=== PATIENT | male | born 1965 | race Caucasian/White ===

== ENCOUNTER 2023-03-22 12:35 | Outpatient (OUT) | payer OTHER, SELFPAY ==
[2023-03-22 13:47] LABS: Basophils Percent Auto 0.5 % (0.2-2.0); Eosinophils Absolute Auto 0.4 10^3/uL (0.0-0.7); Eosinophils Percent Auto 4.6 % (0.9-7.0); Hematocrit 41.5 % (42.0-54.0); Hemoglobin 14.3 g/dL (14.0-18.0); Immature Granulocytes Abs Auto 0.03 10^3/uL (0.00-0.03); Immature Granulocytes Pct Auto 0.4 % (0.0-0.5); Lymphocytes Absolute Auto 2.1 10^3/uL (1.2-3.8); Mean Corpuscular HGB Conc 34.5 g/dL (29.9-35.2); Mean Corpuscular Hemoglobin 29.2 pg (25.9-34.0); Mean Corpuscular Volume 84.7 fL (80.0-94.0); Mean Platelet Volume 10.2 fL (9.5-13.5); Monocytes Absolute Auto 0.7 10^3/uL (0.3-0.8); Monocytes Percent Auto 8.6 % (1.7-12.0); Neutrophils Absolute Auto 4.7 10^3/uL (1.4-6.5); Neutrophils Percent Auto 59.9 % (43.0-75.0); Platelet Count 195 10^3/uL (150-450); Red Cell Distribution Width 13.3 % (11.0-15.0); White Blood Count 7.9 10^3/uL (4.0-11.0)
[2023-03-22 14:43] LABS: Alanine Aminotransferase 83 U/L (16-63); Albumin Globulin Ratio 1.2; Alkaline Phosphatase 51 U/L (46-116); Anion Gap 13.6; Aspartate Amino Transferase 37 U/L (15-37); BUN Creatinine Ratio 17.2; Bilirubin Total 0.6 mg/dL (0.2-1.0); Calcium 8.8 mg/dL (8.5-10.1); Carbon Dioxide 25.5 mmol/L (21.0-32.0); Chloride 105 mmol/L (98-107); Chol HDL Ratio 3.9; Cholesterol 140 mg/dL (<=200); Estimated GFR (African America >60 (>=60); Estimated GFR (Non-African Ame >60 (>=60); Globulin 3.3 g/dL; Glucose 105 mg/dL (74-106); HDL Cholesterol 36 mg/dL (40-60); Potassium 4.1 mmol/L (3.5-5.1); Sodium 140 mmol/L (136-145); Total Protein 7.3 g/dL (6.4-8.2); Triglycerides 203 mg/dL (<=150); Uric Acid 6.4 mg/dL (3.5-7.2); VLDL CHOLESTEROL 40.6 mg/dL
[2023-03-22 14:47] LABS: Prostate Specific Antigen Scrn <0.13 ng/mL (<=4.00)
[2023-03-22 15:33] LABS: Estimated Average Glucose 131 mg/dL; Glycohemoglobin A1C 6.2 % (4.5-6.2)
[2023-03-23 11:09] LABS: Insulin 13.3 uIU/mL (2.6-24.9)
== END 2023-03-22 12:36 | disposition home or self-care (01) ==
LOC: LAB 12:38
PROVIDERS: PCP Family Medicine; Visit Provider Family Medicine
DX: Z00.00 Encounter for general adult medical examination without abnormal findings (principal); Z12.5 Encounter for screening for malignant neoplasm of prostate
CPT/HCPCS: 36415; 80053; 80061; 83036; 83525; 84550; 85025; G0103

== ENCOUNTER 2023-07-10 20:07 | Emergency (ER) | payer OTHER, SELFPAY ==
[2023-07-10] VITALS (17 sets, daily range): BP systolic 129–167; BP diastolic 79–101; PULSE 65–78; RESP 14–26; TEMP 36.6; O2SAT 90–99; BMI 25.1
--- NOTE | 2023-07-10 20:31 | XR_ITS ---
The [address] [address] Patient Name: ELIZA JUAN MRN: [id number] date: 1965 Sex: M Assigned Patient Location: ER Current Patient Location: ER Accession/Order Number: [id number] Exam Date: 07/10/2023 20:41 Report Date: 07/10/2023 21:08 At the request of: LORA MEJIA Procedure: XR chest 2V EXAMINATION: XR chest 2V HISTORY: Chest pain, cough and dyspnea COMPARISON: Chest x-rays 08/21/2019 TECHNIQUE: PA and lateral chest x-rays FINDINGS: The lung parenchyma is free of consolidation or infiltrate. No pneumothorax or pleural effusion. The cardiac, mediastinal and hilar contours are normal. The visualized osseous structures exhibit no gross abnormality. XR/XR chest 2V IMPRESSION: No acute cardiopulmonary abnormality. Electronically authenticated by: CHIN RODRIGUEZ Date: 07/10/2023 21:08
--- NOTE | 2023-07-10 20:31 | ECG_ITS ---
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
[2023-07-10 20:38] LABS: Basophils Absolute Auto 0.1 10^3/uL (0.0-0.1); Basophils Percent Auto 0.5 % (0.2-2.0); Eosinophils Absolute Auto 0.3 10^3/uL (0.0-0.7); Eosinophils Percent Auto 3.7 % (0.9-7.0); Hematocrit 41.9 % (42.0-54.0); Immature Granulocytes Abs Auto 0.04 10^3/uL (0.00-0.03); Immature Granulocytes Pct Auto 0.4 % (0.0-0.5); Lymphocytes Absolute Auto 2.8 10^3/uL (1.2-3.8); Lymphocytes Percent Auto 30.6 % (20.5-60.0); Mean Corpuscular HGB Conc 33.4 g/dL (29.9-35.2); Mean Corpuscular Hemoglobin 29.2 pg (25.9-34.0); Mean Corpuscular Volume 87.3 fL (80.0-94.0); Monocytes Absolute Auto 0.7 10^3/uL (0.3-0.8); Monocytes Percent Auto 7.7 % (1.7-12.0); Neutrophils Absolute Auto 5.3 10^3/uL (1.4-6.5); Neutrophils Percent Auto 57.1 % (43.0-75.0); Platelet Count 202 10^3/uL (150-450); Red Cell Distribution Width 13.4 % (11.0-15.0); White Blood Count 9.3 10^3/uL (4.0-11.0)
--- NOTE | 2023-07-10 20:46 | ED.CHESTPAI1 ---
HPI - Chest Pain General Chief Complaint: Chest Pain Stated Complaint: CHEST TIGHTNESS SOB Time Seen by Provider: 07/10/23 20:20 Source: patient Mode of arrival: walk-in Limitations: no limitations History of Present Illness HPI narrative: 58-year-old male presents her chief complaint of right sided chest wall pain. He states the pain is increased with deep inspiration and movement. He's had cough and congestion for the past couple of weeks. He states the pain was worse today. He does have a history of an myocardial infarction in the past. States this pain is not similar to previous chest pain he had. He is afebrile. Dry nonproductive cough. Exacerbating factors: Reports inspiration and movement Related Data Home Medications Medication Instructions Recorded Confirmed atorvastatin 80 mg tablet 80 mg PO DAILY 07/10/23 07/10/23 carvedilol 3.125 mg tablet 3.125 mg PO BID 07/10/23 07/10/23 dutasteride 0.5 mg capsule 0.5 mg PO DAILY 07/10/23 07/10/23 lisinopril 5 mg tablet 5 mg PO DAILY 07/10/23 07/10/23 Allergies Allergy/AdvReac Type Severity Reaction Status Date / Time ibuprofen Allergy Severe Verified 07/10/23 20:19 Review of Systems ROS Narrative All Systems are negative except as noted/marked.All systems reviewed and otherwise negative Exam Narrative Exam Narrative: Patient is a All Systems are negative except as noted/marked.All systems reviewed and otherwise negative Nurses note and vital signs reviewed and patient is not hypoxic. General: The patient appears well and in no apparent distress. Patient is resting comfortably on cart. Skin: Warm, dry, no pallor noted. There is no rash noted. Head: Normocephalic, atraumatic Eye: Normal conjunctiva, no drainage, EOMI. PERRL Ears, Nose, Mouth, and Throat: oral mucosa is moist. Nares patent. Mouth without vesicles. Ear canals patent. Tm's without Erythema Cardiovascular: Regular Rate and Rhythm Respiratory: Patient is in no distress, no accessory muscle use, lungs are clear to auscultation, no wheezing, rales or rhonchi Back: non-tender, no CVA tenderness bilaterally to percussion. Musculoskeletal: The patient has no evidence of calf tenderness, no pitting edema, symmetrical pulses noted bilaterally Neurological: A&O x4, normal speech Psychiatric: Cooperative Constitutional Vital Signs, click to edit/add: Last Vital Signs Temp 98 F 07/10/23 20:11 Pulse 78 07/10/23 21:13 Resp 18 07/10/23 21:13 BP 136/94 H 07/10/23 20:30 Pulse Ox 98 07/10/23 21:13 O2 Del Method Room Air 07/10/23 21:13 Course Vital Signs Vital signs: Vital Signs Temperature 98 F 07/10/23 20:11 Pulse Rate 71 07/10/23 20:11 Respiratory Rate 21 07/10/23 20:11 Blood Pressure 166/100 H 07/10/23 20:11 Pulse Oximetry 98 07/10/23 20:11 Oxygen Delivery Method Room Air 07/10/23 20:11 Temperature 98 F 07/10/23 20:11 Pulse Rate 78 07/10/23 21:13 Respiratory Rate 18 07/10/23 21:13 Blood Pressure 136/94 H 07/10/23 20:30 Pulse Oximetry 98 07/10/23 21:13 Oxygen Delivery Method Room Air 07/10/23 21:13 MDM - Chest Pain MDM Narrative Medical decision making narrative: patient presented here chief complaint of chest pain.. A heart attack in the past. This pain is under the right rib cage and is reproducible with deep inspiration and movement. Patient is pleuritic in nature she's had cough and congestion for last couple weeks. Chest x-ray showed no acute abnormalities. Patient's been afebrile with a cough for the past couple weeks. CBC BMP and troponin are all negative EKG was also normal. Patient was medicated with ten of Decadron as he is ALLERGIC to ibuprofen. Discharged from diagnosis chest wall pain, costochondritis. Reasons to return to emergency room were discussed. Differential Diagnosis Differential diagnosis: Likely costochondritis and chest pain Medical Records Data Attestation: I reviewed the patient's medical records. Lab Data Attestation: I reviewed the patient's lab results. Labs: Lab Results 07/10/23 Range/Units 20:19 WBC 9.3 (4.0-11.0) 10^3/uL RBC 4.80 (4.70-6.10) 10^6/uL Hgb 14.0 (14.0-18.0) g/dL Hct 41.9 L (42.0-54.0) % MCV 87.3 (80.0-94.0) fL MCH 29.2 (25.9-34.0) pg MCHC 33.4 (29.9-35.2) g/dL RDW 13.4 (11.0-15.0) % Plt Count 202 (150-450) 10^3/uL MPV 10.0 (9.5-13.5) fL Neut % (Auto) 57.1 (43.0-75.0) % Lymph % (Auto) 30.6 (20.5-60.0) % Harmon % (Auto) 7.7 (1.7-12.0) % Eos % (Auto) 3.7 (0.9-7.0) % Baso % (Auto) 0.5 (0.2-2.0) % Neut # (Auto) 5.3 (1.4-6.5) 10^3/uL Lymph # (Auto) 2.8 (1.2-3.8) 10^3/uL Harmon # (Auto) 0.7 (0.3-0.8) 10^3/uL Eos # (Auto) 0.3 (0.0-0.7) 10^3/uL Baso # (Auto) 0.1 (0.0-0.1) 10^3/uL Abs Immat Gran (auto) 0.04 H (0.00-0.03) 10^3/uL Imm/Tot Granulo (auto) 0.4 (0.0-0.5) % Sodium 134 L (136-145) mmol/L Potassium 3.4 L (3.5-5.1) mmol/L Chloride 102 (98-107) mmol/L Carbon Dioxide 26.4 (21.0-32.0) mmol/L Anion Gap 9.0 BUN 16.0 (7.0-18.0) mg/dL Creatinine 1.05 (0.70-1.30) mg/dL Est GFR ( Amer) >60 (>=60) Est GFR (Non-Af Amer) >60 (>=60) BUN/Creatinine Ratio 15.2 Glucose 129 H (74-106) mg/dL Calcium 8.9 (8.5-10.1) mg/dL Total Bilirubin 0.4 (0.2-1.0) mg/dL AST 32 (15-37) U/L ALT 59 (16-63) U/L Alkaline Phosphatase 44 L (46-116) U/L Troponin I High Sens 6.6 (4.0-76.1) pg/mL Total Protein 7.0 (6.4-8.2) g/dL Albumin 3.8 (3.4-5.0) g/dL Globulin 3.2 g/dL Albumin/Globulin Ratio 1.2 Imaging Data Chest x-ray: Radiologist's impression: Patient Name: ELIZA JUAN MRN: [id number] date: 1965 Sex: M Assigned Patient Location: ER Current Patient Location: ER Accession/Order Number: [id number] Exam Date: 07/10/2023 20:41 Report Date: 07/10/2023 21:08 At the request of: LORA MEJIA Procedure: XR chest 2V EXAMINATION: XR chest 2V HISTORY: Chest pain, cough and dyspnea COMPARISON: Chest x-rays 08/21/2019 TECHNIQUE: PA and lateral chest x-rays FINDINGS: The lung parenchyma is free of consolidation or infiltrate. No pneumothorax or pleural effusion. The cardiac, mediastinal and hilar contours are normal. The visualized osseous structures exhibit no gross abnormality. IMPRESSION: No acute cardiopulmonary abnormality. Electronically ECG Data Interpretation: 2016 sinuses are normal with a rate67 bpm RI interval 162 ms QRS duration 98 ms,no STEMI Heart Score History: Slightly/Non-Suspicious ECG: Normal Age: >45-<65 years Risk Factors: 1 or 2 Risk Factors Troponin: <Normal Limit Total Heart Score Recommendations & Risks:: 2 Discharge Plan Discharge Chief Complaint: Chest Pain Clinical Impression: Chest pain, Acute costochondritis Patient Disposition: Home, Self-Care Time of Disposition Decision: 21:18 Condition: Good Prescriptions / Home Meds: No Action carvedilol 3.125 mg tablet 3.125 mg PO BID lisinopril 5 mg tablet 5 mg PO DAILY atorvastatin 80 mg tablet 80 mg PO DAILY dutasteride 0.5 mg capsule 0.5 mg PO DAILY Instructions: Costochondritis (ED), Chest Wall Pain (ED) Stand Alone Forms: Portal Instructions Referrals: Alejo Louis MD [Primary Care Provider] - 1 week
[2023-07-10 20:49] LABS: Alanine Aminotransferase 59 U/L (16-63); Albumin Globulin Ratio 1.2; Albumin Level 3.8 g/dL (3.4-5.0); Alkaline Phosphatase 44 U/L (46-116); Aspartate Amino Transferase 32 U/L (15-37); BUN Creatinine Ratio 15.2; Bilirubin Total 0.4 mg/dL (0.2-1.0); Calcium 8.9 mg/dL (8.5-10.1); Carbon Dioxide 26.4 mmol/L (21.0-32.0); Chloride 102 mmol/L (98-107); Estimated GFR (African America >60 (>=60); Estimated GFR (Non-African Ame >60 (>=60); Globulin 3.2 g/dL; Glucose 129 mg/dL (74-106); Potassium 3.4 mmol/L (3.5-5.1); Sodium 134 mmol/L (136-145)
[2023-07-10 20:51] LABS: Troponin I High Sensitivity 6.6 pg/mL (4.0-76.1)
[2023-07-10] MEDS: DEXAMETHASONE SOD PHOS 10 MG/ML VIAL IV (20:59)
[2023-07-10] MEDS: IPRATROPIUM/ALBUTEROL SULFATE 3 ML AMPUL.NEB IH (21:03)
== END 2023-07-10 21:58 | disposition home or self-care (01) ==
PROVIDERS: Physician Assistant; Emergency Provider Student in an Organized Health Care Education/Training Program; PCP Family Medicine
DX: R07.9 Chest pain, unspecified (principal); M94.0 Chondrocostal junction syndrome [Tietze]; I25.2 Old myocardial infarction; Z79.899 Other long term (current) drug therapy
CPT/HCPCS: 36415; 71046; 80053; 83605; 84484; 85025; 87040; 93005; 94640; 96374; 99285; J1100

== ENCOUNTER 2023-12-27 10:17 | Outpatient (OUT) | payer OTHER, SELFPAY ==
--- OUTSIDE RECORDS SUMMARY | 2023-12-27 10:38 | XMS_ITS | CCD ---
Author Organization [facility] Care Team Providers Care Undercover Cop Name Role Phone ИВАН RAMOS AM Unavailable Unavailable ИВАН RAMOS AM Unavailable Unavailable SELF, REFERRED Unavailable Unavailable HOYVERONICADIONISIO Unavailable Unavailable MS Unavailable Unavailable UNKNOWN, PROVIDER Unavailable Unavailable MORA, NATALIA Unavailable Unavailable MORA, NATALIA Unavailable Unavailable HOY, DIONISIO Unavailable Unavailable UNKNOWN, PROVIDER Unavailable Unavailable Nill, Carroll Nash Admitting Unavailable Nill, Carroll Nash Attending Unavailable Nill, Carroll R Referring Unavailable HaileeyDionisio~[id number] UNKNOWN Primary Care Unavailable MISSY, DR NICHOLE Admitting Unavailable HOY, DR NICHOLE Attending Unavailable HOY, DR NICHOLE Primary Care Unavailable HOY, DR NICHOLE Consulting Unavailable HOY, DR NICHOLE Admitting Unavailable HOY, DR NICHOLE Attending Unavailable HOY, DR NICHOLE Primary Care Unavailable HOY, DR NICHOLE Consulting Unavailable HOY, DR NICHOLE Admitting Unavailable HOY, DR NICHOLE Attending Unavailable HOY, DR NICHOLE Primary Care Unavailable HOY, DR NICHOLE Consulting Unavailable ZIEBER, DR JULIO Nash Consulting Unavailable HOY, DR NICHOLE Admitting Unavailable HOY, DR NICHOLE Attending Unavailable HAILEEY, DR NICHOLE Primary Care Unavailable Allergies Allergy Classification Reported Allergen(s) Allergy Type Date of Onset Reaction(s) Facility (4 sources) ibuprofen; Translations: [ibuprofen] Drug Allergy 08-06-2014 [facility] Repository Problems Active Problems Problem Classification Problem Date Documented Date Episodic/Chronic Acute myocardial infarction (3 sources) Non-ST elevation (NSTEMI) myocardial infarction; Translations: [NON-ST ELEVATION (NSTEMI) MYOCARDIAL INFARCTION] Onset: 11-10-2017 Chronic Coronary atherosclerosis and other heart disease (6 sources) 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; Translations: [Atherosclerotic heart disease of bois forte coronary artery without angina pectoris] Onset: 11-10-2017 Chronic Coronary atherosclerosis and other heart disease (1 source) Presence of coronary angioplasty implant and graft; Translations: [PRESENCE OF CORONARY ANGIOPLASTY IMPLANT AND GRAFT] Onset: 04-04-2018 Episodic Disorders of lipid metabolism (5 sources) Hyperlipidemia, unspecified; Translations: [HYPERLIPIDEMIA, UNSPECIFIED] Onset: 11-10-2017 Chronic Essential hypertension (1 source) Essential (primary) hypertension; Translations: [ESSENTIAL (PRIMARY) HYPERTENSION] Onset: 04-04-2018 Chronic Other aftercare (2 sources) residential (current) use of aspirin; 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] Onset: 04-04-2018 Episodic Other screening for suspected conditions (not mental disorders or infectious disease) (1 source) Encounter for screening for malignant neoplasm of prostate; Translations: [ENC SCREEN MALIG NEOPLASM PROSTATE] Onset: 12-31-2021 Episodic Substance-related disorders (1 source) Nicotine dependence, cigarettes, uncomplicated; Translations: [NICOTINE DEPENDENCE, CIGARETTES, UNCOMPLICATED] Onset: 11-10-2017 Chronic Unclassified (2 sources) Unknown / UNK(Unknown) Onset: 11-10-2017 Past or Other Problems Problem Classification Problem Date Documented Da te Episodic/Chronic Diabetes mellitus without complication (1 source) Other abnormal glucose; Translations: [OTHER ABNORMAL GLUCOSE] Onset: 05-23-2021 Episodic Malaise and fatigue (1 source) Other fatigue; Translations: [OTHER FATIGUE] Onset: 05-23-2021 Episodic Screening or history of mental health and substance abuse (5 sources) Personal history of nicotine dependence; Translations: [PERSONAL HISTORY OF NICOTINE DEPENDENCE] Onset: 04-04-2018 Episodic Unclassified (1 source) Family history of ischemic heart disease and other diseases of the circulatory system; Translations: [FAMILY HX OF ISCHEM HEART DIS AND OTH DIS OF THE CIRC SYS] Onset: 11-10-2017 Episodic Results Test Name Value Interpretation Reference Range Facility INSULINon 12-30-2021 Insulin 13.7 uIU/mL Normal 2.6-24.9 [facility] Comment on above: Performed By: #### URIC, CMP, LIPID #### [facility] [address] [address] [address] Kami Torres CBC AUTO DIFFon 12-29-2021 BASO # 0.1 103/ul Normal 0.0-0.1 [facility] Comment on above: Performed By: #### CBC #### [facility] [address] [address] [address] Kami Torres Basophils/100 WBC (Bld) 0.7 % Normal 0.2-2.0 [facility] Comment on above: Performed By: #### CBC #### [facility] [address] [address] [address] Kami Torres EO # 0.4 103/ul Normal 0.0-0.7 [facility] Comment on above: Performed By: #### CBC #### [facility] [address] [address] [address] Kami Torres Eosinophils/100 WBC (Bld) 5.8 % Normal 0.9-7.0 [facility] Comment on above: Performed By: #### CBC #### [facility] [address] [place] [address] Dr. Kami Torres Erythrocyte distribution width (RBC) [Ratio] 13.5 % Normal 11.0-15.0 [facility] Comment on above: Performed By: #### CBC #### [facility] [address] [address] [address] Kami Torres Hematocrit (Bld) [Volume fraction] 41.8 % Critically low 42.0-54.0 [facility] Comment on above: Performed By: #### CBC #### [facility] [address] [place] [address] Dr. Kami Torres Hemoglobin (Bld) [Mass/Vol] 13.6 g/dL Critically low 14.0-18.0 [facility] Comment on above: Performed By: #### CBC #### [facility] [address] [address] [address] Kami Torres IG # 0.05 10e3/ul Critically high 0.00-0.03 [facility] Comment on above: Performed By: #### CBC #### [facility] [address] [address] [address] Kami Torres IG % 0.7 % Critically high 0.0-0.5 [facility] Comment on above: Performed By: #### CBC #### [facility] [address] [place] [address] Dr. Kami Torres LYMPH # 2.2 103/ul Normal 1.2-3.8 [facility] Comment on above: Performed By: #### CBC #### [facility] [address] [place] [address] Dr. Kami Torres Lymphocytes/100 WBC (Bld) 32.5 % Normal 20.5-60.0 [facility] Comment on above: Performed By: #### CBC #### [facility] [address] [place] [address] Dr. Kami Torres MANUAL DIFF REQ NO Normal [facility] Comment on above: Performed By: #### CBC #### [facility] [address] [place] [address] Dr. Kami Torres MCH (RBC) [Entitic mass] 27.9 pg Normal 25.9-34.0 [facility] Comment on above: Performed By: #### CBC #### [facility] [address] [place] [address] Dr. Kami Torres MCHC (RBC) [Mass/Vol] 32.5 g/dL Normal 29.9-35.2 [facility] Comment on above: Performed By: #### CBC #### [facility] [address] [place] [address] Dr. Kami Torres MCV (RBC) [Entitic vol] 85.7 fL Normal 80.0-94.0 [facility] Comment on above: Performed By: #### CBC #### [facility] [address] [place] [address] Dr. Kami Torres MONO # 0.6 103/ul Normal 0.3-0.8 [facility] Comment on above: Performed By: #### CBC #### [facility] [address] [place] [address] Dr. Kami Torres Monocytes/100 WBC (Bld) 8.4 % Normal 1.7-12.0 [facility] Comment on above: Performed By: #### CBC #### [facility] [address] [place] [address] Dr. Kami Torres NEUT # 3.5 103/ul Normal 1.4-6.5 [facility] Comment on above: Performed By: #### CBC #### [facility] [address] [place] [address] Dr. Kami Torres Neutrophils/100 WBC (Bld) 51.9 % Normal 43.0-75.0 [facility] Comment on above: Performed By: #### CBC #### [facility] [address] [place] [address] Dr. Kami Torres Platelet mean volume (Bld) [Entitic vol] 9.9 fL Normal 9.5-13.5 [facility] Comment on above: Performed By: #### CBC #### [facility] [address] [place] [address] Dr. Kami Torres PLT 191 103/ul Normal 150-450 [facility] Comment on above: Performed By: #### CBC #### [facility] [address] [place] [address] Dr. Kami Torres RBC 4.88 106/ul Normal 4.70-6.10 [facility] Comment on above: Performed By: #### CBC #### [facility] [address] [place] [address] Dr. Kami Torres WBC 6.7 103/ul Normal 4.0-11.0 [facility] Comment on above: Performed By: #### CBC #### [facility] [address] [place] [address] Dr. Kami Torres GLYCOHEMOGLOBIN A1Con 2021 ADA RECOMMENDATION SEE BELOW Normal [facility] Comment on above: Result Comment: ADA RECOMMENDED LIMIT 4. 0 - 6.0 ADA THERAPEUTIC TARGET < 7.0 ACTION SUGGESTED > 7.0 Performed By: #### A 1C #### [facility] [address] [place] [address] Dr. Kami Torres Glucose [Mass/Vol] 131 mg/dL Normal [facility] Comment on above: Performed By: #### A1C #### [facility] [address] [place] [address] Dr. Kami Torres HbA1c (Bld) [Mass fraction] 6.2 % Normal 4.5-6.2 [facility] Comment on above: Performed By: #### A1C #### [facility] [address] [address] [address] Kami Torres LIPID PROFILEon 12-29-2021 CHOL-HDL RATIO NORM SEE BELOW Normal [facility] Comment on above: Result Comment: 3.3 - 4.4 LOW RISK 4.4 - 7.1 AVERAGE RISK 7.1 - 11.0 MODERATE RISK >11.0 HIGH RISK Performed By: #### U AMBERLY, CMP, LIPID #### [facility] [address] [address] [address] Kami Torres Cholesterol [Mass/Vol] 151 mg/dL Normal <=200 [facility] Comment on above: Performed By: #### URIC, CMP, LIPID #### [facility] [address] [address] [address] Kami Torres Cholesterol in HDL [Mass/Vol] 40 mg/dL Normal 40-60 [facility] Comment on above: Performed By: #### URIC, CMP, LIPID #### [facility] [address] [address] [address] Kami Torres Cholesterol in LDL [Mass/Vol] 77.6 mg/dL Normal [facility] Comment on above: Performed By: #### URIC, CMP, LIPID #### [facility] [address] [address] [address] Kami Torres Cholesterol.tota l/Cholesterol in HDL [Mass ratio] 3.8 {ratio} Normal [facility] Comment on above: Performed By: #### URIC, CMP, LIPID #### [facility] [address] [address] [address] Kami Torres HDL NORMAL > or = 60 mg/dl - LO W CARDIOVASCULAR RISK <40 mg/dl - HIGH CARDIOVASCULAR RISK Normal [facility] Comment on above: Performed By: #### URIC, CMP, LIPID #### [facility] [address] [address] [address] Kami Torres LDL CALC NORMAL SEE BELOW Normal [facility] Comment on above: Result Comment: <100 mg/dl OPTIMAL 100 - 129 mg/dl NEAR OR ABOVE OPTIMAL 130 - 159 mg/dl BORDERLINE HIGH 160 - 189 mg/dl HIGH >190 mg/dl VERY HIGH Performed By: #### U AMBERLY, CMP, LIPID #### [facility] [address] [place] [address] Dr. Kami Torres Triglyceride [Mass/Vol] 167 mg/dL Critically high <=150 [facility] Comment on above: Performed By: #### URIC, CMP, LIPID #### [facility] [address] [place] [address] Dr. Kami Torres VLDL CALC 33.4 mg/dL Normal [facility] Comment on above: Performed By: #### URIC, CMP, LIPID #### [facility] [address] [place] [address] Dr. Kami Torres PROF 14(COMP METB)on 022 Albumin [Mass/Vol] 3.7 g/dL Normal 3.4-5.0 [facility] Comment on above: Performed By: #### URIC, CMP, LIPID #### [facility] [address] [place] [address] Dr. Kami Torres Albumin/Globulin [Mass ratio] 1.3 {ratio} Normal [facility] Comment on above: Performed By: #### URIC, CMP, LIPID #### [facility] [address] [place] [address] Dr. Kami Torres ALP [Catalytic activity/Vol] 40 U/L Critically low 46-116 [facility] Comment on above: Performed By: #### URIC, CMP, LIPID #### [facility] [address] [place] [address] Dr. Kami Torres ALT [Catalytic activity/Vol] 79 U/L Critically high 16-63 [facility] Comment on above: Performed By: #### URIC, CMP, LIPID #### [facility] [address] [place] [address] Dr. Kami Torres Anion gap [Moles/Vol] 10.2 mmol/L Normal [facility] Comment on above: Performed By: #### URIC, CMP, LIPID #### [facility] [address] [place] [address] Dr. Kami Torres AST [Catalytic activity/Vol] 32 U/L Normal 15-37 [facility] Comment on above: Performed By: #### URIC, CMP, LIPID #### [facility] [address] [place] [address] Dr. Kami Torres Bilirubin [Mass/Vol] 0.5 mg/dL Normal 0.2-1.0 [facility] Comment on above: Performed By: #### URIC, CMP, LIPID #### [facility] [address] [place] [address] Dr. Kami Torres Calcium [Mass/Vol] 8.3 mg/dL Critically low 8.5-10.1 [facility] Comment on above: Performed By: #### URIC, CMP, LIPID #### [facility] [address] [place] [address] Dr. Kami Torres Chloride [Moles/Vol] 107 mmol/L Normal 98-107 [facility] Comment on above: Performed By: #### URIC, CMP, LIPID #### [facility] [address] [place] [address] Dr. Kami Torres CO2 [Moles/Vol] 26.1 mmol/L Normal 21.0-32.0 [facility] Comment on above: Performed By: #### URIC, CMP, LIPID #### [facility] [address] [place] [address] Dr. Kami Torres Creatinine [Mass/Vol] 0.95 mg/dL Normal 0.70-1.30 [facility] Comment on above: Performed By: #### URIC, CMP, LIPID #### [facility] [address] [place] [address] Dr. Kami Torres EGFR-AF BOLIVIAN >60 Normal >=60 [facility] Comment on above: Performed By: #### URIC, CMP, LIPID #### [facility] [address] [place] [address] Dr. Kami Torres EGFR-NON AF BOLIVIAN >60 Normal >=60 [facility] Comment on above: Performed By: #### URIC, CMP, LIPID #### [facility] [address] [place] [address] Dr. Kami Torres Globulin (S) [Mass/Vol] 2.9 g/dL Normal [facility] Comment on above: Performed By: #### URIC, CMP, LIPID #### [facility] [address] [place] [address] Dr. Kami Torres Glucose [Mass/Vol] 96 mg/dL Normal 74-106 [facility] Comment on above: Performed By: #### URIC, CMP, LIPID #### [facility] [address] [place] [address] Dr. Kami Torres Potassium [Moles/Vol] 4.3 mmol/L Normal 3.5-5.1 [facility] Comment on above: Performed By: #### URIC, CMP, LIPID #### [facility] [address] [place] [address] Dr. Kami Torres Protein [Mass/Vol] 6.6 g/dL Normal 6.1-8.2 [facility] Comment on above: Performed By: #### URIC, CMP, LIPID #### [facility] [address] [place] [address] Dr. Kami Torres Sodium [Moles/Vol] 139 mmol/L Normal 136-145 [facility] Comment on above: Performed By: #### URIC, CMP, LIPID #### [facility] [address] [place] [address] Dr. Kami Torres Urea nitrogen [Mass/Vol] 14.0 mg/dL Normal 7.0-18.0 [facility] Comment on above: Performed By: #### URIC, CMP, LIPID #### [facility] [address] [place] [address] Dr. Kami Torres Urea nitrogen/Creatin ine [Mass ratio] 14.7 mg/mg Normal [facility] Comment on above: Performed By: #### URIC, CMP, LIPID #### [facility] [address] [place] [address] Dr. Kami Torres URIC ACID SERUMon 12-29-2021 Urate [Mass/Vol] 6.4 mg/dL Normal 3.5-8.5 [facility] Comment on above: Performed By: #### URIC, CMP, LIPID #### [facility] [address] [place] [address] Dr. Kami Torres CBC AUTO DIFFon 05-19-2021 BASO # 0.1 103/ul Normal 0.0-0.1 [facility] Comment on above: Performed By: #### URIC, CMP, LIPID #### [facility] [address] [place] [address] Dr. Kami Torres Basophils/100 WBC (Bld) 0.7 % Normal 0.2-2.0 [facility] Comment on above: Performed By: #### URIC, CMP, LIPID #### [facility] [address] [place] [address] Dr. Kami Torres EO # 0.9 103/ul Critically high 0.0-0.7 [facility] Comment on above: Performed By: #### URIC, CMP, LIPID #### [facility] [address] [place] [address] Dr. Kami Torres Eosinophils/100 WBC (Bld) 11.3 % Critically high 0.9-7.0 [facility] Comment on above: Performed By: #### URIC, CMP, LIPID #### [facility] [address] [place] [address] Dr. Kami Torres Erythrocyte distribution width (RBC) [Ratio] 13.2 % Normal 11.0-15.0 [facility] Comment on above: Performed By: #### URIC, CMP, LIPID #### [facility] [address] [place] [address] Dr. Kami Torres Hematocrit (Bld) [Volume fraction] 43.7 % Normal 42.0-54.0 [facility] Comment on above: Performed By: #### URIC, CMP, LIPID #### [facility] [address] [place] [address] Dr. Kami Torres Hemoglobin (Bld) [Mass/Vol] 14.6 g/dL Normal 14.0-18.0 [facility] Comment on above: Performed By: #### URIC, CMP, LIPID #### [facility] [address] [place] [address] Dr. Kami Torres IG # 0.05 10e3/ul Critically high 0.00-0.03 [facility] Comment on above: Performed By: #### URIC, CMP, LIPID #### [facility] [address] [place] [address] Dr. Kami Torres IG % 0.6 % Critically high 0.0-0.5 [facility] Comment on above: Performed By: #### URIC, CMP, LIPID #### [facility] [address] [address] [address] Kami Torres LYMPH # 2.0 103/ul Normal 1.2-3.8 [facility] Comment on above: Performed By: #### URIC, CMP, LIPID #### [facility] [address] [place] [address] Dr. Kami Torres Lymphocytes/100 WBC (Bld) 24.3 % Normal 20.5-60.0 [facility] Comment on above: Performed By: #### URIC, CMP, LIPID #### [facility] [address] [place] [address] Dr. Kami Torres MANUAL DIFF REQ NO Normal [facility] Comment on above: Performed By: #### URIC, CMP, LIPID #### [facility] [address] [place] [address] Dr. Kami Torres MCH (RBC) [Entitic mass] 29.0 pg Normal 25.9-34.0 [facility] Comment on above: Performed By: #### URIC, CMP, LIPID #### [facility] [address] [place] [address] Dr. Kami Torres MCHC (RBC) [Mass/Vol] 33.4 g/dL Normal 29.9-35.2 [facility] Comment on above: Performed By: #### URIC, CMP, LIPID #### [facility] [address] [place] [address] Dr. Kami Torres MCV (RBC) [Entitic vol] 86.9 fL Normal 80.0-94.0 [facility] Comment on above: Performed By: #### URIC, CMP, LIPID #### [facility] [address] [place] [address] Dr. Kami Torres MONO # 0.7 103/ul Normal 0.3-0.8 [facility] Comment on above: Performed By: #### URIC, CMP, LIPID #### [facility] [address] [address] [address] Kami Torres Monocytes/100 WBC (Bld) 8.1 % Normal 1.7-12.0 [facility] Comment on above: Performed By: #### URIC, CMP, LIPID #### [facility] [address] [place] [address] Dr. Kami Torres NEUT # 4.5 103/ul Normal 1.4-6.5 [facility] Comment on above: Performed By: #### URIC, CMP, LIPID #### [facility] [address] [place] [address] Dr. Kami Torres Neutrophils/100 WBC (Bld) 55.0 % Normal 43.0-75.0 [facility] Comment on above: Performed By: #### URIC, CMP, LIPID #### [facility] [address] [place] [address] Dr. Kami Torres Platelet mean volume (Bld) [Entitic vol] 10.0 fL Normal 9.5-13.5 [facility] Comment on above: Performed By: #### URIC, CMP, LIPID #### [facility] [address] [place] [address] Dr. Kami Torres PLT 185 103/ul Normal 150-450 [facility] Comment on above: Performed By: #### URIC, CMP, LIPID #### [facility] [address] [place] [address] Dr. Kami Torres RBC 5.03 106/ul Normal 4.70-6.10 [facility] Comment on above: Performed By: #### URIC, CMP, LIPID #### [facility] [address] [place] [address] Dr. Kami Torres WBC 8.3 103/ul Normal 4.0-11.0 [facility] Comment on above: Performed By: #### URIC, CMP, LIPID #### [facility] [address] [place], [place] [id number] Dr. Kami Torres GLYCOHEMOGLOBIN A1Con 2020 ADA RECOMMENDATION ADA THERAPEUTIC TARGET 6.0 - 7.0 ACTION SUGGESTED > 7.0 Normal [facility] Comment on above: Performed By: #### A1C #### [facility] [address] [id number] Trace Adriana Glucose [Mass/Vol] 134 mg/dL Normal [facility] Comment on above: Performed By: #### A1C #### [facility] [address] [id number] Trace Adriana HbA1c (Bld) [Mass fraction] 6.3 % Critically high <=6.0 [facility] Comment on above: Performed By: #### A1C #### [facility] [facility] [address] [place] [address] Trace Adriana LIPID PROFILEon 05-19-2021 CHOL-HDL RATIO NORM SEE BELOW Normal [facility] Comment on above: Result Comment: 3.3 - 4.4 LOW RISK 4.4 - 7.1 AVERAGE RISK 7.1 - 11.0 MODERATE RISK >11.0 HIGH RISK Performed By: #### C MP, LIPID #### [facility] [address] [place] [address] Trace Adriana Cholesterol [Mass/Vol] 155 mg/dL Normal <=200 [facility] Comment on above: Performed By: #### CMP, LIPID #### [facility] [address] [place] [address] Trace Adriana Cholesterol in HDL [Mass/Vol] 37 mg/dL Normal [facility] Comment on above: Performed By: #### CMP, LIPID #### [facility] [address] [phone] Trace Adriana Cholesterol in LDL [Mass/Vol] 49.2 mg/dL Normal [facility] Comment on above: Performed By: #### CMP, LIPID #### [facility] [address] [phone] Trace Adriana Cholesterol.tota l/Cholesterol in HDL [Mass ratio] 4.2 {ratio} Normal [facility] Comment on above: Performed By: #### CMP, LIPID #### [facility] [address] [place], [place] [address] Trace Adriana HDL NORMAL > or = 60 mg/dl - LO W CARDIOVASCULAR RISK <40 mg/dl - HIGH CARDIOVASCULAR RISK Normal [facility] Comment on above: Performed By: #### CMP, LIPID #### [facility] [address] [phone] Trace Adriana LDL CALC NORMAL SEE BELOW Normal [facility] Comment on above: Result Comment: <100 mg/dl OPTIMAL 100 - 129 mg/dl NEAR OR ABOVE OPTIMAL 130 - 159 mg/dl BORDERLINE HIGH 160 - 189 mg/dl HIGH >190 mg/dl VERY HIGH Performed By: #### C MP, LIPID #### [facility] [address] [phone] Trace Adriana Triglyceride [Mass/Vol] 344 mg/dL Critically high <=150 [facility] Comment on above: Performed By: #### CMP, LIPID #### [facility] [address] [phone] Trace Adriana VLDL CALC 68.8 mg/dL Normal [facility] Comment on above: Performed By: #### CMP, LIPID #### [facility] [address] [place], [place] [id number] Tracenicholas Rodasen PROF 14(COMP METB)on 021 Albumin [Mass/Vol] 3.9 g/dL Normal 3.5-5.0 [facility] Comment on above: Performed By: #### CMP, LIPID #### [facility] [address] [place], [place] [phone] Trace Adriana Albumin/Globulin [Mass ratio] 1.2 {ratio} Normal [facility] Comment on above: Performed By: #### CMP, LIPID #### [facility] [address] [place], [place] [phone] Trace Adriana ALP [Catalytic activity/Vol] 50 U/L Normal 38-126 [facility] Comment on above: Performed By: #### CMP, LIPID #### [facility] [address] [place], [place] [phone] Trace Adriaan ALT [Catalytic activity/Vol] 79 U/L Critically high 21-72 [facility] Comment on above: Performed By: #### CMP, LIPID #### [facility] [address] [phone] Trace Adriana Anion gap [Moles/Vol] 13.8 mmol/L Normal [facility] Comment on above: Performed By: #### CMP, LIPID #### [facility] [address] [phone] Trace Adriana AST [Catalytic activity/Vol] 30 U/L Normal 17-59 [facility] Comment on above: Performed By: #### CMP, LIPID #### [facility] [address] [phone] Trace Adriana Bilirubin [Mass/Vol] 0.6 mg/dL Normal 0.2-1.3 [facility] Comment on above: Performed By: #### CMP, LIPID #### [facility] [address] [address] Trace Adriana Calcium [Mass/Vol] 9.2 mg/dL Normal 8.4-10.2 [facility] Comment on above: Performed By: #### CMP, LIPID #### [facility] [address] [phone] Trace Adriana Chloride [Moles/Vol] 103 mmol/L Normal 98-107 [facility] Comment on above: Performed By: #### CMP, LIPID #### [facility] [address] [address] Trace Adriana CO2 [Moles/Vol] 25.5 mmol/L Normal 22.0-30.0 [facility] Comment on above: Performed By: #### CMP, LIPID #### [facility] [address] [phone] Trace Adriana Creatinine [Mass/Vol] 0.89 mg/dL Normal 0.66-1.25 [facility] Comment on above: Performed By: #### CMP, LIPID #### [facility] [address] [phone] Trace Adriana EGFR-AF BOLIVIAN >60 Normal >=60 [facility] Comment on above: Performed By: #### CMP, LIPID #### [facility] [address] [phone] Trace Adriana EGFR-NON AF BOLIVIAN >60 Normal >=60 [facility] Comment on above: Performed By: #### CMP, LIPID #### [facility] [address] [phone] Trace Adriana Globulin (S) [Mass/Vol] 3.3 g/dL Normal [facility] Comment on above: Performed By: #### CMP, LIPID #### [facility] [address] [address] Trace Adriana Glucose [Mass/Vol] 103 mg/dL Normal 74-106 [facility] Comment on above: Performed By: #### CMP, LIPID #### [facility] [address] [place] [address] Trace Adriana Potassium [Moles/Vol] 4.3 mmol/L Normal 3.4-5.0 [facility] Comment on above: Performed By: #### CMP, LIPID #### [facility] [address] [address] Trace Adriana Protein [Mass/Vol] 7.2 g/dL Normal 6.1-8.2 [facility] Comment on above: Performed By: #### CMP, LIPID #### [facility] [address] [place] [address] Trace Adriana Sodium [Moles/Vol] 138 mmol/L Normal 137-145 [facility] Comment on above: Performed By: #### CMP, LIPID #### [facility] [address] [address] Trace Adriana Urea nitrogen [Mass/Vol] 14.0 mg/dL Normal 9.0-20.0 [facility] Comment on above: Performed By: #### CMP, LIPID #### [facility] [address] [phone] Trace Adriana Urea nitrogen/Creatin ine [Mass ratio] 15.7 mg/mg Normal [facility] Comment on above: Performed By: #### CMP, LIPID #### [facility] [address] [phone] [address] LUNG CANCER SCREENINGon 0 01-06-2021 CT LUNG CANCER SCREENING EXAMINATION: CT LUNG CANCER SCREENING HISTORY: Nicotine dependence COMPARISON: No relevant comparison available. TECHNIQUE: Axial, Coronal, and Sagittal images were created without the administration of IV contrast material. Dose reduction techniques were achieved by using automated exposure control and/or adjustment of mA and/or kV according to patient size and/or use of iterative reconstruction technique. FINDINGS: LUNGS: No visible pulmonary disease. PLEURA: No mass, effusion, or pneumothorax. VASCULATURE: No abnormality. ZULMA: No mass or pathologic adenopathy. MEDIASTINUM: No mass or pathologic adenopathy. CARDIAC: No enlargement, pericardial thickening, or significant calcification. AORTA: No aneurysm or dissection. CHEST WALL: No mass or axillary adenopathy BONES: No bone lesion or fracture. LIMITED ABDOMEN: No suspicious findings. Limited images of the upper abdomen. OTHER: Negative. IMPRESSION: 1. LUNG SCREENING: Lung-RADS Category 1 Negative. No nodules and definitely benign nodules. Continue annual screening with LDCT in 12 months. Electronically authenticated by: JULIO BERMEO Date: 2021-01-06 09:16 Normal [facility] Coding Summary.on 01-06-2019 Coding Summary. CODING DATE: 019 FINAL [facility] STATUS: Home (Routine DC) PAYOR: Commercial Insurance APC DESCRIPTION 5312 Level 2 Lower GI Procedures ADMIT DX: REASON FOR VISIT DX: R19.5 Other fecal abnormalities FINAL DX: PRINCIPAL: K63.5 Polyp of colon SECONDARY: R19.5 Other fecal abnormalities I10 Essential (primary) hypertension I25.2 Old myocardial infarction Z95.5 Presence of coronary angioplasty implant and graft Z87.891 Personal history of nicotine dependence PYMT PROC APC STAT DESCRIPTION DOCTOR NAME DATE 10075 5312 T Colonoscopy, flexible; [place] MCKEON MD 01/02/2019 with biopsy, single or multiple 13119 Anesthesia for lower Puri Jr. Jovanni GIBSON 01/02/2019 intestinal endoscopic procedures, endoscope introduced distal to duodenum; not otherwise specified NOTE: The code number assigned matches the documented diagnosis and / or procedure in the patient's chart. However, the narrative phrase printed from the coding software may appear abbreviated, or result in slightly different terminology. Revised Coded By: Gertrude Gomez Revised Date Saved: 01/06/2019 12:59 pm Normal [facility] Main OR Intraoperative Recor don 01-04-2019 Main OR Intraoperative Record IntraOp Document Type FT Summary Primary Physician: [place] MCKEON MD Finalized Date/Time: 01/04/19 08:59:41 Pt. Name: ELIZA RAUSCH /Sex: 1965 Male Med Rec #: [id number] Physician: [place] MCKEON MD Financial #: [id number] Pt. Type: O Room/Bed: / Admit/Disch: 01/02/19 07:01:07 - 01/02/19 23:59:59 Institution: Case Times FT Entry 1 Patient Times In Room 01/02/19 07:48:00 Out Room 01/02/19 08:10:00 Procedure Times Start 01/02/19 07:53:00 Stop 01/02/19 08:07:00 Anesthesia Times Start 01/02/19 07:48:00 Stop 01/02/19 08:10:00 Time at [facility] 01/02/19 08:02:00 Last Modified By: Brit Eugene CST 01/02/19 08:10:49 General Comments: 01/04/2019 Chart opened to review and send charges Krys Eugene CST Case Attendance FT Entry 1 Entry 2 Entry 3 Case Attendee Gio [facility], Charlene MCKEON MD, [place] Hong RN, Maricel Marcano Role Performed Anesthesiologist Surgeon - Primary Life Enrichment Assistant - Primary Lap Runner Time In 01/02/19 07:48:00 01/02/19 07:48:00 01/02/19 07:48:00 Time Out 01/02/19 08:10:00 01/02/19 08:10:00 01/02/19 08:10:00 Procedure COLONOSCOPY(.) COLONOSCOPY(.) COLONOSCOPY(.) Comments DR PURI SUPERVISING Last Modified By: Hal RN, Maricel Hong RN, Maricel Hong RN, Maricel Marcano 01/02/19 08:10:50 01/02/19 08:11:02 01/02/19 08:10:50 Entry 4 Case Attendee Manjinder Gonzalez CST Role Performed Scrub - Primary Time In 01/02/19 07:48:00 Time Out 01/02/19 08:10:00 Procedure COLONOSCOPY(.) Comments Last Modified By: Maricel Hong RN 01/02/19 08:10:50 General Comments: ivory maynard and crow nicholson, nursing students, also in room to observe. ismael ruiz, he[employer] student, also in room to observe. 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 Protocols FT Pre-Care Text: Implements protective measures prior to operative or invasive procedure, confirms identity before the operative or invasive procedure, verifies operative procedure, surgical site, and laterality Entry 1 Procedure(s) COLONOSCOPY(.) Patient Identity Birthday, ID Band Verified (select at Check, Patient least 2): Participation Consents / H and P Anesthesia Consent, Operative Site N/A Verified HandP, Surgery/Procedure Marking Verified Consent Surgical Site Yes Laterality Verified n/a Verified Procedure Verified Yes Correct Patient Yes Position Verified Availability Equipment, Medication Prep Dry n/a Verified (If Applicable) PreOp Antibiotic No Time Out Gio SHAFFER, Charlene Benson, Given Participants BLACK LOVELL, Hal Mack RN, [place] Jay CST, Manjinder Time Out Complete 01/02/19 07:52:00 Outcomes Met? Yes Last Modified By: Maricel Hong RN 01/02/19 07:53:22 Post-Care Text: The patient is free from signs and symptoms of injury caused by extraneous objects Allergy Information FT Pre-Care Text: Verifies allergies Entry 1 Allergies Reviewed? Yes Allergies Reviewed Self/Patient With Outcomes Met? Yes Last Modified By: Maricel Hong RN 01/02/19 07:36:31 Post-Care Text: The patient received appropriate medication(s) safely administered during the perioperative period Surgical Procedures FT Entry 1 Procedure Description Procedure COLONOSCOPY Modifiers . Surgeon Description colonoscopy with cold biopsy Primary Procedure Yes Primary Surgeon [place] MCKEON MD Start 01/02/19 07:53:00 Stop 01/02/19 08:07:00 Anesthesia Type General Surgical Service General Wound Class 2 - Clean-Contaminated Last Modified By: Maricel Hong RN 01/02/19 08:11:25 General Case Data FT Pre-Care Text: Classifies surgical wound, implements aseptic technique, initiates traffic control Entry 1 Case Information OR ENDO 2 FT Case Level Level 2 Wound Class 2 - Clean-Contaminated Specialty General ASA Class 3 Preop Diagnosis BLOOD IN STOOL Postop Same As Preop No Postop Diagnosis sigmoid polyp Outcomes Met? Yes Last Modified By: Maricel Hong RN 01/02/19 08:11:11 Post-Care Text: The patient is free from signs and symptoms of infection Skin Assessment (Pre Procedure) FT Pre-Care Text: Implements protective measures to prevent skin/ tissue injury due to thermal or mechanical sources Evaluates for signs and symptoms of physical injury to skin and tissue Entry 1 Skin Integrity Unable to Visualize Skin Abnormality No Outcomes Met? Yes Last Modified By: Maricel Hong RN 01/02/19 07:41:02 Post-Care Text: The patient is free from signs and symptoms of injury caused by extraneous objects Patient Positioning FT Pre-Care Text: Identifies physical alterations that require additional precautions for procedure-specific positioning, verifies presence of prosthetics or corrective devices, positions the patient, evaluates the patient for signs and symptoms of injury as a result of positioning Entry 1 Procedure COLONOSCOPY(.) Body Position Lateral, right side up Feet Uncrossed? Yes Left Arm Position Resting at Side Right Arm Position Resting at Side Left Leg Position Extended Right Leg Position Extended Positioning Device Pillow Under Head Large Press Points Checked Yes By Maricel Hong RN Outcomes Met? Yes Last Modified By: Maricel Hong RN 01/02/19 07:36:43 Post-Care Text: The patient is free from signs and symptoms of injury related to positioning Patient Care Devices FT Pre-Care Text: Implements protective measures to prevent skin/ tissue injury due to thermal or mechanical sources Entry 1 Entry 2 Equipment Type ENDOSCOPY VIDEO MONITOR CHARGE SURGERY SYSTEM[F] [F] Equipment Number ENDO 2 Equipment Setting Outcomes Met? Yes Yes Last Modified By: Maricel Hong RN, RN, Amy J 01/02/19 07:37:13 01/02/19 07:37:13 Post-Care Text: The patient is free from signs and symptoms of injury caused by extraneous objects Transport To OR FT Pre-Care Text: Transports according to individual needs. Evaluates for signs and symptoms of skin and tissue injury as a result of transfer or transport Entry 1 Via Cart By Maricel Hong RN Safety Precautions Side Rails Up Outcomes Met? Yes Last Modified By: Maricel Hong RN 01/02/19 07:37:26 Post-Care Text: The patient is free from signs and symptoms of injury related to transfer/transport Departure From OR FT Pre-Care Text: Transports according to individual needs. Evaluates for signs and symptoms of skin and tissue injury as a result of transfer or transport. Entry 1 Via Cart Safety Precautions Side Rails Up PostOp Destination PACU Transported By Maricel Hong RN Patient Status Stable Skin. Condition Unable to Visualize Description unchanged Airway Maintenance Oxygen in Use? No Outcomes Met? Yes Last Modified By: Maricel Hong RN 01/02/19 07:58:58 Post-Care Text: The patient is free from signs and symptoms of injury related to transfer/transport Medication Administration FT Pre-Care Text: Verifies allergies, administers prescribed medications and solutions, administers prescribed antibiotic therapy and immunizing agents as ordered, evaluates response to medications Administers prescribed medications and solutions Entry 1 Route of Admin Field Expiration Date Yes Verified Outcomes Met? Yes Last Modified By: Maricel Hong RN 01/02/19 07:37:41 Post-Care Text: The patient received appropriate medication(s) safely administered during the perioperative period For [facility] please see scanned medication reconcilliation form for medications used at the field during the procedure. Cultures and Specimens FT Pre-Care Text: Manages specimen handling and disposition Manages culture specimen collection Entry 1 Cultures Ordered No Specimens Ordered Yes Specimen Disposition Designated OR Area Frozen Section Times Outcomes Met? Yes Last Modified By: Maricel Hong RN 01/02/19 08:11:47 Post-Care Text: The patient is free from signs and symptoms of injury caused by extraneous objects The patient is free from signs and symptoms of infection General Comments: specimen = sigmoid polyp. ismael ruiz Case Comments Finalized By: Brit Eugene CST Document Signatures Signed By: Maricel Hong RN 01/02/19 08:11 Brit Eugene CST 01/04/19 08:59 [facility] History and Physicalon 01-02 History and Physical Patient: ELIZA RAUSCH Age: 53 years Sex: Male : 1965 Associated Diagnoses: None Author: [place] MCKEON MD Subjective no changes to [facility] Comment on above: Result Comment: Electronically Signed By : [place] MCKEON MD\.br\Date and Time Signed: 01/02/19 07:24 EDT Inpatient Patient Summaryon 01-02-2019 Inpatient Patient Summary [facility] Clinical Discharge Instructions PERSON INFORMATION Name: ELIZA RAUSCH PHYSICIANS Admitting Physician: [place] MCKEON MD Attending Physician: [place] MCKEON MD PCP: Missy LOVELL, Dionisio Discharge Diagnosis: Colon polyp Comment: PATIENT EDUCATION INFORMATION Instructions: Colonoscopy, Care After Surgery Franco (Custom); Colon Polyps Medication Leaflets: Follow up: With: Address: When: [place] MCKEON [address] [place] [phone] Business (1) Within 7 to 10 days MEDICATION LIST Comment: Normal [facility] Main OR PACU I Recordon 12-06 Main OR PACU I Record PACU Phase I Document Type FT Summary Primary Physician: [place] MCKEON MD Finalized Date/Time: 01/02/19 08:52:51 Pt. Name: ELIZA RAUSCH /Sex: 1965 Male Med Rec #: [id number] Physician: [place] MCKEON MD Financial #: [id number] Pt. Type: O Room/Bed: / Admit/Disch: 01/02/19 07:01:07 - Institution: Case Times PACU I FT Pre-Care Text: Identifies barriers to communication and implements measures to provide psychological support Develops individualized plan of care, and ensures continuity of care Maintains patient's dignity and privacy, and maintains patient confidentiality Identifies and reports philosophical, cultural, and spiritual beliefs and values Identifies individual values and wishes concerning care Implements aseptic technique, and administers prescribed antibiotic therapy and immunizing agents as ordered Evaluates postoperative tissue perfusion Implements thermoregulation measures, and monitors body temperature Evaluates postoperative respiratory status Evaluates postoperative cardiac status Evaluates postoperative neurological status Assesses pain control, collaborated in initiating patient-controlled analgesia and implements alternative methods of pain control Verifies allergies, administers prescribed medications and solutions, evaluates response to medications Entry 1 In PACU I 01/02/19 08:10:00 Discharge from PACU 01/02/19 08:45:00 I Outcomes Met? Yes Last Modified By: Kalee Hinton RN 01/02/19 08:52:42 Post-Care Text: The patient demonstrates knowledge of the expected response to the operative or invasive procedure The patient's care is consistent with the individualized perioperative plan of care The patient's right to privacy is maintained The patient's value system, lifestyle, ethnicity, and culture are considered, respected, and incorporated into the perioperative plan of care The patient participates in decisions affecting his or her perioperative plan of care The patient is free from signs and symptoms of infection The patient has wound/tissue perfusion consistent with or improved from baseline levels established preoperatively The patient is at or returning to normothermia at the conclusion of the immediate postoperative period The patient's respiratory function is consistent with or improved from baseline levels established preoperatively The patient's cardiovascular status is consistent with or improved from baseline levels established preoperatively The patient's cardiovascular status is consistent with or improved from baseline levels established preoperatively The patient demonstrates and/or reports adequate pain control throughout the perioperative period The patient received appropriate medication(s), safely administered during the perioperative period Acuity Level PACU I FT Entry 1 Start Time 01/02/19 08:10:00 Stop Time 01/02/19 08:45:00 Acuity Level Acuity Level I Last Modified By: Kalee Hinton RN 01/02/19 08:52:50 Finalized By: Kalee Hinton RN Document Signatures Signed By: Kalee Hinton RN 01/02/19 08:49 Kalee Hinton RN 01/02/19 08:52 Normal [facility] Main OR Preoperative Recordo n 01-02-2019 Main OR Preoperative Record Holding Area Document Type FT Summary Primary Physician: [place] MCKEON MD Finalized Date/Time: 01/02/19 07:23:41 Pt. Name: OWENELIZA/Sex: 1965 Male Med Rec #: [id number] Physician: [place] MCKEON MD Financial #: [id number] Pt. Type: O Room/Bed: / Admit/Disch: 01/02/19 07:01:07 - Institution: Case Times Holding FT Pre-Care Text: Verifies consent for planned procedure, identifies individual values and wishes concerning care, includes family members in perioperative teaching Secures patient's records' belongings, and valuables, maintains patient's dignity and privacy, and maintains patient confidentiality Entry 1 In Holding 01/02/19 07:06:00 Outcomes Met? Yes Last Modified By: Maricel Hong RN 01/02/19 07:07:02 Post-Care Text: The patient participates in decisions affecting his or her perioperative plan of care The patient's right to privacy is maintained Surgery Checklist FT Entry 1 Patient Birthday, ID Band Procedure History and Physical, Identification: Check, Patient Verification: Surgical Consent, With Participation Family NPO after Midnight: Yes Personal Items: Dentures, Glasses Personal Items has glasses, lower Limitations: no limitations Comment: dentures in mouth Complaints of Pain: No Operative Site n/a Marking: Availability Equipment Verified: Does Patient Smoke No Patient states Yes Comment - Adult postop adult Supervision supervision available Case Cancelled in No Holding Area see comments below for reason Last Modified By: Maricel Hong RN 01/02/19 07:23:39 Finalized By: Maricel Hong RN Document Signatures Signed By: Maricel Hong RN 01/02/19 07:23 Normal [facility] Operative Reporton 9 Operative Report Date of Surgery: SURGEON: [place] Mckeon M.D. PREOPERATIVE DIAGNOSIS: Occult positive stools POSTOPERATIVE DIAGNOSIS: 2 mm. polyp at 20 cm., distal sigmoid OPERATION: Colonoscopy to cecum with cold forceps polypectomy times one ANESTHESIA: Monitored anesthesia care ESTIMATED BLOOD LOSS: Zero INDICATIONS AND CONSENT: The patient is a 53 year old male with a history of occult positive blood in the stools. The indications, risks, benefits and alternatives of proceeding with colonoscopy were explained extensively to the patient including the risk of bleeding, colon perforation, or anesthetic complications. All of his questions were answered and informed consent was obtained. PROCEDURE: The patient was brought to the Operating Room and placed in the left lateral decubitus position. Monitored anesthesia care was provided. Rectal examination was performed which revealed no masses or blood. The scope was inserted into the anal canal under direct visualization and was advanced, with the aid of abdominal compression, it was advanced to the cecum where cecal markings were clearly identified. Upon withdrawal of the scope the mucosal surfaces were carefully examined. There were no mass lesions or inflammatory changes, no significant diverticulosis. At 20 cm. there was noted to be a 2 mm. sessile polyp that was removed with cold biopsy forceps with good hemostasis. The scope was retroflexed in the anal canal. There was noted to be some prominent rectal veins, no significant hemorrhoidal disease. The scope was then withdrawn. The patient tolerated the procedure well and was sent to the Recovery Room in good condition. Carroll Mckeon M.D. robe Dictated: 01/02/2019 #[id number] Typed: 01/02/2019 #[id number] cc: Martina Draper M.D. [facility] Comment on above: Result Comment: Electronically Signed By : Carroll MCKEON MD.mary\Date and Time Signed: 01/02/19 11:16 EDT Patient Education - Texton 0 01-02-2019 Patient Education - Text Colonoscopy Care After Surgery Please read the instructions outlined below and refer to this sheet in the next few weeks. These discharge instructions provide you with general information on caring for yourself after you leave the hospital. Your doctor may also give you specific instructions. While your treatment has been planned according to the most current medical practices available, unavoidable complications occasionally occur. If you have any problems or questions after discharge, please call your doctor. ACTIVITY You may resume your regular activity, but move at a slower pace for the next 24 hours. Take frequent rest periods for the next 24 hours. Walking will help get rid of the air and reduce the bloated feeling in your abdomen (belly). No driving for 24 hours (because of the anesthesia (medicine) used during the test). You may shower. Do not sign any important legal documents or operate any machinery for 24 hours (because of the anesthesia used during the test). NUTRITION Drink plenty of fluids. You may resume your normal diet as instructed by your doctor. Begin with a light meal and progress to your normal diet. Heavy or fried foods are harder to digest and may make you feel nauseated (sick to your stomach). Avoid alcoholic beverages for 24 hours or as instructed. MEDICATIONS You may resume your normal medications unless your doctor tells you otherwise. WHAT YOU CAN EXPECT TODAY Some feelings of bloating in the abdomen. Passage of more gas than usual. Spotting of blood in your stool or on the toilet paper. IF YOU HAD POLYPS REMOVED DURING THE COLONOSCOPY: No aspirin products for 7 days or as instructed. No alcohol for 7 days or as instructed. Eat a soft diet for the next 24 hours. FOLLOW-UP Your doctor will discuss the results of your test with you. SEEK IMMEDIATE MEDICAL ATTENTION IF: There is more than a spotting of blood in your stool. There is abdominal distention (your abdomen is swollen). There is vomiting. You have a temperature over 101.5 F. There is abdominal pain or discomfort that is severe or gets worse throughout the day. Family Medicine Colon Polyps Polyps are lumps of extra tissue growing inside the body. Polyps can grow in the large intestine (colon). Most colon polyps are noncancerous (benign). However, some colon polyps can become cancerous over time. Polyps that are larger than a pea may be harmful. To be safe, caregivers remove and test all polyps. CAUSES Polyps form when mutations in the genes cause your cells to grow and divide even though no more tissue is needed. RISK FACTORS There are a number of risk factors that can increase your chances of getting colon polyps. They include: ? Being older than 50 years. ? Family history of colon polyps or colon cancer. ? Long-term colon diseases, such as colitis or Crohn disease. ? Being overweight. ? Smoking. ? Being inactive. ? Drinking too much alcohol. SYMPTOMS Most small polyps do not cause symptoms. If symptoms are present, they may include: ? Blood in the stool. The stool may look dark red or black. ? Constipation or diarrhea that lasts longer than 1 week. DIAGNOSIS People often do not know they have polyps until their caregiver finds them during a regular checkup. Your caregiver can use 4 tests to check for polyps: ? Digital rectal exam. The caregiver wears gloves and feels inside the rectum. This test would find polyps only in the rectum. ? Barium enema. The caregiver puts a liquid called barium into your rectum before taking X-rays of your colon. Barium makes your colon look white. Polyps are dark, so they are easy to see in the X-ray pictures. ? Sigmoidoscopy. A thin, flexible tube (sigmoidoscope) is placed into your rectum. The sigmoidoscope has a light and tiny camera in it. The caregiver uses the sigmoidoscope to look at the last third of your colon. ? Colonoscopy. This test is like sigmoidoscopy, but the caregiver looks at the entire colon. This is the most common method for finding and removing polyps. TREATMENT Any polyps will be removed during a sigmoidoscopy or colonoscopy. The polyps are then tested for cancer. PREVENTION To help lower your risk of getting more colon polyps: ? Eat plenty of fruits and vegetables. Avoid eating fatty foods. ? Do not smoke. ? Avoid drinking alcohol. ? Exercise every day. ? Lose weight if recommended by your caregiver. ? Eat plenty of calcium and folate. Foods that are rich in calcium include milk, cheese, and broccoli. Foods that are rich in folate include chickpeas, kidney beans, and spinach. HOME CARE INSTRUCTIONS Keep all follow-up appointments as directed by your caregiver. You may need periodic exams to check for polyps. SEEK MEDICAL CARE IF: You notice bleeding during a bowel movement. Document Released: 05/19/2005 Document Revised: 11/14/2012 Document Reviewed: 11/01/2012 ExitCare? Patient Information ?2014 [employer]. This information is not intended to replace advice given to you by your health care provider. Make sure you discuss any questions you have with your health care provider. [facility] Progress Note-Physicianon Protein mass conc Patient: ELIZA RAUSCH Age: 53 years Sex: Male : 1965 Associated Diagnoses: None Author: Jovanni Puri Jr., DO Postoperative Information Post Operative Note: Post Anesthesia Care Unit. Anesthetic utilized: General. Health Status Allergies: Allergic Reactions (Selected) Severe Ibuprofen- Swelling. Problem list: No problem items selected or recorded. Physical Examination Vital Signs 01/02/2019 08:45 EDT SpO2 98 % 01/02/2019 08:35 EDT Heart Rate Monitored 64 bpm Respiratory Rate Monitored 20.0 br/min Systolic Blood Pressure 111 mmHg Diastolic Blood Pressure 83 mmHg SpO2 95 % 01/02/2019 08:25 EDT Heart Rate Monitored 60 bpm Respiratory Rate Monitored 12.0 br/min Systolic Blood Pressure 107 mmHg Diastolic Blood Pressure 57 mmHg LOW SpO2 96 % 01/02/2019 08:20 EDT Heart Rate Monitored 63 bpm Respiratory Rate Monitored 12.0 br/min Systolic Blood Pressure 88 mmHg LOW Diastolic Blood Pressure 54 mmHg LOW SpO2 96 % 01/02/2019 08:15 EDT Heart Rate Monitored 68 bpm Respiratory Rate Monitored 10.0 br/min Systolic Blood Pressure 91 mmHg Diastolic Blood Pressure 51 mmHg LOW SpO2 96 % 01/02/2019 08:10 EDT Temperature Temporal Artery 36.1 DegC LOW Heart Rate Monitored 73 bpm Respiratory Rate Monitored 11.0 br/min Systolic Blood Pressure 93 mmHg Diastolic Blood Pressure 58 mmHg LOW SpO2 97 % Pain assessment: Controlled. General: Alert and oriented, No acute distress, No nausea. Adequate hydration.. Respiratory: Adequate air exchange.. Cardiovascular: stable. Neurologic: Normal sensory. Review / Management Condition: Stable. Assessment Anesthetic outcome No anesthetic complications noted. Plan Transfer/ Discharge: Condition stable. Normal [facility] Comment on above: Result Comment: Electronically Signed By : Jovanni Puri Jr., DO\.br\Date and Time Signed: 01/02/19 08:51 EDT Protein mass conc Patient: ELIZA RAUSCH Age: 53 years Sex: Male : 1965 Associated Diagnoses: None Author: Jovanni Puri Jr., DO Preoperative Information Anesthesia history: Patient History: No prior problems.. Re-eval prior to induction: Inital eval reviewed: No significant interval change. Anesthesia results Review of Systems Constitutional: Negative except as documented in history of present illness. Cardiovascular: Negative except as documented in history of present illness. Respiratory: Negative. Health Status Allergies: No active allergies have been recorded., No qualifying data available Current medications: (Selected) Documented Medications Documented Effient: 10 mg, Oral, Daily, Refills(s) 0, Blood Thinner Flomax: 0.4 mg, Oral, Daily, Refills(s) 0, Bladder problems aspirin: 81 mg, Oral, Daily, Refills(s) 0, Prophylaxis atorvastatin: 80 mg, Oral, Daily, Refills(s) 0, High cholesterol carvedilol: 3.125 mg, Oral, BID, Refills(s) 0, Other (see comment) lisinopril: 5 mg, Oral, Daily, Refills(s) 0, High blood pressure Histories Past Medical History: No active or resolved past medical history items have been selected or recorded. Family History: No family history items have been selected or recorded. Procedure history: No active procedure history items have been selected or recorded. Social History Social & Psychosocial Habits No Data Available . Physical Examination Measurements from flowsheet : Measurements 01/02/2019 07:11 EDT Height/Length Measured 175.2 cm Weight Measured 72.1 kg Respiratory: Lungs are clear to auscultation. Cardiovascular: Regular rhythm. Plan [place] [employer] Anesthesiologists (ASA) physical status classification: Class III. Anesthetic Preoperative Plan Anesthesia: General. . Anesthetic plan, risks, benefits, and alternatives discussed with the patient and/or family. Patient verbalized understanding. Normal [facility] Comment on above: Result Comment: Electronically Signed By : Jovanni Puri Jr., DO.mary\Date and Time Signed: 01/02/19 07:38 EDT Discharge Summaryon 11-14-19 Discharge Summary [id number] Admitted: 11/10/2017 Discharged: 11/12/2017 Date of : 1965 Physician: Иван Ramos M.D. DISCHARGE SUMMARYPRIMARY DIAGNOSIS: Chest pain secondary to non-ST segment elevationmyocardial infarction.SECONDARY DIAGNOSIS: Hyperlipidemia.PROCEDURE: Cardiac catheterization with LAD stent placement.HOSPITAL COURSE: A 52-year-old male presented with new onset chest pain onexertion with radiation to the left arm. The patient was seen withelevation of cardiac enzymes consistent with a high risk non-ST segmentelevation myocardial infarction in [place]. [facility]. During [facility], the patient was foundwith 95% stenosis of the LAD, for which it was reduced to 0% by balloonangioplasty and a drug-eluting stent. Moderate disease was also seen inthe mid LAD, mid circumflex, mid RCA, and mid PDA branches. The patientreceived echocardiogram while inpatient, which showed ejection fraction of50-55%.DISCHARGE/DISPOSITION: Home.DISCHARGE INSTRUCTIONS: The patient is to take medications exactly asprescribed and report any side effects per Cardiology followup. Thepatient has cardiology followup scheduled [place] 19, [address] [place].DISCHARGE MEDICATIONS:1. Prasugrel 10 mg daily.2. Aspirin 81 mg daily.3. Atorvastatin 80 mg daily.4. Carvedilol 3.125 mg twice a day.5. Lisinopril 5 mg daily.6. Discontinue simvastatin 20 mg daily.Reviewed By:Xiomara Deshpande MD 11/15/2017 04:41 PElectronically Signed by:Иван Ramos M.D. 11/23/2017 04:23 P ____Иван Ramos M.D. I personally saw this patient on the day of the encounter, performed thekey portion(s) of the service and participated in the management andconfirm the resident's documentation. Please note there may be anadditional personal documentation from me. Date Dict: 11/12/2017/01:31 P/Xiomara Deshpande, MDDate Trans: 11/13/2017 06:56 A/[id number]: Dionisio Louis M.D. [address], [facility] [address] Normal [facility] BASIC METABOLIC PANELon Calcium mass conc 8.8 mg/dL Normal 8.6-10.3 [facility] Comment on above: Order Comment: No: Do not add to previou s draw Performed By: #### 5 [id number], [id number] ####[facility] [place] [address], [place] Chloride molar conc 111 mmol/L High 98-107 [facility] Comment on above: Order Comment: No: Do not add to previou s draw Performed By: #### 5 [id number], 14738 ####[facility] [place] [address], [place] CO2 molar conc 23 mmol/L Normal 21-31 [facility] Comment on above: Order Comment: No: Do not add to previou s draw Performed By: #### 5 7307, 55451 ####[facility] [place] [address], [place] Creatinine mass conc 0.89 mg/dL Normal 0.70-1.30 [facility] Comment on above: Order Comment: No: Do not add to previou s draw Performed By: #### 5 7307, 62110 ####[facility] [place] [address], [place] GFR/1.73 sq M predicted among blacks MDRD vol rate/area (S/P/Bld) mL/min/{1.73_m2} Normal >60 [facility] Comment on above: Order Comment: No: Do not add to previou s draw Performed By: #### 5 7307, 87919 ####[facility] [place] [address], [facility] GFR/1.73 sq M predicted among non-blacks MDRD vol rate/area (S/P/Bld) mL/min/{1.73_m2} Normal >60 [facility] Comment on above: Order Comment: No: Do not add to previou s draw Performed By: #### 5 73, 92492 ####[facility] [place] [address], [facility] Glucose mass conc 106 mg/dL High 70-100 [facility] Comment on above: Order Comment: No: Do not add to previou s draw Performed By: #### 5 73, 84033 ####[facility] [place] [address], [facility] Potassium molar conc 4.0 mmol/L Normal 3.5-5.1 [facility] Comment on above: Order Comment: No: Do not add to previou s draw Performed By: #### 5 7307, 63701 ####[facility] [place] [address], [facility] Sodium molar conc 136 mmol/L Normal 136-145 [facility] Comment on above: Order Comment: No: Do not add to previou s draw Performed By: #### 5 7307, 85808 ####[facility] [place] [address], [facility] Urea nitrogen mass conc 19 mg/dL Normal 7-25 [facility] Comment on above: Order Comment: No: Do not add to previou s draw Performed By: #### 5 73, 99326 ####[facility] CBC COMPLETE BLOOD COUNTon 0 11-12-2017 Erythrocyte distribution width Auto Ratio (RBC) 13.4 % Normal 11.5-15.0 [facility] Comment on above: Order Comment: No: Do not add to previou s draw Performed By: #### 5 73, 84067 ####[facility] Hematocrit Auto Volume Fraction (Bld) 41.0 % Normal 39.0-50.0 [facility] Comment on above: Order Comment: No: Do not add to previou s draw Performed By: #### 5 73, 89475 ####[facility] Hemoglobin mass conc (Bld) 13.9 g/dL Normal 13.0-17.0 [facility] Comment on above: Order Comment: No: Do not add to previou s draw Performed By: #### 5 7306, 63822 ####[facility] MCH Auto Entitic mass (RBC) 29.0 pg Normal 27.0-33.0 [facility] Comment on above: Order Comment: No: Do not add to previou s draw Performed By: #### 5 73, 97679 ####[facility] [place] [address], [facility] MCHC Auto mass conc (RBC) 33.9 g/dL Normal 32.0-35.0 [facility] Comment on above: Order Comment: No: Do not add to previou s draw Performed By: #### 5 7307, 61919 ####[facility] [place] [address], [facility] MCV Auto Entitic volume (RBC) 85.6 fL Normal 82.0-98.0 [facility] Comment on above: Order Comment: No: Do not add to previou s draw Performed By: #### 5 7307, 66089 ####[facility] Nucleated RBC/100 WBC Ratio (Bld) 0 % Normal 0-0 [facility] Comment on above: Order Comment: No: Do not add to previou s draw Performed By: #### 5 7307, 17101 ####[facility] [place] [address], [facility] PLAT CNT 165 10*3/uL Normal 150-400 [facility] Comment on above: Order Comment: No: Do not add to previou s draw Performed By: #### 5 7307, 58819 ####[facility] RBC Auto #/vol (Bld) 4.79 10*6/uL Normal 4.20-5.70 [facility] Comment on above: Order Comment: No: Do not add to previou s draw Performed By: #### 5 7307, 99936 ####[facility] WBC Auto #/vol (Bld) 7.4 10*3/uL Normal 4.0-10.6 [facility] Comment on above: Order Comment: No: Do not add to previou s draw Performed By: #### 5 7307, 16108 ####[facility] Cardiovascular Lab Reporton 11-12-2017 Cardiovascular Lab Report [facility] Patient Name: Eliza Rausch MR #: [id number] Center Physician: Maya López M.D.Department of Service Date: 11/11/2017Medicine Birthdate: 1965Division of Room #: 3AB [id number] [facility], [place] [address]Pddus Fax Cardiovascular Laboratory ReportINDICATION: Eliza Rausch is a 52-year-old man, who was admitted to [facility] with crescendo angina and elevation of cardiac enzymesconsistent with high risk non-ST segment elevation myocardial infarction.He was transferred to our center and referred today for cardiaccatheterization.PROCEDURE PERFORMED:1. Bilateral selective coronary angiography from the right radial access.2. Successful balloon dilatation and drug-eluting stenting of 95% complex stenosis in the proximal LAD reduced to 0% by deployment of a PROMUS Premier 3.5 x 16 mm drug-eluting stent post dilated to 3.5 mm at high pressures.METHOD: Procedure was explained to the patient with risks and benefits.He signed informed consent. 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 Mo's testwas favorable. Access from the right radial artery was obtained usingmicropuncture technique. A 6-Swedish x 11 cm Hydrophilic sheath wasadvanced. Verapamil was given through the sheath and heparin wasadministered intravenously. Bilateral selective coronary angiography wasthen performed using a 5-Swedish JR5 diagnostic catheter for engagement ofthe right coronary artery and a 6-Swedish Ruth Radial diagnostic catheterfor engagement of the left coronary artery. Angiography was performed inmultiple views. Catheters were removed.Therapeutic ACT was confirmed during the procedure. A 6-Swedish XB 3.0guiding catheter was advanced and used to engage the left main coronaryostium. A BMW wire was advanced into the distal LAD. Balloon angioplastyand the proximal LAD were performed using Emerge 3.0 x 12 mm ballooninflated at 12 atmospheres. This was followed by deployment of a PROMUSPremier 3.5 x 16 mm drug-eluting stent deployed at 11 atmospheres and postdilated using NC Quantum Volga 3.5 x 12 mm noncompliant balloon inflated at18 atmospheres. Angiography revealed excellent result with reduction ofthe stenosis to 0%. No evidence of dissection or perforation. The guidingcatheter was removed. The access sheath in the radial artery was removedand a compression dressing applied for hemostasis. He was loaded with 60mg of Effient at the end of the procedure. He was transferred back to hisroom.TOTAL FLUORO TIME: 14 minutes.TOTAL AIR KERMA: 667 mGy.TOTAL CONTRAST VOLUME: 80 mL.HEMODYNAMICS: AO 108/69, mean 87.CORONARY ANGIOGRAPHY: This is a right dominant circulation.Left main. This arises from left coronary cusp. It trifurcates into leftanterior descending, ramus and circumflex vessels. Left main is free ofdisease.Left anterior descending. This has a 95% complex stenosis in the proximalsegment. This was reduced to 0% by balloon angioplasty and drug-elutingstenting as noted above. The mid LAD has a 40% tubular stenosis.Ramus vessel: This is a moderate-size vessel with 30% proximal stenosis.Circumflex vessel: This is nondominant, it has a 50% mid segment stenosis.Right coronary artery. This arises from the right coronary cusp. It is alarge and dominant vessel. It has a 40% discrete stenosis in the midsegment. The PDA branch has a long 60% stenosis in the mid segment.SUMMARY OF FINDINGS:1. Coronary artery disease with severe involvement of the proximal LAD with a complex lesion in the setting of acute non ST-segment elevation myocardial infarction.2. A 95% complex stenosis in the proximal LAD reduced to 0% by balloon angioplasty and PROMUS premier drug-eluting stent.3. Moderate disease in the mid LAD, mid circumflex, mid RCA and mid PDA branch.RECOMMENDATIONS:1. Medical therapy and risk factor control for coronary artery disease.2. Aspirin and high dose statin therapy for life.3. Plavix therapy for minimum of 1 year after acute myocardial infarction and drug-eluting stenting.4. Follow up in Cardiology Clinic.Electronically Signed by:Maya López M.D. 11/14/2017 11:23 P Maya López M.D.Date Dict: 11/11/2017/12:53 P/Maya López M.D.Date Trans: 11/12/2017 03:24 A/[id number]: Dionisio Louis M.D. [address] [place] [address] Normal [facility] MAGNESIUM BLOODon 11-12-2017 Magnesium mass conc 2.2 mg/dL Normal 1.9-2.7 [facility] Comment on above: Order Comment: No: Do not add to previou s draw Performed By: #### 5 7307, 66062 ####[facility] [place] [address], [facility] APTTon 11-11-2017 aPTT Coag time (Bld) 31.2 s Normal 25.0-35.0 [facility] Comment on above: Order Comment: No: Do not add to previou s draw Result Comment: ALL RESULTS MUST BE INTERPRETED WITH RESPECT TO BLOOD DRAWING ARTIFACTOR DILUTION ERROR OF ANTICOAGULANT AT THE TIME OF SAMPLING.THE APTT SHOULD NOT BE USED TO MONITOR UNFRACTIONATED HEPARIN THERAPY, THIS LABORATORY NO LONGER HAS AN ESTABLISHED THERAPEUTIC RANGE BASEDON THE APTT. IT IS RECOMMENDED THAT THE [facility] - HEPARIN ASSAY (ANTI-XAACTIVITY) BE USED FOR THIS PURPOSE. Performed By: #### 5 7307, 59281 ####[facility] [facility].[address] BASIC METABOLIC PANELon Calcium mass conc 9.2 mg/dL Normal 8.6-10.3 [facility] Comment on above: Order Comment: No: Do not add to previou s draw Performed By: #### 5 7307, 96628 ####[facility] [place] [address], [facility] Chloride molar conc 109 mmol/L High 98-107 [facility] Comment on above: Order Comment: No: Do not add to previou s draw Performed By: #### 5 7307, 25027 ####[facility] [place] [address], [facility] CO2 molar conc 24 mmol/L Normal 21-31 [facility] Comment on above: Order Comment: No: Do not add to previou s draw Performed By: #### 5 7307, 12734 ####[facility] [place] [address], [place] [facility] [facility] Creatinine mass conc 0.90 mg/dL Normal 0.70-1.30 [facility] Comment on above: Order Comment: No: Do not add to previou s draw Performed By: #### 5 7307, 49608 ####[facility] [place] [address], [facility] GFR/1.73 sq M predicted among blacks MDRD vol rate/area (S/P/Bld) mL/min/{1.73_m2} Normal >60 [facility] Comment on above: Order Comment: No: Do not add to previou s draw Performed By: #### 5 73, 05584 ####[facility] [place] [address], [facility] GFR/1.73 sq M predicted among non-blacks MDRD vol rate/area (S/P/Bld) mL/min/{1.73_m2} Normal >60 [facility] Comment on above: Order Comment: No: Do not add to previou s draw Performed By: #### 5 7307, 90336 ####[facility] [place] [address], [facility] Glucose mass conc 102 mg/dL High 70-100 [facility] Comment on above: Order Comment: No: Do not add to previou s draw Performed By: #### 5 7307, 08648 ####[facility] [place] [address], [facility] Potassium molar conc 4.0 mmol/L Normal 3.5-5.1 [facility] Comment on above: Order Comment: No: Do not add to previou s draw Performed By: #### 5 7307, 04968 ####[facility] [place] [address], [facility] Sodium molar conc 134 mmol/L Low 136-145 [facility] Comment on above: Order Comment: No: Do not add to previou s draw Performed By: #### 5 7307, 68766 ####[facility] [place] [address], [facility] Urea nitrogen mass conc 16 mg/dL Normal 7-25 [facility] Comment on above: Order Comment: No: Do not add to previou s draw Performed By: #### 5 7307, 58391 ####[facility] [facility] CBC COMPLETE BLOOD COUNTon 0 11-11-2017 Erythrocyte distribution width Auto Ratio (RBC) 13.3 % Normal 11.5-15.0 [facility] Comment on above: Order Comment: Yes: Add to Previous draw if able Performed By: #### 5 0608 ####[facility] Hematocrit Auto Volume Fraction (Bld) 45.1 % Normal 39.0-50.0 [facility] Comment on above: Order Comment: Yes: Add to Previous draw if able Performed By: #### 5 0608 ####[facility] Hemoglobin mass conc (Bld) 15.5 g/dL Normal 13.0-17.0 [facility] Comment on above: Order Comment: Yes: Add to Previous draw if able Performed By: #### 5 0608 ####[facility] [place] [address], [facility] MCH Auto Entitic mass (RBC) 29.2 pg Normal 27.0-33.0 [facility] Comment on above: Order Comment: Yes: Add to Previous draw if able Performed By: #### 5 0608 ####[facility], [place] [address] MCHC Auto mass conc (RBC) 34.4 g/dL Normal 32.0-35.0 [facility] Comment on above: Order Comment: Yes: Add to Previous draw if able Performed By: #### 5 0608 ####[facility] [facility].[address] MCV Auto Entitic volume (RBC) 84.9 fL Normal 82.0-98.0 [facility] Comment on above: Order Comment: Yes: Add to Previous draw if able Performed By: #### 5 0608 ####[facility] [place] [address] Nucleated RBC/100 WBC Ratio (Bld) 0 % Normal 0-0 [facility] Comment on above: Order Comment: Yes: Add to Previous draw if able Performed By: #### 5 0608 ####[address] PLAT CNT 177 10*3/uL Normal 150-400 [facility] Comment on above: Order Comment: Yes: Add to Previous draw if able Performed By: #### 5 0608 ####[address] RBC Auto #/vol (Bld) 5.31 10*6/uL Normal 4.20-5.70 [facility] Comment on above: Order Comment: Yes: Add to Previous draw if able Performed By: #### 5 0608 ####[facility] [facility].[address] WBC Auto #/vol (Bld) 10.1 10*3/uL Normal 4.0-10.6 [facility] Comment on above: Order Comment: Yes: Add to Previous draw if able Performed By: #### 5 0608 ####[address] CBC W/DIFFon 11-11-2017 ABS BASOPHILS 0.0 10*3/uL Normal 0.0-0.2 [facility] Comment on above: Order Comment: No: Do not add to previou s draw Performed By: #### 5 0103 ####[facility] [facility].[address] ABS IMM GRANS 0.0 10*3/uL Normal 0.0-0.2 [facility] Comment on above: Order Comment: No: Do not add to previou s draw Performed By: #### 5 0103 ####[facility] [place] [address], [facility] ABS NEUTROPHILS 4.6 10*3/uL Normal 1.6-7.6 [facility] Comment on above: Order Comment: No: Do not add to previou s draw Performed By: #### 5 0103 ####[facility] [place] [address], [facility] Basophils Auto #/vol (Bld) 0.4 % Normal 0.0-1.0 [facility] Comment on above: Order Comment: No: Do not add to previou s draw Performed By: #### 5 0103 ####[facility] [place] [address], [facility] Eosinophils Auto #/vol (Bld) 0.3 10*3/uL Normal 0.0-0.5 [facility] Comment on above: Order Comment: No: Do not add to previou s draw Performed By: #### 5 0103 ####[facility] [place] [address], [facility] Eosinophils/100 WBC Auto (Bld) 4.0 % Normal 0.0-6.0 [facility] Comment on above: Order Comment: No: Do not add to previou s draw Performed By: #### 5 0103 ####[facility] [place] [address], [facility] Erythrocyte distribution width Auto Ratio (RBC) 13.3 % Normal 11.5-15.0 [facility] Comment on above: Order Comment: No: Do not add to previou s draw Performed By: #### 5 0103 ####[facility] Hematocrit Auto Volume Fraction (Bld) 44.0 % Normal 39.0-50.0 [facility] Comment on above: Order Comment: No: Do not add to previou s draw Performed By: #### 5 0103 ####[facility] [facility] Hemoglobin mass conc (Bld) 15.0 g/dL Normal 13.0-17.0 [facility] Comment on above: Order Comment: No: Do not add to previou s draw Performed By: #### 5 0103 ####[facility] IMMATURE GRANS 0.4 % Normal 0.0-1.0 [facility] Comment on above: Order Comment: No: Do not add to previou s draw Performed By: #### 5 0103 ####[facility] [facility] Lymphocytes Auto #/vol (Bld) 2.5 10*3/uL Normal 1.2-4.0 [facility] Comment on above: Order Comment: No: Do not add to previou s draw Performed By: #### 5 0103 ####[facility] Lymphocytes/100 WBC Auto (Bld) 30.0 % Normal 20.0-45.0 [facility] Comment on above: Order Comment: No: Do not add to previou s draw Performed By: #### 5 3 ####[facility] MCH Auto Entitic mass (RBC) 28.6 pg Normal 27.0-33.0 [facility] Comment on above: Order Comment: No: Do not add to previou s draw Performed By: #### 5 0103 ####[facility] MCHC Auto mass conc (RBC) 34.1 g/dL Normal 32.0-35.0 [facility] Comment on above: Order Comment: No: Do not add to previou s draw Performed By: #### 5 0103 ####[facility] MCV Auto Entitic volume (RBC) 84.0 fL Normal 82.0-98.0 [facility] Comment on above: Order Comment: No: Do not add to previou s draw Performed By: #### 5 0103 ####[facility] Monocytes Auto #/vol (Bld) 0.9 10*3/uL Normal 0.1-1.0 [facility] Comment on above: Order Comment: No: Do not add to previou s draw Performed By: #### 5 0103 ####[facility] MONOS 10.3 % Normal 5.0-12.0 [facility] Comment on above: Order Comment: No: Do not add to previou s draw Performed By: #### 5 0103 ####[facility] Neutrophils/100 WBC Auto (Bld) 54.9 % Normal 40.0-72.0 [facility] Comment on above: Order Comment: No: Do not add to previou s draw Performed By: #### 5 3 ####[facility] Nucleated RBC/100 WBC Ratio (Bld) 0 % Normal 0-0 [facility] Comment on above: Order Comment: No: Do not add to previou s draw Performed By: #### 5 0103 ####[facility] [place] [address], [facility] PLAT CNT 169 10*3/uL Normal 150-400 [facility] Comment on above: Order Comment: No: Do not add to previou s draw Performed By: #### 5 0103 ####[facility] [facility] [address], [facility] RBC Auto #/vol (Bld) 5.24 10*6/uL Normal 4.20-5.70 [facility] Comment on above: Order Comment: No: Do not add to previou s draw Performed By: #### 5 0103 ####[facility] [place] [address], [facility] WBC Auto #/vol (Bld) 8.3 10*3/uL Normal 4.0-10.6 [facility] Comment on above: Order Comment: No: Do not add to previou s draw Performed By: #### 5 0103 ####[facility] [facility] [address], [facility] HEMOGLOBIN A1Con 11-11-2017 Glucose mass conc 111 mg/dL Normal 70-126 [facility] Comment on above: Order Comment: No: Do not add to previou s draw Performed By: #### 5 7307, 68449 ####[facility] [place] [address], [facility] Hemoglobin A1c/Hemoglobin.t otal mass fraction (Bld) 5.5 % Normal 4.0-6.0 [facility] Comment on above: Order Comment: No: Do not add to previou s draw Performed By: #### 5 7307, 96925 ####[facility], [place] [address] History and Physicalon 11-11 History and Physical [id number] Admitted: 11/10/2017 Date of : 1965 Attending Physician: Mikki Potter MD Room #: 3AB [id number] Discharge Date: HISTORY AND PHYSICALCHIEF COMPLAINT: 3 episodes of substernal chest pain for the past 2 days.HISTORY OF PRESENTING ILLNESS:Mr. Eliza Rausch, is a 52-year-old male with past medical historysignificant for hyperlipidemia and extensive family history of coronaryartery disease persisted to the ER with 3 episodes of chest pain thathappened since yesterday afternoon. The patient was working in his garageyesterday when he felt substernal discomfort, pain was about 8/10,squeezing, was associated with diaphoresis, lasted for about 2 minutes,self-resolved. Since then, he had like 2 episodes of chest pain thathappened with mild exertion and self resolved. He denies any shortness ofbreath, palpitations, lightheadedness, dizziness, or prior AL.In the ER, his blood pressure was noted to be 170/102 mmHg, pulse rate 68per minute, SpO2 of 98% on room air, temperature 36.5, respiratory rate 20per minute. His EKG revealed sinus rhythm, No acute ST-T changes werenoted. His first troponin was slightly elevated at 0.071, which trended upto 0.104 after 4 hours and which then further trended up to 0.112 around 2p.m. today. His CBC was unremarkable as is the CMP.He was given a loading dose of aspirin 325 mg, Lipitor 10 mg, andnitroglycerin paste. then he was started on Heparin infusion following aheparin bolus of 25,000 units. His echocardiogram revealed low normal LVsystolic function with EF of 55%, mild diastolic dysfunction, normal RVfunction. He is transferred here for further cardiac angiogram andintervention.He remains chest pain free since this morning.PAST MEDICAL HISTORY: Hyperlipidemia.CURRENT MEDICATIONS: Simvastatin 20 mg every day.DRUG ALLERGIES: Ibuprofen.PAST SURGICAL HISTORY: Tonsillectomy.SOCIAL HISTORY: Current smoker-smokes 1 pack per day past 20 years, socialdrinker, denies illegal drug abuse.Lives with family.FAMILY HISTORY: His father of massive AL at age of 75, his mom hasjohnnyabetes, sister had a triple bypass last year at the age of 52.REVIEW OF SYSTEMS:CONSTITUTIONAL: Denies weight loss, change in appetite, fevers/chills,night sweats.HEAD/NECK: No headache/facial pain, no neck pain or stiffness.EYES: No change in vision, photophobia.EARS: No loss of hearing, tinnitus, vertigo, ear infection.NOSE: No recent upper respiratory tract infections, change in ability ofsmell, postnasal drip, epistaxis.MOUTH/THROAT: No change in taste, sore throat, difficulty swallowing,voice change.CARDIOVASCULAR: Positive for substernal chest pain associated withdiaphoresis, denies shortness of breath, PND/orthopnea, dizziness,lightheadedness.RESPIRA TORY: Denies cough or sputum production, no history of asthma orwheezing, no hemoptysis or prior pneumonia.GASTROINTESTINAL: No abdominal pain, nausea/vomiting, no heartburn orpeptic ulcer disease, no rectal bleeding or black stools.GENITOURINARY: No change in bladder or bowel habits, no urgency, frequencyor incontinence.SKIN: No change in color of the skin, texture, pruritus, hair changes,easy bleeding or bruises.MUSCULOSKELETAL: No joint pain or stiffness, no muscle pain or weakness.NEUROLOGY: Denies headache, paralysis, numbness or tingling ofextremities, change in sensation.PSYCHIATRIC: No disturbances in sleep, mood disorder or prior treatment ofpsychiatric illness.HEMATOLOGIC/LYMPHATIC: No history of bleeding or bruising tendencies,enlarged glands, lymphedema, or prior blood transfusions.PHYSICAL EXAMINATION:VITAL SIGNS: Blood pressure 156/80 mmHg, pulse rate 68 per minute,respiratory rate 18 per minute, temperature 98.4, SpO2 of 97% on room air.GENERAL APPEARANCE: He is well developed, has no acute distress.HEAD: Normocephalic, atraumatic.EYES: Bilateral pupils equally reacting to light, extraocular movementsintact, bilateral conjunctivae clear, no pallor, no proptosis orenophthalmos.ENT: Bilateral external ears normal, no tragus tenderness, bilateraltympanic membranes intact and canals clear.NECK: Trachea appears to be in midline, no lymphadenopathy, JVD notvisible, neck movements normal.CHEST: Chest wall appears symmetric, no visible pulsations, moves equallywith respirations.HEART: [place] palpable over the midclavicular line in the 4th intercostalspace, S1 and S2 heard, no S3/S4, no murmurs, rubs, or gallops.LUNGS: Clear to auscultation on both anterior and posterior lung rodriguez,respirations regular, no wheezing or rales.ABDOMEN: Soft, no tenderness, bowel sounds active, no hepatosplenomegaly,no masses palpable, inguinal orifice clear.EXTREMITIES: All 4 extremities appear normal. No pedal edema. No nailclubbing, capillary refill intact.NEUROLOGY: Alert and oriented x3, speech normal, cranial nerves II throughXII intact, motor strength 6/6 in both upper and lower extremities,reflexes 2+ bilateral biceps/knee jerk, no cerebellar signs. Peripheralpulses 2+ bilateral radial, 2+ dorsalis pedis/posterior tibial, carotidpulse volume good bilaterally.PSYCHIATRIC: His mood appears normal and judgment is good.ASSESSMENT AND PLAN:Admit under Cardiology Service.1. Acute Coronary syndrome- NSTEMI: - EKG showed sinus rhythm, no ST-T changes noted. - Troponin elevated at 0.071-0.104, 0.112. - Chest x-ray revealed no acute infiltrate and normal lung rodriguez. - BNP negative. - Echocardiogram revealed low normal LV systolic function, milddiastolic dysfunction, normal RV function, EF 55%. - Received a loading dose of aspirin 325 mg and Lipitor 10 mg. - Received heparin 25,000 units bolus, followed by heparin infusion. - Continue heparin infusion. - Cardiology Service primary. - Sublingual nitroglycerin for chest pain. - Cycle troponin every 4 hours. - Stat EKG p.r.n. for chest pain. - Start Lopressor 12.5 mg b.i.d. with holding parameters. - Tele monitoring. - Check lipid profile, HbA1c, TSH.2. Hyperlipidemia. a. Continue simvastatin 20 mg daily. Check Lipid profile in AM3. Current Active smoker: - Counseled about smoking cessationElectronically Signed by:Mikki Potter MD 11/11/2017 02:48 A _Mikki Potter, MDDate Dict: 11/10/2017/11:34 P/Mikki Potter MDDate Trans: 11/11/2017 12:16 A/[id number] Normal [facility] LIPID PROFILEon 11-11-2017 Cholesterol in HDL mass conc 33 mg/dL Normal 23-92 [facility] Comment on above: Result Comment: Slight variation in norm al range could be due to gender and/or age.HDL CHOLESTEROL REFERENCE RANGE:20 years and older Cardiovascular Risk> or =60 mg/dL [id number] TO 59 mg/dL Low Risk<40 mg/dL High Risk Performed By: #### 4 6413, 92881, 50265, 62977 ####[facility] [place] [address], [facility] Cholesterol in LDL mass conc 106 mg/dL Normal 0-130 [facility] Comment on above: Result Comment: LDL IS A CALCULATIONLDL IS ONLY VALID IF THE TRIG IS LESS THAN 400. Performed By: #### 4 6413, 71608, 48244, 04708 ####[facility] [place] [address], [facility] Cholesterol mass conc 169 mg/dL Normal 120-200 [facility] Comment on above: Result Comment: CHOLESTEROL REFERENCE RA NGE:20 YEARS AND OLDER CARDIOVASCULAR RISKLess than 200 mg/dl Low [id number] to 239 mg/dl Borderline Wsdr800 mg/dl and greater High Risk Performed By: #### 4 6413, 78233, 31177, 69769 ####[facility] [place] [address], [facility] Cholesterol.tota l/Cholesterol in HDL mass ratio 5.1 {ratio} High .0-4.5 [facility] Comment on above: Performed By: #### 95515, 35022, 54722, 05613 ####[facility] NON-HDL CHOLESTEROL 136 mg/dL Normal [facility] Comment on above: Performed By: #### 04183, 27457, 36781, 14358 ####[facility] [facility].[address] Triglyceride mass conc 149 mg/dL Normal 40-149 [facility] Comment on above: Result Comment: TRIGLYCERIDE REFERENCE R ARLENE:20 YEARS AND OLDER CARDIOVASCULAR RISKLESS THAN 150 mg/dl LOW [id number] TO 199 mg/dl BORDERLINE [id number] mg/dl AND GREATER HIGH RISK Performed By: #### 4 6413, 83131, 74004, 76442 ####[address] VLDL CHOL 30 mg/dL Normal 0-40 [facility] Comment on above: Performed By: #### 30523, 71837, 75211, 10584 ####[place] [address] [address] MAGNESIUM BLOODon 11-11-2017 Magnesium mass conc 2.2 mg/dL Normal 1.9-2.7 [facility] Comment on above: Order Comment: No: Do not add to previou s draw Performed By: #### 5 7307, 50142 ####[address] PROTHROMBIN TIMEon 8 INR Coag RelTime (PPP) 0.93 {INR} Normal 0.91-1.16 [facility] Comment on above: Order Comment: No: Do not add to previou s draw Result Comment: ACCC P RECOMMENDED INR FOR WARFARIN THERAPY CONDITION INRPROPHYLAXIS OF VENOUS THROMBOSIS 2-3(HIGH-RISK SURGERY)TREATMENT OF VENOUS THROMBOSIS 2-3TREATMENT OF PULMONARY EMBOLISM 2-3PREVENTION OF SYSTEMIC EMBOLISM: 2-3 ACUTE MYOCARDIAL INFARCTION TISSUE HEART VALVES VALVULAR HEART DISEASE ATRIAL FIBRILLATION RECURRENT SYSTEMIC EMBOLISMMECHANICAL HEART VALVE 2.5-3.5 FROM: ORAL ANTICOAGULANTS. MECHANISM OF ACTION, CLINICALEFFECTIVENESS, AND OPTIMAL THERAPEUTIC RANGE. [id number]. Performed By: #### 5 7307, 66925 ####[facility] [facility].[address] Prothrombin time (PT) Coag time (PPP) 12.5 s Normal 12.3-14.8 [facility] Comment on above: Order Comment: No: Do not add to previou s draw Result Comment: ALL RESULTS MUST BE INTERPRETED WITH RESPECT TO BLOOD DRAWING ARTIFACTOR DILUTION ERROR OF ANTICOAGULANT AT THE TIME OF SAMPLING. Performed By: #### 5 7307, 94042 ####[facility] TROPONIN-Ion 11-11-2017 Troponin I.cardiac mass conc 0.07 ng/mL High 0.00-0.04 [facility] Comment on above: Result Comment: REFERENCE RANGES: 0.00 - 0.04 ng/ml NORMAL 0.05 - 0.50 ng/ml INDETERMINATE > 0.50 ng/ml CONSISTENT WITH AN M.I. Performed By: #### 5 7307, 87500 ####[facility] [facility].[address] Troponin I.cardiac mass conc 0.08 ng/mL High 0.00-0.04 [facility] Comment on above: Order Comment: No: Do not add to previou s draw Result Comment: REFE RENCE RANGES: 0.00 - 0.04 ng/ml NORMAL 0.05 - 0.50 ng/ml INDETERMINATE > 0.50 ng/ml CONSISTENT WITH AN M.I. Performed By: #### 3 5200 ####[facility] Troponin I.cardiac mass conc 0.08 ng/mL High 0.00-0.04 [facility] Comment on above: Order Comment: No: Do not add to previou s draw Result Comment: REFE RENCE RANGES: 0.00 - 0.04 ng/ml NORMAL 0.05 - 0.50 ng/ml INDETERMINATE > 0.50 ng/ml CONSISTENT WITH AN M.I. Performed By: #### 3 5200 ####[facility] TSH WITH REFLEXon 11-11-2017 Thyrotropin Qn 1.86 MICRO-IU/ML Normal 0.34-5.60 [facility] Comment on above: Order Comment: No: Do not add to previou s draw Performed By: #### 3 0241 ####[facility] UFH HEPARIN ASSAYon 11-12-19 18 UNFRACTIONATED HEPARIN 0.20 IU/mL Low 0.30-0.70 [facility] Comment on above: Result Comment: Rivaroxaban and Apixaban will interfere with the anti Xa assay used tomonitor UFH and LMWH. Performed By: #### 3 0477 ####[facility] [facility].[address] Encounters Encounter Date Encounter Type Care Provider Facility Start: 12-31-2021 Encounter for genera l adult medical examination without abnormal findings DR DIONISIO LOUIS [facility] Start: 12-29-2021 End: 12-30-[address] DIONISIO LOUIS Facility:[facility] Start: 12-29-2021 End: 12-30-2021 Encounter for general adult medical examination without abnormal findings DR DIONISIO LOUIS Facility:[facility] Start: 05-19-2021 End: 05-20-[address] DIONISIO LOUIS Facility:[facility] Start: 03-27-[address] DIONISIO LOUIS Facility :[facility] Start: 01-06-2021 End: 01-07-[address] DIONISIO LOUIS Facility:[facility] Start: 01-02-2019 End: 01-03-2019 Patient encounter procedure Carroll Mckeon Facility:[facility] Start: 04-04-2018 End: 04-05-2018 Patient encounter NATALIA MORA Facility:[facility] Start: 11-10-2017 End: 11-12-2017 Evaluation and management of inpatient ИВАН RAMOS Facility:[facility] Procedures Date Procedure Procedure Detail Performing Clinician Start: 12-29-[address] ANABEL LOUIS Comment on above: Performed By: #### U AMBERLY, CMP, LIPID #### [facility] [address] [place], [place] [address] Dr. Kami Torres Start: 05-19-[address] ANABEL LOUIS Comment on above: Performed By: #### P SASC #### [facility] [address] [place], [place] [address] Trace Wright Start: 11-11-2017 DILATION OF 1 COR AR T WITH DRUG-ELUT INTRA, PERC APPROACH MAYA Catrachita MOUKARBEL Start: 11-11-2017 FLUOROSCOPY OF MULTI PLE CORONARY ARTERIES USING OTH CONTRAST MAYA V MOSHELTONRBEL Payers Date Payer Category Payer Unknown [id number] 10.22.83 [id number] 1965 Unknown [id number] 10.22.83 [id number] 1965 Unknown [id number] 10.22.83 [id number] 1965 Unknown [id number] 10.22.83 [id number] 1965 Unknown [id number] 10.22.83 [id number] 1960 Self-pay 1960 Unknown [id number] Summary Purpose Family History No Family History Records FoundNo Family History Records FoundNo Family History Records Found Advance Directives No Advanced Directives Records FoundNo Advanced Directives Records FoundNo Advanced Directives Records Found Additional Source Comments (unrecognized sect ion and content) No Status Records FoundNo Status Records FoundNo Status Records Found INFORMATION SOURCE (unrecogn ized section and content) DATE CREATED AUTHOR 04/06/2018 [facility] DATE CREATED AUTHOR AUTHOR'S ORGANIZ ATION 01/14/2019 [facility] DATE CREATED AUTHOR AUTHOR'S ORGANIZ ATION 01/03/2022 [facility] FOR RECORDS PERTAINING TO PATIENTS WHO ARE OR HAVE BEEN ENROLLED IN A CHEMICAL DEPENDENCY/SUBSTANCEABUSE PROGRAM, SOME INFORMATION MAY BE OMITTED. This clinical summary was aggregated from multiple sources. Caution should be exercised in using it in the provision of clinical care. This summary normalizes information from multiple sources, and as a consequence, information in this document may materially change the coding, format and clinical context of patient data. In addition, data may be omitted in some cases. CLINICAL DECISIONS SHOULD BE BASED ON THE PRIMARY CLINICAL RECORDS. [employer] provides no warranty or guarantee of the accuracy or completeness of information in this document.
[2023-12-27 11:07] LABS: Basophils Percent Auto 0.5 % (0.2-2.0); Eosinophils Absolute Auto 0.3 10^3/uL (0.0-0.7); Eosinophils Percent Auto 3.8 % (0.9-7.0); Hematocrit 43.2 % (42.0-54.0); Hemoglobin 14.3 g/dL (14.0-18.0); Immature Granulocytes Abs Auto 0.05 10^3/uL (0.00-0.03); Immature Granulocytes Pct Auto 0.7 % (0.0-0.5); Lymphocytes Absolute Auto 2.2 10^3/uL (1.2-3.8); Lymphocytes Percent Auto 29.3 % (20.5-60.0); Mean Corpuscular HGB Conc 33.1 g/dL (29.9-35.2); Mean Corpuscular Hemoglobin 28.3 pg (25.9-34.0); Mean Corpuscular Volume 85.5 fL (80.0-94.0); Mean Platelet Volume 10.2 fL (9.5-13.5); Monocytes Absolute Auto 0.7 10^3/uL (0.3-0.8); Monocytes Percent Auto 9.2 % (1.7-12.0); Neutrophils Absolute Auto 4.3 10^3/uL (1.4-6.5); Neutrophils Percent Auto 56.5 % (43.0-75.0); Platelet Count 201 10^3/uL (150-450); Red Blood Count 5.05 10^6/uL (4.70-6.10); Red Cell Distribution Width 13.3 % (11.0-15.0); White Blood Count 7.6 10^3/uL (4.0-11.0)
[2023-12-27 11:18] LABS: Estimated Average Glucose 131 mg/dL; Glycohemoglobin A1C 6.2 % (4.5-6.2)
[2023-12-27 11:55] LABS: Alanine Aminotransferase 87 U/L (16-63); Albumin Globulin Ratio 1.2; Albumin Level 3.9 g/dL (3.4-5.0); Alkaline Phosphatase 51 U/L (46-116); Anion Gap 14.5; Aspartate Amino Transferase 38 U/L (15-37); BUN Creatinine Ratio 22.4; Bilirubin Total 0.7 mg/dL (0.2-1.0); Calcium 9.6 mg/dL (8.5-10.1); Carbon Dioxide 27.9 mmol/L (21.0-32.0); Chloride 103 mmol/L (98-107); Chol HDL Ratio 4.5; Cholesterol 176 mg/dL (<=200); Estimated GFR (African America >60 (>=60); Estimated GFR (Non-African Ame >60 (>=60); Globulin 3.2 g/dL; Glucose 103 mg/dL (74-106); HDL Cholesterol 39 mg/dL (40-60); Potassium 4.4 mmol/L (3.5-5.1); Sodium 141 mmol/L (136-145); Total Protein 7.1 g/dL (6.4-8.2); Triglycerides 263 mg/dL (<=150); Uric Acid 6.5 mg/dL (3.5-7.2); VLDL CHOLESTEROL 52.6 mg/dL
[2023-12-27 12:15] LABS: Prostate Specific Antigen Scrn <0.13 ng/mL (<=4.00)
== END 2023-12-27 10:18 | disposition home or self-care (01) ==
LOC: LAB 10:18
PROVIDERS: PCP Family Medicine; Visit Provider Family Medicine
DX: Z00.00 Encounter for general adult medical examination without abnormal findings (principal); E78.5 Hyperlipidemia, unspecified; R73.09 Other abnormal glucose; Z12.5 Encounter for screening for malignant neoplasm of prostate
CPT/HCPCS: 36415; 80053; 80061; 83036; 84550; 85025; G0103

== ENCOUNTER 2024-01-03 09:51 | Outpatient (OUT) | payer OTHER, SELFPAY ==
[2024-01-03 13:26] LABS: Alanine Aminotransferase 96 U/L (16-63); Albumin Globulin Ratio 1.1; Albumin Level 3.7 g/dL (3.4-5.0); Alkaline Phosphatase 49 U/L (46-116); Aspartate Amino Transferase 41 U/L (15-37); BUN Creatinine Ratio 16.2; Bilirubin Total 0.7 mg/dL (0.2-1.0); Calcium 9.4 mg/dL (8.5-10.1); Carbon Dioxide 23.2 mmol/L (21.0-32.0); Chloride 100 mmol/L (98-107); Estimated GFR (African America >60 (>=60); Estimated GFR (Non-African Ame >60 (>=60); Globulin 3.5 g/dL; Glucose 114 mg/dL (74-106); Potassium 4.2 mmol/L (3.5-5.1); Sodium 132 mmol/L (136-145); Total Protein 7.2 g/dL (6.4-8.2)
[2024-01-04 05:07] LABS: HBsAg Screen Negative (Negative); HCV Ab Non Reactive (Non Reactive); Hep A Ab, IgM Negative (Negative); Hep B Core Ab, IgM Negative (Negative)
== END 2024-01-03 09:52 | disposition home or self-care (01) ==
LOC: LAB 09:55
PROVIDERS: PCP Family Medicine; Visit Provider Family Medicine
DX: R74.8 Abnormal levels of other serum enzymes (principal)
CPT/HCPCS: 36415; 80053; 80074

== ENCOUNTER 2024-01-10 14:21 | Outpatient (OUT) | payer OTHER, SELFPAY ==
--- NOTE | 2024-01-10 14:40 | CT_ITS ---
[address] [address] Patient Name: ELIZA JUAN MRN: [id number] date: 1965 Sex: M Assigned Patient Location: CT Current Patient Location: Accession/Order Number: [id number] Exam Date: 01/10/2024 14:35 Report Date: 01/12/2024 06:12 At the request of: DIONISIO ISLAS Procedure: CT lung screening low-dose EXAMINATION: CT lung screening low-dose HISTORY: well adult Z00.00 , shortness of breath, former smoker COMPARISON: CT chest 01/06/2021 TECHNIQUE: Axial, Coronal, and Sagittal images were created without the administration of IV contrast material. Dose reduction techniques were achieved by using automated exposure control and/or adjustment of mA and/or kV according to patient size and/or use of iterative reconstruction technique. FINDINGS: LUNGS: No visible pulmonary disease. PLEURA: No mass, effusion, or pneumothorax. VASCULATURE: No abnormality. ZULMA: No mass or pathologic adenopathy. MEDIASTINUM: No mass or pathologic adenopathy. CARDIAC:Atherosclerotic coronary artery disease. No enlargement, pericardial thickening, or pericardial effusion. AORTA: No aneurysm or dissection. CHEST WALL: No mass or axillary adenopathy BONES: No bone lesion or fracture. LIMITED ABDOMEN: No suspicious findings. Limited images of the upper abdomen. OTHER: Negative. CT/CT lung screening low-dose IMPRESSION: 1. Lung-RADS Category 1 Negative. No nodules and definitely benign nodules. Continue annual screening with LDCT in 12 months. Electronically authenticated by: JULIO BERMEO Date: 01/12/2024 06:12
== END 2024-01-10 14:22 | disposition home or self-care (01) ==
LOC: CT 14:21
PROVIDERS: PCP Family Medicine; Visit Provider Family Medicine
DX: Z00.00 Encounter for general adult medical examination without abnormal findings (principal); Z87.891 Personal history of nicotine dependence
CPT/HCPCS: 71271

== ENCOUNTER 2024-01-24 07:06 | Outpatient (OUT) | payer OTHER, SELFPAY ==
--- NOTE | 2024-01-24 06:50 | NM_ITS ---
Patient Name: ELIZA JUAN MR#: [id number] : 1965 Exam Date: 01/24/2024 Ordering Doctor: DR MAYA VU M.D. RADIOLOGY REPORT PROCEDURE: NM RAUL PERF SPECT REST STR COMPARISON: None. INDICATIONS: Atherosclerotic heart disease of [place] coronary artery TECHNIQUE: Exam Description: Stress/Rest two day protocol gated SPECT Rest Imagin.1 mCi Tc-99m Cardiolite IV on 01/24/2024 Stress Imaging 24.9 mCi Tc-99m Cardiolite IV on 01/26/2024 Exercise Protocol: Jose Miguel Heart Rate (bpm): Rest: 69 Max: 137 PMHR: 85 Blood Pressure: Rest: 142/100 Max: 196/102 Exercise Time: Minutes: 10 Seconds: 27 Stage Reached: Stage: 4 Mets 13.4 Symptoms: Rest and peak stress ECG findings were pending and the exercise portion of the study was pending per attending physician Dr. THOMAS . For more details please see separate cardiac stress test report. FINDINGS: QUALITY OF STUDY: Excellent. PERFUSION DEFECT: None. LOCATION: N/A SIZE: N/A. SEVERITY: N/A. TYPE: N/A. WALL MOTION: Normal. LV SIZE: Normal. 72 mL. TID / TCD: None; 0.8 LVEF: Normal. Calculated EF 66%. SUMMARY: Myocardial perfusion imaging study is NORMAL. CONCLUSION: 1. Normal myocardial profusion scan no reversible ischemia 2. Pending exercise test results Dictated by: Alton Villegas MD on 01/26/2024 at 15:28 Approved by: Alton Villegas MD on 01/26/2024 at 15:30
--- OUTSIDE RECORDS SUMMARY | 2024-01-24 07:09 | XMS_ITS | CCD ---
Author Organization [facility] Care Team Providers Care Hand Launderer Name Role Phone ИВАН RAMOS AM Unavailable Unavailable ИВАН RAMOS AM Unavailable Unavailable SELF, REFERRED Unavailable Unavailable HOYVERONICADIONISIO Unavailable Unavailable AL Unavailable Unavailable UNKNOWN, PROVIDER Unavailable Unavailable MORA, NATALIA Unavailable Unavailable MORA, NATALIA Unavailable Unavailable HOY, DIONISIO Unavailable Unavailable UNKNOWN, PROVIDER Unavailable Unavailable Nill, Carroll Nash Admitting Unavailable Nill, Carroll Nash Attending Unavailable Nill, Carroll R Referring Unavailable HaileeyDionisio~[id number] UNKNOWN Primary Care Unavailable HAILEEY, DR NICHOLE Admitting Unavailable HOY, DR NICHOLE [...] Translations: [ibuprofen] Drug Allergy 08-06-2014 A[facility] Repository Problems Active Problems Problem Classification Problem Date Documented Date Episodic/Chronic Acute myocardial infarction (3 sources) Non-ST elevation (NSTEMI) myocardial infarction; Translations: [NON-ST ELEVATION (NSTEMI) MYOCARDIAL INFARCTION] Onset: 11-10-2017 Chronic Coronary atherosclerosis and other heart disease (6 sources) 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 Kami Torres CBC AUTO DIFFon 12-29-2021 BASO # 0.1 103/ul Normal 0.0-0.1 [facility] Comment on above: Performed By: #### CBC #### [facility] [address] [address] [address] Kami Torres Basophils/100 WBC (Bld) 0.7 % Normal 0.2-2.0 [facility] Comment on above: Performed By: #### CBC #### [facility] [address] [address] [address] Kami Torres EO # 0.4 103/ul Normal 0.0-0.7 [facility] Comment on above: Performed By: #### CBC #### [facility] [address] [address] [address] Kami Torres Eosinophils/100 WBC (Bld) 5.8 % Normal 0.9-7.0 [facility] Comment on above: Performed By: #### CBC #### [facility] [address] [place] [address] Dr. Kami Torres Erythrocyte distribution width (RBC) [Ratio] 13.5 % Normal 11.0-15.0 [facility] Comment on above: Performed By: #### CBC #### [facility] [address] [address] [address] Kami Torres Hematocrit (Bld) [Volume fraction] 41.8 % Critically low 42.0-54.0 [facility] Comment on above: Performed By: #### CBC #### [facility] [address] [place] [address] Dr. Kami Torres Hemoglobin (Bld) [Mass/Vol] 13.6 g/dL Critically low 14.0-18.0 [facility] Comment on above: Performed By: #### CBC #### [facility] [address] [address] [address] Kami Torres IG # 0.05 10e3/ul Critically high 0.00-0.03 [facility] Comment on above: Performed By: #### CBC #### [facility] [address] [address] [address] Kami Torres IG % 0.7 % Critically high 0.0-0.5 [facility] Comment on above: Performed By: #### CBC #### [facility] [address] [place] [address] Dr. Kami Torres LYMPH # 2.2 103/ul Normal 1.2-3.8 [facility] Comment on above: Performed By: #### CBC #### [facility] [address] [place] [address] Dr. Kami Torres Lymphocytes/100 WBC (Bld) 32.5 % Normal 20.5-60.0 [facility] Comment on above: Performed By: #### CBC #### [facility] [address] [place] [address] Dr. Kami Torres MANUAL DIFF REQ NO Normal [facility] Comment on above: Performed By: #### CBC #### [facility] [address] [place] [address] Dr. Kami Torres MCH (RBC) [Entitic mass] 27.9 pg Normal 25.9-34.0 [facility] Comment on above: Performed By: #### CBC #### [facility] [address] [place] [address] Dr. Kami Torres MCHC (RBC) [Mass/Vol] 32.5 g/dL Normal 29.9-35.2 [facility] Comment on above: Performed By: #### CBC #### [facility] [address] [place] [address] Dr. Kami Torres MCV (RBC) [Entitic vol] 85.7 fL Normal 80.0-94.0 [facility] Comment on above: Performed By: #### CBC #### [facility] [address] [place] [address] Dr. Kami Torres MONO # 0.6 103/ul Normal 0.3-0.8 [facility] Comment on above: Performed By: #### CBC #### [facility] [address] [place] [address] Dr. Kami Torres Monocytes/100 WBC (Bld) 8.4 % Normal 1.7-12.0 [facility] Comment on above: Performed By: #### CBC #### [facility] [address] [place] [address] Dr. Kami Torres NEUT # 3.5 103/ul Normal 1.4-6.5 [facility] Comment on above: Performed By: #### CBC #### [facility] [address] [place] [address] Dr. Kami Torres Neutrophils/100 WBC (Bld) 51.9 % Normal 43.0-75.0 [facility] Comment on above: Performed By: #### CBC #### [facility] [address] [place] [address] Dr. Kami Torres Platelet mean volume (Bld) [Entitic vol] 9.9 fL Normal 9.5-13.5 [facility] Comment on above: Performed By: #### CBC #### [facility] [address] [place] [address] Dr. Kami Torres PLT 191 103/ul Normal 150-450 [facility] Comment on above: Performed By: #### CBC #### [facility] [address] [place] [address] Dr. Kami Torres RBC 4.88 106/ul Normal 4.70-6.10 [facility] Comment on above: Performed By: #### CBC #### [facility] [address] [place] [address] Dr. Kami Torres WBC 6.7 103/ul Normal 4.0-11.0 [facility] Comment on above: Performed By: #### CBC #### [facility] [address] [place] [address] Dr. Kami Torres GLYCOHEMOGLOBIN A1Con 2021 ADA RECOMMENDATION SEE BELOW Normal [facility] Comment on above: Result Comment: ADA RECOMMENDED LIMIT 4. 0 - 6.0 ADA THERAPEUTIC TARGET < 7.0 ACTION SUGGESTED > 7.0 Performed By: #### A 1C #### [facility] [address] [place] [address] Dr. Kami Torres Glucose [Mass/Vol] 131 mg/dL Normal [facility] Comment on above: Performed By: #### A1C #### [facility] [address] [place] [address] Dr. Kami Torres HbA1c (Bld) [Mass fraction] 6.2 % Normal 4.5-6.2 [facility] Comment on above: Performed By: #### A1C #### [facility] [address] [address] [address] Kami Torres LIPID PROFILEon 12-29-2021 CHOL-HDL RATIO NORM SEE BELOW Normal [facility] Comment on above: Result Comment: 3.3 - 4.4 LOW RISK 4.4 - 7.1 AVERAGE RISK 7.1 - 11.0 MODERATE RISK >11.0 HIGH RISK Performed By: #### U AMBERLY, CMP, LIPID #### [facility] [address] [address] [address] Kami Torres Cholesterol [Mass/Vol] 151 mg/dL Normal <=200 [facility] Comment on above: Performed By: #### URIC, CMP, LIPID #### [facility] [address] [address] [address] Kami Torres Cholesterol in HDL [Mass/Vol] 40 mg/dL Normal 40-60 [facility] Comment on above: Performed By: #### URIC, CMP, LIPID #### [facility] [address] [address] [address] Kami Torres Cholesterol in LDL [Mass/Vol] 77.6 mg/dL Normal [facility] Comment on above: Performed By: #### URIC, CMP, LIPID #### [facility] [address] [address] [address] Kami Torres Cholesterol.tota l/Cholesterol in HDL [Mass ratio] 3.8 {ratio} Normal [facility] Comment on above: Performed By: #### URIC, CMP, LIPID #### [facility] [address] [address] [address] Kami Torres HDL NORMAL > or = 60 mg/dl - LO W CARDIOVASCULAR RISK <40 mg/dl - HIGH CARDIOVASCULAR RISK Normal [facility] Comment on above: Performed By: #### URIC, CMP, LIPID #### [facility] [address] [address] [address] Kami Torres LDL CALC NORMAL SEE BELOW Normal [facility] Comment on above: Result Comment: <100 mg/dl OPTIMAL 100 - 129 mg/dl NEAR OR ABOVE OPTIMAL 130 - 159 mg/dl BORDERLINE HIGH 160 - 189 mg/dl HIGH >190 mg/dl VERY HIGH Performed By: #### U AMBERLY, CMP, LIPID #### [facility] [address] [place] [address] Dr. Kami Torres Triglyceride [Mass/Vol] 167 mg/dL Critically high <=150 [facility] Comment on above: Performed By: #### URIC, CMP, LIPID #### [facility] [address] [place] [address] Dr. Kami Torres VLDL CALC 33.4 mg/dL Normal [facility] Comment on above: Performed By: #### URIC, CMP, LIPID #### [facility] [address] [place] [address] Dr. Kami Torres PROF 14(COMP METB)on 022 Albumin [Mass/Vol] 3.7 g/dL Normal 3.4-5.0 [facility] Comment on above: Performed By: #### URIC, CMP, LIPID #### [facility] [address] [place] [address] Dr. Kami Torres Albumin/Globulin [Mass ratio] 1.3 {ratio} Normal [facility] Comment on above: Performed By: #### URIC, CMP, LIPID #### [facility] [address] [place] [address] Dr. Kami Torres ALP [Catalytic activity/Vol] 40 U/L Critically low 46-116 [facility] Comment on above: Performed By: #### URIC, CMP, LIPID #### [facility] [address] [place] [address] Dr. Kami Torres ALT [Catalytic activity/Vol] 79 U/L Critically high 16-63 [facility] Comment on above: Performed By: #### URIC, CMP, LIPID #### [facility] [address] [place] [address] Dr. Kami Torres Anion gap [Moles/Vol] 10.2 mmol/L Normal [facility] Comment on above: Performed By: #### URIC, CMP, LIPID #### [facility] [address] [place] [address] Dr. Kami Torres AST [Catalytic activity/Vol] 32 U/L Normal 15-37 [facility] Comment on above: Performed By: #### URIC, CMP, LIPID #### [facility] [address] [place] [address] Dr. Kami Torres Bilirubin [Mass/Vol] 0.5 mg/dL Normal 0.2-1.0 [facility] Comment on above: Performed By: #### URIC, CMP, LIPID #### [facility] [address] [place] [address] Dr. Kami Torres Calcium [Mass/Vol] 8.3 mg/dL Critically low 8.5-10.1 [facility] Comment on above: Performed By: #### URIC, CMP, LIPID #### [facility] [address] [place] [address] Dr. Kami Torres Chloride [Moles/Vol] 107 mmol/L Normal 98-107 [facility] Comment on above: Performed By: #### URIC, CMP, LIPID #### [facility] [address] [place] [address] Dr. Kami Torres CO2 [Moles/Vol] 26.1 mmol/L Normal 21.0-32.0 [facility] Comment on above: Performed By: #### URIC, CMP, LIPID #### [facility] [address] [place] [address] Dr. Kami Torres Creatinine [Mass/Vol] 0.95 mg/dL Normal 0.70-1.30 [facility] Comment on above: Performed By: #### URIC, CMP, LIPID #### [facility] [address] [place] [address] Dr. Kami Torres EGFR-AF UZBEK >60 Normal >=60 [facility] Comment on above: Performed By: #### URIC, CMP, LIPID #### [facility] [address] [place] [address] Dr. Kami Torres EGFR-NON AF UZBEK >60 Normal >=60 [facility] Comment on above: Performed By: #### URIC, CMP, LIPID #### [facility] [address] [place] [address] Dr. Kami Torres Globulin (S) [Mass/Vol] 2.9 g/dL Normal [facility] Comment on above: Performed By: #### URIC, CMP, LIPID #### [facility] [address] [place] [address] Dr. Kami Torres Glucose [Mass/Vol] 96 mg/dL Normal 74-106 [facility] Comment on above: Performed By: #### URIC, CMP, LIPID #### [facility] [address] [place] [address] Dr. Kami Torres Potassium [Moles/Vol] 4.3 mmol/L Normal 3.5-5.1 [facility] Comment on above: Performed By: #### URIC, CMP, LIPID #### [facility] [address] [place] [address] Dr. Kami Torres Protein [Mass/Vol] 6.6 g/dL Normal 6.1-8.2 [facility] Comment on above: Performed By: #### URIC, CMP, LIPID #### [facility] [address] [place] [address] Dr. Kami Torres Sodium [Moles/Vol] 139 mmol/L Normal 136-145 [facility] Comment on above: Performed By: #### URIC, CMP, LIPID #### [facility] [address] [place] [address] Dr. Kami Torres Urea nitrogen [Mass/Vol] 14.0 mg/dL Normal 7.0-18.0 [facility] Comment on above: Performed By: #### URIC, CMP, LIPID #### [facility] [address] [place] [address] Dr. Kami Torres Urea nitrogen/Creatin ine [Mass ratio] 14.7 mg/mg Normal [facility] Comment on above: Performed By: #### URIC, CMP, LIPID #### [facility] [address] [place] [address] Dr. Kami Torres URIC ACID SERUMon 12-29-2021 Urate [Mass/Vol] 6.4 mg/dL Normal 3.5-8.5 [facility] Comment on above: Performed By: #### URIC, CMP, LIPID #### [facility] [address] [place] [address] Dr. Kami Torres CBC AUTO DIFFon 05-19-2021 BASO # 0.1 103/ul Normal 0.0-0.1 [facility] Comment on above: Performed By: #### URIC, CMP, LIPID #### [facility] [address] [place] [address] Dr. Kami Torres Basophils/100 WBC (Bld) 0.7 % Normal 0.2-2.0 [facility] Comment on above: Performed By: #### URIC, CMP, LIPID #### [facility] [address] [place] [address] Dr. Kami Torres EO # 0.9 103/ul Critically high 0.0-0.7 [facility] Comment on above: Performed By: #### URIC, CMP, LIPID #### [facility] [address] [place] [address] Dr. Kami Torres Eosinophils/100 WBC (Bld) 11.3 % Critically high 0.9-7.0 [facility] Comment on above: Performed By: #### URIC, CMP, LIPID #### [facility] [address] [place] [address] Dr. Kami Torres Erythrocyte distribution width (RBC) [Ratio] 13.2 % Normal 11.0-15.0 [facility] Comment on above: Performed By: #### URIC, CMP, LIPID #### [facility] [address] [place] [address] Dr. Kami Torres Hematocrit (Bld) [Volume fraction] 43.7 % Normal 42.0-54.0 [facility] Comment on above: Performed By: #### URIC, CMP, LIPID #### [facility] [address] [place] [address] Dr. Kami Torres Hemoglobin (Bld) [Mass/Vol] 14.6 g/dL Normal 14.0-18.0 [facility] Comment on above: Performed By: #### URIC, CMP, LIPID #### [facility] [address] [place] [address] Dr. Kami Torres IG # 0.05 10e3/ul Critically high 0.00-0.03 [facility] Comment on above: Performed By: #### URIC, CMP, LIPID #### [facility] [address] [place] [address] Dr. Kami Torres IG % 0.6 % Critically high 0.0-0.5 [facility] Comment on above: Performed By: #### URIC, CMP, LIPID #### [facility] [address] [address] [address] Kami Torres LYMPH # 2.0 103/ul Normal 1.2-3.8 [facility] Comment on above: Performed By: #### URIC, CMP, LIPID #### [facility] [address] [place] [address] Dr. Kami Torres Lymphocytes/100 WBC (Bld) 24.3 % Normal 20.5-60.0 [facility] Comment on above: Performed By: #### URIC, CMP, LIPID #### [facility] [address] [place] [address] Dr. Kami Torres MANUAL DIFF REQ NO Normal [facility] Comment on above: Performed By: #### URIC, CMP, LIPID #### [facility] [address] [place] [address] Dr. Kami Torres MCH (RBC) [Entitic mass] 29.0 pg Normal 25.9-34.0 [facility] Comment on above: Performed By: #### URIC, CMP, LIPID #### [facility] [address] [place] [address] Dr. Kami Torres MCHC (RBC) [Mass/Vol] 33.4 g/dL Normal 29.9-35.2 [facility] Comment on above: Performed By: #### URIC, CMP, LIPID #### [facility] [address] [place] [address] Dr. Kami Torres MCV (RBC) [Entitic vol] 86.9 fL Normal 80.0-94.0 [facility] Comment on above: Performed By: #### URIC, CMP, LIPID #### [facility] [address] [place] [address] Dr. Kami Torres MONO # 0.7 103/ul Normal 0.3-0.8 [facility] Comment on above: Performed By: #### URIC, CMP, LIPID #### [facility] [address] [address] [address] Kami Torres Monocytes/100 WBC (Bld) 8.1 % Normal 1.7-12.0 [facility] Comment on above: Performed By: #### URIC, CMP, LIPID #### [facility] [address] [place] [address] Dr. Kami Torres NEUT # 4.5 103/ul Normal 1.4-6.5 [facility] Comment on above: Performed By: #### URIC, CMP, LIPID #### [facility] [address] [place] [address] Dr. Kami Torres Neutrophils/100 WBC (Bld) 55.0 % Normal 43.0-75.0 [facility] Comment on above: Performed By: #### URIC, CMP, LIPID #### [facility] [address] [place] [address] Dr. Kami Torres Platelet mean volume (Bld) [Entitic vol] 10.0 fL Normal 9.5-13.5 [facility] Comment on above: Performed By: #### URIC, CMP, LIPID #### [facility] [address] [place] [address] Dr. Kami Torres PLT 185 103/ul Normal 150-450 [facility] Comment on above: Performed By: #### URIC, CMP, LIPID #### [facility] [address] [place] [address] Dr. Kami Torres RBC 5.03 106/ul Normal 4.70-6.10 [facility] Comment on above: Performed By: #### URIC, CMP, LIPID #### [facility] [address] [place] [address] Dr. Kami Torres WBC 8.3 103/ul Normal 4.0-11.0 [facility] Comment on above: Performed By: #### URIC, CMP, LIPID #### [facility] [address] [place], [place] [id number] Dr. Kami Torres GLYCOHEMOGLOBIN A1Con 2020 ADA RECOMMENDATION ADA THERAPEUTIC TARGET 6.0 - 7.0 ACTION SUGGESTED > 7.0 Normal [facility] Comment on above: Performed By: #### A1C #### [facility] [address] [id number] Trace Adriana Glucose [Mass/Vol] 134 mg/dL Normal [facility] Comment on above: Performed By: #### A1C #### [facility] [address] [id number] Trace Adriana HbA1c (Bld) [Mass fraction] 6.3 % Critically high <=6.0 [facility] Comment on above: Performed By: #### A1C #### [facility] [address] [place] [address] Trace Adriana LIPID PROFILEon 05-19-2021 CHOL-HDL RATIO NORM SEE BELOW Normal [facility] Comment on above: Result Comment: 3.3 - 4.4 LOW RISK 4.4 - 7.1 AVERAGE RISK 7.1 - 11.0 MODERATE RISK >11.0 HIGH RISK Performed By: #### C MP, LIPID #### [facility] [address] [place] [address] Trace Adriana Cholesterol [Mass/Vol] 155 mg/dL Normal <=200 [facility] Comment on above: Performed By: #### CMP, LIPID #### [facility] [address] [place] [address] Trace Adriana Cholesterol in HDL [Mass/Vol] 37 mg/dL Normal [facility] Comment on above: Performed By: #### CMP, LIPID #### [facility] [address] [id number] Trace Adriana Cholesterol in LDL [Mass/Vol] 49.2 mg/dL Normal [facility] Comment on above: Performed By: #### CMP, LIPID #### [facility] [facility] [address] [id number] Trace Adriana Cholesterol.tota l/Cholesterol in HDL [Mass ratio] 4.2 {ratio} Normal [facility] Comment on above: Performed By: #### CMP, LIPID #### [facility] [address] [place], [place] [address] Trace Adriana HDL NORMAL > or = 60 mg/dl - LO W CARDIOVASCULAR RISK <40 mg/dl - HIGH CARDIOVASCULAR RISK Normal [facility] Comment on above: Performed By: #### CMP, LIPID #### [facility] [address] [phone] Trace Adriana LDL CALC NORMAL SEE BELOW Normal [facility] Comment on above: Result Comment: <100 mg/dl OPTIMAL 100 - 129 mg/dl NEAR OR ABOVE OPTIMAL 130 - 159 mg/dl BORDERLINE HIGH 160 - 189 mg/dl HIGH >190 mg/dl VERY HIGH Performed By: #### C MP, LIPID #### [facility] [address] [id number] Trace Adriana Triglyceride [Mass/Vol] 344 mg/dL Critically high <=150 [facility] Comment on above: Performed By: #### CMP, LIPID #### [facility] [address] [phone] Trace Adriana VLDL CALC 68.8 mg/dL Normal [facility] Comment on above: Performed By: #### CMP, LIPID #### [facility] [address] [place], [place] [id number] Tracenicholas Rodasen PROF 14(COMP METB)on 021 Albumin [Mass/Vol] 3.9 g/dL Normal 3.5-5.0 [facility] Comment on above: Performed By: #### CMP, LIPID #### [facility] [address] [place], [place] [phone] Trace Adriana Albumin/Globulin [Mass ratio] 1.2 {ratio} Normal [facility] Comment on above: Performed By: #### CMP, LIPID #### [facility] [address] [place], [place] [phone] Trace Adriana ALP [Catalytic activity/Vol] 50 U/L Normal 38-126 [facility] Comment on above: Performed By: #### CMP, LIPID #### [facility] [address] [place], [place] [address] Trace Adriana ALT [Catalytic activity/Vol] 79 U/L Critically high 21-72 [facility] Comment on above: Performed By: #### CMP, LIPID #### [facility] [address] [phone] Trace Adriana Anion gap [Moles/Vol] 13.8 mmol/L Normal [facility] Comment on above: Performed By: #### CMP, LIPID #### [facility] [address] [phone] Trace Adriana AST [Catalytic activity/Vol] 30 U/L Normal 17-59 [facility] Comment on above: Performed By: #### CMP, LIPID #### [facility] [address] [id number] Trace Adriana Bilirubin [Mass/Vol] 0.6 mg/dL Normal 0.2-1.3 [facility] Comment on above: Performed By: #### CMP, LIPID #### [facility] [address] [address] Trace Adriana Calcium [Mass/Vol] 9.2 mg/dL Normal 8.4-10.2 [facility] Comment on above: Performed By: #### CMP, LIPID #### [facility] [address] [phone] Trace Adriana Chloride [Moles/Vol] 103 mmol/L Normal 98-107 [facility] Comment on above: Performed By: #### CMP, LIPID #### [facility] [address] [address] Trace Adriana CO2 [Moles/Vol] 25.5 mmol/L Normal 22.0-30.0 [facility] Comment on above: Performed By: #### CMP, LIPID #### [facility] [address] [phone] Trace Adriana Creatinine [Mass/Vol] 0.89 mg/dL Normal 0.66-1.25 [facility] Comment on above: Performed By: #### CMP, LIPID #### [facility] [address] [phone] Trace Adriana EGFR-AF UZBEK >60 Normal >=60 [facility] Comment on above: Performed By: #### CMP, LIPID #### [facility] [address] [phone] Trace Adriana EGFR-NON AF UZBEK >60 Normal >=60 [facility] Comment on above: Performed By: #### CMP, LIPID #### [facility] [address] [phone] Trace Adriana Globulin (S) [Mass/Vol] 3.3 g/dL Normal [facility] Comment on above: Performed By: #### CMP, LIPID #### [facility] [address] [address] Trace Adriana Glucose [Mass/Vol] 103 mg/dL Normal 74-106 [facility] Comment on above: Performed By: #### CMP, LIPID #### [facility] [address] [place] [address] Trace Adriana Potassium [Moles/Vol] 4.3 mmol/L Normal 3.4-5.0 [facility] Comment on above: Performed By: #### CMP, LIPID #### [facility] [address] [address] Trace Adriana Protein [Mass/Vol] 7.2 g/dL Normal 6.1-8.2 [facility] Comment on above: Performed By: #### CMP, LIPID #### [facility] [address] [place] [address] Trace Adriana Sodium [Moles/Vol] 138 mmol/L Normal 137-145 [facility] Comment on above: Performed By: #### CMP, LIPID #### [facility] [address] [address] Trace Adriana Urea nitrogen [Mass/Vol] 14.0 mg/dL Normal 9.0-20.0 [facility] Comment on above: Performed By: #### CMP, LIPID #### [facility] [address] [phone] Trace Adriana Urea nitrogen/Creatin ine [Mass ratio] 15.7 mg/mg Normal [facility] Comment on above: Performed By: #### CMP, LIPID #### [facility] [address] [phone] LUNG CANCER SCREENINGon 0 [...] by: JULIO BERMEO Date: 2021-01-06 09:16 Normal [facility] Coding Summary.on 01-06-2019 Coding Summary. CODING DATE: 019 FINAL [facility] STATUS: Home (Routine DC) PAYOR: Commercial Insurance [...] PROC APC STAT DESCRIPTION DOCTOR NAME DATE [id number] T Colonoscopy, flexible; Carroll MCKEON MD 01/02/2019 with biopsy, single or multiple [id number] Anesthesia for lower Puri Jr. Jovanni GIBSON [...] Revised Date Saved: 01/06/2019 12:59 pm Normal [facility] Main OR Intraoperative Recor don 01-04-2019 Main OR Intraoperative Record IntraOp Document Type FT Summary Primary Physician: Carroll MCKEON MD Finalized Date/Time: 01/04/19 08:59:41 Pt. Name: ELIZA RAUSCH /Sex: 1965 Male Med Rec #: [id number] Physician: Carroll MCKEON MD Financial #: [id number] Pt. Type: O Room/Bed: / Admit/Disch: 01/02/19 [...] Entry 2 Entry 3 Case Attendee [facility], Charlene MCKEON MD, Carroll Hong RN, Maricel Marcano Role Performed Anesthesiologist Surgeon - Primary Agency Manager - Primary Sewing Teacher Time In 01/02/19 07:48:00 01/02/19 07:48:00 01/02/19 [...] student, also in room to observe. 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 Comment on above: Result Comment: Electronically Signed By : Carroll MCKEON MD\.br\Date and Time Signed: 01/02/19 07:24 EDT Inpatient Patient Summaryon 01-02-2019 Inpatient Patient Summary [facility] Clinical Discharge Instructions PERSON INFORMATION Name: ELIZA RAUSCH PHYSICIANS Admitting Physician: Carroll MCKEON MD Attending Physician: Carroll MCKEON MD PCP: Missy LOVELL, Dionisio Discharge Diagnosis: Colon polyp Comment: PATIENT EDUCATION INFORMATION Instructions: Colonoscopy, Care After Surgery Franco (Custom); Colon Polyps Medication Leaflets: Follow up: With: Address: When: Carroll MCKEON [address] [place] [id number] Business (1) Within 7 to 10 days MEDICATION LIST Comment: Normal [facility] Main OR PACU I Recordon 12-06 Main OR PACU I Record PACU Phase I Document Type FT Summary Primary Physician: Carroll MCKEON MD Finalized Date/Time: 01/02/19 08:52:51 Pt. Name: ELIZA RAUSCH /Sex: 1965 Male Med Rec #: [id number] Physician: Carroll MCKEON MD Financial #: [id number] Pt. Type: O Room/Bed: / Admit/Disch: 01/02/19 [...] 08:49 Kalee Hinton RN 01/02/19 08:52 Normal [facility] Main OR Preoperative Recordo n 01-02-2019 Main OR Preoperative Record Holding Area Document Type FT Summary Primary Physician: Carroll MCKEON MD Finalized Date/Time: 01/02/19 07:23:41 Pt. Name: OWENELIZA/Sex: 1965 Male Med Rec #: [id number] Physician: Carroll MCKEON MD Financial #: [id number] Pt. Type: O Room/Bed: / Admit/Disch: 01/02/19 [...] By: Maricel Hong RN 01/02/19 07:23 Normal [facility] Operative Reporton 9 Operative Report Date [...] condition. Carroll Mckeon M.D. robe Dictated: 01/02/2019 #[id number] Typed: 01/02/2019 #[id number] cc: Martina Draper M.D. [facility] Comment on above: Result Comment: Electronically [...] Document Reviewed: 11/01/2012 ExitCare? Patient Information ?2014 [employer].sh. This information is not intended to replace advice given to you by your health care provider. Make sure you discuss any questions you have with your health care provider. [facility] Progress Note-Physicianon Protein mass conc Patient: [...] Plan Transfer/ Discharge: Condition stable. Normal [facility] Comment on above: Result Comment: Electronically Signed [...] clear to auscultation. Cardiovascular: Regular rhythm. Plan [place] [employer]hesi[employer] (ASA) physical status classification: Class III. Anesthetic Preoperative Plan Anesthesia: General. . Anesthetic plan, risks, benefits, and alternatives discussed with the patient and/or family. Patient verbalized understanding. Normal [facility] Comment on above: Result Comment: Electronically Signed By : Jovanni Puri Jr., DO.mary\Date and Time Signed: 01/02/19 07:38 EDT Discharge Summaryon 11-14-19 Discharge Summary MR#: [id number] Name: Eliza Rausch Admitted: 11/10/2017 Discharged: [...] high risk non-ST segmentelevation myocardial infarction in [place]. [facility]. During [facility], the patient was [...] followup [place] 19[place] [address] [place] [place].DISCHARGE MEDICATIONS:1. Prasugrel 10 mg [...] 11/12/2017/01:31 P/Xiomara Deshpande, MDDate Trans: 11/13/2017 06:56 A/mmoDN_JN:[id number]: Dionisio Louis M.D. [address], [facility] [address] Normal [facility] BASIC METABOLIC PANELon Calcium mass conc 8.8 mg/dL Normal 8.6-10.3 [facility] Comment on above: Order Comment: No: Do not add to previou s draw Performed By: #### 5 7307, 38804 ####[facility] [place] [address], [place] Chloride molar conc 111 mmol/L High 98-107 [facility] Comment on above: Order Comment: No: Do not add to previou s draw Performed By: #### 5 7307, 67408 ####[facility] [place] [address], [place] CO2 molar conc 23 mmol/L Normal 21-31 [facility] Comment on above: Order Comment: No: Do not add to previou s draw Performed By: #### 5 7307, 09348 ####[facility] [place] [address], [place] Creatinine mass conc 0.89 mg/dL Normal 0.70-1.30 [facility] Comment on above: Order Comment: No: Do not add to previou s draw Performed By: #### 5 7307, 95216 ####[facility] [place] [address], [place] GFR/1.73 sq M predicted among blacks MDRD vol rate/area (S/P/Bld) mL/min/{1.73_m2} Normal >60 [facility] Comment on above: Order Comment: No: Do not add to previou s draw Performed By: #### 5 7307, 20049 ####[facility] [place] [address], [facility] GFR/1.73 sq M predicted among non-blacks MDRD vol rate/area (S/P/Bld) mL/min/{1.73_m2} Normal >60 [facility] Comment on above: Order Comment: No: Do not add to previou s draw Performed By: #### 5 73, 15992 ####[facility] [place] [address], [facility] Glucose mass conc 106 mg/dL High 70-100 [facility] Comment on above: Order Comment: No: Do not add to previou s draw Performed By: #### 5 73, 62534 ####[facility] [place] [address], [facility] Potassium molar conc 4.0 mmol/L Normal 3.5-5.1 [facility] Comment on above: Order Comment: No: Do not add to previou s draw Performed By: #### 5 7307, 20801 ####[facility] [place] [address], [facility] Sodium molar conc 136 mmol/L Normal 136-145 [facility] Comment on above: Order Comment: No: Do not add to previou s draw Performed By: #### 5 7307, 19673 ####[facility] [place] [address], [facility] Urea nitrogen mass conc 19 mg/dL Normal 7-25 [facility] Comment on above: Order Comment: No: Do not add to previou s draw Performed By: #### 5 73, 43748 ####[facility] CBC COMPLETE BLOOD COUNTon 0 11-12-2017 Erythrocyte distribution width Auto Ratio (RBC) 13.4 % Normal 11.5-15.0 [facility] Comment on above: Order Comment: No: Do not add to previou s draw Performed By: #### 5 73, 10622 ####[facility] Hematocrit Auto Volume Fraction (Bld) 41.0 % Normal 39.0-50.0 [facility] Comment on above: Order Comment: No: Do not add to previou s draw Performed By: #### 5 73, 13833 ####[facility] Hemoglobin mass conc (Bld) 13.9 g/dL Normal 13.0-17.0 [facility] Comment on above: Order Comment: No: Do not add to previou s draw Performed By: #### 5 7306, 48016 ####[facility] MCH Auto Entitic mass (RBC) 29.0 pg Normal 27.0-33.0 [facility] Comment on above: Order Comment: No: Do not add to previou s draw Performed By: #### 5 73, 89693 ####[facility] [place] [address], [facility] MCHC Auto mass conc (RBC) 33.9 g/dL Normal 32.0-35.0 [facility] Comment on above: Order Comment: No: Do not add to previou s draw Performed By: #### 5 7307, 69428 ####[facility] [place] [address], [facility] MCV Auto Entitic volume (RBC) 85.6 fL Normal 82.0-98.0 [facility] Comment on above: Order Comment: No: Do not add to previou s draw Performed By: #### 5 7307, 78916 ####[facility] Nucleated RBC/100 WBC Ratio (Bld) 0 % Normal 0-0 [facility] Comment on above: Order Comment: No: Do not add to previou s draw Performed By: #### 5 7307, 78136 ####[facility] [place] [address], [facility] PLAT CNT 165 10*3/uL Normal 150-400 [facility] Comment on above: Order Comment: No: Do not add to previou s draw Performed By: #### 5 7307, 40047 ####[facility] RBC Auto #/vol (Bld) 4.79 10*6/uL Normal 4.20-5.70 [facility] Comment on above: Order Comment: No: Do not add to previou s draw Performed By: #### 5 7307, 34353 ####[facility] WBC Auto #/vol (Bld) 7.4 10*3/uL Normal 4.0-10.6 [facility] Comment on above: Order Comment: No: Do not add to previou s draw Performed By: #### 5 7307, 93720 ####[facility] Cardiovascular Lab Reporton 11-12-2017 Cardiovascular Lab Report [facility] Patient Name: Eliza Rausch MR #: [id number] Center Physician: Maya López M.D.Department of Service Date: 11/11/2017Medicine Birthdate: 1965Division of Room #: 3AB [address]EtlrhwouxqLispc CardiovascularServicesUniversity DayqeltPgueht[address], [place] [address]Rgbzz Fax Cardiovascular Laboratory ReportINDICATION: Eliza Rausch is a 52-year-old man, who was admitted to [facility] with crescendo angina and elevation of cardiac [...] signed informed consent. 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 Mo's testwas favorable. Access from the right radial artery was obtained usingmicropuncture technique. A 6-Luxembourger x 11 cm Hydrophilic sheath wasadvanced. Verapamil was given through the sheath and heparin wasadministered intravenously. Bilateral selective coronary angiography wasthen performed using a 5-Luxembourger JR5 diagnostic catheter for engagement ofthe right coronary artery and a 6-Luxembourger Ruth Radial diagnostic catheterfor engagement of the left coronary artery. Angiography was performed inmultiple views. Catheters were removed.Therapeutic ACT was confirmed during the procedure. A 6-Luxembourger XB 3.0guiding catheter was advanced and used to engage the left main coronaryostium. A BMW wire was advanced into the distal LAD. Balloon angioplastyand the proximal LAD were performed using Emerge 3.0 x 12 mm ballooninflated at 12 atmospheres. This was followed by deployment of a PROMUSPremier 3.5 x 16 mm drug-eluting stent deployed at 11 atmospheres and postdilated using NC Quantum Edroy 3.5 x 12 mm noncompliant balloon inflated [...] 11/11/2017/12:53 P/Maya López M.D.Date Trans: 11/12/2017 03:24 A/Nicolas_JN:[id number]: Dionisio Louis M.D. [address] [place] [address] Normal [facility] MAGNESIUM BLOODon 11-12-2017 Magnesium mass conc 2.2 mg/dL Normal 1.9-2.7 [facility] Comment on above: Order Comment: No: Do not add to previou s draw Performed By: #### 5 7307, 13295 ####[facility] [place] [address], [facility] APTTon 11-11-2017 aPTT Coag time (Bld) 31.2 s Normal 25.0-35.0 [facility] Comment on above: Order Comment: No: Do [...] THIS PURPOSE. Performed By: #### 5 7307, 13634 ####[facility] [facility].[address] BASIC METABOLIC PANELon Calcium mass conc 9.2 mg/dL Normal 8.6-10.3 [facility] Comment on above: Order Comment: No: Do not add to previou s draw Performed By: #### 5 7307, 13660 ####[facility] [place] [address], [facility] Chloride molar conc 109 mmol/L High 98-107 [facility] Comment on above: Order Comment: No: Do not add to previou s draw Performed By: #### 5 7307, 02105 ####[facility] [place] [address], [facility] CO2 molar conc 24 mmol/L Normal 21-31 [facility] Comment on above: Order Comment: No: Do not add to previou s draw Performed By: #### 5 7307, 43696 ####[facility] [place] [address], [facility] Creatinine mass conc 0.90 mg/dL Normal 0.70-1.30 [facility] Comment on above: Order Comment: No: Do not add to previou s draw Performed By: #### 5 7307, 19559 ####[facility] [place] [address], [facility] GFR/1.73 sq M predicted among blacks MDRD vol rate/area (S/P/Bld) mL/min/{1.73_m2} Normal >60 [facility] Comment on above: Order Comment: No: Do not add to previou s draw Performed By: #### 5 73, 07698 ####[facility] [place] [address], [facility] GFR/1.73 sq M predicted among non-blacks MDRD vol rate/area (S/P/Bld) mL/min/{1.73_m2} Normal >60 [facility] Comment on above: Order Comment: No: Do not add to previou s draw Performed By: #### 5 7307, 91988 ####[facility] [place] [address], [facility] Glucose mass conc 102 mg/dL High 70-100 [facility] Comment on above: Order Comment: No: Do not add to previou s draw Performed By: #### 5 7307, 70220 ####[facility] [place] [address], [facility] Potassium molar conc 4.0 mmol/L Normal 3.5-5.1 [facility] Comment on above: Order Comment: No: Do not add to previou s draw Performed By: #### 5 7307, 56361 ####[facility] [place] [address], [facility] Sodium molar conc 134 mmol/L Low 136-145 [facility] Comment on above: Order Comment: No: Do not add to previou s draw Performed By: #### 5 7307, 49698 ####[facility] [place] [address], [facility] Urea nitrogen mass conc 16 mg/dL Normal 7-25 [facility] Comment on above: Order Comment: No: Do not add to previou s draw Performed By: #### 5 7307, 43040 ####[facility] [facility] CBC COMPLETE BLOOD COUNTon 0 11-11-2017 Erythrocyte distribution width Auto Ratio (RBC) 13.3 % Normal 11.5-15.0 [facility] Comment on above: Order Comment: Yes: Add to Previous draw if able Performed By: #### 5 0608 ####[facility] Hematocrit Auto Volume Fraction (Bld) 45.1 % Normal 39.0-50.0 [facility] Comment on above: Order Comment: Yes: Add to Previous draw if able Performed By: #### 5 0608 ####[facility] Hemoglobin mass conc (Bld) 15.5 g/dL Normal 13.0-17.0 [facility] Comment on above: Order Comment: Yes: Add to Previous draw if able Performed By: #### 5 0608 ####[facility] [place] [address], [facility] MCH Auto Entitic mass (RBC) 29.2 pg Normal 27.0-33.0 [facility] Comment on above: Order Comment: Yes: Add to Previous draw if able Performed By: #### 5 0608 ####[facility], [place] [address] MCHC Auto mass conc (RBC) 34.4 g/dL Normal 32.0-35.0 [facility] Comment on above: Order Comment: Yes: Add to Previous draw if able Performed By: #### 5 0608 ####[facility] [facility].[address] MCV Auto Entitic volume (RBC) 84.9 fL Normal 82.0-98.0 [facility] Comment on above: Order Comment: Yes: Add to Previous draw if able Performed By: #### 5 0608 ####[facility] [place] [address] Nucleated RBC/100 WBC Ratio (Bld) 0 % Normal 0-0 [facility] Comment on above: Order Comment: Yes: Add to Previous draw if able Performed By: #### 5 0608 ####[address] PLAT CNT 177 10*3/uL Normal 150-400 [facility] Comment on above: Order Comment: Yes: Add to Previous draw if able Performed By: #### 5 0608 ####[address] RBC Auto #/vol (Bld) 5.31 10*6/uL Normal 4.20-5.70 [facility] Comment on above: Order Comment: Yes: Add to Previous draw if able Performed By: #### 5 0608 ####[facility] [facility].[address] WBC Auto #/vol (Bld) 10.1 10*3/uL Normal 4.0-10.6 [facility] Comment on above: Order Comment: Yes: Add to Previous draw if able Performed By: #### 5 0608 ####[address] CBC W/DIFFon 11-11-2017 ABS BASOPHILS 0.0 10*3/uL Normal 0.0-0.2 [facility] Comment on above: Order Comment: No: Do not add to previou s draw Performed By: #### 5 0103 ####[facility] [facility].[address] ABS IMM GRANS 0.0 10*3/uL Normal 0.0-0.2 [facility] Comment on above: Order Comment: No: Do not add to previou s draw Performed By: #### 5 0103 ####[facility] [place] [address], [facility] ABS NEUTROPHILS 4.6 10*3/uL Normal 1.6-7.6 [facility] Comment on above: Order Comment: No: Do not add to previou s draw Performed By: #### 5 0103 ####[facility] [place] [address], [facility] Basophils Auto #/vol (Bld) 0.4 % Normal 0.0-1.0 [facility] Comment on above: Order Comment: No: Do not add to previou s draw Performed By: #### 5 0103 ####[facility] [place] [address], [facility] Eosinophils Auto #/vol (Bld) 0.3 10*3/uL Normal 0.0-0.5 [facility] Comment on above: Order Comment: No: Do not add to previou s draw Performed By: #### 5 0103 ####[facility] [place] [address], [facility] Eosinophils/100 WBC Auto (Bld) 4.0 % Normal 0.0-6.0 [facility] Comment on above: Order Comment: No: Do not add to previou s draw Performed By: #### 5 0103 ####[facility] [place] [address], [facility] Erythrocyte distribution width Auto Ratio (RBC) 13.3 % Normal 11.5-15.0 [facility] Comment on above: Order Comment: No: Do not add to previou s draw Performed By: #### 5 0103 ####[facility] Hematocrit Auto Volume Fraction (Bld) 44.0 % Normal 39.0-50.0 [facility] Comment on above: Order Comment: No: Do not add to previou s draw Performed By: #### 5 0103 ####[facility] [facility].[address] Hemoglobin mass conc (Bld) 15.0 g/dL Normal 13.0-17.0 [facility] Comment on above: Order Comment: No: Do not add to previou s draw Performed By: #### 5 0103 ####[facility] IMMATURE GRANS 0.4 % Normal 0.0-1.0 [facility] Comment on above: Order Comment: No: Do not add to previou s draw Performed By: #### 5 0103 ####[facility] [facility].[address] Lymphocytes Auto #/vol (Bld) 2.5 10*3/uL Normal 1.2-4.0 [facility] Comment on above: Order Comment: No: Do not add to previou s draw Performed By: #### 5 0103 ####[facility] Lymphocytes/100 WBC Auto (Bld) 30.0 % Normal 20.0-45.0 [facility] Comment on above: Order Comment: No: Do not add to previou s draw Performed By: #### 5 3 ####[facility] MCH Auto Entitic mass (RBC) 28.6 pg Normal 27.0-33.0 [facility] Comment on above: Order Comment: No: Do not add to previou s draw Performed By: #### 5 0103 ####[facility] MCHC Auto mass conc (RBC) 34.1 g/dL Normal 32.0-35.0 [facility] Comment on above: Order Comment: No: Do not add to previou s draw Performed By: #### 5 0103 ####[facility] MCV Auto Entitic volume (RBC) 84.0 fL Normal 82.0-98.0 [facility] Comment on above: Order Comment: No: Do not add to previou s draw Performed By: #### 5 0103 ####[facility] Monocytes Auto #/vol (Bld) 0.9 10*3/uL Normal 0.1-1.0 [facility] Comment on above: Order Comment: No: Do not add to previou s draw Performed By: #### 5 0103 ####[facility] MONOS 10.3 % Normal 5.0-12.0 [facility] Comment on above: Order Comment: No: Do not add to previou s draw Performed By: #### 5 0103 ####[facility] Neutrophils/100 WBC Auto (Bld) 54.9 % Normal 40.0-72.0 [facility] Comment on above: Order Comment: No: Do not add to previou s draw Performed By: #### 5 3 ####[facility] Nucleated RBC/100 WBC Ratio (Bld) 0 % Normal 0-0 [facility] Comment on above: Order Comment: No: Do not add to previou s draw Performed By: #### 5 0103 ####[facility] [place] [address], [facility] PLAT CNT 169 10*3/uL Normal 150-400 [facility] Comment on above: Order Comment: No: Do not add to previou s draw Performed By: #### 5 0103 ####[facility] [facility] [place] [address], [facility] RBC Auto #/vol (Bld) 5.24 10*6/uL Normal 4.20-5.70 [facility] Comment on above: Order Comment: No: Do not add to previou s draw Performed By: #### 5 0103 ####[facility] [place] [address], [facility] WBC Auto #/vol (Bld) 8.3 10*3/uL Normal 4.0-10.6 [facility] Comment on above: Order Comment: No: Do not add to previou s draw Performed By: #### 5 0103 ####[facility] [facility] [place] [address], [facility] HEMOGLOBIN A1Con 11-11-2017 Glucose mass conc 111 mg/dL Normal 70-126 [facility] Comment on above: Order Comment: No: Do not add to previou s draw Performed By: #### 5 7307, 92436 ####[facility] [place] [address], [facility] Hemoglobin A1c/Hemoglobin.t otal mass fraction (Bld) 5.5 % Normal 4.0-6.0 [facility] Comment on above: Order Comment: No: Do not add to previou s draw Performed By: #### 5 7307, 72612 ####[facility], [place] [address] History and Physicalon 11-11 History and Physical [id number] Admitted: 11/10/2017 Date of : 1965 Attending Physician: Mikki Potter MD Room #: 3AB [id number] Discharge Date: HISTORY AND PHYSICALCHIEF COMPLAINT: 3 [...] shortness ofbreath, palpitations, lightheadedness, dizziness, or prior CA.In the ER, his blood pressure was noted [...] with family.FAMILY HISTORY: His father of massive CA at age of 75, his mom hasjohnnyabetes, [...] symmetric, no visible pulsations, moves equallywith respirations.HEART: Edroy palpable over the midclavicular line in the [...] 11/10/2017/11:34 P/Mikki Potter MDDate Trans: 11/11/2017 12:16 A/mmoDN_JN:[id number] Normal [facility] LIPID PROFILEon 11-11-2017 Cholesterol in HDL mass conc 33 mg/dL Normal 23-92 [facility] Comment on above: Result Comment: Slight variation in norm al range could be due to gender and/or age.HDL CHOLESTEROL REFERENCE RANGE:20 years and older Cardiovascular Risk> or =60 mg/dL Irrcfjwia44 TO 59 mg/dL Low Risk<40 mg/dL High Risk Performed By: #### 4 6413, 53872, 77723, 43251 ####[facility] [place] [address], [facility] Cholesterol in LDL mass conc 106 mg/dL Normal 0-130 [facility] Comment on above: Result Comment: LDL IS A CALCULATIONLDL IS ONLY VALID IF THE TRIG IS LESS THAN 400. Performed By: #### 4 6413, 35588, 76891, 47382 ####[facility] [place] [address], [facility] Cholesterol mass conc 169 mg/dL Normal 120-200 [facility] Comment on above: Result Comment: CHOLESTEROL REFERENCE RA NGE:20 YEARS AND OLDER CARDIOVASCULAR RISKLess than 200 mg/dl Low Zpfv335 to 239 mg/dl Borderline Esjc492 mg/dl and greater High Risk Performed By: #### 4 6413, 24559, 40011, 49118 ####[facility] [place] [address], [facility] Cholesterol.tota l/Cholesterol in HDL mass ratio 5.1 {ratio} High .0-4.5 [facility] Comment on above: Performed By: #### 74524, 23232, 51039, 53242 ####[facility] NON-HDL CHOLESTEROL 136 mg/dL Normal [facility] Comment on above: Performed By: #### 33818, 18407, 48499, 92533 ####[facility] [facility].[address] Triglyceride mass conc 149 mg/dL Normal 40-149 [facility] Comment on above: Result Comment: TRIGLYCERIDE REFERENCE R ARLENE:20 YEARS AND OLDER CARDIOVASCULAR RISKLESS THAN 150 mg/dl LOW PAHS334 TO 199 mg/dl BORDERLINE [id number] mg/dl AND GREATER HIGH RISK Performed By: #### 4 6413, 80763, 96824, 95558 ####[address] VLDL CHOL 30 mg/dL Normal 0-40 [facility] Comment on above: Performed By: #### 32503, 88106, 90497, 84541 ####[place] [address] [address] MAGNESIUM BLOODon 11-11-2017 Magnesium mass conc 2.2 mg/dL Normal 1.9-2.7 [facility] Comment on above: Order Comment: No: Do not add to previou s draw Performed By: #### 5 7307, 22380 ####[address] PROTHROMBIN TIMEon 8 INR Coag RelTime (PPP) 0.93 {INR} Normal 0.91-1.16 [facility] Comment on above: Order Comment: No: Do [...] OF ACTION, CLINICALEFFECTIVENESS, AND OPTIMAL THERAPEUTIC RANGE. [id number];108:231S-246S. Performed By: #### 5 7307, 81822 ####[facility] [facility].[address] Prothrombin time (PT) Coag time (PPP) 12.5 s Normal 12.3-14.[address] [facility] Comment on above: Order Comment: No: Do not add to previou s draw Result Comment: ALL RESULTS MUST BE INTERPRETED WITH RESPECT TO BLOOD DRAWING ARTIFACTOR DILUTION ERROR OF ANTICOAGULANT AT THE TIME OF SAMPLING. Performed By: #### 5 7307, 42526 ####[facility] TROPONIN-Ion 11-11-2017 Troponin I.cardiac mass conc 0.07 ng/mL High 0.00-0.[address] [facility] Comment on above: Result Comment: REFERENCE RANGES: 0.00 - 0.04 ng/ml NORMAL 0.05 - 0.50 ng/ml INDETERMINATE > 0.50 ng/ml CONSISTENT WITH AN M.I. Performed By: #### 5 7307, 36720 ####[facility] [facility].[address] Troponin I.cardiac mass conc 0.08 ng/mL High 0.00-0.04 [facility] Comment on above: Order Comment: No: Do not add to previou s draw Result Comment: REFE RENCE RANGES: 0.00 - 0.04 ng/ml NORMAL 0.05 - 0.50 ng/ml INDETERMINATE > 0.50 ng/ml CONSISTENT WITH AN M.I. Performed By: #### 3 5200 ####[facility] Troponin I.cardiac mass conc 0.08 ng/mL High 0.00-0.04 [facility] Comment on above: Order Comment: No: Do not add to previou s draw Result Comment: REFE RENCE RANGES: 0.00 - 0.04 ng/ml NORMAL 0.05 - 0.50 ng/ml INDETERMINATE > 0.50 ng/ml CONSISTENT WITH AN M.I. Performed By: #### 3 5200 ####[facility] TSH WITH REFLEXon 11-11-2017 Thyrotropin Qn 1.86 MICRO-IU/ML Normal 0.34-5.60 [facility] Comment on above: Order Comment: No: Do not add to previou s draw Performed By: #### 3 0241 ####[facility] UFH HEPARIN ASSAYon 11-12-19 18 UNFRACTIONATED HEPARIN 0.20 IU/mL Low 0.30-0.70 [facility] Comment on above: Result Comment: Rivaroxaban and Apixaban will interfere with the anti Xa assay used tomonitor UFH and LMWH. Performed By: #### 3 0477 ####[facility] [facility].[address] Encounters Encounter Date Encounter Type Care Provider Facility Start: 12-31-2021 Encounter for genera l adult medical examination without abnormal findings DR DIONISIO LOUIS [facility] Start: 12-29-2021 End: 12-30-[address] DIONISIO LOUIS Facility:[facility] Start: 12-29-2021 End: 12-30-2021 Encounter for general adult medical examination without abnormal findings DR DIONISIO LOUIS Facility:[facility] Start: 05-19-2021 End: 05-20-[address] DIONISIO LOUIS Facility:[facility] Start: 03-27-[address] DIONISIO LOUIS Facility :[facility] Start: 01-06-2021 End: 01-07-[address] DIONISIO LOUIS Facility:[facility] Start: 01-02-2019 End: 01-03-2019 Patient encounter procedure Carroll Mckeon Facility:[facility] Start: 04-04-2018 End: 04-05-2018 Patient encounter NATALIA MORA Facility:[facility] Start: 11-10-2017 End: 11-12-2017 Evaluation and management of inpatient ИВАН RAMOS Facility:[facility] Procedures Date Procedure Procedure Detail Performing Clinician Start: 12-29-[address] ANABEL LOUIS Comment on above: Performed By: #### U AMBERLY, CMP, LIPID #### [facility] [address] [place], [place] [address] Dr. Kami Torres Start: 05-19-[address] ANABEL LOUIS Comment on above: Performed By: #### P SASC #### [facility] [address] [place], [place] [address] Trace Wright Start: 11-11-2017 DILATION OF 1 COR AR T WITH DRUG-ELUT INTRA, PERC APPROACH MAYA Catrachita MOUKARBEL Start: 11-11-2017 FLUOROSCOPY OF MULTI PLE CORONARY ARTERIES USING OTH CONTRAST MAYA V MOSHELTONRBEL Payers Date Payer Category Payer Unknown [id number] 10.22.83 [id number] 1965 Unknown [id number] 10.22.83 [id number] 1965 Unknown [id number] 10.22.83 [id number] 1965 Unknown [id number] 10.22.83 [id number] 1965 Unknown [id number] 10.22.83 [id number] 1960 Self-pay 1960 Unknown [id number] Summary Purpose Family History No Family History Records FoundNo Family History Records FoundNo Family History Records Found Advance Directives No Advanced Directives Records FoundNo Advanced Directives Records FoundNo Advanced Directives Records Found Additional Source Comments (unrecognized sect ion and content) No Status Records FoundNo Status Records FoundNo Status Records Found INFORMATION SOURCE (unrecogn ized section and content) DATE CREATED AUTHOR 04/06/[address] [facility] DATE CREATED AUTHOR AUTHOR'S ORGANIZ ATION 01/14/2019 [facility] DATE CREATED AUTHOR AUTHOR'S ORGANIZ ATION 01/03/2022 She[facility] FOR RECORDS PERTAINING TO PATIENTS WHO ARE [...] BE BASED ON THE PRIMARY CLINICAL RECORDS. [employer] provides no warranty or guarantee of the accuracy or completeness of information in this document.
--- NOTE | 2024-01-24 09:10 | CA_ITS ---
Patient Name: ELIZA JUAN MR#: [id number] : 1965 Exam Date: 01/24/2024 Ordering Doctor: DR MAYA LÓPEZ M.D. ECHOCARDIOGRAM REPORT PROCEDURE: CA ECHO DOPPLER COMPLETE INDICATIONS: Shortness of breath COMPARISON: None. DESCRIPTION: COMPLETE ECHOCARDIOGRAM Real-time transthoracic echocardiography with 2D, M-mode, spectral and color flow Doppler performed. QUALITY: Technical quality was good. LEFT VENTRICLE: Normal chamber size. Mild concentric left ventricular hypertrophy. Global left ventricular systolic function is normal. LV EF: Estimated left ventricular ejection fraction is 55-60% DIASTOLIC: Normal diastolic function. ATRIAL SEPTUM: LEFT ATRIUM: Normal chamber size. RIGHT ATRIUM: Normal chamber size. RIGHT VENTRICLE: Normal chamber size. Normal right ventricular systolic function. TRICUSPID VALVE: Normal mobility and thickness. No stenosis with trivial regurgitation. No evidence of pulmonary hypertension. RVSP 34 mmHg MITRAL VALVE: Normal mobility and thickness. No evidence of mitral valve stenosis. There is no mitral annular calcification. Trivial mitral regurgitation. AORTIC VALVE: Normal trileaflet appearance. No visible sclerosis. Normal leaflet mobility. No evidence of aortic valve stenosis. Trivial aortic regurgitation. AORTIC ROOT: Normal diameter and appearance. PULMONIC VALVE: Normal thickness and mobility. No stenosis. Trivial regurgitation. PERICARDIUM: No evidence of pericardial effusion. IVC: Collapses with inspirations. Normal size. PLEURA: CONCLUSION: 1. Mild concentric left ventricular hypertrophy with normal systolic function. LVEF is 55 to 60%. 2. Normal right ventricular size and systolic function. 3. No significant valvular dysfunction. 4. Normal right-sided pressures. Adult Echocardiography Procedure Report Left Ventricle LVEDD (3.7 - 5.6 cm): 4.30 cm LVESD (2.2 - 4.0 cm): 2.84 cm LVIVS thickness (0.6 - 1.2 cm): 1.22 cm LVPW thickness (0.5 - 1.0 cm): 0.98 cm e': 0.07 m/s E - e': 6.21 LVOT Max Gradient: 3.49 mm[Hg] LVOT Area (cm2): 0.93 m/s Peak Velocity (LVOT): 0.93 m/s Mean Velocity (LVOT): 0.60 m/s LVOT Diameter 1.91 cm Left Ventricular Ejection Fraction: 55-60 % Left Atrium LA Volume Index (2D A2C): 22.58 ml/m2 Left Atrium Systolic Dimension: 2.94 cm Mitral Valve MV E to A Ratio: 0.91 Mitral Valve A-Wave Peak Velocity: 0.46 m/s Mitral Valve E-Wave Peak Velocity: 0.42 m/s Right Ventricle RV Internal Diastolic Dimension: 3.22 cm Aorta AO Root Diam: 3.63 cm Ascending Ao Diam: 2.97 cm Aortic Valve AoV Area (Peak Prashanth): 2.88 cm2, 2.88 cm2 AoV Area (VTI): 3.23 cm2, 3.23 cm2 Peak Velocity(Antegrade Flow): 0.93 m/s Peak Gradient(Antegrade Flow): 3.44 mm[Hg] Mean Velocity(Antegrade Flow): 0.64 m/s Mean Gradient(Antegrade Flow): 1.89 mm[Hg] Velocity Time Integral: 19.60 cm Tricuspid Valve Peak Velocity (Regurgitant Flow): 2.77 m/s, 2.37 m/s, 2.30 m/s Pulmonic Valve Mean Gradient: 2.02 mm[Hg] Mean Velocity: 0.64 m/s Peak Velocity: 1.05 m/s, 0.97 m/s Peak Gradient: 3.75 mm[Hg], 4.40 mm[Hg] Right Atrium Right Atrium Systolic Pressure: 35.13 ml, 35.13 ml Dictated by: Maya López M.D. on 01/24/2024 at 18:04 Approved by: Maya López M.D. on 01/24/2024 at 18:08
== END 2024-01-24 07:07 | disposition home or self-care (01) ==
LOC: NM 07:06
PROVIDERS: PCP Family Medicine; Visit Provider Internal Medicine Interventional Cardiology
DX: I25.118 Atherosclerotic heart disease of native coronary artery with other forms of angina pectoris (principal); R06.02 Shortness of breath
CPT/HCPCS: 78452; 93306; A9500

== ENCOUNTER 2024-01-26 11:58 | Outpatient (OUT) | payer OTHER, SELFPAY ==
--- NOTE | 2024-01-26 | PCN_ITS ---
CARDIAC STRESS TEST Requesting Physician: Raul López M.D. Procedure Date: 01/26/2024 PERFORMING PROVIDER: Myriam Dacosta REASON FOR TEST: ASHD, shortness of breath, angina. STRESS TEST TYPE: Nuclear myocardial perfusion scan with treadmill stress test. PROTOCOL: Jose Miguel. Resting EKG: Normal sinus rhythm. Resting heart rate: 69 Peak heart rate: 137 Peak maximal heart rate percentage: 85% Resting blood pressure: 142/100 Peak blood pressure: 196/100 Exercise time: 10 minutes, 22 seconds Stage reached: 4 Max METS: 13.4 Reason for termination: Target heart rate achieved, peripheral muscle fatigue. Heart rate recovery: Normal. Chronotropic response index: Normal, 0.74, on beta siobhan. Functional capacity: Normal. Blood pressure response: Abnormal. Nolasco treadmill score: 10 ST changes: No ST changes meeting the criteria for ischemia. Symptoms noted: Dyspnea, fatigue, no chest pain. Arrhythmias: None noted. CONCLUSIONS: 1. Resting stress test demonstrates normal sinus rhythm.. 2. Patient exercised for 10 minutes, 22 seconds. 3. Nolasco treadmill score is 10, portending low risk for angiographically significant coronary artery disease. 4. Abnormal blood pressure response with abnormal resting blood pressure. 5. Please refer to separately interpreted and reported nuclear myocardial perfusion imaging. MTDD
== END 2024-01-26 11:59 | disposition home or self-care (01) ==
LOC: CARD 11:58
PROVIDERS: PCP Family Medicine; Visit Provider Internal Medicine Interventional Cardiology
DX: I25.118 Atherosclerotic heart disease of native coronary artery with other forms of angina pectoris (principal); R07.89 Other chest pain
CPT/HCPCS: 93017

== ENCOUNTER 2025-01-22 10:47 | Outpatient (OUT) | payer OTHER, SELFPAY ==
--- OUTSIDE RECORDS SUMMARY | 2025-01-22 11:07 | XMS_ITS | CCD ---
Author Organization [facility] Care Team Providers Care Superintendent Refuse Disposal Name Role Phone ИВАН RAMOS AM Unavailable Unavailable ИВАН RAMOS AM Unavailable Unavailable SELF, REFERRED Unavailable Unavailable HOYVERONICADIONISIO Unavailable Unavailable [place] Unavailable Unavailable UNKNOWN, PROVIDER Unavailable Unavailable MORA, NATALIA Unavailable Unavailable MORA, NATALIA Unavailable Unavailable HOY, DIONISIO Unavailable Unavailable UNKNOWN, PROVIDER Unavailable Unavailable NillCarroll R Admitting Unavailable Nill, Carroll Nash Attending Unavailable NillCarroll R Referring Unavailable HaileeyVeronicaDionisio~[phone] UNKNOWN Primary Care Unavailable HAILEEY, DR NICHOLE [...] Unavailable HOY, DR NICHOLE Primary Care Unavailable MAYA VU Attending Unavailable WANDAUKAMAYA JOLLEY Attending Unavailable Allergies Allergy Classification Reported Allergen(s) Allergy Type Date of Onset Reaction(s) Facility (5 sources) ibuprofen; Translations: [ibuprofen] Drug Allergy 08-06-2014 [facility] Repository Problems Active Problems Problem Classification Problem Date Documented Date Episodic/Chronic Acute myocardial infarction (3 sources) Non-ST elevation (NSTEMI) myocardial infarction; Translations: [NON-ST ELEVATION (NSTEMI) MYOCARDIAL INFARCTION] Onset: 11-10-2017 Chronic Coronary atherosclerosis and other heart disease (10 sources) 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; Translations: [Atherosclerotic heart disease of picayune coronary artery without angina pectoris] Onset: 11-10-2017 Chronic Coronary atherosclerosis and other heart disease (3 sources) Presence of coronary angioplasty implant and graft; Translations: [PRESENCE OF CORONARY ANGIOPLASTY IMPLANT AND GRAFT] Onset: 04-04-2018 Episodic Disorders of lipid metabolism (5 sources) Hyperlipidemia, unspecified; Translations: [HYPERLIPIDEMIA, UNSPECIFIED] Onset: 11-10-2017 Chronic Essential hypertension (3 sources) Essential (primary) hypertension; Translations: [ESSENTIAL (PRIMARY) HYPERTENSION] Onset: 04-04-2018 Chronic Other aftercare (2 sources) 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; Translations: [shelter (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) use of antithrombotics/antip latelets] Onset: 04-04-2018 Episodic Other lower respiratory disease (2 sources) Shortness of breath; Translations: [Shortness of breath] Onset: 02-18-2024 Episodic Other screening for suspected conditions (not [...] Test Name Value Interpretation Reference Range Facility Office Visiton 02-18-2024 Follow-up visit [id number] Nahed Rausch 1965 M Date Provider Department Center 02/18/2024 MAYA MEDRANO JESUS Cowan Family History Problem Relation Age of Onset Coronary artery disease Mother Other Mother Heart attack Father Coronary artery disease Sister Family Status - Relation Status Age at Mother Father Sister Level of Service:29546 [place] OFFICE/OUTPATIENT ESTABLISHED LOW MDM 20 MIN Reason for Visit and Comments: Follow-up [[id number]] - Go over labs and stress test results Normal [facility] Orders Onlyon 01-27-2024 Orders Only [id number] Nahed Rausch 1965 M Date Provider Department Center 01/27/2024 [id number], KRISTI Appiah Hos Family History Problem Relation Age of Onset Coronary artery disease Mother Other Mother Heart attack Father Coronary artery disease Sister Family Status - Relation Status Age at Mother Father Sister Normal [facility] Orders Onlyon 01-25-2024 Orders Only [id number] Nahed Rausch 1965 M Date Provider Department Center 01/25/2024 MAYA MEDRANO Family History Problem Relation Age of Onset Coronary artery disease Mother Other Mother Heart attack Father Coronary artery disease Sister Family Status - Relation Status Age at Mother Father Sister Normal [facility] Office Visiton 12-10-2023 Follow-up visit [id number] Nahed Rausch 1965 M Date Provider Department Center 12/10/2023 MAYA MEDRANO Family History Problem Relation Age of Onset Coronary artery disease Mother Other Mother Heart attack Father Coronary artery disease Sister Family Status - Relation Status Age at Mother Father Sister Level of Service:17933 [place] OFFICE/OUTPATIENT ESTABLISHED MOD MDM 30 MIN Reason for Visit and Comments: Follow-up [743351] - 2 year follow up Normal [facility] INSULINon 12-30-2021 Insulin 13.7 uIU/mL Normal 2.6-24.9 [facility] Comment on above: Performed By: #### URIC, CMP, LIPID #### [facility] [address] [address] [address] Kami Torres CBC AUTO DIFFon 12-29-2021 BASO # 0.1 103/ul Normal 0.0-0.1 [facility] Comment on above: Performed By: #### CBC #### [facility] [address] [address] [address] Kami Torres Basophils/100 WBC (Bld) 0.7 % Normal 0.2-2.0 [facility] Comment on above: Performed By: #### CBC #### [facility] [address] [place] [address] Dr. Kami Torres EO # 0.4 103/ul Normal 0.0-0.7 [facility] Comment on above: Performed By: #### CBC #### [facility] [address] [place] [address] Dr. Kami Torres Eosinophils/100 WBC (Bld) 5.8 % Normal 0.9-7.0 [facility] Comment on above: Performed By: #### CBC #### [facility] [address] [place] [address] Dr. Kami Torres Erythrocyte distribution width (RBC) [Ratio] 13.5 % Normal 11.0-15.0 [facility] Comment on above: Performed By: #### CBC #### [facility] [address] [place] [address] Dr. Kami Torres Hematocrit (Bld) [Volume fraction] 41.8 % Critically low 42.0-54.0 [facility] Comment on above: Performed By: #### CBC #### [facility] [address] [place] [address] Dr. Kami Torres Hemoglobin (Bld) [Mass/Vol] 13.6 g/dL Critically low 14.0-18.0 [facility] Comment on above: Performed By: #### CBC #### [facility] [address] [place] [address] Dr. Kami Torres IG # 0.05 10e3/ul Critically high 0.00-0.03 [facility] Comment on above: Performed By: #### CBC #### [facility] [address] [place] [address] Dr. Kami Torres IG % 0.7 % Critically high 0.0-0.5 [facility] Comment on above: Performed By: #### CBC #### [facility] [address] [place] [address] Dr. Kami Torres LYMPH # 2.2 103/ul Normal 1.2-3.8 [facility] Comment on above: Performed By: #### CBC #### [facility] [address] [place] [address] Dr. Kami Torres Lymphocytes/100 WBC (Bld) 32.5 % Normal 20.5-60.0 [facility] Comment on above: Performed By: #### CBC #### [facility] [address] [place] [address] Dr. Kami Torres MANUAL DIFF REQ NO Normal [facility] Comment on above: Performed By: #### CBC #### [facility] [address] [place] [address] Dr. Kami Torres MCH (RBC) [Entitic mass] 27.9 pg Normal 25.9-34.0 [facility] Comment on above: Performed By: #### CBC #### [facility] [address] [place] [address] Dr. Kami Torres MCHC (RBC) [Mass/Vol] 32.5 g/dL Normal 29.9-35.2 [facility] Comment on above: Performed By: #### CBC #### [facility] [address] [place] [address] Dr. Kami Torres MCV (RBC) [Entitic vol] 85.7 fL Normal 80.0-94.0 [facility] Comment on above: Performed By: #### CBC #### [facility] [address] [place] [address] Dr. Kami Torres MONO # 0.6 103/ul Normal 0.3-0.8 [facility] Comment on above: Performed By: #### CBC #### [facility] [address] [place] [address] Dr. Kami Torres Monocytes/100 WBC (Bld) 8.4 % Normal 1.7-12.0 [facility] Comment on above: Performed By: #### CBC #### [facility] [address] [place] [address] Dr. Kami Torres NEUT # 3.5 103/ul Normal 1.4-6.5 [facility] Comment on above: Performed By: #### CBC #### [facility] [address] [address] [address] Kami Torres Neutrophils/100 WBC (Bld) 51.9 % Normal 43.0-75.0 [facility] Comment on above: Performed By: #### CBC #### [facility] [address] [address] [address] Kami Torres Platelet mean volume (Bld) [Entitic vol] 9.9 fL Normal 9.5-13.5 [facility] Comment on above: Performed By: #### CBC #### [facility] [address] [address] [address] Kami Torres PLT 191 103/ul Normal 150-450 [facility] Comment on above: Performed By: #### CBC #### [facility] [address] [place] [address] Dr. Kami Torres RBC 4.88 106/ul Normal 4.70-6.10 [facility] Comment on above: Performed By: #### CBC #### [facility] [address] [address] [address] Kami Torres WBC 6.7 103/ul Normal 4.0-11.0 [facility] Comment on above: Performed By: #### CBC #### [facility] [address] [place] [address] Dr. Kami Torres GLYCOHEMOGLOBIN A1Con 2021 ADA RECOMMENDATION SEE BELOW Normal [facility] Comment on above: Result Comment: ADA RECOMMENDED LIMIT 4. 0 - 6.0 ADA THERAPEUTIC TARGET < 7.0 ACTION SUGGESTED > 7.0 Performed By: #### A 1C #### [facility] [address] [place] [address] Dr. Kami Torres Glucose [Mass/Vol] 131 mg/dL Normal [facility] Comment on above: Performed By: #### A1C #### [facility] [address] [place] [address] Dr. Kami Torres HbA1c (Bld) [Mass fraction] 6.2 % Normal 4.5-6.2 [facility] Comment on above: Performed By: #### A1C #### [facility] [address] [address] [address] Kami Torres LIPID PROFILEon 12-29-2021 CHOL-HDL RATIO NORM SEE BELOW Normal [facility] Comment on above: Result Comment: 3.3 - 4.4 LOW RISK 4.4 - 7.1 AVERAGE RISK 7.1 - 11.0 MODERATE RISK >11.0 HIGH RISK Performed By: #### U AMBERLY, CMP, LIPID #### [facility] [address] [address] [address] Kami Torres Cholesterol [Mass/Vol] 151 mg/dL Normal <=200 [facility] Comment on above: Performed By: #### URIC, CMP, LIPID #### [facility] [address] [address] [address] Kami Torres Cholesterol in HDL [Mass/Vol] 40 mg/dL Normal 40-60 [facility] Comment on above: Performed By: #### URIC, CMP, LIPID #### [facility] [address] [address] [address] Kami Torres Cholesterol in LDL [Mass/Vol] 77.6 mg/dL Normal [facility] Comment on above: Performed By: #### URIC, CMP, LIPID #### [facility] [address] [address] [address] Kami Torres Cholesterol.tota l/Cholesterol in HDL [Mass ratio] 3.8 {ratio} Normal [facility] Comment on above: Performed By: #### URIC, CMP, LIPID #### [facility] [address] [address] [address] Kami Torres HDL NORMAL > or = 60 mg/dl - LO W CARDIOVASCULAR RISK <40 mg/dl - HIGH CARDIOVASCULAR RISK Normal [facility] Comment on above: Performed By: #### URIC, CMP, LIPID #### [facility] [address] [address] [address] Kami Torres LDL CALC NORMAL SEE BELOW Normal [facility] Comment on above: Result Comment: <100 mg/dl OPTIMAL 100 - 129 mg/dl NEAR OR ABOVE OPTIMAL 130 - 159 mg/dl BORDERLINE HIGH 160 - 189 mg/dl HIGH >190 mg/dl VERY HIGH Performed By: #### U AMBERLY, CMP, LIPID #### [facility] [address] [address] [address] Kami Torres Triglyceride [Mass/Vol] 167 mg/dL Critically high <=150 [facility] Comment on above: Performed By: #### URIC, CMP, LIPID #### [facility] [address] [address] [address] Kami Torres VLDL CALC 33.4 mg/dL Normal [facility] Comment on above: Performed By: #### URIC, CMP, LIPID #### [facility] [address] [address] [address] Kami Torres PROF 14(COMP METB)on 022 Albumin [Mass/Vol] 3.7 g/dL Normal 3.4-5.0 [facility] Comment on above: Performed By: #### URIC, CMP, LIPID #### [facility] [address] [place] [address] Dr. Kami Torres Albumin/Globulin [Mass ratio] 1.3 {ratio} Normal [facility] Comment on above: Performed By: #### URIC, CMP, LIPID #### [facility] [address] [address] [address] Kami Torres ALP [Catalytic activity/Vol] 40 U/L Critically low 46-116 [facility] Comment on above: Performed By: #### URIC, CMP, LIPID #### [facility] [address] [address] [address] Kami Torres ALT [Catalytic activity/Vol] 79 U/L Critically high 16-63 [facility] Comment on above: Performed By: #### URIC, CMP, LIPID #### [facility] [address] [address] [address] Kami Torres Anion gap [Moles/Vol] 10.2 mmol/L Normal [facility] Comment on above: Performed By: #### URIC, CMP, LIPID #### [facility] [address] [address] [address] Kami Torres AST [Catalytic activity/Vol] 32 U/L Normal 15-37 [facility] Comment on above: Performed By: #### URIC, CMP, LIPID #### [facility] [address] [address] [address] Kami Torres Bilirubin [Mass/Vol] 0.5 mg/dL Normal 0.2-1.0 [facility] Comment on above: Performed By: #### URIC, CMP, LIPID #### [facility] [address] [address] [address] Kami Torres Calcium [Mass/Vol] 8.3 mg/dL Critically low 8.5-10.1 [facility] Comment on above: Performed By: #### URIC, CMP, LIPID #### [facility] [address] [address] [address] Kami Torres Chloride [Moles/Vol] 107 mmol/L Normal 98-107 [facility] Comment on above: Performed By: #### URIC, CMP, LIPID #### [facility] [address] [address] [address] Kami Torres CO2 [Moles/Vol] 26.1 mmol/L Normal 21.0-32.0 [facility] Comment on above: Performed By: #### URIC, CMP, LIPID #### [facility] [address] [place] [address] Dr. Kami Torres Creatinine [Mass/Vol] 0.95 mg/dL Normal 0.70-1.30 [facility] Comment on above: Performed By: #### URIC, CMP, LIPID #### [facility] [address] [place] [address] Dr. Kami Torres EGFR-AF DANISH >60 Normal >=60 [facility] Comment on above: Performed By: #### URIC, CMP, LIPID #### [facility] [address] [address] [address] Kami Torres EGFR-NON AF DANISH >60 Normal >=60 [facility] Comment on above: Performed By: #### URIC, CMP, LIPID #### [facility] [address] [place] [address] Dr. Kami Torres Globulin (S) [Mass/Vol] 2.9 g/dL Normal [facility] Comment on above: Performed By: #### URIC, CMP, LIPID #### [facility] [address] [address] [address] Kami Torres Glucose [Mass/Vol] 96 mg/dL Normal 74-106 [facility] Comment on above: Performed By: #### URIC, CMP, LIPID #### [facility] [address] [place] [address] Dr. Kami Torres Potassium [Moles/Vol] 4.3 mmol/L Normal 3.5-5.1 [facility] Comment on above: Performed By: #### URIC, CMP, LIPID #### [facility] [address] [place] [address] Dr. Kami Torres Protein [Mass/Vol] 6.6 g/dL Normal 6.1-8.2 [facility] Comment on above: Performed By: #### URIC, CMP, LIPID #### [facility] [address] [place] [address] Dr. Kami Torres Sodium [Moles/Vol] 139 mmol/L Normal 136-145 [facility] Comment on above: Performed By: #### URIC, CMP, LIPID #### [facility] [address] [place] [address] Dr. Kami Torres Urea nitrogen [Mass/Vol] 14.0 mg/dL Normal 7.0-18.0 [facility] Comment on above: Performed By: #### URIC, CMP, LIPID #### [facility] [address] [place] [address] Dr. Kami Torres Urea nitrogen/Creatin ine [Mass ratio] 14.7 mg/mg Normal [facility] Comment on above: Performed By: #### URIC, CMP, LIPID #### [facility] [address] [place] [address] Dr. Kami Torres URIC ACID SERUMon 12-29-2021 Urate [Mass/Vol] 6.4 mg/dL Normal 3.5-8.5 [facility] Comment on above: Performed By: #### URIC, CMP, LIPID #### [facility] [address] [place] [address] Dr. Kami Torres CBC AUTO DIFFon 05-19-2021 BASO # 0.1 103/ul Normal 0.0-0.1 [facility] Comment on above: Performed By: #### URIC, CMP, LIPID #### [facility] [address] [place] [address] Dr. Kami Torres Basophils/100 WBC (Bld) 0.7 % Normal 0.2-2.0 [facility] Comment on above: Performed By: #### URIC, CMP, LIPID #### [facility] [address] [place] [address] Dr. Kami Torres EO # 0.9 103/ul Critically high 0.0-0.7 [facility] Comment on above: Performed By: #### URIC, CMP, LIPID #### [facility] [address] [place] [address] Dr. Kami Torres Eosinophils/100 WBC (Bld) 11.3 % Critically high 0.9-7.0 [facility] Comment on above: Performed By: #### URIC, CMP, LIPID #### [facility] [address] [place] [address] Dr. Kami Torres Erythrocyte distribution width (RBC) [Ratio] 13.2 % Normal 11.0-15.0 [facility] Comment on above: Performed By: #### URIC, CMP, LIPID #### [facility] [address] [place] [address] Dr. Kami Torres Hematocrit (Bld) [Volume fraction] 43.7 % Normal 42.0-54.0 [facility] Comment on above: Performed By: #### URIC, CMP, LIPID #### [facility] [address] [place] [address] Dr. Kami Torres Hemoglobin (Bld) [Mass/Vol] 14.6 g/dL Normal 14.0-18.0 [facility] Comment on above: Performed By: #### URIC, CMP, LIPID #### [facility] [address] [place] [address] Dr. Kami Torres IG # 0.05 10e3/ul Critically high 0.00-0.03 [facility] Comment on above: Performed By: #### URIC, CMP, LIPID #### [facility] [address] [address] [address] Kami Torres IG % 0.6 % Critically high 0.0-0.5 [facility] Comment on above: Performed By: #### URIC, CMP, LIPID #### [facility] [address] [address] [address] Kami Torres LYMPH # 2.0 103/ul Normal 1.2-3.8 [facility] Comment on above: Performed By: #### URIC, CMP, LIPID #### [facility] [address] [address] [address] Kami Torres Lymphocytes/100 WBC (Bld) 24.3 % Normal 20.5-60.0 [facility] Comment on above: Performed By: #### URIC, CMP, LIPID #### [facility] [address] [address] [address] Kami Torres MANUAL DIFF REQ NO Normal [facility] Comment on above: Performed By: #### URIC, CMP, LIPID #### [facility] [address] [address] [address] Kami Torres MCH (RBC) [Entitic mass] 29.0 pg Normal 25.9-34.0 [facility] Comment on above: Performed By: #### URIC, CMP, LIPID #### [facility] [address] [address] [address] Kami Torres MCHC (RBC) [Mass/Vol] 33.4 g/dL Normal 29.9-35.2 [facility] Comment on above: Performed By: #### URIC, CMP, LIPID #### [facility] [address] [address] [address] Kami Torres MCV (RBC) [Entitic vol] 86.9 fL Normal 80.0-94.0 [facility] Comment on above: Performed By: #### URIC, CMP, LIPID #### [facility] [address] [address] [address] Kami Torres MONO # 0.7 103/ul Normal 0.3-0.8 [facility] Comment on above: Performed By: #### URIC, CMP, LIPID #### [facility] [address] [address] [address] Kami Torres Monocytes/100 WBC (Bld) 8.1 % Normal 1.7-12.0 [facility] Comment on above: Performed By: #### URIC, CMP, LIPID #### [facility] [address] [place] [address] Dr. Kami Torres NEUT # 4.5 103/ul Normal 1.4-6.5 [facility] Comment on above: Performed By: #### URIC, CMP, LIPID #### [facility] [address] [place] [address] Dr. Kami Torres Neutrophils/100 WBC (Bld) 55.0 % Normal 43.0-75.0 [facility] Comment on above: Performed By: #### URIC, CMP, LIPID #### [facility] [address] [place] [address] Dr. Kami Torres Platelet mean volume (Bld) [Entitic vol] 10.0 fL Normal 9.5-13.5 [facility] Comment on above: Performed By: #### URIC, CMP, LIPID #### [facility] [address] [place] [address] Dr. Kami Torres PLT 185 103/ul Normal 150-450 [facility] Comment on above: Performed By: #### URIC, CMP, LIPID #### [facility] [address] [place] [address] Dr. Kami Torres RBC 5.03 106/ul Normal 4.70-6.10 [facility] Comment on above: Performed By: #### URIC, CMP, LIPID #### [facility] [address] [place] [address] Dr. Kami Torres WBC 8.3 103/ul Normal 4.0-11.0 [facility] Comment on above: Performed By: #### URIC, CMP, LIPID #### [facility] [address] [place] [address] Dr. Kami Torres GLYCOHEMOGLOBIN A1Con 2020 ADA RECOMMENDATION ADA THERAPEUTIC TARGET 6.0 - 7.0 ACTION SUGGESTED > 7.0 Normal [facility] Comment on above: Performed By: #### A1C #### [facility] [address] [id number] Trace Adriana Glucose [Mass/Vol] 134 mg/dL Normal [facility] Comment on above: Performed By: #### A1C #### [facility] [address] [id number] Trace Adriana HbA1c (Bld) [Mass fraction] 6.3 % Critically high <=6.0 [facility] Comment on above: Performed By: #### A1C #### [facility] [address] [id number] Trace Adriana LIPID PROFILEon 05-19-2021 CHOL-HDL RATIO NORM SEE BELOW Normal [facility] Comment on above: Result Comment: 3.3 - 4.4 LOW RISK 4.4 - 7.1 AVERAGE RISK 7.1 - 11.0 MODERATE RISK >11.0 HIGH RISK Performed By: #### C MP, LIPID #### [facility] [address] [address] Tarce Adriana Cholesterol [Mass/Vol] 155 mg/dL Normal <=200 [facility] Comment on above: Performed By: #### CMP, LIPID #### [facility] [address] [id number] Trace Adriana Cholesterol in HDL [Mass/Vol] 37 mg/dL Normal [facility] Comment on above: Performed By: #### CMP, LIPID #### [facility] [address] [id number] Trace Adriana Cholesterol in LDL [Mass/Vol] 49.2 mg/dL Normal [facility] Comment on above: Performed By: #### CMP, LIPID #### [facility] [address] [phone] Trace Adriana Cholesterol.tota l/Cholesterol in HDL [Mass ratio] 4.2 {ratio} Normal [facility] Comment on above: Performed By: #### CMP, LIPID #### [facility] [address] [phone] Trace Adriana HDL NORMAL > or = 60 mg/dl - LO W CARDIOVASCULAR RISK <40 mg/dl - HIGH CARDIOVASCULAR RISK Normal [facility] Comment on above: Performed By: #### CMP, LIPID #### [facility] [address] [phone] [address] Adriana LDL CALC NORMAL SEE BELOW Normal [facility] Comment on above: Result Comment: <100 mg/dl OPTIMAL 100 - 129 mg/dl NEAR OR ABOVE OPTIMAL 130 - 159 mg/dl BORDERLINE HIGH 160 - 189 mg/dl HIGH >190 mg/dl VERY HIGH Performed By: #### C MP, LIPID #### [facility] [address] [phone] Trace Adriana Triglyceride [Mass/Vol] 344 mg/dL Critically high <=150 [facility] Comment on above: Performed By: #### CMP, LIPID #### [facility] [address] [place], [place] [id number] Trace Adriana VLDL CALC 68.8 mg/dL Normal [facility] Comment on above: Performed By: #### CMP, LIPID #### [facility] [address] [place], [place] [id number] Trace Adriana PROF 14(COMP METB)on 021 Albumin [Mass/Vol] 3.9 g/dL Normal 3.5-5.0 [facility] Comment on above: Performed By: #### CMP, LIPID #### [facility] [address] [place], [place] [phone] Trace Adriana Albumin/Globulin [Mass ratio] 1.2 {ratio} Normal [facility] Comment on above: Performed By: #### CMP, LIPID #### [facility] [address] [place], [place] [id number] Trace Adriana ALP [Catalytic activity/Vol] 50 U/L Normal 38-126 [facility] Comment on above: Performed By: #### CMP, LIPID #### [facility] [address] [place], [place] [id number] Trace Adriana ALT [Catalytic activity/Vol] 79 U/L Critically high 21-72 [facility] Comment on above: Performed By: #### CMP, LIPID #### [facility] [address] [phone] Trace Adriana Anion gap [Moles/Vol] 13.8 mmol/L Normal [facility] Comment on above: Performed By: #### CMP, LIPID #### [facility] [address] [phone] Trace Adriana AST [Catalytic activity/Vol] 30 U/L Normal 17-59 [facility] Comment on above: Performed By: #### CMP, LIPID #### [facility] [address] [address] Trace Adriana Bilirubin [Mass/Vol] 0.6 mg/dL Normal 0.2-1.3 [facility] Comment on above: Performed By: #### CMP, LIPID #### [facility] [address] [address] Trace Adriana Calcium [Mass/Vol] 9.2 mg/dL Normal 8.4-10.2 [facility] Comment on above: Performed By: #### CMP, LIPID #### [facility] [address] [phone] Trace Adriana Chloride [Moles/Vol] 103 mmol/L Normal 98-107 [facility] Comment on above: Performed By: #### CMP, LIPID #### [facility] [address] [address] Trace Adriana CO2 [Moles/Vol] 25.5 mmol/L Normal 22.0-30.0 [facility] Comment on above: Performed By: #### CMP, LIPID #### [facility] [address] [phone] Trace Adriana Creatinine [Mass/Vol] 0.89 mg/dL Normal 0.66-1.25 [facility] Comment on above: Performed By: #### CMP, LIPID #### [facility] [address] [phone] Trace Adriana EGFR-AF DANISH >60 Normal >=60 [facility] Comment on above: Performed By: #### CMP, LIPID #### [facility] [address] [phone] Trace Adriana EGFR-NON AF DANISH >60 Normal >=60 [facility] Comment on above: Performed By: #### CMP, LIPID #### [facility] [address] [phone] Trace Adriana Globulin (S) [Mass/Vol] 3.3 g/dL Normal [facility] Comment on above: Performed By: #### CMP, LIPID #### [facility] [address] [address] Trace Adriana Glucose [Mass/Vol] 103 mg/dL Normal 74-106 [facility] Comment on above: Performed By: #### CMP, LIPID #### [facility] [address] [address] Trace Adriana Potassium [Moles/Vol] 4.3 mmol/L Normal 3.4-5.0 [facility] Comment on above: Performed By: #### CMP, LIPID #### [facility] [address] [place] [address] Trace Adriana Protein [Mass/Vol] 7.2 g/dL Normal 6.1-8.2 [facility] Comment on above: Performed By: #### CMP, LIPID #### [facility] [address] [place] [address] Trace Adriana Sodium [Moles/Vol] 138 mmol/L Normal 137-145 [facility] Comment on above: Performed By: #### CMP, LIPID #### [facility] [address] [place] [address] Trace Adriana Urea nitrogen [Mass/Vol] 14.0 mg/dL Normal 9.0-20.0 [facility] Comment on above: Performed By: #### CMP, LIPID #### [facility] [address] [phone] Trace Adriana Urea nitrogen/Creatin ine [Mass ratio] 15.7 mg/mg Normal [facility] Comment on above: Performed By: #### CMP, LIPID #### [facility] [phone] LUNG CANCER SCREENINGon 0 - CT LUNG CANCER SCREENING EXAMINATION: CT LUNG [...] BERMEO Date: 2021-01-06 09:16 Normal [facility] Coding Summary.on 01-06-2019 Coding Summary. CODING DATE: 019 FINAL [facility] STATUS: Home (Routine DC) PAYOR: Commercial Insurance [...] PROC APC STAT DESCRIPTION DOCTOR NAME DATE 56862 5312 T Colonoscopy, flexible; Carroll MCKEON MD 01/02/2019 with biopsy, single or multiple [id number] Anesthesia for lower Puri Jr. DOJovanni 01/02/2019 intestinal endoscopic procedures, endoscope introduced distal to duodenum; not otherwise specified NOTE: The code number assigned matches the documented diagnosis and / or procedure in the patient's chart. However, the narrative phrase printed from the coding software may appear abbreviated, or result in slightly different terminology. Revised Coded By: Gertrude Gomez Revised Date Saved: 01/06/2019 12:59 pm Normal [facility] Main OR Intraoperative Recor don 01-04-2019 Main OR Intraoperative Record IntraOp Document Type FT Summary Primary Physician: Carroll MCKEON MD Finalized Date/Time: 01/04/19 08:59:41 Pt. Name: ELIZA RAUSCH Larry/Sex: 1965 Male Med Rec #: [id number] Physician: Carroll MCKEON MD Financial #: [id number] Pt. Type: O Room/Bed: / Admit/Disch: 01/02/19 [...] 1 Entry 2 Entry 3 Case Attendee [facility], Charlene MCKEON MD, Carroll Hong RN, Maricel Marcano Role Performed Anesthesiologist Surgeon - Primary [employer] Clerk - Primary Caser Time In 01/02/19 07:48:00 01/02/19 07:48:00 01/02/19 [...] student, also in room to observe. ismael ruizresearch attorney Protocols FT Pre-Care Text: Implements protective measures [...] Out Gio SHAFFER, Charlene Benson, Given Participants Carroll MCKEON MD, Crosby RN, Carlos Jay CST, Manjinder Time Out [...] safely administered during the perioperative period For [facility] please see scanned medication reconcilliation form for [...] 01/02/19 08:11 Brit Eugene CST 01/04/19 08:59 Normal [facility] History and Physicalon 01-02 History and Physical Patient: ELIZA RAUSCH Age: 53 years Sex: Male : 1965 Associated Diagnoses: None Author: Carroll MCKEON MD Subjective no changes to H & P. Normal [facility] Comment on above: Result Comment: Electronically Signed By : Carroll MCKEON MD\.br\Date and Time Signed: 01/02/19 07:24 EDT Inpatient Patient Summaryon 01-02-2019 Inpatient Patient Summary [facility] Clinical Discharge Instructions PERSON INFORMATION Name: ELIZA RAUSCH PHYSICIANS Admitting Physician: Carroll MCKEON MD Attending Physician: Carroll MCKEON MD PCP: Dionisio Louis MD Discharge Diagnosis: Colon polyp Comment: PATIENT EDUCATION INFORMATION Instructions: Colonoscopy, Care After Surgery Franco (Custom); Colon Polyps Medication Leaflets: Follow up: With: Address: When: Carroll MIKE [address] [email or web address] [address] [phone] Business (1) Within 7 to 10 days MEDICATION LIST Comment: Normal [facility] Main OR PACU I Recordon 12-06 Main OR PACU I Record PACU Phase I Document Type FT Summary Primary Physician: Carroll MCKEON MD Finalized Date/Time: 01/02/19 08:52:51 Pt. Name: ELIZA RAUSCH Brock DukesB./Sex: 1965 Male Med Rec #: [id number] Physician: Carroll MCKEON MD Financial #: [id number] Pt. Type: O Room/Bed: / Admit/Disch: 01/02/19 [...] 08:49 Kalee Hinton RN 01/02/19 08:52 Normal [facility] Main OR Preoperative Recordo n 01-02-2019 Main OR Preoperative Record Holding Area Document Type FT Summary Primary Physician: Carroll MCKEON MD Finalized Date/Time: 01/02/19 07:23:41 Pt. Name: YESSICA ELIZA Juarez/Sex: 1965 Male Med Rec #: [id number] Physician: Carroll MCKEON MD Financial #: [id number] Pt. Type: O Room/Bed: / Admit/Disch: 01/02/19 [...] By: Maricel Hong RN 01/02/19 07:23 Normal [facility] Operative Reporton 9 Operative Report Date [...] condition. Carroll Mckeon M.D. robe Dictated: 01/02/2019 #[id number] Typed: 01/02/2019 #[id number] cc: Dionisio Louis M.D. Carroll Mckeon M.D. [facility] Comment on above: Result Comment: Electronically Signed By : MIKE LOVELL, Carroll Ballard.br\Date and Time Signed: 01/02/19 11:16 EDT Patient [...] Document Reviewed: 11/01/2012 ExitCare? Patient Information ?2014 [employer]. This information is not intended to replace advice given to you by your health care provider. Make sure you discuss any questions you have with your health care provider. Normal [facility] Progress Note-Physicianon Protein mass conc Patient: [...] noted. Plan Transfer/ Discharge: Condition stable. Normal [facility] Comment on above: Result Comment: Electronically [...] clear to auscultation. Cardiovascular: Regular rhythm. Plan [place] [employer]esthesi[employer] (ASA) physical status classification: Class III. Anesthetic Preoperative Plan Anesthesia: General. . Anesthetic plan, risks, benefits, and alternatives discussed with the patient and/or family. Patient verbalized understanding. Normal [facility] Comment on above: Result Comment: Electronically Signed By : Jovanni Puri Jr., DO.mary\Date and Time Signed: 01/02/19 07:38 EDT Discharge Summaryon 11-14-19 Discharge Summary MR[id number] El[facility] Admitted: 11/10/2017 Discharged: [...] high risk non-ST segmentelevation myocardial infarction in [place]. [facility]. During [facility], the patient [...] followup [place] [address] [place] [place].DISCHARGE MEDICATIONS:1. Prasugrel 10 mg daily.2. Aspirin 81 mg daily.3. Atorvastatin 80 mg daily.4. Carvedilol 3.125 mg twice a day.5. Lisinopril 5 mg daily.6. Discontinue simvastatin 20 mg daily.Reviewed By:Xiomara Deshpande MD 11/15/2017 04:41 PElectronically Signed by:Иван Ramos M.D. 11/23/2017 04:23 P ____Laura A M Ramos, M.D. I personally saw this patient on the day of the encounter, performed thekey portion(s) of the service and participated in the management andconfirm the resident's documentation. Please note there may be anadditional personal documentation from me. Date Dict: 11/12/2017/01:31 P/Jordan Méndez Trans: 11/13/2017 06:56 A/[id number]: Dionisio Louis M.D. [address], [facility] [place] [facility] [address] Normal [facility] BASIC METABOLIC PANELon Calcium mass conc 8.8 mg/dL Normal 8.6-10.3 [facility] Comment on above: Order Comment: No: Do not add to previou s draw Performed By: #### 5 7317, 94391 ####[facility] [place] [address], [facility] Chloride molar conc 111 mmol/L High 98-107 [facility] Comment on above: Order Comment: No: Do not add to previou s draw Performed By: #### 5 7307, 45949 ####[facility] [place] [address], [place] CO2 molar conc 23 mmol/L Normal 21-31 [facility] Comment on above: Order Comment: No: Do not add to previou s draw Performed By: #### 5 7308, 53416 ####[facility] [place] [address], [place] Creatinine mass conc 0.89 mg/dL Normal 0.70-1.30 [facility] Comment on above: Order Comment: No: Do not add to previou s draw Performed By: #### 5 7393, 52350 ####[facility] [place] [address], [place] GFR/1.73 sq M predicted among blacks MDRD vol rate/area (S/P/Bld) mL/min/{1.73_m2} Normal >60 [facility] Comment on above: Order Comment: No: Do not add to previou s draw Performed By: #### 5 7307, 65374 ####[facility] [place] [address], [facility] GFR/1.73 sq M predicted among non-blacks MDRD vol rate/area (S/P/Bld) mL/min/{1.73_m2} Normal >60 [facility] Comment on above: Order Comment: No: Do not add to previou s draw Performed By: #### 5 7307, 69066 ####[facility] [place] [address], [facility] Glucose mass conc 106 mg/dL High 70-100 [facility] Comment on above: Order Comment: No: Do not add to previou s draw Performed By: #### 5 73, 27562 ####[facility] [place] [address], [place] Potassium molar conc 4.0 mmol/L Normal 3.5-5.1 [facility] Comment on above: Order Comment: No: Do not add to previou s draw Performed By: #### 5 7307, 10906 ####[facility] [place] [address], [place] Sodium molar conc 136 mmol/L Normal 136-145 [facility] Comment on above: Order Comment: No: Do not add to previou s draw Performed By: #### 5 7307, 76570 ####[facility] [place] [address], [facility] Urea nitrogen mass conc 19 mg/dL Normal 7-25 [facility] Comment on above: Order Comment: No: Do not add to previou s draw Performed By: #### 5 7307, 68009 ####[facility] CBC COMPLETE BLOOD COUNTon 0 11-12-2017 Erythrocyte distribution width Auto Ratio (RBC) 13.4 % Normal 11.5-15.0 [facility] Comment on above: Order Comment: No: Do not add to previou s draw Performed By: #### 5 7307, 94022 ####[facility] [facility] Hematocrit Auto Volume Fraction (Bld) 41.0 % Normal 39.0-50.0 [facility] Comment on above: Order Comment: No: Do not add to previou s draw Performed By: #### 5 7307, 99847 ####[facility] [facility] Hemoglobin mass conc (Bld) 13.9 g/dL Normal 13.0-17.0 [facility] Comment on above: Order Comment: No: Do not add to previou s draw Performed By: #### 5 7351, 18703 ####[facility] [facility] MCH Auto Entitic mass (RBC) 29.0 pg Normal 27.0-33.0 [facility] Comment on above: Order Comment: No: Do not add to previou s draw Performed By: #### 5 7307, 12468 ####[facility] MCHC Auto mass conc (RBC) 33.9 g/dL Normal 32.0-35.0 [facility] Comment on above: Order Comment: No: Do not add to previou s draw Performed By: #### 5 7383, 93187 ####[facility] MCV Auto Entitic volume (RBC) 85.6 fL Normal 82.0-98.0 [facility] Comment on above: Order Comment: No: Do not add to previou s draw Performed By: #### 5 7307, 90116 ####[facility] [facility].[address] Nucleated RBC/100 WBC Ratio (Bld) 0 % Normal 0-0 [facility] Comment on above: Order Comment: No: Do not add to previou s draw Performed By: #### 5 7307, 49592 ####[facility] [facility].[address] PLAT CNT 165 10*3/uL Normal 150-400 [facility] Comment on above: Order Comment: No: Do not add to previou s draw Performed By: #### 5 7307, [address]896 ####[place] [address] [address] RBC Auto #/vol (Bld) 4.79 10*6/uL Normal 4.20-5.70 [facility] Comment on above: Order Comment: No: Do not add to previou s draw Performed By: #### 5 7307, 52219 ####[address] [address] [facility].[address] WBC Auto #/vol (Bld) 7.4 10*3/uL Normal 4.0-10.6 [facility] Comment on above: Order Comment: No: Do not add to previou s draw Performed By: #### 5 7307, 95666 ####[address] [place] [address] [facility].[address] Cardiovascular Lab Reporton 11-12-2017 Cardiovascular Lab Report [facility] Patient Name: Eliza Rausch MR #: [id number] Center Physician: Maya Vu M.D.Department of Service Date: 11/11/2017Medicine Birthdate: 1965Division of Room #: 3AB [id number] CardiovascularServicesBrandi [place] [address]Phone Fax Cardiovascular Laboratory ReportINDICATION: Eliza Rausch is a 52-year-old man, who was admitted to [facility] with crescendo angina and elevation of cardiac [...] signed informed consent. He was brought to analytical laboratory technician in a fasting state.The right wrist area was prepped and draped in usual fashion. Mo's testwas favorable. Access from the right radial artery was obtained usingmicropuncture technique. A 6-Bhutanese x 11 cm Hydrophilic sheath wasadvanced. Verapamil was given through the sheath and heparin wasadministered intravenously. Bilateral selective coronary angiography wasthen performed using a 5-Bhutanese JR5 diagnostic catheter for engagement ofthe right coronary artery and a 6-Bhutanese Ruth Radial diagnostic catheterfor engagement of the left coronary artery. Angiography was performed inmultiple views. Catheters were removed.Therapeutic ACT was confirmed during the procedure. A 6-Bhutanese XB 3.0guiding catheter was advanced and used to engage the left main coronaryostium. A BMW wire was advanced into the distal LAD. Balloon angioplastyand the proximal LAD were performed using Emerge 3.0 x 12 mm ballooninflated at 12 atmospheres. This was followed by deployment of a PROMUSPremier 3.5 x 16 mm drug-eluting stent deployed at 11 atmospheres and postdilated using NC Quantum Penfield 3.5 x 12 mm noncompliant balloon inflated [...] Follow up in Cardiology Clinic.Electronically Signed by:Maya Vu M.D. 11/14/2017 11:23 P Maya Vu M.D.Date Dict: 11/11/2017/12:53 P/Maya Vu M.D.Date Trans: 11/12/2017 03:24 A/[id number]: Dionisio Louis M.D. [address], [facility] [address] Normal [facility] MAGNESIUM BLOODon 11-12-2017 Magnesium mass conc 2.2 mg/dL Normal 1.9-2.7 [facility] Comment on above: Order Comment: No: Do not add to previou s draw Performed By: #### 5 7307, 87888 ####[facility] [place] [address], [facility] APTTon 11-11-2017 aPTT Coag time (Bld) 31.2 s Normal 25.0-35.0 [facility] Comment on above: Order Comment: No: [...] THIS PURPOSE. Performed By: #### 5 7307, 75104 ####[facility] BASIC METABOLIC PANELon Calcium mass conc 9.2 mg/dL Normal 8.6-10.3 [facility] Comment on above: Order Comment: No: Do not add to previou s draw Performed By: #### 5 7307, 51677 ####[facility] [facility] [place] [address], [facility] Chloride molar conc 109 mmol/L High 98-107 [facility] Comment on above: Order Comment: No: Do not add to previou s draw Performed By: #### 5 7307, 35681 ####[facility] [place] [address], [facility] CO2 molar conc 24 mmol/L Normal 21-31 [facility] Comment on above: Order Comment: No: Do not add to previou s draw Performed By: #### 5 7307, 07676 ####[facility] [place] [address], [facility] Creatinine mass conc 0.90 mg/dL Normal 0.70-1.30 [facility] Comment on above: Order Comment: No: Do not add to previou s draw Performed By: #### 5 7307, 51982 ####[facility] [place] [address], [place] GFR/1.73 sq M predicted among blacks MDRD vol rate/area (S/P/Bld) mL/min/{1.73_m2} Normal >60 [facility] Comment on above: Order Comment: No: Do not add to previou s draw Performed By: #### 5 7373, 01270 ####[facility] [place] [address], [facility] GFR/1.73 sq M predicted among non-blacks MDRD vol rate/area (S/P/Bld) mL/min/{1.73_m2} Normal >60 [facility] Comment on above: Order Comment: No: Do not add to previou s draw Performed By: #### 5 7389, 05333 ####[facility] [place] [address], [facility] Glucose mass conc 102 mg/dL High 70-100 [facility] Comment on above: Order Comment: No: Do not add to previou s draw Performed By: #### 5 7344, 26089 ####[facility] [place] [address], [place] Potassium molar conc 4.0 mmol/L Normal 3.5-5.1 [facility] Comment on above: Order Comment: No: Do not add to previou s draw Performed By: #### 5 7360, 22618 ####[facility] [place] [address], [place] Sodium molar conc 134 mmol/L Low 136-145 [facility] Comment on above: Order Comment: No: Do not add to previou s draw Performed By: #### 5 7307, 65145 ####[facility] [facility].[address] Urea nitrogen mass conc 16 mg/dL Normal 7-25 [facility] Comment on above: Order Comment: No: Do not add to previou s draw Performed By: #### 5 7307, 24692 ####[facility] [facility].[address] CBC COMPLETE BLOOD COUNTon 0 - Erythrocyte distribution width Auto Ratio (RBC) 13.3 % Normal 11.5-15.0 [facility] Comment on above: Order Comment: Yes: Add to Previous draw if able Performed By: #### 5 0608 ####[facility] [place] [address].[address] Hematocrit Auto Volume Fraction (Bld) 45.1 % Normal 39.0-50.0 [facility] Comment on above: Order Comment: Yes: Add to Previous draw if able Performed By: #### 5 0608 ####[place] [address] [facility].[address] Hemoglobin mass conc (Bld) 15.5 g/dL Normal 13.0-17.0 [facility] Comment on above: Order Comment: Yes: Add to Previous draw if able Performed By: #### 5 0608 ####[facility]3000 [facility].[address] MCH Auto Entitic mass (RBC) 29.2 pg Normal 27.0-33.0 [facility] Comment on above: Order Comment: Yes: Add to Previous draw if able Performed By: #### 5 0608 ####[facility] [facility] [place] [address], [facility] MCHC Auto mass conc (RBC) 34.4 g/dL Normal 32.0-35.0 [facility] Comment on above: Order Comment: Yes: Add to Previous draw if able Performed By: #### 5 0608 ####[facility] MCV Auto Entitic volume (RBC) 84.9 fL Normal 82.0-98.0 [facility] Comment on above: Order Comment: Yes: Add to Previous draw if able Performed By: #### 5 0608 ####[facility] [place] [address] Nucleated RBC/100 WBC Ratio (Bld) 0 % Normal 0-0 [facility] Comment on above: Order Comment: Yes: Add to Previous draw if able Performed By: #### 5 0608 ####[address] PLAT CNT 177 10*3/uL Normal 150-400 [facility] Comment on above: Order Comment: Yes: Add to Previous draw if able Performed By: #### 5 0608 ####[address] RBC Auto #/vol (Bld) 5.31 10*6/uL Normal 4.20-5.70 [facility] Comment on above: Order Comment: Yes: Add to Previous draw if able Performed By: #### 5 0608 ####[facility] [facility].[address] WBC Auto #/vol (Bld) 10.1 10*3/uL Normal 4.0-10.6 [facility] Comment on above: Order Comment: Yes: Add to Previous draw if able Performed By: #### 5 0608 ####[address] CBC W/DIFFon 11-11-2017 ABS BASOPHILS 0.0 10*3/uL Normal 0.0-0.2 [facility] Comment on above: Order Comment: No: Do not add to previou s draw Performed By: #### 5 0103 ####[facility] ABS IMM GRANS 0.0 10*3/uL Normal 0.0-0.2 [facility] Comment on above: Order Comment: No: Do not add to previou s draw Performed By: #### 5 0103 ####[facility] ABS NEUTROPHILS 4.6 10*3/uL Normal 1.6-7.6 [facility] Comment on above: Order Comment: No: Do not add to previou s draw Performed By: #### 5 0103 ####[facility] Basophils Auto #/vol (Bld) 0.4 % Normal 0.0-1.0 [facility] Comment on above: Order Comment: No: Do not add to previou s draw Performed By: #### 5 0103 ####[facility] Eosinophils Auto #/vol (Bld) 0.3 10*3/uL Normal 0.0-0.5 [facility] Comment on above: Order Comment: No: Do not add to previou s draw Performed By: #### 5 0103 ####[facility] [place] [address], [facility] Eosinophils/100 WBC Auto (Bld) 4.0 % Normal 0.0-6.0 [facility] Comment on above: Order Comment: No: Do not add to previou s draw Performed By: #### 5 0103 ####[facility] Erythrocyte distribution width Auto Ratio (RBC) 13.3 % Normal 11.5-15.0 [facility] Comment on above: Order Comment: No: Do not add to previou s draw Performed By: #### 5 0103 ####[facility] [facility].[address] Hematocrit Auto Volume Fraction (Bld) 44.0 % Normal 39.0-50.0 [facility] Comment on above: Order Comment: No: Do not add to previou s draw Performed By: #### 5 0103 ####[facility] Hemoglobin mass conc (Bld) 15.0 g/dL Normal 13.0-17.0 [facility] Comment on above: Order Comment: No: Do not add to previou s draw Performed By: #### 5 0103 ####[facility] IMMATURE GRANS 0.4 % Normal 0.0-1.0 [facility] Comment on above: Order Comment: No: Do not add to previou s draw Performed By: #### 5 0103 ####[facility] Lymphocytes Auto #/vol (Bld) 2.5 10*3/uL Normal 1.2-4.0 [facility] Comment on above: Order Comment: No: Do not add to previou s draw Performed By: #### 5 0103 ####[facility]3000 [facility].[address] Lymphocytes/100 WBC Auto (Bld) 30.0 % Normal 20.0-45.0 [facility] Comment on above: Order Comment: No: Do not add to previou s draw Performed By: #### 5 0103 ####[facility] [facility] [place] [place] [address], [facility] MCH Auto Entitic mass (RBC) 28.6 pg Normal 27.0-33.0 [facility] Comment on above: Order Comment: No: Do not add to previou s draw Performed By: #### 5 0103 ####[facility] MCHC Auto mass conc (RBC) 34.1 g/dL Normal 32.0-35.0 [facility] Comment on above: Order Comment: No: Do not add to previou s draw Performed By: #### 5 0103 ####[facility] MCV Auto Entitic volume (RBC) 84.0 fL Normal 82.0-98.0 [facility] Comment on above: Order Comment: No: Do not add to previou s draw Performed By: #### 5 0103 ####[facility]3000 [facility].[address] Monocytes Auto #/vol (Bld) 0.9 10*3/uL Normal 0.1-1.0 [facility] Comment on above: Order Comment: No: Do not add to previou s draw Performed By: #### 5 0103 ####[facility] MONOS 10.3 % Normal 5.0-12.0 [facility] Comment on above: Order Comment: No: Do not add to previou s draw Performed By: #### 5 0103 ####[facility] Neutrophils/100 WBC Auto (Bld) 54.9 % Normal 40.0-72.0 [facility] Comment on above: Order Comment: No: Do not add to previou s draw Performed By: #### 5 0103 ####[facility] Nucleated RBC/100 WBC Ratio (Bld) 0 % Normal 0-0 [facility] Comment on above: Order Comment: No: Do not add to previou s draw Performed By: #### 5 0103 ####[facility] [place] [address], [facility] PLAT CNT 169 10*3/uL Normal 150-400 [facility] Comment on above: Order Comment: No: Do not add to previou s draw Performed By: #### 5 0103 ####[facility] [place] [address], [facility] RBC Auto #/vol (Bld) 5.24 10*6/uL Normal 4.20-5.70 [facility] Comment on above: Order Comment: No: Do not add to previou s draw Performed By: #### 5 0103 ####[facility] [place] [address], [facility] WBC Auto #/vol (Bld) 8.3 10*3/uL Normal 4.0-10.6 [facility] Comment on above: Order Comment: No: Do not add to previou s draw Performed By: #### 5 0103 ####[facility] [place] [address], [facility] HEMOGLOBIN A1Con 11-11-2017 Glucose mass conc 111 mg/dL Normal 70-126 [facility] Comment on above: Order Comment: No: Do not add to previou s draw Performed By: #### 5 7307, 84636 ####[facility] [place] [address], [facility] Hemoglobin A1c/Hemoglobin.t otal mass fraction (Bld) 5.5 % Normal 4.0-6.0 [facility] Comment on above: Order Comment: No: Do not add to previou s draw Performed By: #### 5 7307, 00915 ####[facility] [place] [address], [facility] History and Physicalon 11-11 History and Physical MR[id number] Admitted: 11/10/2017 Date of : 1965 Attending Physician: Mikki Potter MD Room #: [id number] Discharge Date: HISTORY AND PHYSICALCHIEF COMPLAINT: 3 [...] shortness ofbreath, palpitations, lightheadedness, dizziness, or prior DC.In the ER, his blood pressure was noted [...] with family.FAMILY HISTORY: His father of massive DC at age of 75, his mom hasclaytontes, sister had a triple bypass last year [...] symmetric, no visible pulsations, moves equallywith respirations.HEART: [place] palpable over the midclavicular line in the [...] Signed by:Mikki Potter MD 11/11/2017 02:48 A _SUNNY Lópezate Dict: 11/10/2017/11:34 P/SUNNY Lópezate Trans: 11/11/2017 12:16 A/mmoDN_JN:[id number] Normal [facility] LIPID PROFILEon 11-11-2017 Cholesterol in HDL mass conc 33 mg/dL Normal 23-92 [facility] Comment on above: Result Comment: Slight variation in norm al range could be due to gender and/or age.HDL CHOLESTEROL REFERENCE RANGE:20 years and older Cardiovascular Risk> or =60 mg/dL Encllvxoc11 TO 59 mg/dL Low Risk<40 mg/dL High Risk Performed By: #### 4 6413, 07162, 70829, 09548 ####[facility] [place] [address], [facility] Cholesterol in LDL mass conc 106 mg/dL Normal 0-130 [facility] Comment on above: Result Comment: LDL IS A CALCULATIONLDL IS ONLY VALID IF THE TRIG IS LESS THAN 400. Performed By: #### 4 6413, 53178, 05236, 85835 ####[facility] [place] [address], [facility] Cholesterol mass conc 169 mg/dL Normal 120-200 [facility] Comment on above: Result Comment: CHOLESTEROL REFERENCE RA NGE:20 YEARS AND OLDER CARDIOVASCULAR RISKLess than 200 mg/dl Low Ggle375 to 239 mg/dl Borderline Uwqa980 mg/dl and greater High Risk Performed By: #### 4 6413, 46878, 45947, 84457 ####[facility] [place] [address], [place] Cholesterol.tota l/Cholesterol in HDL mass ratio 5.1 {ratio} High .0-4.5 [facility] Comment on above: Performed By: #### 03806, 69401, 74226, 53548 ####[facility] [place] [address], [place] NON-HDL CHOLESTEROL 136 mg/dL Normal [facility] Comment on above: Performed By: #### 18387, 35948, 56195, 41856 ####[facility] Triglyceride mass conc 149 mg/dL Normal 40-149 [facility] Comment on above: Result Comment: TRIGLYCERIDE REFERENCE R ARLENE:20 YEARS AND OLDER CARDIOVASCULAR RISKLESS THAN 150 mg/dl LOW [id number] TO 199 mg/dl BORDERLINE VDOG308 mg/dl AND GREATER HIGH RISK Performed By: #### 4 6413, 92350, 32381, 83505 ####[facility] VLDL CHOL 30 mg/dL Normal 0-40 [facility] Comment on above: Performed By: #### 12650, 22385, 81321, 64259 ####[facility] [facility].[address] MAGNESIUM BLOODon 11-11-2017 Magnesium mass conc 2.2 mg/dL Normal 1.9-2.7 [facility] Comment on above: Order Comment: No: Do not add to previou s draw Performed By: #### 5 7307, 85701 ####[facility] [facility].[address] PROTHROMBIN TIMEon 8 INR Coag RelTime (PPP) 0.93 {INR} Normal 0.91-1.16 [facility] Comment on above: Order Comment: No: [...] OF ACTION, CLINICALEFFECTIVENESS, AND OPTIMAL THERAPEUTIC RANGE. [id number];108:231S-246S. Performed By: #### 5 7307, 50881 ####[facility]3000 [facility].[address] Prothrombin time (PT) Coag time (PPP) 12.5 s Normal 12.3-14.8 [facility] Comment on above: Order Comment: No: Do not add to previou s draw Result Comment: ALL RESULTS MUST BE INTERPRETED WITH RESPECT TO BLOOD DRAWING ARTIFACTOR DILUTION ERROR OF ANTICOAGULANT AT THE TIME OF SAMPLING. Performed By: #### 5 7307, 12913 ####[facility] [place] [address], [facility] TROPONIN-Ion 11-11-2017 Troponin I.cardiac mass conc 0.07 ng/mL High 0.00-0.04 [facility] Comment on above: Result Comment: REFERENCE RANGES: 0.00 - 0.04 ng/ml NORMAL 0.05 - 0.50 ng/ml INDETERMINATE > 0.50 ng/ml CONSISTENT WITH AN M.I. Performed By: #### 5 7307, 45399 ####[facility] [place] [address], [facility] Troponin I.cardiac mass conc 0.08 ng/mL High 0.00-0.04 [facility] Comment on above: Order Comment: No: Do not add to previou s draw Result Comment: REFE RENCE RANGES: 0.00 - 0.04 ng/ml NORMAL 0.05 - 0.50 ng/ml INDETERMINATE > 0.50 ng/ml CONSISTENT WITH AN M.I. Performed By: #### 3 5200 ####[facility]3000 [facility].[address] Troponin I.cardiac mass conc 0.08 ng/mL High 0.00-0.04 [facility] Comment on above: Order Comment: No: Do not add to previou s draw Result Comment: REFE RENCE RANGES: 0.00 - 0.04 ng/ml NORMAL 0.05 - 0.50 ng/ml INDETERMINATE > 0.50 ng/ml CONSISTENT WITH AN M.I. Performed By: #### 3 5200 ####[facility] TSH WITH REFLEXon 11-11-2017 Thyrotropin Qn 1.86 MICRO-IU/ML Normal 0.34-5.60 [facility] Comment on above: Order Comment: No: Do not add to previou s draw Performed By: #### 3 0241 ####[facility] UFH HEPARIN ASSAYon 11-12-19 18 UNFRACTIONATED HEPARIN 0.20 IU/mL Low 0.30-0.70 [facility] Comment on above: Result Comment: Rivaroxaban and Apixaban will interfere with the anti Xa assay used tomonitor UFH and LMWH. Performed By: #### 3 0477 ####[facility] [facility].[address] Encounters Encounter Date Encounter Type Care Provider Facility Start: 02-18-2024 End: 02-18-[address] [facility] Start: 12-10-2023 End: 12-10-[address] [facility] Start: 12-31-2021 Encounter for genera l adult medical examination without abnormal findings DR DIONISIO LOUIS [facility] Start: 12-29-2021 End: 12-30-[address] DIONISIO LOUIS Facility: Start: 12-29-2021 End: 12-30-2021 Encounter for general adult medical examination without abnormal findings DR DIONISIO LOUIS Facility: Start: 05-19-2021 End: 05-20-[address] DIONISIO LOUIS Facility: Start: 03-27-[address] DIONISOI LOUIS Facility : Start: 01-06-2021 End: 01-07-[address] DIONISIO LOUIS Facility: Start: 01-02-2019 End: 01-03-2019 Patient encounter procedure Carroll Nash Mike Facility:[facility] Start: 04-04-2018 End: 04-05-2018 Patient encounter NATALIA MORA Facility:[facility] Start: 11-10-2017 End: 11-12-2017 Evaluation and management of inpatient ИВАН RAMOS Facility:[facility] Procedures Date Procedure Procedure Detail Performing Clinician Start: 12-29-[address] ANABEL LOUIS Comment on above: Performed By: #### U AMBERLY, CMP, LIPID #### [facility] [address] [address] [address] Kami Torres Start: 05-19-[address] ANABEL LOUIS Comment on above: Performed By: #### P SASC #### [facility] [address] [place], [place] [address] Trace Rodasen Start: 11-11-2017 DILATION OF 1 COR AR T WITH DRUG-ELUT INTRA, PERC APPROACH MAYA VU Start: 11-11-2017 FLUOROSCOPY OF MULTI PLE CORONARY ARTERIES USING OTH CONTRAST MAYA REEVESRBED Payers Date Payer Category Payer Unknown [id number] 1965 Unknown [id number] [id number] [id number] 1965 Unknown [id number] 1965 Unknown [id number] [id number] [id number] 1965 Unknown [id number] [id number] 1960 Self-pay 1960 Unknown [id number] Progress note 02-18-2024 Note Date & Type Note Facility 02-18-2024 Note [place] [facility] Subjective Eliza Rausch is a 59 y.o. year old male patient being seen for Follow-up (Go over labs and stress test results ) Patient Active Problem List Diagnosis Primary hypertension Coronary artery disease involving picayune coronary artery of picayune heart Status post insertion of drug eluting coronary artery stent History of myocardial infarction Family History Problem Relation Name Age of Onset Coronary artery disease Mother Other (pacemaker) Mother Heart attack Father Coronary artery disease Sister Social History Tobacco Use Smoking status: Former Types: Cigarettes Quit date: 11/04/2017 Years since quittin.2 Smokeless tobacco: Never Substance Use Topics Alcohol use: Not Currently Drug use: Never HPI Visit of 11/19/2017: Eliza Rausch is seen in follow up. He is a 52-year-old man, who was admitted to the [facility] with crescendo angina and elevation of cardiac enzymes consistent with high risk non-ST segment elevation myocardial infarction. He was referred today for cardiac catheterization on 11/11/2017 and this showed: 1. Coronary artery disease with severe involvement of the proximal LAD with a complex lesion in the setting of acute non ST-segment elevation myocardial infarction. 2. A 95% complex stenosis in the proximal LAD reduced to 0% by balloon angioplasty and PROMUS premier drug-eluting stent. 3. Moderate disease in the mid LAD, mid circumflex, mid RCA and mid PDA branch. He did well after the stenting procedure. He has no recurrence of chest pain. He has no dyspnea on exertion. He has bilateral leg claudication. He says his feet get cold. He has stopped smoking since his cardiac event. He is taking meds as prescribed. Echocardiogram 11/12/2017:Global left ventricular systolic function is normal (Visually estimated EF 60%). The left ventricle is normal size. Left ventricular wall thickness is normal. No regional wall motion abnormality. Normal diastolic function. Normal right ventricular systolic function. Doppler studies suggest normal right sided pressures. No significant valvular abnormalities Update 04/18/2018: He is seen in follow up. Most recently, he developed chest pain at work, seen by Dr Ramos and referred for cath on 04/04/[address] Mora and this showed: 1. Left main coronary artery: Patent. 2. Left anterior descending coronary artery: Patent. 3. The previously placed stent in the proximal LAD is widely patent. The mid LAD after the previously stented segment has a 40% stenosis. The distal LAD has a 30% stenosis. The diagonal branches are small, but patent. 4. Ramus coronary artery. The ramus is moderate size and is patent. 5. Left circumflex coronary artery. The circumflex is moderate size and has a mid 30% stenosis. The OM1 and OM2 are patent. 6. Right coronary artery. The RCA is a shkrique-in-hdpve vessel and is dominant. The mid RCA has a focal 40% stenosis. The PDA has a serial 30% stenosis in 2 locations. The IFR evaluation was negative in this area with an IFR of 0.98. He has been well since then with continued medical therapy. He has not had chest pain or dyspnea on exertion. He has no palpitations. ABIs 11/22/2017: mildly abnormal, possible small vessel disease. He has mild claudication but not significant at this point. Update 10/06/2018: He is seen in follow up. He is doing well. No chest pain. He has shortness of breath on moderate to severe activity. He is not limited in terms of physical activity. He quit smoking 11/10/2017. Update 04/17/2019: He is seen in follow up. He has been having symptoms of chest discomfort with exertion. His symptoms are short lasting. Relived by rest. He also has been having a lot of allergy and congestion that coincides with that. No clear angina. No limitation of physical activity. Liver panel 10/10/2018: normal Lipids 10/10/2018: HDL 37, chol 142, TG 99, LDL 85. Visit of 12/10/2023: He is seen in follow-up. His last visit with us was on 10/06/2021 at which time his Effient was stopped given 4 years post DC and PCI. On 07/10/2023 he presented to the emergency room at the [facility] with chest pain. He ruled out for myocardial infarction. Today he reports that he has been having symptoms of chest pain manifested as squeezing sensation across the chest. This can happen with exertion or sometimes at rest. It is relieved spontaneously. There is no radiation. There is no associated symptoms. In addition he has shortness of breath on exertion. He denies palpitations, lower extremity edema, dizziness or lightheadedness. Today his blood pressure is elevated in the office. Visit of 02/18/2024: He is seen in follow-up. Last visit he was complaining of symptoms of chest pain and shortness of breath. I added amlodipine as an antianginal agent and to control his blood pressure. I checked an echocardiogram and a (more content not included)... [facility] Progress note 12-10-2023 Note Date & Type Note Facility 12-10-2023 Note [place] [facility] Subjective Eliza Rausch is a 58 y.o. year old male patient being seen for Follow-up (2 year follow up ) Patient Active Problem List Diagnosis Primary hypertension Coronary artery disease involving picayune coronary artery of picayune heart Status post insertion of drug eluting coronary artery stent History of myocardial infarction Family History Problem Relation Name Age of Onset Coronary artery disease Mother Other (pacemaker) Mother Heart attack Father Coronary artery disease Sister Social History Tobacco Use Smoking status: Former Types: Cigarettes Quit date: 11/04/2017 Years since quittin.1 Smokeless tobacco: Never Substance Use Topics Alcohol use: Not Currently Drug use: Never HPI Visit of 11/19/2017: Eliza Rausch is seen in follow up. He is a 52-year-old man, who was admitted to the [facility] with crescendo angina and elevation of cardiac enzymes consistent with high risk non-ST segment elevation myocardial infarction. He was referred today for cardiac catheterization on 11/11/2017 and this showed: 1. Coronary artery disease with severe involvement of the proximal LAD with a complex lesion in the setting of acute non ST-segment elevation myocardial infarction. 2. A 95% complex stenosis in the proximal LAD reduced to 0% by balloon angioplasty and PROMUS premier drug-eluting stent. 3. Moderate disease in the mid LAD, mid circumflex, mid RCA and mid PDA branch. He did well after the stenting procedure. He has no recurrence of chest pain. He has no dyspnea on exertion. He has bilateral leg claudication. He says his feet get cold. He has stopped smoking since his cardiac event. He is taking meds as prescribed. Echocardiogram 11/12/2017:Global left ventricular systolic function is normal (Visually estimated EF 60%). The left ventricle is normal size. Left ventricular wall thickness is normal. No regional wall motion abnormality. Normal diastolic function. Normal right ventricular systolic function. Doppler studies suggest normal right sided pressures. No significant valvular abnormalities Update 04/18/2018: He is seen in follow up. Most recently, he developed chest pain at work, seen by Dr Ramos and referred for cath on 04/04/[address] Mora and this showed: 1. Left main coronary artery: Patent. 2. Left anterior descending coronary artery: Patent. 3. The previously placed stent in the proximal LAD is widely patent. The mid LAD after the previously stented segment has a 40% stenosis. The distal LAD has a 30% stenosis. The diagonal branches are small, but patent. 4. Ramus coronary artery. The ramus is moderate size and is patent. 5. Left circumflex coronary artery. The circumflex is moderate size and has a mid 30% stenosis. The OM1 and OM2 are patent. 6. Right coronary artery. The RCA is a tkwkyuam-ty-mttub vessel and is dominant. The mid RCA has a focal 40% stenosis. The PDA has a serial 30% stenosis in 2 locations. The IFR evaluation was negative in this area with an IFR of 0.98. He has been well since then with continued medical therapy. He has not had chest pain or dyspnea on exertion. He has no palpitations. ABIs 11/22/2017: mildly abnormal, possible small vessel disease. He has mild claudication but not significant at this point. Update 10/06/2018: He is seen in follow up. He is doing well. No chest pain. He has shortness of breath on moderate to severe activity. He is not limited in terms of physical activity. He quit smoking 11/10/2017. Update 04/17/2019: He is seen in follow up. He has been having symptoms of chest discomfort with exertion. His symptoms are short lasting. Relived by rest. He also has been having a lot of allergy and congestion that coincides with that. No clear angina. No limitation of physical activity. Liver panel 10/10/2018: normal Lipids 10/10/2018: HDL 37, chol 142, TG 99, LDL 85. Visit of 12/10/2023: He is seen in follow-up. His last visit with us was on 10/06/2021 at which time his Effient was stopped given 4 years post DC and PCI. On 07/10/2023 he presented to the emergency room at the [facility] with chest pain. He ruled out for myocardial infarction. Today he reports that he has been having symptoms of chest pain manifested as squeezing sensation across the chest. This can happen with exertion or sometimes at rest. It is relieved spontaneously. There is no radiation. There is no associated symptoms. In addition he has shortness of breath on exertion. He denies palpitations, lower extremity edema, dizziness or lightheadedness. Today his blood pressure is elevated in the office. Review of Systems Cardiovascular: Positive for chest pain. Respiratory: Positive for shortness of breath. Musculoskeletal: Positive for muscle cramps. All other systems reviewed and are negative. Objective Visit Vitals BP 160/88 (BP Location: Left arm (more content not included)... [facility] Summary Purpose Family History No Family History Records FoundNo Family History Records FoundNo Family History Records FoundNo Family History Records Found Advance Directives No Advanced Directives Records FoundNo Advanced Directives Records FoundNo Advanced Directives Records FoundNo Advanced Directives Records Found Additional Source Comments (unrecognized sect ion and content) No Status Records FoundNo Status Records FoundNo Status Records FoundNo Status Records Found INFORMATION SOURCE (unrecogn ized section and content) DATE CREATED AUTHOR 04/06/2018 [facility] DATE CREATED AUTHOR AUTHOR'S ORGANIZ ATION 01/14/2019 [facility] DATE CREATED AUTHOR AUTHOR'S ORGANIZ ATION 01/03/2022 [facility] DATE CREATED AUTHOR AUTHOR'S ORGANIZ ATION 02/19/2024 [facility] FOR RECORDS PERTAINING TO PATIENTS WHO [...] BE BASED ON THE PRIMARY CLINICAL RECORDS. [facility]. provides no warranty or guarantee of the accuracy or completeness of information in this document.
[2025-01-22 11:20] LABS: Basophils Percent Auto 0.5 % (0.2-2.0); Eosinophils Absolute Auto 0.3 10^3/uL (0.0-0.7); Eosinophils Percent Auto 4.4 % (0.9-7.0); Hematocrit 42.8 % (42.0-54.0); Hemoglobin 14.8 g/dL (14.0-18.0); Immature Granulocytes Abs Auto 0.04 10^3/uL (0.00-0.03); Immature Granulocytes Pct Auto 0.6 % (0.0-0.5); Lymphocytes Absolute Auto 1.7 10^3/uL (1.2-3.8); Lymphocytes Percent Auto 26.9 % (20.5-60.0); Mean Corpuscular HGB Conc 34.6 g/dL (29.9-35.2); Mean Corpuscular Hemoglobin 29.4 pg (25.9-34.0); Mean Corpuscular Volume 84.9 fL (80.0-94.0); Mean Platelet Volume 10.1 fL (9.5-13.5); Monocytes Absolute Auto 0.6 10^3/uL (0.3-0.8); Monocytes Percent Auto 9.5 % (1.7-12.0); Neutrophils Absolute Auto 3.7 10^3/uL (1.4-6.5); Neutrophils Percent Auto 58.1 % (43.0-75.0); Platelet Count 194 10^3/uL (150-450); Red Blood Count 5.04 10^6/uL (4.70-6.10); Red Cell Distribution Width 13.4 % (11.0-15.0); White Blood Count 6.3 10^3/uL (4.0-11.0)
[2025-01-22 12:12] LABS: Alanine Aminotransferase 106 U/L (16-63); Albumin Globulin Ratio 1.1; Albumin Level 3.6 g/dL (3.4-5.0); Alkaline Phosphatase 38 U/L (46-116); Anion Gap 10.9; Aspartate Amino Transferase 52 U/L (15-37); BUN Creatinine Ratio 13.4; Bilirubin Total 0.7 mg/dL (0.2-1.0); Carbon Dioxide 26.1 mmol/L (21.0-32.0); Chloride 105 mmol/L (98-107); Chol HDL Ratio 5.2; Cholesterol 194 mg/dL (<=200); Estimated GFR (African America >60 (>=60 mL/min/1.73m^2); Estimated GFR (Non-African Ame >60 (>=60 mL/min/1.73m^2); Free T3 2.87 pg/mL (2.18-3.98); Globulin 3.3 g/dL; Glucose 108 mg/dL (74-106); HDL Cholesterol 37 mg/dL (40-60); Sodium 138 mmol/L (136-145); Thyroid Stimulating Hormone 1.546 uIU/mL (0.358-3.740); Total Protein 6.9 g/dL (6.4-8.2); Triglycerides 354 mg/dL (<=150); Uric Acid 6.8 mg/dL (3.5-7.2); VLDL CHOLESTEROL 70.8 mg/dL
[2025-01-22 12:23] LABS: Estimated Average Glucose 131 mg/dL; Glycohemoglobin A1C 6.2 % (4.5-6.2)
[2025-01-22 12:37] LABS: Prostate Specific Antigen Scrn <0.13 ng/mL (<=4.00)
== END 2025-01-22 10:48 | disposition home or self-care (01) ==
LOC: LAB 10:48
PROVIDERS: PCP Family Medicine; Visit Provider Family Medicine
DX: Z00.00 Encounter for general adult medical examination without abnormal findings (principal)
CPT/HCPCS: 36415; 80053; 80061; 83036; 84436; 84443; 84481; 84550; 85025; G0103

== ENCOUNTER 2025-01-25 07:20 | Outpatient (OUT) | payer OTHER, SELFPAY ==
--- OUTSIDE RECORDS SUMMARY | 2025-01-08 05:04 | XMS_ITS ---
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
--- OUTSIDE RECORDS SUMMARY | 2025-01-22 08:49 | XMS_ITS ---
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 Senior Software Development Engineer Name Role Phone Nehemias Louis Primary Care Provider REASON FOR VISIT labs Encounters Encounter Location Date Provider Diagnosis [facility] [address] [place] [address] 01/22/2025 Nehemias Louis Elevated liver enzym es R74.8 Assessments Encounter Date Diagnosis (ICD Code) Assessment Notes Treatment Notes Treatment Clinical Notes Section Notes 01/22/2025 Elevated liver enzymes (ICD-10 - R74.8) Plan Of Treatment Pending Test Test Name Order Date US Liver 01/22/2025 Progress Notes * Shane RAUSCH ADOB: 4 (60 yo M)Acc No.[id number]:01/22/2025 Patient: Shane LEE :1965 A ge:60 Y S ex:Male Address:[address] [place] [address], [phone] Subjective: * Chief Complaints: * L abs * Medical History: * Surgical History: * Hospitalization/Major Diagno stic Procedure: * Medications: Objective: * Vitals: * Physical Examination: Assessment: * Assessment: 1. E levated liver enzymes - R74.8 (Primary) Plan: * Treatment: * Procedure Codes: * true * Date: Generated for Printi ng/Faxing/eTransmitting on: 0 01/25/2025 07:22 AM EDT
--- OUTSIDE RECORDS SUMMARY | 2025-01-22 14:00 | XMS_ITS | Encounter Summary ---
Author Organization [facility] Address [address] [place] [address] Care Team Providers Care Shift Superintendent Caustic Cresylate Name Role Phone Alejo Louis MD Primary Care Provider Encounter Details Date Type Department Care Team (Late st Contact Info) Description 01/22/2025 2:00 PM EDT Office Visit [facility] [address] [place] [address] Raul López MD [address] [facility] [address] [facility] [place] [address] Coronary artery disease involving [place] coronary artery of [place] heart with other form of angina pectoris (Primary Dx); Mixed hyperlipidemia; Status post insertion of drug eluting coronary artery stent; Primary hypertension; History of myocardial infarction Social History Tobacco Use Types Packs/Day Years Used Date Smoking Tobacco: Former Cigarettes Q uit: 11/04/2017 Smokeless Tobacco: Never Tobacco Cessation:Counseling Given: Not Answered Alcohol Use Standard Drinks/Week Comments Yes 0 (1 standard drink = 0.6 oz pur e alcohol) occasional [place] Safety & Environment Answer Date Rec orded Fear of Current or Ex-Partner Not on file Emotionally Abused Not on file 10/28/2023 Physically Abused Not on file 10/28/2023 Sexually Abused Not on file 10/28/2023 Physically or Sexually Abused Not on file Sex and Gender Information Value Date Recorded Sex Assigned at Not on file Gender Identity Not on file Sexual Orientation Not on file documented as of this encounter Last Filed Vital Signs Vital Sign Reading Time Taken Comments Blood Pressure 134/82 01/22/2025 2:20 PM EDT Pulse 68 01/22/2025 2:20 PM EDT Temperature - - Respiratory Rate - - Oxygen Saturation 94% 01/22/2025 2:20 PM EDT Inhaled Oxygen Concentration - - Weight 79.4 kg (175 lb) 01/22/2025 2:20 PM EDT Height 172.7 cm (5' 8 ) 01/22/2025 2:20 PM EDT Body Mass Index 26.61 01/22/2025 2:20 PM EDT documented in this encounter Progress Notes * Raul López MD - 01/22/2025 2:00 PM EDT Images from the original note were not included. [facility] Subjective Shane Rausch is a 60 y.o. year old male patient being seen for 1 year follow up. Patient states he has dyspnea with exertion. Patient denies chest pain, leg swelling. Palpitations. Patient Active Problem List Diagnosis Primary hypertension Coronary artery disease involving [place] coronary artery of [place] heart Status post insertion of drug eluting coronary artery stent History of myocardial infarction Family History Problem Relation Name Age of Onset Coronary artery disease Mother Other (pacemaker) Mother Heart attack Father Coronary artery disease Sister Other (caridac arrest) Brother Social History Tobacco Use Smoking status: Former Current packs/day: 0.00 Types: Cigarettes Quit date: 11/04/2017 Years since quittin.2 Smokeless tobacco: Never Substance Use Topics Alcohol use: Yes Comment: occasional Drug use: Never HPI Visit of 11/19/2017: Shane Rausch is seen in follow up. He is a 52-year-old man, who was admitted to the [facility] with crescendo angina and elevation of cardiac enzymes consistent with high risk non-ST segment elevation myocardial infarction. He was referred today for cardiac catheterization on 11/11/2017 and this showed: 1. Coronary artery disease with severe involvement of the proximal LAD with a complex lesion in thesetting of acute non ST-segment elevation myocardial infarction. [...] for cath on 04/04/[address] Sebastian and this showed: 1. Left main coronary [...] size and has a mid 30% stenosis. TheOM1 and OM2 are patent. 6. Right coronary artery. The RCA is a dfiiqstp-ho-ooled vessel and is dominant. The mid RCA [...] Effient was stopped given 4 years post AK and PCI. On 07/10/2023 he presented to the emergency room at the [facility] with chest pain. He ruled out [...] pain and shortness of breath. I added amlodipineas an antianginal agent and to control his blood pressure. I checked an echocardiogram and a stresstest and both were nonrevealing. His blood testing was within normal limits. Today he reports that he has been feeling much better. He does not have any significant symptoms ofchest pain or shortness of breath that have improved significantly after adding amlodipine. He feels good. visit of 01/22/2025: He is seen in follow-up. He denies chest pain. He has chronic mild shortness of breath on exertion NYHA class II symptoms. Nothing new since last visit. He denies palpitations, dizziness and syncope. He has been complaining of pain in the arms with atorvastatin. Today he underwent lipid panel that showed significant elevated triglycerides and LDL not at target. Review of Systems Cardiovascular: Positive for chest pain and dyspnea on exertion. Respiratory: Positive for shortness of breath. All other systems reviewed and are negative. Objective Visit Vitals BP 134/82 (BP Location: Right arm, Patient Position: Sitting) Pulse 68 Ht 1.727 m (5' 8 ) Wt 79.4 kg (175 lb) SpO2 94% BMI 26.61 kg/m?? Smoking Status Former BSA 1.95 m?? Physical Exam Constitutional: Appearance: He is well-developed. He is not ill-appearing. HENT: Head: Normocephalic and atraumatic. Nose: Nose normal. Eyes: General: No scleral icterus. Pupils: Pupils are equal, round, and reactive to light. Neck: Thyroid: No thyromegaly. Vascular: No JVD. Cardiovascular: Rate and Rhythm: Normal rate and regular rhythm. Pulses: Radial pulses are 2+ on the right side and 2+ on the left side. Heart sounds: Normal heart sounds. No murmur heard. No friction rub. No gallop. Pulmonary: Effort: Pulmonary effort is normal. No respiratory distress. Breath sounds: Normal breath sounds. No wheezing or rales. Chest: Chest wall: No tenderness. Abdominal: General: Bowel sounds are normal. There is no distension. Palpations: Abdomen is soft. Tenderness: There is no abdominal tenderness. Musculoskeletal: General: No swelling. Cervical back: Neck supple. Skin: General: Skin is warm and dry. Neurological: General: No focal deficit present. Mental Status: He is alert and oriented to person, place, and time. Psychiatric: Mood and Affect: Mood normal. Behavior: Behavior is cooperative. Judgment: Judgment normal. Allergies Allergies Allergen Reactions Ibuprofen Other and Swelling Medications Current Outpatient Medications: amLODIPine (Norvasc) 10 mg tablet, TAKE 1 TABLET BY MOUTH IN THE MORNING, Disp: 90 tablet, Rfl: 3 aspirin 81 mg EC tablet, Take 1 tablet by mouth in the morning., Disp: , Rfl: carvedilol (Coreg) 3.125 mg tablet, TAKE 1 TABLET BY MOUTH TWICE DAILY, Disp: 180 tablet, Rfl: 3 dutasteride (Avodart) 0.5 mg capsule, Take by mouth in the morning., Disp: , Rfl: ezetimibe (Zetia) 10 mg tablet, TAKE 1 TABLET BY MOUTH IN THE MORNING, Disp: 90 tablet, Rfl: 3 lisinopril 5 mg tablet, TAKE 1 TABLET BY MOUTH IN THE MORNING, Disp: 90 tablet, Rfl: 3 nitroglycerin (Nitrostat) 0.4 mg SL tablet, Place 1 tablet as needed by sublingual route as directed., Disp: , Rfl: icosapent ethyL (Vascepa) 1 gram capsule, Take 2 capsules (2 g) by mouth with breakfast and with evening meal., Disp: 360 capsule, Rfl: 3 prasugrel (Effient) 10 mg tablet, Take 1 tablet by mouth in the morning., Disp: , Rfl: rosuvastatin (Crestor) 40 mg tablet, Take 1 tablet (40 mg) by mouth at bedtime., Disp: 90 tablet, Rfl: 3 tamsulosin HCl (FLOMAX ORAL), Take 0.4 mg by mouth in the morning., Disp: , Rfl: Recent Labs Blood testing 01/22/2025: Hemoglobin 14.8, platelets 194, potassium 4.0, BUN 13, creatinine 0.97, EGFR more than 60, mildly elevated ALT and AST, alkaline phosphatase mildly low, triglycerides 354, cholesterol 194, LDL 87, HDL 37, hemoglobin A1c 6.2%. TSH 1.546. Blood testing 01/03/2024: Potassium 4.2, BUN 17, creatinine 1.05, EGFR more than 60, LFTs borderlineelevation of AST and ALT. Blood testing 12/27/2023: Hemoglobin A1c 6.2%, hemoglobin 14.3, platelets 201, potassium 4.4, BUN 19, creatinine 0.85, LFTs normal, triglycerides 263, cholesterol 176, HDL 39, LDL 85. Blood testing 07/10/2023: Hemoglobin 14, Platelets 202, potassium 3.4, BUN 16, creatinine 1.05, EGFRmore than 60, LFTs normal, high-sensitivity troponin 6.6. Blood testing 03/22/2023: Triglycerides 203, cholesterol 140, LDL 64, HDL 36. Imaging and other tests ECG 12/10/2023: Normal sinus rhythm, normal ECG. ECG 07/10/2023: Normal sinus rhythm, normal ECG. Stress test 01/24/2024: Normal myocardial perfusion scan no reversible ischemia. Resting stress testdemonstrates normal sinus rhythm. Patient exercised for 10 minutes and 22 seconds. Nolasco treadmill score is 10 portending low risk for angiographically significant coronary artery disease. Abnormal blood pressure response with abnormal resting blood pressure. Echocardiogram 01/24/2024: Mild concentric left ventricular hypertrophy with normal systolic function. LVEF is 55 to 60%. Normal right ventricular size and systolic function. No significant valvular dysfunction. Normal right-sided pressures. Assessment/Plan Diagnoses and all orders for this visit: Coronary artery disease involving [place] coronary artery of [place] heart with other form of angina pectoris - rosuvastatin (Crestor) 40 mg tablet; Take 1 tablet (40 mg) by mouth at bedtime. Mixed hyperlipidemia - icosapent ethyL (Vascepa) 1 gram capsule; Take 2 capsules (2 g) by mouth with breakfast and with evening meal. - Lipid panel; Future Status post insertion of drug eluting coronary artery stent Primary hypertension History of myocardial infarction 1. CAD, s/p prior NSTEMI and CECILIA to the LAD, cath 04/04/2018 showed patent arteries and stent: echocardiogram and stress test in January 2024 were within normal limits. 2. Shortness of breath on exertion: His prior testing was unrevealing. this is not limiting him. I reassured him. 3. Hypertension: Better controlled after addition of amlodipine. Continue the same. 4. Hyperlipidemia: He has been having side effects from atorvastatin. I will change it to rosuvastatin 40 mg daily. In addition his triglycerides are significantly elevated. I recommended low-fat diet. I will add Vascepa 2 g twice daily. I will check a lipid panel in 3 months. His PCP will have him undergo a liver ultrasound. Unless needed before, I will plan on seeing him in follow-up in 1 year. Follow up in about 1 year (around 01/22/2026). Raul López MD documented in this encounter Plan of Treatment Scheduled Orders Name Type Priority Associated Diagnoses Orde r Schedule Lipid panel Lab Routine Mixed hyperlipidemia Expected: 04/24/2025 (Approximate), Expires: 01/22/2026 documented as of this encounter Visit Diagnoses Diagnosis Coronary artery disease involving [place] coronary artery of [place] heart with other form of angina pectoris- Primary Mixed hyperlipidemia Status post insertion of drug eluting coronary artery stent Primary hypertension Unspecified essential hypertension History of myocardial infarction documented in this encounter Care Teams Shift Superintendent Caustic Cresylate Relationship Specialty Start Date End Date Alejo Louis MD [address] [facility] [place] [address] PCP - General 12/29/22 documented as of this encounter
--- NOTE | 2025-01-25 07:22 | US_ITS ---
The [address] [address] Patient Name: ELIZA JUAN MRN: [id number] date: 1965 Sex: M Assigned Patient Location: US Current Patient Location: Accession/Order Number: [id number] Exam Date: 01/25/2025 08:47 Report Date: 01/25/2025 08:49 At the request of: DIONISIO ISLAS MD Procedure: US right upper quadrant EXAMINATION TYPE: US right upper quadrant DATE OF EXAM ORDERED: 01/25/2025 8:22 AM HISTORY: Elevated liver enzymes, right upper quadrant pain COMPARISON: NONE TECHNIQUE: Realtime imaging limited to the right upper quadrant was performed. FINDINGS: The gallbladder appears within normal limits without evidence of cholelithiasis. The gallbladder wall measures 2 mm in thickness. Common bile duct measures 3 mm in diameter. No intrahepatic or extrahepatic biliary dilatation is seen. The liver is echogenic in respect to the right middle cortex suggesting hepatic steatosis. There is hepatopedal flow the main portal vein. Partial visualization of the right kidney reveals no gross hydronephrosis. Partial visualization of the pancreas reveals no abnormality. US/US right upper quadrant IMPRESSION: No sonographic evidence of acute cholecystitis. Findings suggest hepatic steatosis. Impression dictated by: Eliza Bryant M.D. 01/25/2025 8:49 AM Dictation Location: [place] [address] Electronically authenticated by: [id number] Y Date: 01/25/2025 08:49
--- OUTSIDE RECORDS SUMMARY | 2025-01-25 07:22 | XMS_ITS | Referral Summary ---
Author Organization [facility] Address [address] [place] [address] Care Team Providers Care Child Nutrition Director Name Role Phone Alejo Louis MD Primary Care Provider [phone] Encounters Date Type Department Care Team Description 01/22/2025 2:00 PM EDT Office Visit [place] [address] [place] [address] Raul López MD Coronary artery disease involving [place] coronary artery of [place] heart with other form of angina pectoris (Primary Dx); Mixed hyperlipidemia; Status post insertion of drug eluting coronary artery stent; Primary hypertension; History of myocardial infarction 12/18/2024 Refill [facility] [address] [place] [id number] Raul López MD Primary hypertension; Coronary artery disease involving [place] coronary artery of [place] heart with other form of angina pectoris; Essential hypertension from Last 3 Months Allergies Active Allergy Reactions Criticality Noted Date Comments Ibuprofen Other,Swelling High 12/10/2023 Medications Medication Sig Dispensed Refills Start Date End Date Status aspirin 81 mg EC tablet Take 1 tablet by mouth in the morning. Active dutasteride (Avodart) 0.5 mg capsule Take by mouth in the morning. 10/10/2023 Active nitroglycerin (Nitrostat) 0.[address] 1 tablet as needed by sublingual route as directed. 10/06/2018 Active lisinopril 5 mg tabletIndications:E ssential hypertension TAKE 1 TABLET BY MOUTH IN THE MORNING 90 tablet 3 10/30/2024 Active amLODIPine (Norvasc) 10 mg tabletIndications:P rimary hypertension TAKE 1 TABLET BY MOUTH IN THE MORNING 90 tablet 3 12/18/2024 Active ezetimibe (Zetia) 10 mg tabletIndications:C oronary artery disease involving [place] coronary artery of [place] heart with other form of angina pectoris TAKE 1 TABLET BY MOUTH IN THE MORNING 90 tablet 3 12/18/2024 Active carvedilol (Coreg) 3.125 mg tabletIndications:E ssential hypertension TAKE 1 TABLET BY MOUTH TWICE DAILY 180 tablet 3 12/18/2024 Active prasugrel (Effient) 10 mg tablet Take 1 tablet by mouth in the morning. 12/08/2021 Active tamsulosin HCl (FLOMAX ORAL) Take 0.4 mg by mouth in the morning. 12/30/2018 Active rosuvastatin (Crestor) 40 mg tabletIndications:C oronary artery disease involving [place] si[place] coronary artery of [place] heart with other form of angina pectoris Take 1 tablet (40 mg) by mouth at bedtime. 90 tablet 3 01/22/2025 6 Active icosapent ethyL (Vascepa) 1 gram capsuleIndications: Mixed hyperlipidemia Take 2 capsules (2 g) by mouth with breakfast and with evening meal. 360 capsule 3 01/22/2025 6 Active atorvastatin (Lipitor) 80 mg tabletIndications:C oronary artery disease due to lipid rich plaque TAKE 1 TABLET BY MOUTH ONCE DAILY 90 tablet 3 12/17/2023 5 Discontinu ed(Ineffec tive) Active Problems Problem Noted Date Diagnosed Date Primary hypertension 12/10/2023 Coronary artery disease invo lving ass[place] sioux coronary artery of [place] heart 12/10/2023 Status post insertion of drug eluting coronary a rtery stent 12/10/2023 History of myocardial infarction 12/10/2023 Social History Tobacco Use Types Packs/Day Years [...] on file Sexual Orientation Not on file Last Filed Vital Signs Vital Sign Reading Time Taken Comments Blood Pressure 134/82 01/22/2025 2:20 PM EDT Pulse 68 01/22/2025 2:20 PM EDT Temperature - - Respiratory Rate 12 02/18/2024 12:06 PM EDT Oxygen Saturation 94% 01/22/2025 2:20 PM EDT Inhaled Oxygen Concentration - - Weight 79.4 kg (175 lb) 01/22/2025 2:20 PM EDT Height 172.7 cm (5' 8 ) 01/22/2025 2:20 PM EDT Body Mass Index 26.61 01/22/2025 2:20 PM EDT Plan of Treatment Not on file Care Teams Child Nutrition Director Relationship Specialty Start Date End Date Alejo Louis MD [address] [place] [place] [address] PCP - General 12/29/22
--- OUTSIDE RECORDS SUMMARY | 2025-01-25 07:22 | XMS_ITS | Patient Health Record ---
Author Organization [facility] in [place] Address [address] [place] [address] Care Team Providers Care Pipe Chipper Name Role Phone Nehemias Louis Primary Care Provider [phone] DIONISIO LOUIS Unavailable [phone] Allergies Allergen (clinical drug ingredient) Drug/Non Drug Allergy documented on EMR Reaction Allergy Type Onset Date Status ibuprofen Ibuprofen lip swelling Drug Allergy Acti ve Results Component Value Reference Range Notes FREE T3 Reviewed date:01/22/2025 12:51:04 PM Interpretation: Performing Lab: Notes/Report: [facility] , Free T3 2.87 2.18-3.98 pg/mL Performing Lab: see note ML - [facility] LB GLYCOHEMOGLOBIN A1C Reviewed date:01/22/2025 12:51:04 PM Interpretation: Performing Lab: Notes/Report: [facility] , Glycohemoglobin A1C 6.2 4.5-6.2 % ACTION SUGGESTED ADA RECOMMENDED LIMIT 4.0 - 6.0 > 7.0 ADA THERAPEUTIC TARGET < 7.0 Estimated Average Glucose 131 Performing Lab: see note ML - [facility] LB LIPID PROFILE Reviewed date:01/22/2025 12:51:04 PM Interpretation: Performing Lab: Notes/Report: [facility] , Triglycerides 354 <=150 mg/dL Cholesterol 194 <=200 mg/dL HDL Cholesterol 37 40-60 mg/dL <40 mg/dl - HIGH CARDIOVASCULAR RISK > or =60 mg/dl - LOW CARDIOVASCULAR RISK LDL Cholesterol Calculated 87.0 130-159 mg/dl BORDERLINE HIGH <100 mg/dl OPTIMAL 160-189 mg/dl HIGH 100-129 mg/dl NEAR OR ABOVE OPTIMAL >190 mg/dl VERY HIGH VLDL CHOLESTEROL 70.8 Chol HDL Ratio 5.2 >11.0 HIGH RISK 3.3 - 4.4 LOW RISK 4.4 - 7.1 AVERAGE RISK 7.1 - 11.0 MODERATE RISK Performing Lab: see note ML - [facility] LB T4 Reviewed date:01/22/2025 12:51:05 PM Interpretation: Performing Lab: Notes/Report: [facility] , T4 Thyroxine 7.40 4.50-12.10 ug/dL Performing Lab: see note ML - [facility] LB TSH Reviewed date:01/22/2025 12:51:05 PM Interpretation: Performing Lab: Notes/Report: [facility] , Thyroid Stimulating Hormone 1.546 0.358-3.740 uIU/mL Performing Lab: see note ML - [facility] LB CBC AUTO DIFF Reviewed date:01/22/2025 12:51:04 PM Interpretation: Performing Lab: Notes/Report: [facility] , White Blood Count 6.3 4.0-11.0 10 3/uL Red Blood Count 5.04 4.70-6.10 10 6/uL Hemoglobin 14.8 14.0-18.0 g/dL Hematocrit 42.8 42.0-54.0 % Mean Corpuscular Volume 84.9 80.0-94.0 fL Mean Corpuscular Hemoglobin 29.4 25.9-34.0 pg Mean Corpuscular HGB Conc 34.6 29.9-35.2 g/dL Red Cell Distribution Width 13.4 11.0-15.0 % Platelet Count 194 150-450 10 3/uL Mean Platelet Volume 10.1 9.5-13.5 fL Neutrophils Percent Auto 58.1 43.0-75.0 % Lymphocytes Percent Auto 26.9 20.5-60.0 % Monocytes Percent Auto 9.5 1.7-12.0 % Eosinophils Percent Auto 4.4 0.9-7.0 % Basophils Percent Auto 0.5 0.2-2.0 % Immature Granulocytes Pct Auto 0.6 0.0-0.5 % Neutrophils Absolute Auto 3.7 1.4-6.5 10 3/uL Lymphocytes Absolute Auto 1.7 1.2-3.8 10 3/uL Monocytes Absolute Auto 0.6 0.3-0.8 10 3/uL Eosinophils Absolute Auto 0.3 0.0-0.7 10 3/uL Basophils Absolute Auto 0.0 0.0-0.1 10 3/uL Immature Granulocytes Abs Auto 0.04 0.00-0.03 10 3/uL Performing Lab: see note ML - [facility] NM raul perf SPECT rest str Reviewed date:01/26/2024 09:21:38 PM Interpretation: Performing Lab: Notes/Report: Source Facility: [place] [address] [place] [address] Nuclear Medicine Report Signed Patient: ELIZA JUAN MR#: [id number] : 1965 Acct:[id number] Age/Sex: 59 / M ADM Date: 01/24/24 Loc: NM Attending Dr: MAYA VU Ordering Physician: MAYA VU Date of Service: 01/24/24 Procedure(s): NM raul perf SPECT rest str Accession Number(s): [id number] cc: Dionisio Louis M.D.; MAYA VU Patient Name: ELIZA JUAN MR#: [id number] : 1965 Exam Date: 01/24/2024 Ordering Doctor: DR MAYA VU M.D. RADIOLOGY REPORT PROCEDURE: NM RAUL PERF SPECT REST STR COMPARISON: None. INDICATIONS: Atherosclerotic heart disease of [place] coronary artery TECHNIQUE: Exam Description: Stress/Rest two day protocol gated SPECT Rest Imagin.1 mCi Tc-99m Cardiolite IV on 01/24/2024 Stress Imaging 24.9 mCi Tc-99m Cardiolite IV on 01/26/2024 Exercise Protocol: Jose Miguel Heart Rate (bpm): Rest: 69 Max: 137 PMHR: 85 Blood Pressure: Rest: 142/100 Max: 196/102 Exercise Time: Minutes: 10 Seconds: 27 Stage Reached: Stage: 4 Mets 13.4 Symptoms: Rest and peak stress ECG findings were pending and the exercise portion of the study was pending per attending physician Dr. THOMAS . For more details please see separate cardiac stress test report. FINDINGS: QUALITY OF STUDY: Excellent. PERFUSION DEFECT: None. LOCATION: N/A SIZE: N/A. SEVERITY: N/A. TYPE: N/A. WALL MOTION: Normal. LV SIZE: Normal. 72 mL. TID / TCD: None; 0.8 LVEF: Normal. Calculated EF 66%. SUMMARY: Myocardial perfusion imaging study is NORMAL. CONCLUSION: 1. Normal myocardial profusion scan no reversible ischemia 2. Pending exercise test results Dictated by: Alton Villegas MD on 01/26/2024 at 15:28 Approved by: Alton Villegas MD on 01/26/2024 at 15:30 Dictated By: Alton Villegas M.D. Signed By: 01/26/24 1530 DD/ 29 TD/TT: [facility]: [place] [address] Nuclear Medicine Report Signed Patient: VISHAL JUAN MR#: [id number] : 1965 Acct:[id number] Age/Sex: 59 / M ADM Date: 01/24/24 Loc: NM Attending Dr: MAYA VU Ordering Physician: MAYA VU Date of Service: 01/24/24 Procedure(s): NM raul perf SPECT rest str Accession Number(s): [id number] cc: Dionisio Louis M.D. ; MAYA VU Patient Name: ELIZA JUAN MR#: [id number] : 1965 Exam Date: 01/24/2024 Ordering Doctor: DR MAYA VU M.D. RADIOLOGY REPORT PROCEDURE: NM RAUL PE RF SPECT REST STR COMPARISON: None. INDICATIONS: Atherosclerotic heart disease of [place] coronary artery TECHNIQUE: Exam Description: Stress/Rest two day protocol gated SPECT Rest Imagin.1 m Ci Tc-99m Cardiolite IV on 01/24/2024 Stress Imaging 24.9 mCi Tc-99m Cardiolite IV on 01/26/2024 Exercise Protocol: Jose Miguel Heart Rate (bpm): Re st: 69 Max: 137 PMHR: 85 Blood Pressure: Rest : 142/100 Max: 196/102 Exercise Time: Minut es: 10 Seconds: 27 Stage Reached: Stage : 4 Mets 13.4 Symptoms: Rest and peak stress ECG findings were pending and the exercise portion of the study was pending pe r attending physician Dr. THOMAS . For more details please see separate cardiac stress test report. FINDINGS: QUALITY OF STUDY: Excellent. PERFUSION DEFECT: None. LOCATION: N/A SIZE: N/A. SEVERITY: N/A. TYPE: N/A. WALL MOTION: Normal. LV SIZE: Normal. 72 mL. TID / TCD: None; 0.8 LVEF: Normal. Calculated EF 66%. SUMMARY: Myocardial perfusion imaging study is NORMAL. CONCLUSION: 1. Normal myocardial profusion scan no reversible ischemia 2. Pending exercise test results Dictated by: Alton Villegas MD on 01/26/2024 at 15:28 Approved by: Alton Villegas MD on 01/26/2024 at 15:30 Dictated By: Ramin Villegas M.D. Signed By: 01/26/24 1530 DD/ 29 TD/TT: [facility]: URIC ACID SERUM Reviewed date:01/22/2025 12:51:05 PM Interpretation: Performing Lab: Notes/Report: [facility] , Uric Acid 6.8 3.5-7.2 mg/dL Performing Lab: see note ML - [facility] LB PROF 14(COMP METB) Reviewed date:01/22/2025 12:51:04 PM Interpretation: Performing Lab: Notes/Report: [facility] , Sodium 138 136-145 mmol/L Potassium 4.0 3.5-5.1 mmol/L Chloride 105 98-107 mmol/L Carbon Dioxide 26.1 21.0-32.0 mmol/L Anion Gap 10.9 Glucose 108 74-106 mg/dL Blood Urea Nitrogen 13.0 7.0-18.0 mg/dL Creatinine 0.97 0.70-1.30 mg/dL Estimated GFR ( Rupa >60 >=60 mL/min/1.73m 2 Estimated GFR (Non- Bernadette >60 >=60 mL/min/1.73m 2 BUN Creatinine Ratio 13.4 Calcium 9.0 8.5-10.1 mg/dL Bilirubin Total 0.7 0.2-1.0 mg/dL Aspartate Amino Transferase 52 15-37 U/L Alanine Aminotransferase 106 16-63 U/L Alkaline Phosphatase 38 46-116 U/L Total Protein 6.9 6.4-8.2 g/dL Albumin Level 3.6 3.4-5.0 g/dL Globulin 3.3 Albumin Globulin Ratio 1.1 Performing Lab: see note ML - [facility] LB PSA SCREENING Reviewed date:01/22/2025 12:51:04 PM Interpretation: Performing Lab: Notes/Report: [facility] , Prostate Specific Antigen Scrn <0.13 <=4.00 ng/mL Performing Lab: see note ML - [facility] LB Reason For Referral No Information Medications Medication SIG (Take, Route, Frequency, Duration) Notes Start Date End Date Status Dutasteride 0.5 MG TAKE [address] [facility] EVERY DAY Orally Once a day for 90 days Active Carvedilol 3.125 MG 1 tablet with food O rally Twice a day for 90 days Active Aspirin 81 81 MG 1 tablet Orally Once a day Active Lisinopril 5 MG 1 tablet Orally Once a day for 90 days Active Atorvastatin Calcium 80 MG 1 tablet Oral ly Once a day for 90 days Active amLODIPine Besylate 10 MG 1 tablet Orall y Once a day 03/01/2024 Active Zetia 10 MG 1 tablet Orally Once a day 03/01/2024 Active Immunizations Vaccine Route Administration Date Status Comme nts Flu, Fluzone (05872) 6 mos+, single-dose syringe/vial (6980-8235) Unknown 09/13/2023 Administered SARS-COV-2 COVID-19, mRNA, L HOOF TRIMMER-S, PF, caleb-sucrose, 30 mcg/0.3 mL Unknown 09/13/2023 Administered Social History Tobacco Use: Social History Observation Description Date Details (start date - stop date) Former Smoker 09/06/1975 - 09/06/2017 Tobacco Use/Smoking Question Answer Notes Patient is a former smoker When did you start smoking? 09/06/1975 When did you stop smoking? 09/06/2017 Alcohol Screen (Audit-C) Question Answer Notes Did you have a drink contain ing alcohol in the past year? Yes How often did you have 6 or more drinks on one occasion in the past year? Never (0 point) How many drinks did you have on a typical day when you were drinking in the past year? 1 or 2 drinks (0 point) How often did you have a dri nk containing alcohol in the past year? Weekly (3 points) Points 3 Interpretation Negative AUDIT-C (Standard) Question Answer Notes Did you have a drink contain ing alcohol in the past year? Yes How often did you have six o r more drinks on one occasion in the past year? Never (0 point) How many drinks did you have on a typical day when you were drinking in the past year? 1 or 2 drinks (0 point) How often did you have a dri nk containing alcohol in the past year? 2 to 3 times a week (3 points) Points 3 Interpretation Negative Problems Problem Type SNOMED Code ICD Code Onset Dates Problem Status W/U Status Risk Notes Problem Chest pain (11195856) Chest pain (R07.9) Active confirmed Problem Hyperlipidemia (27341380) Hyperlipidemia (E78.5) Active confirmed Problem Anxiety (23472857) Anxiety (F41.9) Active confirmed Problem Coronary artery disease (88777552) Coronary artery disease (I25.10) Active confirmed Problem Sleep apnea (13142313) Sleep apnea (G47.30) Active confirmed Problem Well adult (707687816) Well adult (Z00.00) Active confirmed Problem Seasonal allergic rhinitis (513056898) Seasonal allergic rhinitis (J30.2) Active confirmed Problem Contact dermatitis (66389253) Contact dermatitis (L25.9) Active confirmed Problem Claudication (79430851) Claudication (I73.9) Active confirmed Problem Inguinal hernia (402479772) Inguinal hernia (K40.90) Active confirmed Problem Benign prostatic hypertrophy without outflow obstruction (821788134) BPH (benign prostatic hypertrophy) (N40.0) Active confirmed Problem Myocardial infarct (89263996) Myocardial infarct (I21.9) Active confirmed Vital Signs Blood pressure diastolic 98 mm Hg 01/15/2025 Height 68 in 01/15/2025 Blood pressure systolic 150 mm Hg 01/15/2025 Weight 175.6 lbs 01/15/2025 BMI 26.7 kg/m2 01/15/2025 Encounters Encounter Location Date Provider Diagnosis [facility] [address] [place] [address] 01/15/2025 Nehemias Louis Well adult Z00.00 ; Myocardial infarct I21.9 ; BPH (benign prostatic hypertrophy) N40.0 ; Sleep apnea G47.30 ; Anxiety F41.9 ; Hyperlipidemia E78.5 ; Coronary artery disease I25.10 and Former smoker Z87.891 [facility] [address] [facility] [place] [address] 03/01/2024 DIONISIO LOUIS [facility] [address] [place] [address] 08/11/2024 Nehemias Louis [facility] [address] [place] [address] 01/08/2025 Nehemias Louis [facility] [address] [place] [address] 01/22/2025 Nehemias Louis Elevated liver enzym es R74.8 Assessments Encounter Date Diagnosis (ICD Code) Assessment Notes Treatment Notes Treatment Clinical Notes Section Notes 01/15/2025 Well adult (ICD-10 - Z00.00) 01/22/2025 Elevated liver enzymes (ICD-10 - R74.8) 01/15/2025 Myocardial infarct (ICD-10 - I21.9) 01/15/2025 BPH (benign prostatic hypertrophy) (ICD-10 - N40.0) 01/15/2025 Sleep apnea (ICD-10 - G47.30) 01/15/2025 Anxiety (ICD-10 - F41.9) 01/15/2025 Hyperlipidemia (ICD-10 - E78.5) 01/15/2025 Coronary artery disease (ICD-10 - I25.10) 01/15/2025 Former smoker (ICD-10 - Z87.891) Plan Of Treatment Pending Test Test Name Order Date CMP (COMPLETE METABOLIC PANEL) 4 HEMOGLOBIN A1C (GLYCO) 12/27/2023 HEMOGLOBIN A1C (GLYCO) 01/15/2025 LIPID PANEL (CHOL/TRIG/HDL/LDL) 01/16/20 25 LIPID PANEL (CHOL/TRIG/HDL/LDL) 12/27/19 24 CBC WITH DIFF 12/27/2023 PSA, PROSTATE-SPECIFIC ANTIGEN 4 URIC ACID 12/27/2023 URIC ACID 01/15/2025 CT Chest Low Dose for Screening* 024 Acute Hepatitis Panel 12/27/2023 US Liver 01/22/2025 THYROID PANEL (T4/TSH/FREE T3) 05/12/202 5 PSA, SCREENING 01/15/2025 CT CHEST LOW DOSE (LDCT) 01/15/2025 CMP (COMP MET STANLEY) w/eGFR CKD-EPI 2024 CBC WITH DIFF 01/15/2025 Insurance Providers Payer Name Payer Address Payer Phone Subscriber Number Group Number Insured Name Patient Relationship to Insured Coverage Start Date Coverage End Date [facility] Client Match [facility] [address] [place] [phone] [id number] Eliza Juan Self - patient is the insured Medications Administered Medication Instructions Date of Administration Dosage Notes Kenalog-40 03/22/2023 80 mg 80 Medical (General) History Medical History History ICD Code BPH (benign prostatic hypertrophy) N40.0 Chest pain R07.9 Claudication I73.9 Coronary artery disease I25.10 Myocardial infarct I21.9 Hyperlipidemia E78.5 Seasonal allergic rhinitis J30.2 Anxiety F41.9 Sleep apnea G47.30 Inguinal hernia K40.90 Surgical History Surgery Date(Month/Year) [facility] 2017 Cardiac Cath 11/21/17 Cardiac Cath Colonoscopy with Polypectomy Hospitalization History Reason Date(Month/Year) see above
--- OUTSIDE RECORDS SUMMARY | 2025-01-25 07:22 | XMS_ITS | Encounter Summary ---
Author Organization [facility] Address [address] [place] [address] Care Team Providers Care Pick Up Worker Name Role Phone Alejo Louis MD Primary Care Provider [phone] Reason for Visit * Reason Comments Med Refill Encounter Details Date Type Department Care Team (Late st Contact Info) Description 12/17/2023 Refill [facility] [address] [place] [address] Raul López MD [address] [facility] [address] [facility] [place] [address] Coronary artery disease due to lipid rich plaque; Essential hypertension Social History Tobacco Use Types Packs/Day Years Used Date Smoking Tobacco: Former Cigarettes Q uit: 11/04/2017 Smokeless Tobacco: Never Alcohol Use Standard Drinks/Week Comments Not Currently 0 (1 standard drink = 0.6 oz pur e alcohol) [place] Safety & Environment Answer Date Rec orded [...] on file documented as of this encounter Plan of Treatment Not on file documented as of this encounter Visit Diagnoses Diagnosis Coronary artery disease due to lipid rich plaque Essential hypertension Unspecified essential hypertension documented in this encounter Care Teams Pick Up Worker Relationship Specialty Start Date End Date Alejo Louis MD [address] [facility] [address] [address] PCP - General 12/29/22 documented as of this encounter
--- OUTSIDE RECORDS SUMMARY | 2025-01-25 07:22 | XMS_ITS | CCD ---
Author Organization [facility] Care Team Providers Care Security Researcher Name Role Phone ИВАН RAMOS AM Unavailable Unavailable ИВАН RAMOS AM Unavailable Unavailable SELF, REFERRED Unavailable Unavailable HOYVERONICADIONISIO Unavailable Unavailable AL Unavailable Unavailable UNKNOWN, PROVIDER Unavailable Unavailable MORA, NATALIA Unavailable Unavailable MORA, NATALIA Unavailable Unavailable HOY, DIONISIO Unavailable Unavailable UNKNOWN, PROVIDER Unavailable Unavailable Nill, Carroll R Admitting Unavailable Nill, Carroll Nash Attending Unavailable NillCarroll R Referring Unavailable HaileeyVeronicaDionisio~[id number] UNKNOWN Primary Care Unavailable HAILEEY, DR NICHOLE [...] Primary Care Unavailable MAYA VU Attending Unavailable MAYA VU Attending Unavailable Allergies Allergy Classification Reported Allergen(s) Allergy Type Date of Onset Reaction(s) Facility (5 sources) ibuprofen; Translations: [ibuprofen] Drug Allergy 08-06-2014 AOF [facility] Repository Problems Active Problems Problem Classification Problem Date Documented Date Episodic/Chronic Acute myocardial infarction (3 sources) Non-ST elevation (NSTEMI) myocardial infarction; Translations: [NON-ST ELEVATION (NSTEMI) MYOCARDIAL INFARCTION] Onset: 11-10-2017 Chronic Coronary atherosclerosis and other heart disease (10 sources) Atherosclerotic heart disease of [place] coronary artery with unstable angina pectoris; Translations: [Atherosclerotic heart disease of [place] coronary artery without angina pectoris] Onset: 11-10-2017 Chronic Disorders of lipid metabolism (7 sources) Hyperlipidemia, unspecified; Translations: [Mixed hyperlipidemia] Onset: 11-10-2017 Chronic Essential hypertension (3 sources) Essential (primary) hypertension; Translations: [ESSENTIAL (PRIMARY) HYPERTENSION] Onset: 04-04-2018 Chronic Other aftercare (2 sources) correction (current) use of aspirin; Translations: [correction (current) use of antithrombotics/antip latelets] Onset: 04-04-2018 [...] Classification Problem Date Documented Da te Episodic/Chronic Coronary atherosclerosis and other heart disease (3 sources) Presence of coronary angioplasty implant and graft; Translations: [PRESENCE OF CORONARY ANGIOPLASTY IMPLANT AND GRAFT] Onset: 04-04-2018 Episodic Diabetes mellitus without complication (1 source) Other abnormal glucose; Translations: [OTHER ABNORMAL GLUCOSE] Onset: 05-23-2021 Episodic Malaise and fatigue (1 source) Other fatigue; Translations: [OTHER FATIGUE] Onset: 05-23-2021 Episodic Other lower respiratory disease (2 sources) Shortness of breath; Translations: [Shortness of breath] Onset: 02-18-2024 Episodic Screening or history of mental health [...] Value Interpretation Reference Range Facility Office Visiton 01-22-2025 Follow-up visit [id number] Nahed Rausch 1965 M Date Provider Department Center 01/22/2025 MAYA MEDRANO JESUS App[facility] Family History Problem Relation Age of Onset Coronary artery disease Mother Other Mother Heart attack Father Coronary artery disease Sister Other Brother Family Status - Relation Status Age at Mother Father Alive Sister Brother Level of Service:84655 AL OFFICE/OUTPATIENT ESTABLISHED MOD MDM 30 MIN Normal [facility] Office Visiton 02-18-2024 Follow-up visit [id number] Nahed Rausch 1965 M Date Provider Department Center 02/18/2024 MAYA MEDRANO [facility] Family History Problem Relation Age of Onset Coronary artery disease Mother Other Mother Heart attack Father Coronary artery disease Sister Family Status - Relation Status Age at Mother Father Sister Level of Service:08024 AL OFFICE/OUTPATIENT ESTABLISHED LOW MDM 20 MIN Reason for Visit and Comments: Follow-up [310132] - Go over labs and stress test results Normal [facility] Orders Onlyon 01-27-2024 Orders Only [id number] Nahed Rausch 1965 M Date Provider Department Center 01/27/2024 [id number], HISTORICAL RENATO Appiah [facility] Family History Problem Relation Age of Onset Coronary artery disease Mother Other Mother Heart attack Father Coronary artery disease Sister Family Status - Relation Status Age at Mother Father Sister Normal [facility] Orders Onlyon 01-25-2024 Orders Only [id number] Nahed Rausch 1965 M Date Provider Department Center 01/25/2024 MAYA MEDRANO [facility] Family History Problem Relation Age of Onset Coronary artery disease Mother Other Mother Heart attack Father Coronary artery disease Sister Family Status - Relation Status Age at Mother Father Sister Normal [facility] INSULINon 12-30-2021 Insulin 13.7 uIU/mL Normal 2.6-24.9 [facility] Comment on above: Performed By: #### URIC, CMP, LIPID #### [facility] [address] [address] [address] Kami Torres CBC AUTO DIFFon 12-29-2021 BASO # 0.1 103/ul Normal 0.0-0.1 [facility] Comment on above: Performed By: #### CBC #### [facility] [address] [address] [address] Kami Torres Basophils/100 WBC (Bld) 0.7 % Normal 0.2-2.0 [facility] Comment on above: Performed By: #### CBC #### [facility] [address] [place] [address] Dr. Kami Torres EO # 0.4 103/ul Normal 0.0-0.7 [facility] Comment on above: Performed By: #### CBC #### [facility] [address] [place] [address] Dr. Kami Torres Eosinophils/100 WBC (Bld) 5.8 % Normal 0.9-7.0 [facility] Comment on above: Performed By: #### CBC #### [facility] [address] [place] [address] Dr. Kami Torres Erythrocyte distribution width (RBC) [Ratio] 13.5 % Normal 11.0-15.0 [facility] Comment on above: Performed By: #### CBC #### [facility] [address] [place] [address] Dr. Kami Torres Hematocrit (Bld) [Volume fraction] 41.8 % Critically low 42.0-54.0 [facility] Comment on above: Performed By: #### CBC #### [facility] [address] [place] [address] Dr. Kami Torres Hemoglobin (Bld) [Mass/Vol] 13.6 g/dL Critically low 14.0-18.0 [facility] Comment on above: Performed By: #### CBC #### [facility] [address] [place] [address] Dr. Kami Torres IG # 0.05 10e3/ul Critically high 0.00-0.03 [facility] Comment on above: Performed By: #### CBC #### [facility] [address] [place] [address] Dr. Kami Torres IG % 0.7 % Critically high 0.0-0.5 [facility] Comment on above: Performed By: #### CBC #### [facility] [address] [place] [address] Dr. Kami Torres LYMPH # 2.2 103/ul Normal 1.2-3.8 [facility] Comment on above: Performed By: #### CBC #### [facility] [address] [place] [address] Dr. Kami Torres Lymphocytes/100 WBC (Bld) 32.5 % Normal 20.5-60.0 [facility] Comment on above: Performed By: #### CBC #### [facility] [address] [place] [address] Dr. Kami Torres MANUAL DIFF REQ NO Normal [facility] Comment on above: Performed By: #### CBC #### [facility] [address] [place] [address] Dr. Kami Torres MCH (RBC) [Entitic mass] 27.9 pg Normal 25.9-34.0 [facility] Comment on above: Performed By: #### CBC #### [facility] [address] [place] [address] Dr. Kami Torres MCHC (RBC) [Mass/Vol] 32.5 g/dL Normal 29.9-35.2 [facility] Comment on above: Performed By: #### CBC #### [facility] [address] [place] [address] Dr. Kami Torres MCV (RBC) [Entitic vol] 85.7 fL Normal 80.0-94.0 [facility] Comment on above: Performed By: #### CBC #### [facility] [address] [place] [address] Dr. Kami Torres MONO # 0.6 103/ul Normal 0.3-0.8 [facility] Comment on above: Performed By: #### CBC #### [facility] [address] [place] [address] Dr. Kami Torres Monocytes/100 WBC (Bld) 8.4 % Normal 1.7-12.0 [facility] Comment on above: Performed By: #### CBC #### [facility] [address] [place] [address] Dr. Kami Torres NEUT # 3.5 103/ul Normal 1.4-6.5 [facility] Comment on above: Performed By: #### CBC #### [facility] [address] [address] [address] Kami Torres Neutrophils/100 WBC (Bld) 51.9 % Normal 43.0-75.0 [facility] Comment on above: Performed By: #### CBC #### [facility] [address] [address] [address] Kami Torres Platelet mean volume (Bld) [Entitic vol] 9.9 fL Normal 9.5-13.5 [facility] Comment on above: Performed By: #### CBC #### [facility] [address] [address] [address] Kami Torres PLT 191 103/ul Normal 150-450 [facility] Comment on above: Performed By: #### CBC #### [facility] [address] [place] [address] Dr. Kami Torres RBC 4.88 106/ul Normal 4.70-6.10 [facility] Comment on above: Performed By: #### CBC #### [facility] [address] [address] [address] Kami Torres WBC 6.7 103/ul Normal 4.0-11.0 [facility] Comment on above: Performed By: #### CBC #### [facility] [address] [address] [address] Kami Torres GLYCOHEMOGLOBIN A1Con 2021 ADA RECOMMENDATION SEE BELOW Normal [facility] Comment on above: Result Comment: ADA RECOMMENDED LIMIT 4. 0 - 6.0 ADA THERAPEUTIC TARGET < 7.0 ACTION SUGGESTED > 7.0 Performed By: #### A 1C #### [facility] [address] [place] [address] Dr. Kami Torres Glucose [Mass/Vol] 131 mg/dL Normal [facility] Comment on above: Performed By: #### A1C #### [facility] [address] [place] [address] Dr. Kami Torres HbA1c (Bld) [Mass fraction] 6.2 % Normal 4.5-6.2 [facility] Comment on above: Performed By: #### A1C #### [facility] [address] [address] [address] Kami Torres LIPID PROFILEon 12-29-2021 CHOL-HDL RATIO NORM SEE BELOW Normal [facility] Comment on above: Result Comment: 3.3 - 4.4 LOW RISK 4.4 - 7.1 AVERAGE RISK 7.1 - 11.0 MODERATE RISK >11.0 HIGH RISK Performed By: #### U AMBERLY, CMP, LIPID #### [facility] [address] [address] [address] Kami Torres Cholesterol [Mass/Vol] 151 mg/dL Normal <=200 [facility] Comment on above: Performed By: #### URIC, CMP, LIPID #### [facility] [address] [address] [address] Kami Torres Cholesterol in HDL [Mass/Vol] 40 mg/dL Normal 40-60 [facility] Comment on above: Performed By: #### URIC, CMP, LIPID #### [facility] [address] [address] [address] Kami Torres Cholesterol in LDL [Mass/Vol] 77.6 mg/dL Normal [facility] Comment on above: Performed By: #### URIC, CMP, LIPID #### [facility] [address] [place] [address] Dr. Kami Torres Cholesterol.tota l/Cholesterol in HDL [Mass ratio] 3.8 {ratio} Normal [facility] Comment on above: Performed By: #### URIC, CMP, LIPID #### [facility] [address] [place] [address] Dr. Kami Torres HDL NORMAL > or = 60 mg/dl - LO W CARDIOVASCULAR RISK <40 mg/dl - HIGH CARDIOVASCULAR RISK Normal [facility] Comment on above: Performed By: #### URIC, CMP, LIPID #### [facility] [address] [place] [address] Dr. Kami Torres LDL CALC NORMAL SEE BELOW Normal [facility] Comment on above: Result Comment: <100 mg/dl OPTIMAL 100 - 129 mg/dl NEAR OR ABOVE OPTIMAL 130 - 159 mg/dl BORDERLINE HIGH 160 - 189 mg/dl HIGH >190 mg/dl VERY HIGH Performed By: #### U AMBERLY, CMP, LIPID #### [facility] [address] [address] [address] Kami Torres Triglyceride [Mass/Vol] 167 mg/dL Critically high <=150 [facility] Comment on above: Performed By: #### URIC, CMP, LIPID #### [facility] [address] [address] [address] Kami Torres VLDL CALC 33.4 mg/dL Normal [facility] Comment on above: Performed By: #### URIC, CMP, LIPID #### [facility] [address] [address] [address] Kami Torres PROF 14(COMP METB)on 022 Albumin [Mass/Vol] 3.7 g/dL Normal 3.4-5.0 [facility] Comment on above: Performed By: #### URIC, CMP, LIPID #### [facility] [address] [place] [address] Dr. Kami Torres Albumin/Globulin [Mass ratio] 1.3 {ratio} Normal [facility] Comment on above: Performed By: #### URIC, CMP, LIPID #### [facility] [address] [address] [address] Kami Torres ALP [Catalytic activity/Vol] 40 U/L Critically low 46-116 [facility] Comment on above: Performed By: #### URIC, CMP, LIPID #### [facility] [address] [address] [address] Kami Torres ALT [Catalytic activity/Vol] 79 U/L Critically high 16-63 [facility] Comment on above: Performed By: #### URIC, CMP, LIPID #### [facility] [address] [address] [address] Kami Torres Anion gap [Moles/Vol] 10.2 mmol/L Normal [facility] Comment on above: Performed By: #### URIC, CMP, LIPID #### [facility] [address] [address] [address] Kami Torres AST [Catalytic activity/Vol] 32 U/L Normal 15-37 [facility] Comment on above: Performed By: #### URIC, CMP, LIPID #### [facility] [address] [address] [address] Kami Torres Bilirubin [Mass/Vol] 0.5 mg/dL Normal 0.2-1.0 [facility] Comment on above: Performed By: #### URIC, CMP, LIPID #### [facility] [address] [address] [address] Kami Torres Calcium [Mass/Vol] 8.3 mg/dL Critically low 8.5-10.1 [facility] Comment on above: Performed By: #### URIC, CMP, LIPID #### [facility] [address] [address] [address] Kami Torres Chloride [Moles/Vol] 107 mmol/L Normal 98-107 [facility] Comment on above: Performed By: #### URIC, CMP, LIPID #### [facility] [address] [place] [address] Dr. Kami Torres CO2 [Moles/Vol] 26.1 mmol/L Normal 21.0-32.0 [facility] Comment on above: Performed By: #### URIC, CMP, LIPID #### [facility] [address] [place] [address] Dr. Kami Torres Creatinine [Mass/Vol] 0.95 mg/dL Normal 0.70-1.30 [facility] Comment on above: Performed By: #### URIC, CMP, LIPID #### [facility] [address] [place] [address] Dr. Kami Torres EGFR-AF GHANAIAN >60 Normal >=60 [facility] Comment on above: Performed By: #### URIC, CMP, LIPID #### [facility] [address] [address] [address] Kami Torres EGFR-NON AF GHANAIAN >60 Normal >=60 [facility] Comment on above: Performed By: #### URIC, CMP, LIPID #### [facility] [address] [address] [address] Kami Torres Globulin (S) [Mass/Vol] 2.9 g/dL Normal [facility] Comment on above: Performed By: #### URIC, CMP, LIPID #### [facility] [address] [address] [address] Kami Torres Glucose [Mass/Vol] 96 mg/dL Normal 74-106 [facility] Comment on above: Performed By: #### URIC, CMP, LIPID #### [facility] [address] [address] [address] Kami Torres Potassium [Moles/Vol] 4.3 mmol/L Normal 3.5-5.1 [facility] Comment on above: Performed By: #### URIC, CMP, LIPID #### [facility] [address] [address] [address] Kami Torres Protein [Mass/Vol] 6.6 g/dL Normal 6.1-8.2 [facility] Comment on above: Performed By: #### URIC, CMP, LIPID #### [facility] [address] [place] [address] Dr. Kami Torres Sodium [Moles/Vol] 139 mmol/L Normal 136-145 [facility] Comment on above: Performed By: #### URIC, CMP, LIPID #### [facility] [address] [address] [address] Kami Torres Urea nitrogen [Mass/Vol] 14.0 mg/dL Normal 7.0-18.0 [facility] Comment on above: Performed By: #### URIC, CMP, LIPID #### [facility] [address] [address] [address] Kami Torres Urea nitrogen/Creatin ine [Mass ratio] 14.7 mg/mg Normal [facility] Comment on above: Performed By: #### URIC, CMP, LIPID #### [facility] [address] [place] [address] Dr. Kami Torres URIC ACID SERUMon 12-29-2021 Urate [Mass/Vol] 6.4 mg/dL Normal 3.5-8.5 [facility] Comment on above: Performed By: #### URIC, CMP, LIPID #### [facility] [address] [place] [address] Dr. Kami Torres CBC AUTO DIFFon 05-19-2021 BASO # 0.1 103/ul Normal 0.0-0.1 [facility] Comment on above: Performed By: #### URIC, CMP, LIPID #### [facility] [address] [place] [address] Dr. Kami Torres Basophils/100 WBC (Bld) 0.7 % Normal 0.2-2.0 [facility] Comment on above: Performed By: #### URIC, CMP, LIPID #### [facility] [address] [place] [address] Dr. Kami Torres EO # 0.9 103/ul Critically high 0.0-0.7 [facility] Comment on above: Performed By: #### URIC, CMP, LIPID #### [facility] [address] [place] [address] Dr. Kami Torres Eosinophils/100 WBC (Bld) 11.3 % Critically high 0.9-7.0 [facility] Comment on above: Performed By: #### URIC, CMP, LIPID #### [facility] [address] [place] [address] Dr. Kami Torres Erythrocyte distribution width (RBC) [Ratio] 13.2 % Normal 11.0-15.0 [facility] Comment on above: Performed By: #### URIC, CMP, LIPID #### [facility] [address] [place] [address] Dr. Kami Torres Hematocrit (Bld) [Volume fraction] 43.7 % Normal 42.0-54.0 [facility] Comment on above: Performed By: #### URIC, CMP, LIPID #### [facility] [address] [place] [address] Dr. Kami Torres Hemoglobin (Bld) [Mass/Vol] 14.6 g/dL Normal 14.0-18.0 [facility] Comment on above: Performed By: #### URIC, CMP, LIPID #### [facility] [address] [place] [address] Dr. Kami Torres IG # 0.05 10e3/ul Critically high 0.00-0.03 [facility] Comment on above: Performed By: #### URIC, CMP, LIPID #### [facility] [address] [address] [address] Kami Torres IG % 0.6 % Critically high 0.0-0.5 [facility] Comment on above: Performed By: #### URIC, CMP, LIPID #### [facility] [address] [address] [address] Kami Torres LYMPH # 2.0 103/ul Normal 1.2-3.8 [facility] Comment on above: Performed By: #### URIC, CMP, LIPID #### [facility] [address] [address] [address] Kami Torres Lymphocytes/100 WBC (Bld) 24.3 % Normal 20.5-60.0 [facility] Comment on above: Performed By: #### URIC, CMP, LIPID #### [facility] [address] [place] [address] Dr. Kami Torres MANUAL DIFF REQ NO Normal [facility] Comment on above: Performed By: #### URIC, CMP, LIPID #### [facility] [address] [place] [address] Dr. Kami Torres MCH (RBC) [Entitic mass] 29.0 pg Normal 25.9-34.0 [facility] Comment on above: Performed By: #### URIC, CMP, LIPID #### [facility] [address] [place] [address] Dr. Kami Torres MCHC (RBC) [Mass/Vol] 33.4 g/dL Normal 29.9-35.2 [facility] Comment on above: Performed By: #### URIC, CMP, LIPID #### [facility] [address] [place] [address] Dr. Kami Torres MCV (RBC) [Entitic vol] 86.9 fL Normal 80.0-94.0 [facility] Comment on above: Performed By: #### URIC, CMP, LIPID #### [facility] [address] [place] [address] Dr. Kami Torres MONO # 0.7 103/ul Normal 0.3-0.8 [facility] Comment on above: Performed By: #### URIC, CMP, LIPID #### [facility] [address] [address] [address] Kami Torres Monocytes/100 WBC (Bld) 8.1 % Normal 1.7-12.0 [facility] Comment on above: Performed By: #### URIC, CMP, LIPID #### [facility] [address] [address] [address] Kami Torres NEUT # 4.5 103/ul Normal 1.4-6.5 [facility] Comment on above: Performed By: #### URIC, CMP, LIPID #### [facility] [address] [address] [address] Kami Torres Neutrophils/100 WBC (Bld) 55.0 % Normal 43.0-75.0 [facility] Comment on above: Performed By: #### URIC, CMP, LIPID #### [facility] [address] [place] [address] Dr. Kami Torres Platelet mean volume (Bld) [Entitic vol] 10.0 fL Normal 9.5-13.5 [facility] Comment on above: Performed By: #### URIC, CMP, LIPID #### [facility] [address] [address] [address] Kami Torres PLT 185 103/ul Normal 150-450 [facility] Comment on above: Performed By: #### URIC, CMP, LIPID #### [facility] [address] [address] [address] Kami Torres RBC 5.03 106/ul Normal 4.70-6.10 [facility] Comment on above: Performed By: #### URIC, CMP, LIPID #### [facility] [address] [address] [address] Kami Torres WBC 8.3 103/ul Normal 4.0-11.0 [facility] Comment on above: Performed By: #### URIC, CMP, LIPID #### [facility] [address] [place] [address] Dr. Kami Torres GLYCOHEMOGLOBIN A1Con 2020 ADA RECOMMENDATION ADA THERAPEUTIC TARGET 6.0 - 7.0 ACTION SUGGESTED > 7.0 Normal [facility] Comment on above: Performed By: #### A1C #### [facility] [address] [id number] Trace Adriana Glucose [Mass/Vol] 134 mg/dL Normal [facility] Comment on above: Performed By: #### A1C #### [facility] [address] [id number] Trace Adriana HbA1c (Bld) [Mass fraction] 6.3 % Critically high <=6.0 [facility] Comment on above: Performed By: #### A1C #### [facility] [address] [place], [place] [id number] Trace Adriana LIPID PROFILEon 05-19-2021 CHOL-HDL RATIO NORM SEE BELOW Normal [facility] Comment on above: Result Comment: 3.3 - 4.4 LOW RISK 4.4 - 7.1 AVERAGE RISK 7.1 - 11.0 MODERATE RISK >11.0 HIGH RISK Performed By: #### C MP, LIPID #### [facility] [address] [place], [place] [id number] Trace Adriana Cholesterol [Mass/Vol] 155 mg/dL Normal <=200 [facility] Comment on above: Performed By: #### CMP, LIPID #### [facility] [address] [place], [place] [id number] Trace Adriana Cholesterol in HDL [Mass/Vol] 37 mg/dL Normal [facility] Comment on above: Performed By: #### CMP, LIPID #### [facility] [address] [place], [place] [id number] Trace Adriana Cholesterol in LDL [Mass/Vol] 49.2 mg/dL Normal [facility] Comment on above: Performed By: #### CMP, LIPID #### [facility] [address] [place], [place] [id number] Trace Adriana Cholesterol.tota l/Cholesterol in HDL [Mass ratio] 4.2 {ratio} Normal [facility] Comment on above: Performed By: #### CMP, LIPID #### [facility] [address] [place], [place] [id number] Trace Adriana HDL NORMAL > or = 60 mg/dl - LO W CARDIOVASCULAR RISK <40 mg/dl - HIGH CARDIOVASCULAR RISK Normal [facility] Comment on above: Performed By: #### CMP, LIPID #### [facility] [address] [place], [place] [id number] Trace Adriana LDL CALC NORMAL SEE BELOW Normal [facility] Comment on above: Result Comment: <100 mg/dl OPTIMAL 100 - 129 mg/dl NEAR OR ABOVE OPTIMAL 130 - 159 mg/dl BORDERLINE HIGH 160 - 189 mg/dl HIGH >190 mg/dl VERY HIGH Performed By: #### C MP, LIPID #### [facility] [address] [phone] Trace Adriana Triglyceride [Mass/Vol] 344 mg/dL Critically high <=150 [facility] Comment on above: Performed By: #### CMP, LIPID #### [facility] [address] [place], [place] [phone] Trace Adriana VLDL CALC 68.8 mg/dL Normal [facility] Comment on above: Performed By: #### CMP, LIPID #### [facility] [address] [place], [place] [phone] Trace Adriana PROF 14(COMP METB)on 021 Albumin [Mass/Vol] 3.9 g/dL Normal 3.5-5.0 [facility] Comment on above: Performed By: #### CMP, LIPID #### [facility] [address] [place], [place] [id number] Trace Adriana Albumin/Globulin [Mass ratio] 1.2 {ratio} Normal [facility] Comment on above: Performed By: #### CMP, LIPID #### [facility] [address] [place], [place] [id number] Trace Adriana ALP [Catalytic activity/Vol] 50 U/L Normal 38-126 [facility] Comment on above: Performed By: #### CMP, LIPID #### [facility] [address] [place], [place] [phone] Trace Adriana ALT [Catalytic activity/Vol] 79 U/L Critically high 21-72 [facility] Comment on above: Performed By: #### CMP, LIPID #### [facility] [address] [address] Trace Adriana Anion gap [Moles/Vol] 13.8 mmol/L Normal [facility] Comment on above: Performed By: #### CMP, LIPID #### [facility] [address] [address] Trace Adriana AST [Catalytic activity/Vol] 30 U/L Normal 17-59 [facility] Comment on above: Performed By: #### CMP, LIPID #### [facility] [address] [address] Trace Adriana Bilirubin [Mass/Vol] 0.6 mg/dL Normal 0.2-1.3 [facility] Comment on above: Performed By: #### CMP, LIPID #### [facility] [address] [place] [address] Trace Adriana Calcium [Mass/Vol] 9.2 mg/dL Normal 8.4-10.2 [facility] Comment on above: Performed By: #### CMP, LIPID #### [facility] [address] [place] [address] Trace Adriana Chloride [Moles/Vol] 103 mmol/L Normal 98-107 [facility] Comment on above: Performed By: #### CMP, LIPID #### [facility] [address] [place] [address] Trace Adriana CO2 [Moles/Vol] 25.5 mmol/L Normal 22.0-30.0 [facility] Comment on above: Performed By: #### CMP, LIPID #### [facility] [address] [place] [address] Trace Adriana Creatinine [Mass/Vol] 0.89 mg/dL Normal 0.66-1.25 [facility] Comment on above: Performed By: #### CMP, LIPID #### [facility] [address] [place], [place] [phone] Trace [place]ana EGFR-AF GHANAIAN >60 Normal >=60 [facility] Comment on above: Performed By: #### CMP, LIPID #### [facility] [address] [place] [address] Trace Adriana EGFR-NON AF GHANAIAN >60 Normal >=60 [facility] Comment on above: Performed By: #### CMP, LIPID #### [facility] [address] [place], [place] [address] Trace Adriana Globulin (S) [Mass/Vol] 3.3 g/dL Normal [facility] Comment on above: Performed By: #### CMP, LIPID #### [facility] [address] [place], [place] [address] Trace Adriana Glucose [Mass/Vol] 103 mg/dL Normal 74-106 [facility] Comment on above: Performed By: #### CMP, LIPID #### [facility] [address] [phone] Trace Adriana Potassium [Moles/Vol] 4.3 mmol/L Normal 3.4-5.0 [facility] Comment on above: Performed By: #### CMP, LIPID #### [facility] [address] [phone] Trace Adriana Protein [Mass/Vol] 7.2 g/dL Normal 6.1-8.2 [facility] Comment on above: Performed By: #### CMP, LIPID #### [facility] [address] [phone] Trace Adriana Sodium [Moles/Vol] 138 mmol/L Normal 137-145 [facility] Comment on above: Performed By: #### CMP, LIPID #### [facility] [address] [phone] Trace Adriana Urea nitrogen [Mass/Vol] 14.0 mg/dL Normal 9.0-20.0 [facility] Comment on above: Performed By: #### CMP, LIPID #### [facility] [address] [place], [place] [address] Trace Adriana Urea nitrogen/Creatin ine [Mass ratio] 15.7 mg/mg Normal [facility] Comment on above: Performed By: #### CMP, LIPID #### [facility] [address] [place], [place] [address] LUNG CANCER SCREENINGon 0 [...] by: JULIO BERMEO Date: 2021-01-06 09:16 Normal [facility] Coding Summary.on 01-06-2019 Coding Summary. CODING DATE: 019 FINAL [facility] STATUS: Home (Routine DC) PAYOR: Commercial [...] PROC APC STAT DESCRIPTION DOCTOR NAME DATE 51041 [id number] T Colonoscopy, flexible; BLACK LOVELL, Carroll Nash 01/02/2019 with biopsy, single or multiple [id number] Anesthesia for lower Puri Jr. Jovanni GIBSON [...] Revised Date Saved: 01/06/2019 12:59 pm Normal [facility] Main OR Intraoperative Recor don 01-04-2019 Main OR Intraoperative Record IntraOp Document Type FT Summary Primary Physician: Carroll MCKEON MD Finalized Date/Time: 01/04/19 08:59:41 Pt. Name: ELIZA RAUSCH /Sex: 1965 Male Med Rec #: [id number] Physician: Carroll MCKEON MD Financial #: [id number] Pt. Type: O Room/Bed: / Admit/Disch: 01/02/19 [...] Chart opened to review and send charges J Jabier STALLWORTH Case Attendance FT Entry 1 Entry 2 Entry 3 Case Attendee Gio [facility], Charlene MCKEON MD, Carroll Hong RN, Maricel Marcano Role Performed Anesthesiologist Surgeon - Primary Interior Design Professor - Primary Hammer Operator Time In 01/02/19 07:48:00 01/02/19 07:48:00 01/02/19 [...] 08:10:00 Procedure COLONOSCOPY(.) Comments Last Modified By: Hal BARRERA, Maricel Marcano 01/02/19 08:10:50 General Comments: ivory maynard and crow lyn, nursing students, also in room to observe. ismael ruiz pa student, also in room to observe. ismael ruizcorner block cutter Protocols FT Pre-Care Text: Implements protective measures [...] caused by extraneous objects Transport To OR Pre-Care Text: Transports according to individual needs. [...] injury related to transfer/transport Departure From OR Pre-Care Text: Transports according to individual needs. [...] during the perioperative period For [facility] please see scanned medication reconcilliation [...] 08:11 Brit Eugene CST 01/04/19 08:59 Normal [facility] History and Physicalon 01-02 History and Physical Patient: ELIZA RAUSCH Age: 53 years Sex: Male : 1965 Associated Diagnoses: None Author: Carroll MCKEON MD Subjective no changes to H & P. Normal [facility] Comment on above: Result Comment: Electronically Signed By : Carroll MCKEON MD\.br\Date and Time Signed: 01/02/19 07:24 EDT Inpatient Patient Summaryon 01-02-2019 Inpatient Patient Summary [facility] Clinical Discharge Instructions PERSON INFORMATION Name: ELIZA RAUSCH PHYSICIANS Admitting Physician: Carroll MCKEON MD Attending Physician: Carroll MCKEON MD PCP: Dionisio Louis MD Discharge Diagnosis: Colon polyp Comment: PATIENT EDUCATION INFORMATION Instructions: Colonoscopy, Care After Surgery Franco (Maggy); Colon Polyps Medication Leaflets: Follow up: With: Address: When: Carroll BLACK [address] [email or web address] [address] Business (1) Within 7 to 10 days MEDICATION LIST Comment: Normal [facility] Main OR PACU I Recordon 12-06 Main OR PACU I Record PACU Phase I Document Type FT Summary Primary Physician: Carroll MCKEON MD Finalized Date/Time: 01/02/19 08:52:51 Pt. Name: OWENELIZA/Sex: 1965 Male Med Rec #: [id number] Physician: Carroll MCKEON MD Financial #: [id number] Pt. Type: O Room/Bed: / Admit/Disch: 01/02/19 [...] 08:49 Kalee Hinton RN 01/02/19 08:52 Normal [facility] Main OR Preoperative Recordo n 01-02-2019 Main OR Preoperative Record Holding Area Document Type FT Summary Primary Physician: Carroll MCKEON MD Finalized Date/Time: 01/02/19 07:23:41 Pt. Name: ELIZA RAUSCH Brock Juarez/Sex: 1965 Male Med Rec #: [id number] Physician: Carroll MCKEON MD Financial #: [id number] Pt. Type: O Room/Bed: / Admit/Disch: 01/02/19 [...] By: Maricel Hong RN 01/02/19 07:23 Normal [facility] Operative Reporton 9 Operative Report Date [...] Room in good condition. Carroll Mckeon M.D. aek Dictated: 01/02/2019 #[id number] Typed: 01/02/2019 #[id number] cc: Dionisio Louis M.D. Carroll Mckeon M.D. [facility] Comment on above: Result Comment: Electronically Signed By : BLACK LOVELL, Carroll Ballard.br\Date and Time Signed: 01/02/19 [...] Document Reviewed: 11/01/2012 ExitCare? Patient Information ?2014 Etece. This information is not intended to replace advice given to you by your health care provider. Make sure you discuss any questions you have with your health care provider. Normal [facility] Progress Note-Physicianon Protein mass conc [...] complications noted. Plan Transfer/ Discharge: Condition stable. [facility] Comment on above: Result Comment: [...] clear to auscultation. Cardiovascular: Regular rhythm. Plan [place] [employer] Anesthesiologists (ASA) physical status classification: Class III. Anesthetic Preoperative Plan Anesthesia: General. . Anesthetic plan, risks, benefits, and alternatives discussed with the patient and/or family. Patient verbalized understanding. [facility] Comment on above: Result Comment: Electronically Signed By : Jovanni Puri Jr., DO.mary\Date and Time Signed: 01/02/19 07:38 EDT Discharge Summaryon 11-14-19 Discharge Summary [id number]: Eliza Rausch Admitted: 11/10/2017 Discharged: [...] high risk non-ST segmentelevation myocardial infarction in [place]. [facility]. During [facility], the patient [...] followup scheduled for November 19, [address] [place] [place] Vu.DISCHARGE MEDICATIONS:1. Prasugrel 10 mg [...] personal documentation from me. Date Dict: 11/12/2017/01:31 P/SUNNY Méndezate Trans: 11/13/2017 06:56 A/[id number]: Dionisio Louis M.D. [address], [place] [address] Normal [facility] BASIC METABOLIC PANELon 03-0 Calcium mass conc 8.8 mg/dL Normal 8.6-10.3 [facility] Comment on above: Order Comment: No: Do not add to previou s draw Performed By: #### 5 7307, 44623 ####[facility] [place] [address], [facility] Chloride molar conc 111 mmol/L High 98-107 [facility] Comment on above: Order Comment: No: Do not add to previou s draw Performed By: #### 5 7307, 20927 ####[facility] [place] [address], [facility] CO2 molar conc 23 mmol/L Normal 21-31 [facility] Comment on above: Order Comment: No: Do not add to previou s draw Performed By: #### 5 7307, 40762 ####[facility] [place] [address], [place] Creatinine mass conc 0.89 mg/dL Normal 0.70-1.30 [facility] Comment on above: Order Comment: No: Do not add to previou s draw Performed By: #### 5 73, 73988 ####[facility] [place] [address], [place] GFR/1.73 sq M predicted among blacks MDRD vol rate/area (S/P/Bld) mL/min/{1.73_m2} Normal >60 [facility] Comment on above: Order Comment: No: Do not add to previou s draw Performed By: #### 5 73, 48839 ####[facility] [place] [address], [facility] GFR/1.73 sq M predicted among non-blacks MDRD vol rate/area (S/P/Bld) mL/min/{1.73_m2} Normal >60 [facility] Comment on above: Order Comment: No: Do not add to previou s draw Performed By: #### 5 73, 19703 ####[facility] [place] [address], [facility] Glucose mass conc 106 mg/dL High 70-100 [facility] Comment on above: Order Comment: No: Do not add to previou s draw Performed By: #### 5 7306, 19308 ####[facility] [place] [address], [facility] Potassium molar conc 4.0 mmol/L Normal 3.5-5.1 [facility] Comment on above: Order Comment: No: Do not add to previou s draw Performed By: #### 5 7307, 36101 ####[facility] [place] [address], [facility] Sodium molar conc 136 mmol/L Normal 136-145 [facility] Comment on above: Order Comment: No: Do not add to previou s draw Performed By: #### 5 7307, 15711 ####[facility] [place] [address], [facility] Urea nitrogen mass conc 19 mg/dL Normal 7-25 [facility] Comment on above: Order Comment: No: Do not add to previou s draw Performed By: #### 5 7307, 11014 ####[facility] [place] [address], [place] CBC COMPLETE BLOOD COUNTon 0 3-09-2018 Erythrocyte distribution width Auto Ratio (RBC) 13.4 % Normal 11.5-15.0 [facility] Comment on above: Order Comment: No: Do not add to previou s draw Performed By: #### 5 73, 47754 ####[facility] Hematocrit Auto Volume Fraction (Bld) 41.0 % Normal 39.0-50.0 [facility] Comment on above: Order Comment: No: Do not add to previou s draw Performed By: #### 5 73, 14563 ####[facility] Hemoglobin mass conc (Bld) 13.9 g/dL Normal 13.0-17.0 [facility] Comment on above: Order Comment: No: Do not add to previou s draw Performed By: #### 5 7306, 60213 ####[facility] MCH Auto Entitic mass (RBC) 29.0 pg Normal 27.0-33.0 [facility] Comment on above: Order Comment: No: Do not add to previou s draw Performed By: #### 5 7306, 50495 ####[facility] MCHC Auto mass conc (RBC) 33.9 g/dL Normal 32.0-35.0 [facility] Comment on above: Order Comment: No: Do not add to previou s draw Performed By: #### 5 7307, 22007 ####[facility] MCV Auto Entitic volume (RBC) 85.6 fL Normal 82.0-98.0 [facility] Comment on above: Order Comment: No: Do not add to previou s draw Performed By: #### 5 73, 93131 ####[facility] [facility].[address] Nucleated RBC/100 WBC Ratio (Bld) 0 % Normal 0-0 [facility] Comment on above: Order Comment: No: Do not add to previou s draw Performed By: #### 5 7307, 37152 ####[facility] PLAT CNT 165 10*3/uL Normal 150-400 [facility] Comment on above: Order Comment: No: Do not add to previou s draw Performed By: #### 5 7307, [address]677 ####[address] [address] [address] RBC Auto #/vol (Bld) 4.79 10*6/uL Normal 4.20-5.70 [facility] Comment on above: Order Comment: No: Do not add to previou s draw Performed By: #### 5 7307, 70413 ####[facility] [facility].[address] WBC Auto #/vol (Bld) 7.4 10*3/uL Normal 4.0-10.6 [facility] Comment on above: Order Comment: No: Do not add to previou s draw Performed By: #### 5 7307, 29735 ####[address] Cardiovascular Lab Reporton 11-12-2017 Cardiovascular Lab Report [facility] Patient Name: Eliza Rausch MR #: [id number] Physician: Maya Vu M.D.Department of Service Date: 11/11/2017Medicine Birthdate: 1965Division of Room #: 3AB [id number] Cardi[address]Services[place] [address] [address]Phone Fax Cardiovascular Laboratory ReportINDICATION: Eliza Rausch is a 52-year-old man, who was admitted to [facility] with crescendo angina and elevation of [...] signed informed consent. He was brought to lab technician in a fasting state.The right wrist area was prepped and draped in usual fashion. Mo's testwas favorable. Access from the right radial artery was obtained usingmicropuncture technique. A 6-[place] x 11 cm Hydrophilic sheath wasadvanced. Verapamil was given through the sheath and heparin wasadministered intravenously. Bilateral selective coronary angiography wasthen performed using a 5-[place] JR5 diagnostic catheter for engagement ofthe right coronary artery and a 6-[place] Ruth Radial diagnostic catheterfor engagement of the left coronary artery. Angiography was performed inmultiple views. Catheters were removed.Therapeutic ACT was confirmed during the procedure. A 6-[place] XB 3.0guiding catheter was advanced and used to engage the left main coronaryostium. A BMW wire was advanced into the distal LAD. Balloon angioplastyand the proximal LAD were performed using Emerge 3.0 x 12 mm ballooninflated at 12 atmospheres. This was followed by deployment of a PROMUSPremier 3.5 x 16 mm drug-eluting stent deployed at 11 atmospheres and postdilated using NC Quantum Grandview 3.5 x 12 mm noncompliant balloon inflated [...] 11/11/2017/12:53 P/Maya Vu M.D.Date Trans: 11/12/2017 03:24 A/[id number]: Dionisio Louis M.D. [address] [facility] [address] [facility] BLOOD 11-12-2017 Magnesium mass conc 2.2 mg/dL Normal 1.9-2.7 [facility] Comment on above: Order Comment: No: Do not add to previou s draw Performed By: #### 5 7307, 48730 ####[facility] [place] [address], [facility] APTTon 11-11-2017 aPTT Coag time (Bld) 31.2 s Normal 25.0-35.0 [facility] Comment on above: Order Comment: No: [...] THIS PURPOSE. Performed By: #### 5 7307, 94814 ####[facility] BASIC METABOLIC PANELon Calcium mass conc 9.2 mg/dL Normal 8.6-10.3 [facility] Comment on above: Order Comment: No: Do not add to previou s draw Performed By: #### 5 7307, 68078 ####[facility] [place] [address], [facility] Chloride molar conc 109 mmol/L High 98-107 [facility] Comment on above: Order Comment: No: Do not add to previou s draw Performed By: #### 5 7307, 56055 ####[facility] [place] [address], [facility] CO2 molar conc 24 mmol/L Normal 21-31 [facility] Comment on above: Order Comment: No: Do not add to previou s draw Performed By: #### 5 7307, 87529 ####[facility] [place] [address], [facility] Creatinine mass conc 0.90 mg/dL Normal 0.70-1.30 [facility] Comment on above: Order Comment: No: Do not add to previou s draw Performed By: #### 5 7307, 19679 ####[facility] [place] [address], [facility] GFR/1.73 sq M predicted among blacks MDRD vol rate/area (S/P/Bld) mL/min/{1.73_m2} Normal >60 [facility] Comment on above: Order Comment: No: Do not add to previou s draw Performed By: #### 5 7344, 86545 ####[facility] [place] [address], [facility] GFR/1.73 sq M predicted among non-blacks MDRD vol rate/area (S/P/Bld) mL/min/{1.73_m2} Normal >60 [facility] Comment on above: Order Comment: No: Do not add to previou s draw Performed By: #### 5 7312, 84574 ####[facility] [place] [address], [facility] Glucose mass conc 102 mg/dL High 70-100 [facility] Comment on above: Order Comment: No: Do not add to previou s draw Performed By: #### 5 7304, 62962 ####[facility] [place] [address], [facility] Potassium molar conc 4.0 mmol/L Normal 3.5-5.1 [facility] Comment on above: Order Comment: No: Do not add to previou s draw Performed By: #### 5 7314, 83647 ####[facility] [place] [address], [place] Sodium molar conc 134 mmol/L Low 136-145 [facility] Comment on above: Order Comment: No: Do not add to previou s draw Performed By: #### 5 7307, 84950 ####[facility] [facility].[address] Urea nitrogen mass conc 16 mg/dL Normal 7-25 [facility] Comment on above: Order Comment: No: Do not add to previou s draw Performed By: #### 5 7307, 67084 ####[facility] [facility].[address] CBC COMPLETE BLOOD COUNTon 0 - Erythrocyte distribution width Auto Ratio (RBC) 13.3 % Normal 11.5-15.0 [facility] Comment on above: Order Comment: Yes: Add to Previous draw if able Performed By: #### 5 0608 ####[address] Hematocrit Auto Volume Fraction (Bld) 45.1 % Normal 39.0-50.0 [facility] Comment on above: Order Comment: Yes: Add to Previous draw if able Performed By: #### 5 0608 ####[address] Hemoglobin mass conc (Bld) 15.5 g/dL Normal 13.0-17.0 [facility] Comment on above: Order Comment: Yes: Add to Previous draw if able Performed By: #### 5 0608 ####[place] [address] [facility].[address] MCH Auto Entitic mass (RBC) 29.2 pg Normal 27.0-33.0 [facility] Comment on above: Order Comment: Yes: Add to Previous draw if able Performed By: #### 5 0608 ####[address] MCHC Auto mass conc (RBC) 34.4 g/dL Normal 32.0-35.0 [facility] Comment on above: Order Comment: Yes: Add to Previous draw if able Performed By: #### 5 0608 ####[facility]3000 [facility].[address] MCV Auto Entitic volume (RBC) 84.9 fL Normal 82.0-98.0 [facility] Comment on above: Order Comment: Yes: Add to Previous draw if able Performed By: #### 5 0608 ####[address] Nucleated RBC/100 WBC Ratio (Bld) 0 % Normal 0-0 [facility] Comment on above: Order Comment: Yes: Add to Previous draw if able Performed By: #### 5 0608 ####[address] PLAT CNT 177 10*3/uL Normal 150-400 [facility] Comment on above: Order Comment: Yes: Add to Previous draw if able Performed By: #### 5 0608 ####[address] RBC Auto #/vol (Bld) 5.31 10*6/uL Normal 4.20-5.70 [facility] Comment on above: Order Comment: Yes: Add to Previous draw if able Performed By: #### 5 0608 ####[address] WBC Auto #/vol (Bld) 10.1 10*3/uL Normal 4.0-10.6 [facility] Comment on above: Order Comment: Yes: Add to Previous draw if able Performed By: #### 5 0608 ####[address] CBC W/DIFFon 11-11-2017 ABS BASOPHILS 0.0 10*3/uL Normal 0.0-0.2 [facility] Comment on above: Order Comment: No: Do not add to previou s draw Performed By: #### 5 0103 ####[facility]3000 [facility].[address] ABS IMM GRANS 0.0 10*3/uL Normal 0.0-0.2 [facility] Comment on above: Order Comment: No: Do not add to previou s draw Performed By: #### 5 0103 ####[facility] [place] [address], [facility] ABS NEUTROPHILS 4.6 10*3/uL Normal 1.6-7.6 [facility] Comment on above: Order Comment: No: Do not add to previou s draw Performed By: #### 5 0103 ####[facility] Basophils Auto #/vol (Bld) 0.4 % Normal 0.0-1.0 [facility] Comment on above: Order Comment: No: Do not add to previou s draw Performed By: #### 5 0103 ####[facility] Eosinophils Auto #/vol (Bld) 0.3 10*3/uL Normal 0.0-0.5 [facility] Comment on above: Order Comment: No: Do not add to previou s draw Performed By: #### 5 0103 ####[facility]3000 [facility].[address] Eosinophils/100 WBC Auto (Bld) 4.0 % Normal 0.0-6.0 [facility] Comment on above: Order Comment: No: Do not add to previou s draw Performed By: #### 5 0103 ####[facility] Erythrocyte distribution width Auto Ratio (RBC) 13.3 % Normal 11.5-15.0 [facility] Comment on above: Order Comment: No: Do not add to previou s draw Performed By: #### 5 0103 ####[facility] Hematocrit Auto Volume Fraction (Bld) 44.0 % Normal 39.0-50.0 [facility] Comment on above: Order Comment: No: Do not add to previou s draw Performed By: #### 5 0103 ####[facility] Hemoglobin mass conc (Bld) 15.0 g/dL Normal 13.0-17.0 [facility] Comment on above: Order Comment: No: Do not add to previou s draw Performed By: #### 5 0103 ####[facility] IMMATURE GRANS 0.4 % Normal 0.0-1.0 [facility] Comment on above: Order Comment: No: Do not add to previou s draw Performed By: #### 5 3 ####[facility] Lymphocytes Auto #/vol (Bld) 2.5 10*3/uL Normal 1.2-4.0 [facility] Comment on above: Order Comment: No: Do not add to previou s draw Performed By: #### 5 0103 ####[facility] Lymphocytes/100 WBC Auto (Bld) 30.0 % Normal 20.0-45.0 [facility] Comment on above: Order Comment: No: Do not add to previou s draw Performed By: #### 5 0103 ####[facility] MCH Auto Entitic mass (RBC) 28.6 pg Normal 27.0-33.0 [facility] Comment on above: Order Comment: No: Do not add to previou s draw Performed By: #### 5 0103 ####[facility] MCHC Auto mass conc (RBC) 34.1 g/dL Normal 32.0-35.0 [facility] Comment on above: Order Comment: No: Do not add to previou s draw Performed By: #### 5 0103 ####[facility] MCV Auto Entitic volume (RBC) 84.0 fL Normal 82.0-98.0 [facility] Comment on above: Order Comment: No: Do not add to previou s draw Performed By: #### 5 0103 ####[facility]3000 [facility] Monocytes Auto #/vol (Bld) 0.9 10*3/uL Normal 0.1-1.0 [facility] Comment on above: Order Comment: No: Do not add to previou s draw Performed By: #### 5 0103 ####[facility]3000 [facility].[address] MONOS 10.3 % Normal 5.0-12.0 [facility] Comment on above: Order Comment: No: Do not add to previou s draw Performed By: #### 5 0103 ####[facility]3000 [facility].[address] Neutrophils/100 WBC Auto (Bld) 54.9 % Normal 40.0-72.0 [facility] Comment on above: Order Comment: No: Do not add to previou s draw Performed By: #### 5 3 ####[facility]3000 [facility].[address] Nucleated RBC/100 WBC Ratio (Bld) 0 % Normal 0-0 [facility] Comment on above: Order Comment: No: Do not add to previou s draw Performed By: #### 5 0103 ####[facility] [place] [address], [facility] PLAT CNT 169 10*3/uL Normal 150-400 [facility] Comment on above: Order Comment: No: Do not add to previou s draw Performed By: #### 5 0103 ####[facility] [place] [address], [facility] RBC Auto #/vol (Bld) 5.24 10*6/uL Normal 4.20-5.70 [facility] Comment on above: Order Comment: No: Do not add to previou s draw Performed By: #### 5 0103 ####[facility] [place] [address], [facility] WBC Auto #/vol (Bld) 8.3 10*3/uL Normal 4.0-10.6 [facility] Comment on above: Order Comment: No: Do not add to previou s draw Performed By: #### 5 0103 ####[facility] [place] [address], [facility] HEMOGLOBIN A1Con 11-11-2017 Glucose mass conc 111 mg/dL Normal 70-126 [facility] Comment on above: Order Comment: No: Do not add to previou s draw Performed By: #### 5 7307, 22741 ####[facility] [place] [address], [facility] Hemoglobin A1c/Hemoglobin.t otal mass fraction (Bld) 5.5 % Normal 4.0-6.0 [facility] Comment on above: Order Comment: No: Do not add to previou s draw Performed By: #### 5 7307, 58645 ####[facility] [place] [address], [facility] History and Physicalon 11-11 History and Physical MR[id number] El[facility] Admitted: 11/10/2017 Date of : 1965 Attending Physician: Mikki Potter MD Room #: [id number] Discharge Date: HISTORY AND PHYSICALCHIEF COMPLAINT: 3 episodes of substernal chest pain for the past 2 days.HISTORY OF PRESENTING ILLNESS:Mr. Eliza Rausch, is a 52-year-old male with past medical historysignificant for hyperlipidemia and extensive family history of coronaryartery disease persisted to the ER with 3 episodes of chest pain thathappened since yesterday afternoon. The patient was working in his garageyeday when he felt substernal discomfort, pain was about 8/10,squeezing, was associated with diaphoresis, lasted for about 2 minutes,self-resolved. Since then, he had like 2 episodes of chest pain thathappened with mild exertion and self resolved. He denies any shortness ofbreath, palpitations, lightheadedness, dizziness, or prior AZ.In the ER, his blood pressure was noted [...] with family.FAMILY HISTORY: His father of massive AZ at age of 75, his mom cameron, sister had a triple bypass last year [...] symmetric, no visible pulsations, moves equallywith respirations.HEART: [place] palpable over the midclavicular line in the [...] Dict: 11/10/2017/11:34 P/SUNNY Lópezate Trans: 11/11/2017 12:16 A/[id number] Normal [facility] LIPID PROFILEon 11-11-2017 Cholesterol in HDL mass conc 33 mg/dL Normal 23-92 [facility] Comment on above: Result Comment: Slight variation in norm al range could be due to gender and/or age.HDL CHOLESTEROL REFERENCE RANGE:20 years and older Cardiovascular Risk> or =60 mg/dL Rvfakmwyc46 TO 59 mg/dL Low Risk<40 mg/dL High Risk Performed By: #### 4 6413, 58840, 31026, 69605 ####[facility] [place] [address], [facility] Cholesterol in LDL mass conc 106 mg/dL Normal 0-130 [facility] Comment on above: Result Comment: LDL IS A CALCULATIONLDL IS ONLY VALID IF THE TRIG IS LESS THAN 400. Performed By: #### 4 6413, 59852, 02617, 92799 ####[facility] [place] [address], [facility] Cholesterol mass conc 169 mg/dL Normal 120-200 [facility] Comment on above: Result Comment: CHOLESTEROL REFERENCE RA NGE:20 YEARS AND OLDER CARDIOVASCULAR RISKLess than 200 mg/dl Low Uxrx717 to 239 mg/dl Borderline Amyt585 mg/dl and greater High Risk Performed By: #### 4 6413, 22713, 80680, 71688 ####[facility] [place] [address], [place] Cholesterol.tota l/Cholesterol in HDL mass ratio 5.1 {ratio} High .0-4.5 [facility] Comment on above: Performed By: #### 22309, 90541, 52438, 47388 ####[facility] [place] [address], [place] NON-HDL CHOLESTEROL 136 mg/dL Normal [facility] Comment on above: Performed By: #### 19295, 76899, 55423, 80582 ####[facility]3000 [facility].[address] Triglyceride mass conc 149 mg/dL Normal 40-149 [facility] Comment on above: Result Comment: TRIGLYCERIDE REFERENCE R ARLENE:20 YEARS AND OLDER CARDIOVASCULAR RISKLESS THAN 150 mg/dl LOW [id number] TO 199 mg/dl BORDERLINE OBBY265 mg/dl AND GREATER HIGH RISK Performed By: #### 4 6413, 75543, 95432, 48642 ####[facility]3000 [facility].[address] VLDL CHOL 30 mg/dL Normal 0-40 [facility] Comment on above: Performed By: #### 36772, 36634, 76248, 21007 ####[facility]3000 [facility].[address] MAGNESIUM BLOODon 11-11-2017 Magnesium mass conc 2.2 mg/dL Normal 1.9-2.7 [facility] Comment on above: Order Comment: No: Do not add to previou s draw Performed By: #### 5 7307, 27091 ####[facility]3000 [facility].[address] PROTHROMBIN TIMEon 8 INR Coag RelTime (PPP) 0.93 {INR} Normal 0.91-1.16 [facility] Comment on above: Order Comment: No: [...] OF ACTION, CLINICALEFFECTIVENESS, AND OPTIMAL THERAPEUTIC RANGE. [id number];108:231S-246S. Performed By: #### 5 7307, 32403 ####[facility]3000 [facility].[address] Prothrombin time (PT) Coag time (PPP) 12.5 s Normal 12.3-14.8 [facility] Comment on above: Order Comment: No: Do not add to previou s draw Result Comment: ALL RESULTS MUST BE INTERPRETED WITH RESPECT TO BLOOD DRAWING ARTIFACTOR DILUTION ERROR OF ANTICOAGULANT AT THE TIME OF SAMPLING. Performed By: #### 5 7307, 95124 ####[facility] [place] [address], [facility] TROPONIN-Ion 11-11-2017 Troponin I.cardiac mass conc 0.07 ng/mL High 0.00-0.04 [facility] Comment on above: Result Comment: REFERENCE RANGES: 0.00 - 0.04 ng/ml NORMAL 0.05 - 0.50 ng/ml INDETERMINATE > 0.50 ng/ml CONSISTENT WITH AN M.I. Performed By: #### 5 7307, 54067 ####[facility] [place] [address], [facility] Troponin I.cardiac mass conc 0.08 ng/mL High 0.00-0.04 [facility] Comment on above: Order Comment: No: Do not add to previou s draw Result Comment: REFE RENCE RANGES: 0.00 - 0.04 ng/ml NORMAL 0.05 - 0.50 ng/ml INDETERMINATE > 0.50 ng/ml CONSISTENT WITH AN M.I. Performed By: #### 3 5200 ####[facility]3000 [facility].[address] Troponin I.cardiac mass conc 0.08 ng/mL High 0.00-0.04 [facility] Comment on above: Order Comment: No: Do not add to previou s draw Result Comment: REFE RENCE RANGES: 0.00 - 0.04 ng/ml NORMAL 0.05 - 0.50 ng/ml INDETERMINATE > 0.50 ng/ml CONSISTENT WITH AN M.I. Performed By: #### 3 5200 ####[facility]3000 [facility].[address] TSH WITH REFLEXon 11-11-2017 Thyrotropin Qn 1.86 MICRO-IU/ML Normal 0.34-5.60 [facility] Comment on above: Order Comment: No: Do not add to previou s draw Performed By: #### 3 0241 ####[facility]3000 [facility].[address] UFH HEPARIN ASSAYon 11-12-19 18 UNFRACTIONATED HEPARIN 0.20 IU/mL Low 0.30-0.70 [facility] Comment on above: Result Comment: Rivaroxaban and Apixaban will interfere with the anti Xa assay used tomonitor UFH and LMWH. Performed By: #### 3 0477 ####[facility] [facility].[address] Encounters Encounter Date Encounter Type Care Provider Facility Start: 01-22-2025 End: 01-22-2025 ambulatory [facility] Start: 02-18-2024 End: 02-18-2024 ambulatory [facility] Start: 12-31-2021 Encounter for genera l adult medical examination without abnormal findings DR DIONISIO LOUIS [facility] Start: 12-29-2021 End: 12-30-[address] DIONISIO LOUIS Facility:[facility] Start: 12-29-2021 End: 12-30-2021 Encounter for general adult medical examination without abnormal findings DR DIONISIO LOUIS Facility:[facility] Start: 05-19-2021 End: 05-20-[address] DIONISIO LOUIS Facility: Start: 03-27-[address] DIONISIO LOUIS Facility : Start: 01-06-2021 End: 01-07-[address] DIONISIO LOUIS Facility: Start: 01-02-2019 End: 01-03-2019 Patient encounter procedure Carroll Mckeon Facility:[facility] Start: 04-04-2018 End: 04-05-2018 Patient encounter NATALIA MORA Facility:[facility] Start: 11-10-2017 End: 11-12-2017 Evaluation and management of inpatient ИВАН RAMOS Facility:[facility] Procedures Date Procedure Procedure Detail Performing Clinician Start: 12-29-[address] ANABEL LOUIS Comment on above: Performed By: #### U AMBERLY, CMP, LIPID #### [facility] [address] [place] [address] [address] Kami Torres Start: 05-19-[address] ANABEL LOUIS Comment on above: Performed By: #### P SASC #### [facility] [address] [place] [address] Trace Wright Start: 11-11-2017 DILATION OF 1 COR AR T WITH DRUG-ELUT INTRA, PERC APPROACH MAYA Catrachita REEVESRBED Start: 11-11-2017 FLUOROSCOPY OF MULTI PLE CORONARY ARTERIES USING OTH CONTRAST MAYA V MOSHELTONRBEL Payers Date Payer Category Payer Unknown [id number] [id number] [id number] 1965 Unknown [id number] 2.16.84 [id number] 1965 Unknown [id number] 2.16.84 [id number] 1965 Unknown [id number] 2.16.84 [id number] 1965 Unknown [id number] 2.16.84 [id number] 1960 Self-pay 1960 Unknown [id number] Progress note 01-22-2025 Note Date & Type Note Facility 01-22-2025 Note [place] [facility] Subjective Eliza Rausch is a 60 y.o. year old male patient being seen for 1 year follow up. Patient states he has dyspnea with exertion. Patient denies chest pain, leg swelling. Palpitations. Patient Active Problem List Diagnosis Primary hypertension Coronary artery disease involving [place] coronary artery of [place] heart Status post insertion of drug eluting [...] 52-year-old man, who was admitted to the [facility] with crescendo angina and elevation of [...] Right coronary artery. The RCA is a uieykluc-em-fgngs vessel and is dominant. The mid RCA [...] Effient was stopped given 4 years post AZ and PCI. On 07/10/2023 he presented to the emergency room at the [facility] with chest pain. He ruled out [...] he was complaining of symptoms of chest pa (more content not included)... [facility] Progress note 02-18-2024 Note Date & Type Note Facility 02-18-2024 Note [place] [facility] Subjective Eliza Rausch is a 59 y.o. year old male patient being seen for Follow-up (Go over labs and stress test results ) Patient Active Problem List Diagnosis Primary hypertension Coronary artery disease involving [place] coronary artery of [place] heart Status post insertion of drug eluting [...] 52-year-old man, who was admitted to the [facility] with crescendo angina and elevation of [...] Right coronary artery. The RCA is a drktspme-kg-yxqxe vessel and is dominant. The mid RCA [...] Effient was stopped given 4 years post AZ and PCI. On 07/10/2023 he presented to the emergency room at the [facility] with chest pain. He ruled out [...] echocardiogram and a (more content not included)... [facility] Summary Purpose Family History No Family [...] and content) DATE CREATED AUTHOR 04/06/2018 [facility] DATE CREATED AUTHOR AUTHOR'S ORGANIZ ATION 01/14/2019 [facility] DATE CREATED AUTHOR AUTHOR'S ORGANIZ ATION 01/03/2022 [place] DATE CREATED AUTHOR AUTHOR'S ORGANIZ ATION 01/23/2025 [facility] FOR RECORDS PERTAINING TO PATIENTS WHO [...] BE BASED ON THE PRIMARY CLINICAL RECORDS. [facility]. provides no warranty or guarantee of the accuracy or completeness of information in this document.
--- OUTSIDE RECORDS SUMMARY | 2025-01-25 07:22 | XMS_ITS | Clinical Summary ---
Author Organization [facility] Address [address] [place] [address] Care Team Providers Care Deputy Sheriff Bailiff Name Role Phone Alejo Louis MD Primary Care Provider [phone] Allergies Active Allergy Reactions Criticality Noted Date [...] 10 mg tabletIndications:C oronary artery disease involving [place] coronary artery of [place] heart with other form of angina pectoris [...] 40 mg tabletIndications:C oronary artery disease involving [place] coronary artery of [place] heart with other form of angina pectoris Take 1 tablet (40 mg) by mouth at bedtime. 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 (Primary Dx); Mixed hyperlipidemia; Status post insertion of drug eluting coronary artery stent; Primary hypertension; History of myocardial infarction 12/18/2024 Refill [place] [address] [place] [address] Raul López MD Primary hypertension; Coronary artery disease involving [place] coronary artery of [place] heart with other form of angina pectoris; Essential hypertension from Last 3 Months Family History Medical History Relation Name Comments caridac arrest Brother Heart attack Father Coronary artery disease Mother pacemaker Mother Coronary artery disease Sister Relation Name Status Comments Brother Father Alive Mother Sister Social History Tobacco Use Types Packs/Day Years [...] 01/22/2025 2:20 PM EDT Plan of Treatment Health Maintenance Due Date Last Done Comments CT Colonography 1965 Colonoscopy 1965 Colorectal Cancer Screening 1965 FIT-DNA 1965 FIT 1965 FOBT 1965 Sigmoidoscopy 1965 Pneumococcal Vaccine: Pediatrics (0 to 5 Years) and At-Risk Patients (6 to 64 Years) (1 of 2 - PCV) 01/08/1970 Depression Screening 1976 Adult Tetanus 01/08/1986 Zoster Vaccines (1 of 2) 01/08/2014 COVID-19 Vaccine ( season) 2024 07/17/2024, 09/13/2023, 07/20/2022, Additional history exists Influenza Vaccine Completed 07/17/2024, , 07/20/2022, Additional history exists HIB Vaccines Aged Out No longer eligi ble based on patient's age to complete this topic HPV Vaccines Aged Out No longer eligi ble based on patient's age to complete this topic IPV Vaccines Aged Out No longer eligi ble based on patient's age to complete this topic Meningococcal B Vaccine Aged Out No l onger eligible based on patient's age to complete this topic Meningococcal Vaccine Aged Out No shelley janette eligible based on patient's age to complete this topic Rotavirus Vaccines Aged Out No longer eligible based on patient's age to complete this topic Care Teams Deputy Sheriff Bailiff Relationship Specialty Start Date End Date Alejo Louis MD [address] [place] [address] PCP - General 12/29/22
== END 2025-01-25 07:21 | disposition home or self-care (01) ==
LOC: US 07:20
PROVIDERS: PCP Family Medicine; Visit Provider Family Medicine
DX: R74.8 Abnormal levels of other serum enzymes (principal)
CPT/HCPCS: 76705

== ENCOUNTER 2025-02-26 14:26 | Outpatient (OUT) | payer OTHER, SELFPAY ==
--- NOTE | 2025-02-26 14:32 | CT_ITS ---
The [address] [address] Patient Name: ELIZA JUAN MRN: [id number] date: 1965 Sex: M Assigned Patient Location: CT Current Patient Location: CT Accession/Order Number: [id number] Exam Date: 02/26/2025 16:31 Report Date: 02/26/2025 16:35 At the request of: DIONISIO ISLAS MD Procedure: CT lung screening low-dose CT lung screening low-dose 02/26/2025 2:40 PM SIGN AND SYMPTOMS: ^Former Smoker TECHNIQUE: Multidetector CT axial slices of the chest were obtained without IV contrast. Multiplanar reformats were performed and viewed on a separate workstation and reviewed to further define anatomy and possible pathology. CT was performed with one or more of the following dose reduction techniques: Automated exposure control, adjustment of the mA and/or kV according to patient size, or use of iterative reconstruction technique. COMPARISON: 01/10/2024. FINDINGS: Lower neck: Thyroid gland within normal limits, no supraclavicle adenopathy. Vessels: Atherosclerotic changes are noted in the thoracic aorta and coronary arteries. Mediastinum and Jennifer: Within normal limits. Heart: Normal size. No pericardial effusion. Airways: Within normal limits Lungs: Within normal limits. Pleura: Within normal limits. Chest Wall: Within normal limits. Upper Abdomen: Within normal limits. Bones: Degenerative changes are present in the thoracic spine. CT/CT lung screening low-dose IMPRESSION: Lung RADS category 1 (negative). No nodules are identified. Recommendation: Continued annual screening with low-dose chest CT in 12 months is recommended. Impression dictated by: Eliza Bryant M.D. 02/26/2025 4:35 PM Dictation Location: [place] [address] Electronically authenticated by: [id number] Y Date: 02/26/2025 16:35
--- OUTSIDE RECORDS SUMMARY | 2025-02-26 18:05 | XMS_ITS | CCD ---
Author Organization 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 Role Phone ИВАН RAMOS AM Unavailable Unavailable ИВАН RAMOS AM Unavailable Unavailable SELF, REFERRED Unavailable Unavailable DIONISIO LOUIS Unavailable Unavailable [place] Unavailable Unavailable UNKNOWN, PROVIDER Unavailable Unavailable MORA, NATALIA Unavailable Unavailable MORA, NATALIA Unavailable Unavailable HODIONISIO Shaw Unavailable Unavailable UNKNOWN, PROVIDER Unavailable Unavailable NillCarroll Admitting Unavailable Nill, Carroll Nash Attending Unavailable NillCarroll Referring Unavailable Dionisio Louis~[phone] UNKNOWN Primary Care Unavailable ROSHAN, DR NICHOLE Admitting Unavailable HAILEEY, DR NICHOLE Attending Unavailable HAILEEY, DR NICHOLE Primary Care Unavailable HOY, DR NICHOLE Consulting Unavailable HOY, DR NICHOLE Admitting Unavailable HOY, DR NICHOLE Attending Unavailable HOY, DR NICHOLE Primary Care Unavailable HOY, DR NICHOLE Consulting Unavailable HOY, DR NICHOLE Admitting Unavailable HOY, DR NICHOLE Attending Unavailable HAILEEY, DR NICHOLE Primary Care Unavailable HOY, DR NICHOLE Consulting Unavailable ZIEBER, DR JULIO Nash Consulting Unavailable ROSHAN, DR NICHOLE Admitting Unavailable HOY, DR NICHOLE Attending Unavailable ROSHAN, DR NICHOLE Primary Care Unavailable MAYA VU Attending Unavailable MAYA VU Attending Unavailable Dionisio Louis MD Primary Care Provider [phone] Dionisio Louis MD Referring Provider Fibroscan, Temporary Attending Provider Unavaila ble Fibroscan, Temporary Attending Unavailable Dionisio Louis Primary Care Unavailable Dionisio Louis Referring Unavailable Fibroscan, Temporary Admitting Unavailable Allergies Allergy Classification Reported Allergen(s) Allergy Type Date of Onset Reaction(s) Facility (5 sources) ibuprofen; Translations: [ibuprofen] Drug Allergy 08-06-2014 A[facility] Repository Problems Active Problems Problem Classification Problem Date Documented Date Episodic/Chronic Acute myocardial infarction (3 sources) Non-ST elevation (NSTEMI) myocardial infarction; Translations: [NON-ST ELEVATION (NSTEMI) MYOCARDIAL INFARCTION] Onset: 11-10-2017 Chronic Coronary atherosclerosis and other heart disease (10 sources) Atherosclerotic heart disease of [place] coronary artery with unstable angina pectoris; Translations: [Atherosclerotic heart disease of [place] coronary artery without angina pectoris] Onset: 11-10-2017 Chronic Disorders of lipid metabolism (7 sources) Hyperlipidemia, unspecified; Translations: [Mixed hyperlipidemia] Onset: 11-10-2017 Chronic Essential hypertension (3 sources) Essential (primary) hypertension; Translations: [ESSENTIAL (PRIMARY) HYPERTENSION] Onset: 04-04-2018 Chronic Other aftercare (2 sources) long term care pharmacist (current) use of aspirin; Translations: [assisted (current) use of antithrombotics/antip latelets] Onset: 04-04-2018 [...] Range Facility Office Visiton 01-22-2025 Follow-up visit [id number] Nahed Rausch 1965 M Provider Department Center 01/22/2025 MAYA MEDRANO Family History Problem Relation Age of Onset Coronary artery disease Mother Other Mother Heart attack Father Coronary artery disease Sister Other Brother Family Status - Relation Status Age at Mother Father Alive Sister Brother Level of Service:84379 [place] OFFICE/OUTPATIENT ESTABLISHED MOD MDM 30 MIN Normal [facility] Office Visiton 02-18-2024 Follow-up visit [id number] Nahed Rausch 1965 M Provider Department Center 02/18/2024 MAYA MEDRANO Family History Problem Relation Age of Onset Coronary artery disease Mother Other Mother Heart attack Father Coronary artery disease Sister Family Status - Relation Status Age at Mother Father Sister Level of Service:39747 [place] OFFICE/OUTPATIENT ESTABLISHED LOW MDM 20 MIN Reason for Visit and Comments: Follow-up [965399] - Go over labs and stress test results Normal [facility] Orders Onlyon 01-27-2024 Orders Only [id number] Nahed Rausch 1965 M Date Provider Department Center 01/27/2024 [id number], KRISTI Appiah Hos Family History Problem Relation Age of Onset Coronary artery disease Mother Other Mother Heart attack Father Coronary artery disease Sister Family Status - Relation Status Age at Mother Father Sister Normal [facility] Orders Onlyon 01-25-2024 Orders Only [id number] Nahed Rausch 1965 M [facility] Provider Department Center 01/25/2024 MAYA MEDRANO Family History Problem Relation Age of Onset Coronary artery disease Mother Other Mother Heart attack Father Coronary artery disease Sister Family Status - Relation Status Age at Mother Father Sister Normal [facility] INSULINon 12-30-2021 Insulin 13.7 uIU/mL Normal 2.6-24.9 [facility] Comment on above: Performed By: #### URIC, CMP, LIPID #### [facility] [address] [place] [address] Dr. Kami Torres CBC AUTO DIFFon 12-29-2021 BASO # 0.1 103/ul Normal 0.0-0.1 [facility] Comment on above: Performed By: #### CBC #### [facility] [address] [address] [address] Kami Torres Basophils/100 WBC (Bld) 0.7 % Normal 0.2-2.0 [facility] Comment on above: Performed By: #### CBC #### [facility] [address] [address] [address] Kami Torres EO # 0.4 103/ul Normal 0.0-0.7 [facility] Comment on above: Performed By: #### CBC #### [facility] [address] [place] [address] Dr. Kami Torres Eosinophils/100 WBC (Bld) 5.8 % Normal 0.9-7.0 [facility] Comment on above: Performed By: #### CBC #### [facility] [address] [place] [address] Dr. Kami Torres Erythrocyte distribution width (RBC) [Ratio] 13.5 % Normal 11.0-15.0 [facility] Comment on above: Performed By: #### CBC #### [facility] [address] [place] [address] Dr. Kami Torres Hematocrit (Bld) [Volume fraction] 41.8 % Critically low 42.0-54.0 [facility] Comment on above: Performed By: #### CBC #### [facility] [address] [place] [address] Dr. Kami Torres Hemoglobin (Bld) [Mass/Vol] 13.6 g/dL Critically low 14.0-18.0 [facility] Comment on above: Performed By: #### CBC #### [facility] [address] [place] [address] Dr. Kami Torres IG # 0.05 10e3/ul Critically high 0.00-0.03 [facility] Comment on above: Performed By: #### CBC #### [facility] [address] [place] [address] Dr. Kami Torres IG % 0.7 % Critically high 0.0-0.5 [facility] Comment on above: Performed By: #### CBC #### [facility] [address] [place] [address] Dr. Kami Torres LYMPH # 2.2 103/ul Normal 1.2-3.8 [facility] Comment on above: Performed By: #### CBC #### [facility] [address] [place] [address] Dr. Kami Torres Lymphocytes/100 WBC (Bld) 32.5 % Normal 20.5-60.0 [facility] Comment on above: Performed By: #### CBC #### [facility] [address] [place] [address] Dr. Kami Torres MANUAL DIFF REQ NO Normal [facility] Comment on above: Performed By: #### CBC #### [facility] [address] [place] [address] Dr. Kami Torres MCH (RBC) [Entitic mass] 27.9 pg Normal 25.9-34.0 [facility] Comment on above: Performed By: #### CBC #### [facility] [address] [place] [address] Dr. Kami Torres MCHC (RBC) [Mass/Vol] 32.5 g/dL Normal 29.9-35.2 [facility] Comment on above: Performed By: #### CBC #### [facility] [address] [place] [address] Dr. Kami Torres MCV (RBC) [Entitic vol] 85.7 fL Normal 80.0-94.0 [facility] Comment on above: Performed By: #### CBC #### [facility] [address] [place] [address] Dr. Kami Torres MONO # 0.6 103/ul Normal 0.3-0.8 [facility] Comment on above: Performed By: #### CBC #### [facility] [address] [place] [address] Dr. Kami Torres Monocytes/100 WBC (Bld) 8.4 % Normal 1.7-12.0 [facility] Comment on above: Performed By: #### CBC #### [facility] [address] [address] [address] Kami Torres NEUT # 3.5 103/ul Normal 1.4-6.5 [facility] Comment on above: Performed By: #### CBC #### [facility] [address] [place] [address] Dr. Kami Torres Neutrophils/100 WBC (Bld) 51.9 % Normal 43.0-75.0 [facility] Comment on above: Performed By: #### CBC #### [facility] [address] [place] [address] Dr. Kami Torres Platelet mean volume (Bld) [Entitic vol] 9.9 fL Normal 9.5-13.5 [facility] Comment on above: Performed By: #### CBC #### [facility] [address] [place] [address] Dr. Kami Torres PLT 191 103/ul Normal 150-450 [facility] Comment on above: Performed By: #### CBC #### [facility] [address] [place] [address] Dr. Kami Torres RBC 4.88 106/ul Normal 4.70-6.10 [facility] Comment on above: Performed By: #### CBC #### [facility] [address] [place] [address] Dr. Kami Torres WBC 6.7 103/ul Normal 4.0-11.0 [facility] Comment on above: Performed By: #### CBC #### [facility] [address] [place] [address] Dr. Kami Torres GLYCOHEMOGLOBIN A1Con 2021 ADA RECOMMENDATION SEE BELOW Normal [facility] Comment on above: Result Comment: ADA RECOMMENDED LIMIT 4. 0 - 6.0 ADA THERAPEUTIC TARGET < 7.0 ACTION SUGGESTED > 7.0 Performed By: #### A 1C #### [facility] [address] [place] [address] Dr. Kami Torres Glucose [Mass/Vol] 131 mg/dL Normal [facility] Comment on above: Performed By: #### A1C #### [facility] [address] [address] [address] Kami Torres HbA1c (Bld) [Mass fraction] 6.2 % Normal 4.5-6.2 [facility] Comment on above: Performed By: #### A1C #### [facility] [address] [address] [address] Kami Torres LIPID PROFILEon 12-29-2021 CHOL-HDL RATIO NORM SEE BELOW Normal [facility] Comment on above: Result Comment: 3.3 - 4.4 LOW RISK 4.4 - 7.1 AVERAGE RISK 7.1 - 11.0 MODERATE RISK >11.0 HIGH RISK Performed By: #### U AMBERLY, CMP, LIPID #### [facility] [address] [address] [address] Kami Torres Cholesterol [Mass/Vol] 151 mg/dL Normal <=200 [facility] Comment on above: Performed By: #### URIC, CMP, LIPID #### [facility] [address] [address] [address] Kami Torres Cholesterol in HDL [Mass/Vol] 40 mg/dL Normal 40-60 [facility] Comment on above: Performed By: #### URIC, CMP, LIPID #### [facility] [address] [address] [address] Kami Torres Cholesterol in LDL [Mass/Vol] 77.6 mg/dL Normal [facility] Comment on above: Performed By: #### URIC, CMP, LIPID #### [facility] [address] [address] [address] Kami Torres Cholesterol.tota l/Cholesterol in HDL [Mass ratio] 3.8 {ratio} Normal [facility] Comment on above: Performed By: #### URIC, CMP, LIPID #### [facility] [address] [address] [address] Kami Torres HDL NORMAL > or = 60 mg/dl - LO W CARDIOVASCULAR RISK <40 mg/dl - HIGH CARDIOVASCULAR RISK Normal [facility] Comment on above: Performed By: #### URIC, CMP, LIPID #### [facility] [address] [address] [address] Kami Torres LDL CALC NORMAL SEE BELOW Normal [facility] Comment on above: Result Comment: <100 mg/dl OPTIMAL 100 - 129 mg/dl NEAR OR ABOVE OPTIMAL 130 - 159 mg/dl BORDERLINE HIGH 160 - 189 mg/dl HIGH >190 mg/dl VERY HIGH Performed By: #### U AMBERLY, CMP, LIPID #### [facility] [address] [address] [address] Kami Torres Triglyceride [Mass/Vol] 167 mg/dL Critically high <=150 [facility] Comment on above: Performed By: #### URIC, CMP, LIPID #### [facility] [address] [address] [address] Kami Torres VLDL CALC 33.4 mg/dL Normal [facility] Comment on above: Performed By: #### URIC, CMP, LIPID #### [facility] [address] [place] [address] Dr. Kami Torres PROF 14(COMP METB)on 022 Albumin [Mass/Vol] 3.7 g/dL Normal 3.4-5.0 [facility] Comment on above: Performed By: #### URIC, CMP, LIPID #### [facility] [address] [address] [address] Kami Torres Albumin/Globulin [Mass ratio] 1.3 {ratio} Normal [facility] Comment on above: Performed By: #### URIC, CMP, LIPID #### [facility] [address] [address] [address] Kami Torres ALP [Catalytic activity/Vol] 40 U/L Critically low 46-116 [facility] Comment on above: Performed By: #### URIC, CMP, LIPID #### [facility] [address] [address] [address] Kami Torres ALT [Catalytic activity/Vol] 79 U/L Critically high 16-63 [facility] Comment on above: Performed By: #### URIC, CMP, LIPID #### [facility] [address] [address] [address] Kami Torres Anion gap [Moles/Vol] 10.2 mmol/L Normal [facility] Comment on above: Performed By: #### URIC, CMP, LIPID #### [facility] [address] [address] [address] Kami Torres AST [Catalytic activity/Vol] 32 U/L Normal 15-37 [facility] Comment on above: Performed By: #### URIC, CMP, LIPID #### [facility] [address] [address] [address] Kami Torres Bilirubin [Mass/Vol] 0.5 mg/dL Normal 0.2-1.0 [facility] Comment on above: Performed By: #### URIC, CMP, LIPID #### [facility] [address] [address] [address] Kami Torres Calcium [Mass/Vol] 8.3 mg/dL Critically low 8.5-10.1 [facility] Comment on above: Performed By: #### URIC, CMP, LIPID #### [facility] [address] [place] [address] Dr. Kami Torres Chloride [Moles/Vol] 107 mmol/L Normal 98-107 [facility] Comment on above: Performed By: #### URIC, CMP, LIPID #### [facility] [address] [address] [address] Kami Torres CO2 [Moles/Vol] 26.1 mmol/L Normal 21.0-32.0 [facility] Comment on above: Performed By: #### URIC, CMP, LIPID #### [facility] [address] [place] [address] Dr. Kami Torres Creatinine [Mass/Vol] 0.95 mg/dL Normal 0.70-1.30 [facility] Comment on above: Performed By: #### URIC, CMP, LIPID #### [facility] [address] [place] [address] Dr. Kami Torres EGFR-AF CITIZEN [place] >60 Normal >=60 [facility] Comment on above: Performed By: #### URIC, CMP, LIPID #### [facility] [address] [place] [address] Dr. Kami Torres EGFR-NON AF CITIZEN OF [place] >60 Normal >=60 [facility] Comment on above: Performed By: #### URIC, CMP, LIPID #### [facility] [address] [address] [address] Kami Torres Globulin (S) [Mass/Vol] 2.9 g/dL Normal [facility] Comment on above: Performed By: #### URIC, CMP, LIPID #### [facility] [address] [address] [address] Kami Torres Glucose [Mass/Vol] 96 mg/dL Normal 74-106 [facility] Comment on above: Performed By: #### URIC, CMP, LIPID #### [facility] [address] [place] [address] Dr. Kami Torres Potassium [Moles/Vol] 4.3 mmol/L Normal 3.5-5.1 [facility] Comment on above: Performed By: #### URIC, CMP, LIPID #### [facility] [address] [place] [address] Dr. Kami Torres Protein [Mass/Vol] 6.6 g/dL Normal 6.1-8.2 [facility] Comment on above: Performed By: #### URIC, CMP, LIPID #### [facility] [address] [place] [address] Dr. Kami Torres Sodium [Moles/Vol] 139 mmol/L Normal 136-145 [facility] Comment on above: Performed By: #### URIC, CMP, LIPID #### [facility] [address] [place] [address] Dr. Kami Torres Urea nitrogen [Mass/Vol] 14.0 mg/dL Normal 7.0-18.0 [facility] Comment on above: Performed By: #### URIC, CMP, LIPID #### [facility] [address] [place] [address] Dr. Kami Torres Urea nitrogen/Creatin ine [Mass ratio] 14.7 mg/mg Normal [facility] Comment on above: Performed By: #### URIC, CMP, LIPID #### [facility] [address] [place] [address] Dr. Kami Torres URIC ACID SERUMon 12-29-2021 Urate [Mass/Vol] 6.4 mg/dL Normal 3.5-8.5 [facility] Comment on above: Performed By: #### URIC, CMP, LIPID #### [facility] [address] [place] [address] Dr. Kami Torres CBC AUTO DIFFon 05-19-2021 BASO # 0.1 103/ul Normal 0.0-0.1 [facility] Comment on above: Performed By: #### URIC, CMP, LIPID #### [facility] [address] [place] [address] Dr. Kami Torres Basophils/100 WBC (Bld) 0.7 % Normal 0.2-2.0 [facility] Comment on above: Performed By: #### URIC, CMP, LIPID #### [facility] [address] [place] [address] Dr. Kami Torres EO # 0.9 103/ul Critically high 0.0-0.7 [facility] Comment on above: Performed By: #### URIC, CMP, LIPID #### [facility] [address] [place] [address] Dr. Kami Torres Eosinophils/100 WBC (Bld) 11.3 % Critically high 0.9-7.0 [facility] Comment on above: Performed By: #### URIC, CMP, LIPID #### [facility] [address] [place] [address] Dr. Kami Torres Erythrocyte distribution width (RBC) [Ratio] 13.2 % Normal 11.0-15.0 [facility] Comment on above: Performed By: #### URIC, CMP, LIPID #### [facility] [address] [place] [address] Dr. Kami Torres Hematocrit (Bld) [Volume fraction] 43.7 % Normal 42.0-54.0 [facility] Comment on above: Performed By: #### URIC, CMP, LIPID #### [facility] [address] [place] [address] Dr. Kami Torres Hemoglobin (Bld) [Mass/Vol] 14.6 g/dL Normal 14.0-18.0 [facility] Comment on above: Performed By: #### URIC, CMP, LIPID #### [facility] [address] [address] [address] Kami Torres IG # 0.05 10e3/ul Critically high 0.00-0.03 [facility] Comment on above: Performed By: #### URIC, CMP, LIPID #### [facility] [address] [address] [address] Kami Torres IG % 0.6 % Critically high 0.0-0.5 [facility] Comment on above: Performed By: #### URIC, CMP, LIPID #### [facility] [address] [address] [address] Kami Torres LYMPH # 2.0 103/ul Normal 1.2-3.8 [facility] Comment on above: Performed By: #### URIC, CMP, LIPID #### [facility] [address] [address] [address] Kami Torres Lymphocytes/100 WBC (Bld) 24.3 % Normal 20.5-60.0 [facility] Comment on above: Performed By: #### URIC, CMP, LIPID #### [facility] [address] [address] [address] Kami Torres MANUAL DIFF REQ NO Normal [facility] Comment on above: Performed By: #### URIC, CMP, LIPID #### [facility] [address] [address] [address] Kami Torres MCH (RBC) [Entitic mass] 29.0 pg Normal 25.9-34.0 [facility] Comment on above: Performed By: #### URIC, CMP, LIPID #### [facility] [address] [address] [address] Kami Torres MCHC (RBC) [Mass/Vol] 33.4 g/dL Normal 29.9-35.2 [facility] Comment on above: Performed By: #### URIC, CMP, LIPID #### [facility] [address] [address] [address] Kami Torres MCV (RBC) [Entitic vol] 86.9 fL Normal 80.0-94.0 [facility] Comment on above: Performed By: #### URIC, CMP, LIPID #### [facility] [address] [place] [address] Dr. Kami Torres MONO # 0.7 103/ul Normal 0.3-0.8 [facility] Comment on above: Performed By: #### URIC, CMP, LIPID #### [facility] [address] [place] [address] Dr. Kami Torres Monocytes/100 WBC (Bld) 8.1 % Normal 1.7-12.0 [facility] Comment on above: Performed By: #### URIC, CMP, LIPID #### [facility] [address] [place] [address] Dr. Kami Torres NEUT # 4.5 103/ul Normal 1.4-6.5 [facility] Comment on above: Performed By: #### URIC, CMP, LIPID #### [facility] [address] [place] [address] Dr. Kami Torres Neutrophils/100 WBC (Bld) 55.0 % Normal 43.0-75.0 [facility] Comment on above: Performed By: #### URIC, CMP, LIPID #### [facility] [address] [place] [address] Dr. Kami Torres Platelet mean volume (Bld) [Entitic vol] 10.0 fL Normal 9.5-13.5 [facility] Comment on above: Performed By: #### URIC, CMP, LIPID #### [facility] [address] [place] [address] Dr. Kami Torres PLT 185 103/ul Normal 150-450 [facility] Comment on above: Performed By: #### URIC, CMP, LIPID #### [facility] [address] [place] [address] Dr. Kami Torres RBC 5.03 106/ul Normal 4.70-6.10 [facility] Comment on above: Performed By: #### URIC, CMP, LIPID #### [facility] [address] [place] [address] Dr. Kami Torres WBC 8.3 103/ul Normal 4.0-11.0 [facility] Comment on above: Performed By: #### URIC, CMP, LIPID #### [facility] [address] [place] [address] Dr. Kami Torres GLYCOHEMOGLOBIN A1Con 2020 ADA RECOMMENDATION ADA THERAPEUTIC TARGET 6.0 - 7.0 ACTION SUGGESTED > 7.0 Normal [facility] Comment on above: Performed By: #### A1C #### [facility] [address] [place] [address] Trace Adriana Glucose [Mass/Vol] 134 mg/dL Normal [facility] Comment on above: Performed By: #### A1C #### [facility] [address] [place] [address] Trace Adriana HbA1c (Bld) [Mass fraction] 6.3 % Critically high <=6.0 [facility] Comment on above: Performed By: #### A1C #### [facility] [address] [place] [address] Trace Adriana LIPID PROFILEon 05-19-2021 CHOL-HDL RATIO NORM SEE BELOW Normal [facility] Comment on above: Result Comment: 3.3 - 4.4 LOW RISK 4.4 - 7.1 AVERAGE RISK 7.1 - 11.0 MODERATE RISK >11.0 HIGH RISK Performed By: #### C MP, LIPID #### [facility] [address] [place] [address] Trace Adriana Cholesterol [Mass/Vol] 155 mg/dL Normal <=200 [facility] Comment on above: Performed By: #### CMP, LIPID #### [facility] [address] [place] [address] Trace Adriana Cholesterol in HDL [Mass/Vol] 37 mg/dL Normal [facility] Comment on above: Performed By: #### CMP, LIPID #### [facility] [address] [place] [address] Trace Adriana Cholesterol in LDL [Mass/Vol] 49.2 mg/dL Normal [facility] Comment on above: Performed By: #### CMP, LIPID #### [facility] [address] [place], [place] [id number] Trace Adriana Cholesterol.tota l/Cholesterol in HDL [Mass ratio] 4.2 {ratio} Normal [facility] Comment on above: Performed By: #### CMP, LIPID #### [facility] [address] [place], [place] [address] Trace Adriana HDL NORMAL > or = 60 mg/dl - LO W CARDIOVASCULAR RISK <40 mg/dl - HIGH CARDIOVASCULAR RISK Normal [facility] Comment on above: Performed By: #### CMP, LIPID #### [facility] [address] [place] [id number] Trace Adriana LDL CALC NORMAL SEE BELOW Normal [facility] Comment on above: Result Comment: <100 mg/dl OPTIMAL 100 - 129 mg/dl NEAR OR ABOVE OPTIMAL 130 - 159 mg/dl BORDERLINE HIGH 160 - 189 mg/dl HIGH >190 mg/dl VERY HIGH Performed By: #### C MP, LIPID #### [facility] [address] [place], [place] [id number] Trace Adriana Triglyceride [Mass/Vol] 344 mg/dL Critically high <=150 [facility] Comment on above: Performed By: #### CMP, LIPID #### [facility] [address] [place], [place] [address] Trace Adriana VLDL CALC 68.8 mg/dL Normal [facility] Comment on above: Performed By: #### CMP, LIPID #### [facility] [address] [place] [address] Trace Wright PROF 14(COMP METB)on 021 Albumin [Mass/Vol] 3.9 g/dL Normal 3.5-5.0 [facility] Comment on above: Performed By: #### CMP, LIPID #### [facility] [address] [place], [place] [address] Trace Adriana Albumin/Globulin [Mass ratio] 1.2 {ratio} Normal [facility] Comment on above: Performed By: #### CMP, LIPID #### [facility] [address] [place] [address] Trace Adriana ALP [Catalytic activity/Vol] 50 U/L Normal 38-126 [facility] Comment on above: Performed By: #### CMP, LIPID #### [facility] [address] [place] [id number] Trace Adriana ALT [Catalytic activity/Vol] 79 U/L Critically high 21-72 [facility] Comment on above: Performed By: #### CMP, LIPID #### [facility] [address] [place] [id number] Trace Adriana Anion gap [Moles/Vol] 13.8 mmol/L Normal [facility] Comment on above: Performed By: #### CMP, LIPID #### [facility] [address] [place] [address] Trace Adriana AST [Catalytic activity/Vol] 30 U/L Normal 17-59 [facility] Comment on above: Performed By: #### CMP, LIPID #### [facility] [address] [place] [address] Trace Adriana Bilirubin [Mass/Vol] 0.6 mg/dL Normal 0.2-1.3 [facility] Comment on above: Performed By: #### CMP, LIPID #### [facility] [address] [place] [address] Trace Adriana Calcium [Mass/Vol] 9.2 mg/dL Normal 8.4-10.2 [facility] Comment on above: Performed By: #### CMP, LIPID #### [facility] [address] [place] [address] Trace Adriana Chloride [Moles/Vol] 103 mmol/L Normal 98-107 [facility] Comment on above: Performed By: #### CMP, LIPID #### [facility] [address] [place] [id number] Trace Adriana CO2 [Moles/Vol] 25.5 mmol/L Normal 22.0-30.0 [facility] Comment on above: Performed By: #### CMP, LIPID #### [facility] [address] [place] [id number] Trace Adriana Creatinine [Mass/Vol] 0.89 mg/dL Normal 0.66-1.25 [facility] Comment on above: Performed By: #### CMP, LIPID #### [facility] [address] [place] [id number] Trace Adriana EGFR-AF CITIZEN OF [place] >60 Normal >=60 [facility] Comment on above: Performed By: #### CMP, LIPID #### [facility] [address] [place] [id number] Trace Adriana EGFR-NON AF CITIZEN OF THE [place] >60 Normal >=60 [facility] Comment on above: Performed By: #### CMP, LIPID #### [facility] [address] [place] [id number] Trace Adriana Globulin (S) [Mass/Vol] 3.3 g/dL Normal [facility] Comment on above: Performed By: #### CMP, LIPID #### [facility] [address] [place] [address] Trace Adriana Glucose [Mass/Vol] 103 mg/dL Normal 74-106 [facility] Comment on above: Performed By: #### CMP, LIPID #### [facility] [address] [place] [address] Trace Adriana Potassium [Moles/Vol] 4.3 mmol/L Normal 3.4-5.0 [facility] Comment on above: Performed By: #### CMP, LIPID #### [facility] [address] [place], [place] [address] Trace Adriana Protein [Mass/Vol] 7.2 g/dL Normal 6.1-8.2 [facility] Comment on above: Performed By: #### CMP, LIPID #### [facility] [address] [place] [address] Trace Adriana Sodium [Moles/Vol] 138 mmol/L Normal 137-145 [facility] Comment on above: Performed By: #### CMP, LIPID #### [facility] [address] [place], [place] [address] Trace Adriana Urea nitrogen [Mass/Vol] 14.0 mg/dL Normal 9.0-20.0 [facility] Comment on above: Performed By: #### CMP, LIPID #### [facility] [address] [place], [place] [address] Trace Adriana Urea nitrogen/Creatin ine [Mass ratio] 15.7 mg/mg Normal [facility] Comment on above: Performed By: #### CMP, LIPID #### [facility] [address] [place] [address] LUNG CANCER SCREENINGon 0 01-06-2021 CT [...] by: JULIO BERMEO Date: 2021-01-06 09:16 Normal [facility] Coding Summary.on 01-06-2019 Coding Summary. CODING DATE: 019 FINAL [facility] STATUS: Home (Routine DC) PAYOR: Commercial Insurance [...] PROC APC STAT DESCRIPTION DOCTOR NAME DATE [id number] T Colonoscopy, flexible; Carroll MCKEON MD 01/02/2019 with biopsy, single or multiple [id number] Anesthesia for lower Puri Jr. DOJovanni 01/02/2019 [...] Revised Date Saved: 01/06/2019 12:59 pm Normal [facility] Main OR Intraoperative Recor don 01-04-2019 Main OR Intraoperative Record IntraOp Document Type FT Summary Primary Physician: Carroll MCKEON MD Finalized Date/Time: 01/04/19 08:59:41 Pt. Name: ELIZA RAUSCH /Sex: 1965 Male Med Rec #: [id number] Physician: Carroll MCKEON MD Financial #: [id number] Pt. 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 [...] 2 - Clean-Contaminated Last Modified By: Maricel Hnog RN 01/02/19 08:11:25 General Case Data FT Pre-Care Text: Classifies surgical wound, implements aseptic technique, initiates traffic control Entry 1 Case Information OR ENDO 2 FT Case Level Level 2 Wound Class 2 - Clean-Contaminated Specialty General ASA Class 3 Preop Diagnosis BLOOD IN STOOL Postop Same As Preop No Postop Diagnosis sigmoid polyp Outcomes Met? Yes Last Modified By: Maircel Hong RN 01/02/19 08:11:11 Post-Care Text: The [...] or transport Entry 1 Via Cart By Maircel Hong RN Safety Precautions Side Rails Up [...] Rails Up PostOp Destination PACU Transported By Maircel Hong RN Patient Status Stable Skin. Condition [...] safely administered during the perioperative period For MeloAnthillz please see scanned medication reconcilliation form for [...] 08:11 Brit Eugene CST 01/04/19 08:59 Normal [facility] History and Physicalon 01-02 History and Physical Patient: ELIZA RAUSCH Age: 53 years Sex: Male : 1965 Associated Diagnoses: None Author: BLACK LOVELL, Carroll Nash Subjective no changes to H & P. Normal [facility] Comment on above: Result Comment: Electronically Signed By : Carroll MCKEON MD\.br\Date and Time Signed: 01/02/19 07:24 EDT Inpatient Patient Summaryon 01-02-2019 Inpatient Patient Summary [facility] Clinical Discharge Instructions PERSON INFORMATION Name: ELIZA RAUSCH PHYSICIANS Admitting Physician: Carroll MCKEON MD Attending Physician: Carroll MCKEON MD PCP: Dionisio Louis MD Discharge Diagnosis: Colon polyp Comment: PATIENT EDUCATION INFORMATION Instructions: Colonoscopy, Care After Surgery Franco (Custom); Colon Polyps Medication Leaflets: Follow up: With: Address: When: Carroll MCKEON [address] [place] [id number] [facility] ([employer] Within 7 to 10 days MEDICATION LIST Comment: Normal [facility] Main OR PACU I Recordon 12-06 Main OR PACU I Record PACU Phase I Document Type FT Summary Primary Physician: Carroll MCKEON MD Finalized Date/Time: 01/02/19 08:52:51 Pt. Name: ELIZA RAUSCH /Sex: 1965 Male Med Rec #: [id number] Physician: Carroll MCKEON MD Financial #: [id number] Pt. Type: O Room/Bed: / Admit/Disch: 01/02/19 [...] 08:49 Kalee Hinton RN 01/02/19 08:52 Normal [facility] Main OR Preoperative Recordo n 01-02-2019 Main OR Preoperative Record Holding Area Document Type FT Summary Primary Physician: Carroll MCKEON MD Finalized Date/Time: 01/02/19 07:23:41 Pt. Name: OWENELIZA/Sex: 1965 Male Med Rec #: [id number] Physician: Carroll MCKEON MD Financial #: [id number] Pt. Type: O Room/Bed: / Admit/Disch: 01/02/19 [...] By: Maricel Hong RN 01/02/19 07:23 Normal [facility] Operative Reporton 9 Operative Report Date [...] condition. Carroll Mckeon M.D. robe Dictated: 01/02/2019 #[id number] Typed: 01/02/2019 #[id number] cc: Martina Draper M.D. [facility] Comment on above: Result Comment: Electronically Signed [...] Document Reviewed: 11/01/2012 ExitCare? Patient Information ?2014 [employer]. This information is not intended to replace advice given to you by your health care provider. Make sure you discuss any questions you have with your health care provider. Normal [facility] Progress Note-Physicianon Protein mass conc Patient: [...] noted. Plan Transfer/ Discharge: Condition stable. Normal [facility] Comment on above: Result Comment: Electronically [...] clear to auscultation. Cardiovascular: Regular rhythm. Plan [place] [employer] Anesthesiologists (ASA) physical status classification: Class III. Anesthetic Preoperative Plan Anesthesia: General. . Anesthetic plan, risks, benefits, and alternatives discussed with the patient and/or family. Patient verbalized understanding. [facility] Comment on above: Result Comment: Electronically Signed By : Jovanni Puri Jr., DO.mary\Date and Time Signed: 01/02/19 07:38 EDT Discharge Summaryon 11-14-19 18 Discharge Summary [id number] El[facility] Admitted: 11/10/2017 [...] high risk non-ST segmentelevation myocardial infarction in [place]. [facility] During [facility], the [...] followup scheduled for November 19, [address] [place].DISCHARGE MEDICATIONS:1. Prasugrel 10 mg [...] 11/12/2017/01:31 P/Xiomara Deshpande, MDDate Trans: 11/13/2017 06:56 A/[id number]: Dionisio Louis M.D. [address] [place] [address] Normal [facility] BASIC METABOLIC PANELon 03-0 Calcium mass conc 8.8 mg/dL Normal 8.6-10.3 [facility] Comment on above: Order Comment: No: Do not add to previou s draw Performed By: #### 5 7307, 42487 ####[facility] [place] [address], [facility] Chloride molar conc 111 mmol/L High 98-107 [facility] Comment on above: Order Comment: No: Do not add to previou s draw Performed By: #### 5 7307, 10820 ####[facility] [facility] [place] [address], [facility] CO2 molar conc 23 mmol/L Normal 21-31 [facility] Comment on above: Order Comment: No: Do not add to previou s draw Performed By: #### 5 7307, 78253 ####[facility] [place] [address], [facility] Creatinine mass conc 0.89 mg/dL Normal 0.70-1.30 [facility] Comment on above: Order Comment: No: Do not add to previou s draw Performed By: #### 5 7307, 49998 ####[facility] [place] [address], [place] GFR/1.73 sq M predicted among blacks MDRD vol rate/area (S/P/Bld) mL/min/{1.73_m2} Normal >60 [facility] Comment on above: Order Comment: No: Do not add to previou s draw Performed By: #### 5 7307, 49055 ####[facility] [place] [address], [facility] GFR/1.73 sq M predicted among non-blacks MDRD vol rate/area (S/P/Bld) mL/min/{1.73_m2} Normal >60 [facility] Comment on above: Order Comment: No: Do not add to previou s draw Performed By: #### 5 73, 39960 ####[facility] [place] [address], [facility] Glucose mass conc 106 mg/dL High 70-100 [facility] Comment on above: Order Comment: No: Do not add to previou s draw Performed By: #### 5 7307, 21435 ####[facility] [place] [address], [facility] Potassium molar conc 4.0 mmol/L Normal 3.5-5.1 [facility] Comment on above: Order Comment: No: Do not add to previou s draw Performed By: #### 5 7307, 10258 ####[facility] [place] [address], [place] Sodium molar conc 136 mmol/L Normal 136-145 [facility] Comment on above: Order Comment: No: Do not add to previou s draw Performed By: #### 5 7307, 38606 ####[facility] [place] [address], [place] Urea nitrogen mass conc 19 mg/dL Normal 7-25 [facility] Comment on above: Order Comment: No: Do not add to previou s draw Performed By: #### 5 73, 12412 ####[facility] CBC COMPLETE BLOOD COUNTon 0 11-12-2017 Erythrocyte distribution width Auto Ratio (RBC) 13.4 % Normal 11.5-15.0 [facility] Comment on above: Order Comment: No: Do not add to previou s draw Performed By: #### 5 7306, 65244 ####[facility] [facility] Hematocrit Auto Volume Fraction (Bld) 41.0 % Normal 39.0-50.0 [facility] Comment on above: Order Comment: No: Do not add to previou s draw Performed By: #### 5 7306, 28225 ####[facility] Hemoglobin mass conc (Bld) 13.9 g/dL Normal 13.0-17.0 [facility] Comment on above: Order Comment: No: Do not add to previou s draw Performed By: #### 5 7306, 61790 ####[facility] [facility] MCH Auto Entitic mass (RBC) 29.0 pg Normal 27.0-33.0 [facility] Comment on above: Order Comment: No: Do not add to previou s draw Performed By: #### 5 73, 79612 ####[facility] [place] [address], [facility] MCHC Auto mass conc (RBC) 33.9 g/dL Normal 32.0-35.0 [facility] Comment on above: Order Comment: No: Do not add to previou s draw Performed By: #### 5 73, 23108 ####[facility] MCV Auto Entitic volume (RBC) 85.6 fL Normal 82.0-98.0 [facility] Comment on above: Order Comment: No: Do not add to previou s draw Performed By: #### 5 7307, 56352 ####[facility] Nucleated RBC/100 WBC Ratio (Bld) 0 % Normal 0-0 [facility] Comment on above: Order Comment: No: Do not add to previou s draw Performed By: #### 5 7307, 40046 ####[facility] [facility] PLAT CNT 165 10*3/uL Normal 150-400 [facility] Comment on above: Order Comment: No: Do not add to previou s draw Performed By: #### 5 7307, 48201 ####[facility] RBC Auto #/vol (Bld) 4.79 10*6/uL Normal 4.20-5.70 [facility] Comment on above: Order Comment: No: Do not add to previou s draw Performed By: #### 5 7307, 00447 ####[facility] [place] [address], [facility] WBC Auto #/vol (Bld) 7.4 10*3/uL Normal 4.0-10.6 [facility] Comment on above: Order Comment: No: Do not add to previou s draw Performed By: #### 5 7307, 28433 ####[facility] Cardiovascular Lab Reporton 11-12-2017 Cardiovascular Lab Report [facility] Patient Name: Eliza Rausch MR #: [id number] Center Physician: Maya Vu M.D.Department of Service Date: 11/11/2017Medicine Birthdate: 1965Division of Room #: 3AB [id number] [place] [address].[place], [place] [address]Ilgzb Fax Cardiovascular Laboratory ReportINDICATION: Eliza Rausch is a 52-year-old man, who was admitted to [facility] with crescendo angina and elevation of [...] signed informed consent. 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 Mo's testwas favorable. Access from the right radial artery was obtained usingmicropuncture technique. A 6-Italian x 11 cm Hydrophilic sheath wasadvanced. Verapamil was given through the sheath and heparin wasadministered intravenously. Bilateral selective coronary angiography wasthen performed using a 5-Italian JR5 diagnostic catheter for engagement ofthe right coronary artery and a 6-Italian Ruth Radial diagnostic catheterfor engagement of the left coronary artery. Angiography was performed inmultiple views. Catheters were removed.Therapeutic ACT was confirmed during the procedure. A 6-Italian XB 3.0guiding catheter was advanced and used to engage the left main coronaryostium. A BMW wire was advanced into the distal LAD. Balloon angioplastyand the proximal LAD were performed using Emerge 3.0 x 12 mm ballooninflated at 12 atmospheres. This was followed by deployment of a PROMUSPremier 3.5 x 16 mm drug-eluting stent deployed at 11 atmospheres and postdilated using NC Quantum Matthews 3.5 x 12 mm noncompliant balloon inflated [...] 11/11/2017/12:53 P/Maya Vu M.D.Date Trans: 11/12/2017 03:24 A/[id number]: Dionisio Louis M.D. [address] [place] [address] Normal [facility] MAGNESIUM BLOODon 11-12-2017 Magnesium mass conc 2.2 mg/dL Normal 1.9-2.7 [facility] Comment on above: Order Comment: No: Do not add to previou s draw Performed By: #### 5 7307, 74793 ####[facility] APTTon 11-11-2017 aPTT Coag time (Bld) 31.2 s Normal 25.0-35.0 [facility] Comment on above: Order Comment: [...] THIS PURPOSE. Performed By: #### 5 7307, 08538 ####[facility] BASIC METABOLIC PANELon Calcium mass conc 9.2 mg/dL Normal 8.6-10.3 [facility] Comment on above: Order Comment: No: Do not add to previou s draw Performed By: #### 5 7307, 38932 ####[place] [address] Chloride molar conc 109 mmol/L High 98-107 [facility] Comment on above: Order Comment: No: Do not add to previou s draw Performed By: #### 5 7307, 35863 ####[facility] [place] [address], [place] CO2 molar conc 24 mmol/L Normal 21-31 [facility] Comment on above: Order Comment: No: Do not add to previou s draw Performed By: #### 5 7307, 07784 ####[facility] [place] [address], [place] Creatinine mass conc 0.90 mg/dL Normal 0.70-1.30 [facility] Comment on above: Order Comment: No: Do not add to previou s draw Performed By: #### 5 7307, 24328 ####[facility] [place] [address], [place] GFR/1.73 sq M predicted among blacks MDRD vol rate/area (S/P/Bld) mL/min/{1.73_m2} Normal >60 [facility] Comment on above: Order Comment: No: Do not add to previou s draw Performed By: #### 5 7307, 32207 ####[facility] [place] [address], [place] GFR/1.73 sq M predicted among non-blacks MDRD vol rate/area (S/P/Bld) mL/min/{1.73_m2} Normal >60 [facility] Comment on above: Order Comment: No: Do not add to previou s draw Performed By: #### 5 7307, 14915 ####[facility] [place] [address], [place] Glucose mass conc 102 mg/dL High 70-100 [facility] Comment on above: Order Comment: No: Do not add to previou s draw Performed By: #### 5 7307, 56451 ####[facility] [place] [address], [place] Potassium molar conc 4.0 mmol/L Normal 3.5-5.1 [facility] Comment on above: Order Comment: No: Do not add to previou s draw Performed By: #### 5 7307, 52144 ####[facility] Sodium molar conc 134 mmol/L Low 136-145 [facility] Comment on above: Order Comment: No: Do not add to previou s draw Performed By: #### 5 7307, 42364 ####[facility] Urea nitrogen mass conc 16 mg/dL Normal 7-25 [facility] Comment on above: Order Comment: No: Do not add to previou s draw Performed By: #### 5 7307, 81279 ####[facility] [facility] CBC COMPLETE BLOOD COUNTon 0 - Erythrocyte distribution width Auto Ratio (RBC) 13.3 % Normal 11.5-15.0 [facility] Comment on above: Order Comment: Yes: Add to Previous draw if able Performed By: #### 5 0608 ####[place] [address] [facility].[address] Hematocrit Auto Volume Fraction (Bld) 45.1 % Normal 39.0-50.0 [facility] Comment on above: Order Comment: Yes: Add to Previous draw if able Performed By: #### 5 0608 ####[facility].[address] Hemoglobin mass conc (Bld) 15.5 g/dL Normal 13.0-17.0 [facility] Comment on above: Order Comment: Yes: Add to Previous draw if able Performed By: #### 5 0608 ####[place] [address] MCH Auto Entitic mass (RBC) 29.2 pg Normal 27.0-33.0 [facility] Comment on above: Order Comment: Yes: Add to Previous draw if able Performed By: #### 5 0608 ####[facility].[address] MCHC Auto mass conc (RBC) 34.4 g/dL Normal 32.0-35.0 [facility] Comment on above: Order Comment: Yes: Add to Previous draw if able Performed By: #### 5 0608 ####[facility].[address] MCV Auto Entitic volume (RBC) 84.9 fL Normal 82.0-98.0 [facility] Comment on above: Order Comment: Yes: Add to Previous draw if able Performed By: #### 5 0608 ####[address] Nucleated RBC/100 WBC Ratio (Bld) 0 % Normal 0-0 [facility] Comment on above: Order Comment: Yes: Add to Previous draw if able Performed By: #### 5 0608 ####[facility].[address] PLAT CNT 177 10*3/uL Normal 150-400 [facility] Comment on above: Order Comment: Yes: Add to Previous draw if able Performed By: #### 5 0608 ####[address] RBC Auto #/vol (Bld) 5.31 10*6/uL Normal 4.20-5.70 [facility] Comment on above: Order Comment: Yes: Add to Previous draw if able Performed By: #### 5 0608 ####[facility].[address] WBC Auto #/vol (Bld) 10.1 10*3/uL Normal 4.0-10.6 [facility] Comment on above: Order Comment: Yes: Add to Previous draw if able Performed By: #### 5 0608 ####[facility].[address] CBC W/DIFFon 11-11-2017 ABS BASOPHILS 0.0 10*3/uL Normal 0.0-0.2 [facility] Comment on above: Order Comment: No: Do not add to previou s draw Performed By: #### 5 0103 ####[facility] [place] [address], [facility] ABS IMM GRANS 0.0 10*3/uL Normal 0.0-0.2 [facility] Comment on above: Order Comment: No: Do not add to previou s draw Performed By: #### 5 0103 ####[facility].[address] ABS NEUTROPHILS 4.6 10*3/uL Normal 1.6-7.6 [facility] Comment on above: Order Comment: No: Do not add to previou s draw Performed By: #### 5 0103 ####[facility].[address] Basophils Auto #/vol (Bld) 0.4 % Normal 0.0-1.0 [facility] Comment on above: Order Comment: No: Do not add to previou s draw Performed By: #### 5 0103 ####[facility].[address] Eosinophils Auto #/vol (Bld) 0.3 10*3/uL Normal 0.0-0.5 [facility] Comment on above: Order Comment: No: Do not add to previou s draw Performed By: #### 5 0103 ####[facility] [place] [address], [facility] Eosinophils/100 WBC Auto (Bld) 4.0 % Normal 0.0-6.0 [facility] Comment on above: Order Comment: No: Do not add to previou s draw Performed By: #### 5 0103 ####[facility] Erythrocyte distribution width Auto Ratio (RBC) 13.3 % Normal 11.5-15.0 [facility] Comment on above: Order Comment: No: Do not add to previou s draw Performed By: #### 5 0103 ####[facility].[address] Hematocrit Auto Volume Fraction (Bld) 44.0 % Normal 39.0-50.0 [facility] Comment on above: Order Comment: No: Do not add to previou s draw Performed By: #### 5 0103 ####[facility] [facility].[address] Hemoglobin mass conc (Bld) 15.0 g/dL Normal 13.0-17.0 [facility] Comment on above: Order Comment: No: Do not add to previou s draw Performed By: #### 5 0103 ####[facility] IMMATURE GRANS 0.4 % Normal 0.0-1.0 [facility] Comment on above: Order Comment: No: Do not add to previou s draw Performed By: #### 5 0103 ####[facility] Lymphocytes Auto #/vol (Bld) 2.5 10*3/uL Normal 1.2-4.0 [facility] Comment on above: Order Comment: No: Do not add to previou s draw Performed By: #### 5 0103 ####[facility] Lymphocytes/100 WBC Auto (Bld) 30.0 % Normal 20.0-45.0 [facility] Comment on above: Order Comment: No: Do not add to previou s draw Performed By: #### 5 0103 ####[facility] MCH Auto Entitic mass (RBC) 28.6 pg Normal 27.0-33.0 [facility] Comment on above: Order Comment: No: Do not add to previou s draw Performed By: #### 5 0103 ####[facility] MCHC Auto mass conc (RBC) 34.1 g/dL Normal 32.0-35.0 [facility] Comment on above: Order Comment: No: Do not add to previou s draw Performed By: #### 5 0103 ####[facility] MCV Auto Entitic volume (RBC) 84.0 fL Normal 82.0-98.0 [facility] Comment on above: Order Comment: No: Do not add to previou s draw Performed By: #### 5 3 ####[facility].[address] Monocytes Auto #/vol (Bld) 0.9 10*3/uL Normal 0.1-1.0 [facility] Comment on above: Order Comment: No: Do not add to previou s draw Performed By: #### 5 0103 ####[facility] MONOS 10.3 % Normal 5.0-12.0 [facility] Comment on above: Order Comment: No: Do not add to previou s draw Performed By: #### 5 0103 ####[facility] Neutrophils/100 WBC Auto (Bld) 54.9 % Normal 40.0-72.0 [facility] Comment on above: Order Comment: No: Do not add to previou s draw Performed By: #### 5 0103 ####[facility].[address] Nucleated RBC/100 WBC Ratio (Bld) 0 % Normal 0-0 [facility] Comment on above: Order Comment: No: Do not add to previou s draw Performed By: #### 5 0103 ####[facility] [facility] [place] [address], [facility] PLAT CNT 169 10*3/uL Normal 150-400 [facility] Comment on above: Order Comment: No: Do not add to previou s draw Performed By: #### 5 0103 ####[facility] [facility] [place] [address], [facility] RBC Auto #/vol (Bld) 5.24 10*6/uL Normal 4.20-5.70 [facility] Comment on above: Order Comment: No: Do not add to previou s draw Performed By: #### 5 0103 ####[facility] [facility] [place] [address], [facility] WBC Auto #/vol (Bld) 8.3 10*3/uL Normal 4.0-10.6 [facility] Comment on above: Order Comment: No: Do not add to previou s draw Performed By: #### 5 0103 ####[facility] [facility] [place] [address], [facility] HEMOGLOBIN A1Con 11-11-2017 Glucose mass conc 111 mg/dL Normal 70-126 [facility] Comment on above: Order Comment: No: Do not add to previou s draw Performed By: #### 5 7307, 00100 ####[facility] [place] [address], [facility] Hemoglobin A1c/Hemoglobin.t otal mass fraction (Bld) 5.5 % Normal 4.0-6.0 [facility] Comment on above: Order Comment: No: Do not add to previou s draw Performed By: #### 5 7307, 57968 ####[facility] History and Physicalon 11-11 History and Physical [id number] Admitted: 11/10/2017 Date of : 1965 Attending Physician: Mikki Potter MD Room #: [id number] Discharge Date: HISTORY AND PHYSICALCHIEF COMPLAINT: 3 episodes of substernal chest pain for the past 2 days.HISTORY OF PRESENTING ILLNESS:Mr. Eliza Rausch, is a 52-year-old male with past medical historysignificant for hyperlipidemia and extensive family history of coronaryartery disease persisted to the ER with 3 episodes of chest pain thathappened since yesterday afternoon. The patient was working in his [employer]day when he felt substernal discomfort, pain was about 8/10,squeezing, was associated with diaphoresis, lasted for about 2 minutes,self-resolved. Since then, he had like 2 episodes of chest pain thathappened with mild exertion and self resolved. He denies any shortness ofbreath, palpitations, lightheadedness, dizziness, or prior NE.In the ER, his blood pressure was noted [...] with family.FAMILY HISTORY: His father of massive NE at age of 75, his mom hasdiabetes, sister had a triple bypass last year [...] symmetric, no visible pulsations, moves equallywith respirations.HEART: [place] palpable over the midclavicular line in the [...] by:Mikki Potter MD 11/11/2017 02:48 A _Mikki Potter MDDate Dict: 11/10/2017/11:34 P/SUNNY Lópezate Trans: 11/11/2017 12:16 A/[id number] Normal [facility] LIPID PROFILEon 11-11-2017 Cholesterol in HDL mass conc 33 mg/dL Normal 23-92 [facility] Comment on above: Result Comment: Slight variation in norm al range could be due to gender and/or age.HDL CHOLESTEROL REFERENCE RANGE:20 years and older Cardiovascular Risk> or =60 mg/dL Flivewdgh63 TO 59 mg/dL Low Risk<40 mg/dL High Risk Performed By: #### 4 6413, 85431, 70756, 82927 ####[facility] [place] [address], [facility] Cholesterol in LDL mass conc 106 mg/dL Normal 0-130 [facility] Comment on above: Result Comment: LDL IS A CALCULATIONLDL IS ONLY VALID IF THE TRIG IS LESS THAN 400. Performed By: #### 4 6413, 96760, 43303, 72566 ####[facility] [place] [address], [facility] Cholesterol mass conc 169 mg/dL Normal 120-200 [facility] Comment on above: Result Comment: CHOLESTEROL REFERENCE RA NGE:20 YEARS AND OLDER CARDIOVASCULAR RISKLess than 200 mg/dl Low Ogjg404 to 239 mg/dl Borderline Moby916 mg/dl and greater High Risk Performed By: #### 4 6413, 70016, 94705, 56674 ####[facility] [place] [address], [place] Cholesterol.tota l/Cholesterol in HDL mass ratio 5.1 {ratio} High .0-4.5 [facility] Comment on above: Performed By: #### 31404, 84095, 04597, 13705 ####[facility] NON-HDL CHOLESTEROL 136 mg/dL Normal [facility] Comment on above: Performed By: #### 42619, 96953, 94382, 35870 ####[facility] Triglyceride mass conc 149 mg/dL Normal 40-149 [facility] Comment on above: Result Comment: TRIGLYCERIDE REFERENCE R ARLENE:20 YEARS AND OLDER CARDIOVASCULAR RISKLESS THAN 150 mg/dl LOW HTSG934 TO 199 mg/dl BORDERLINE ASQG103 mg/dl AND GREATER HIGH RISK Performed By: #### 4 6413, 99060, 74136, 20324 ####[facility] VLDL CHOL 30 mg/dL Normal 0-40 [facility] Comment on above: Performed By: #### 14017, 29758, 56974, 28646 ####[facility] MAGNESIUM BLOODon 11-11-2017 Magnesium mass conc 2.2 mg/dL Normal 1.9-2.7 [facility] Comment on above: Order Comment: No: Do not add to previou s draw Performed By: #### 5 7307, 82278 ####[facility] PROTHROMBIN TIMEon 8 INR Coag RelTime (PPP) 0.93 {INR} Normal 0.91-1.16 [facility] Comment on above: Order Comment: [...] OF ACTION, CLINICALEFFECTIVENESS, AND OPTIMAL THERAPEUTIC RANGE. [id number];108:[id number]. Performed By: #### 5 7307, 05309 ####[place] [address] Prothrombin time (PT) Coag time (PPP) 12.5 s Normal 12.3-14.8 [facility] Comment on above: Order Comment: No: Do not add to previou s draw Result Comment: ALL RESULTS MUST BE INTERPRETED WITH RESPECT TO BLOOD DRAWING ARTIFACTOR DILUTION ERROR OF ANTICOAGULANT AT THE TIME OF SAMPLING. Performed By: #### 5 7307, 92173 ####[place] [address] TROPONIN-Ion 11-11-2017 Troponin I.cardiac mass conc 0.07 ng/mL High 0.00-0.04 [facility] Comment on above: Result Comment: REFERENCE RANGES: 0.00 - 0.04 ng/ml NORMAL 0.05 - 0.50 ng/ml INDETERMINATE > 0.50 ng/ml CONSISTENT WITH AN M.I. Performed By: #### 5 7307, 12915 ####[place] [address] [place] [address], [facility] Troponin I.cardiac mass conc 0.08 ng/mL High 0.00-0.04 [facility] Comment on above: Order Comment: No: Do not add to previou s draw Result Comment: REFE RENCE RANGES: 0.00 - 0.04 ng/ml NORMAL 0.05 - 0.50 ng/ml INDETERMINATE > 0.50 ng/ml CONSISTENT WITH AN M.I. Performed By: #### 3 5200 ####[facility] Troponin I.cardiac mass conc 0.08 ng/mL High 0.00-0.04 [facility] Comment on above: Order Comment: No: Do not add to previou s draw Result Comment: REFE RENCE RANGES: 0.00 - 0.04 ng/ml NORMAL 0.05 - 0.50 ng/ml INDETERMINATE > 0.50 ng/ml CONSISTENT WITH AN M.I. Performed By: #### 3 5200 ####[facility] TSH WITH REFLEXon 11-11-2017 Thyrotropin Qn 1.86 MICRO-IU/ML Normal 0.34-5.60 [facility] Comment on above: Order Comment: No: Do not add to previou s draw Performed By: #### 3 0241 ####[facility] UFH HEPARIN ASSAYon 11-12-19 18 UNFRACTIONATED HEPARIN 0.20 IU/mL Low 0.30-0.70 [facility] Comment on above: Result Comment: Rivaroxaban and Apixaban will interfere with the anti Xa assay used tomonitor UFH and LMWH. Performed By: #### 3 0477 ####[facility] [facility].[address] Encounters Encounter Date Encounter Type Care Provider Facility Start: 02-13-2025 End: 02-13-2025 Patient encounter procedure Dionisio Louis MD Work Phone: [facility] Work Phone: Start: 02-13-2025 End: 02-13-2025 ambulatory Dionisio Louis MD Work Phone: [facility] Work Phone: Start: 01-22-2025 End: 01-22-2025 ambulatory [facility] Start: 02-18-2024 End: 02-18-2024 ambulatory [facility] Start: 12-31-2021 Encounter for genera l adult medical examination without abnormal findings DR DIONISIO LOUIS [facility] Start: 12-29-2021 End: 12-30-[address] DIONISIO LOUIS Facility:[facility] Start: 12-29-2021 End: 12-30-2021 Encounter for general adult medical examination without abnormal findings DR DIONISIO LOUIS Facility:[facility] Start: 05-19-2021 End: 05-20-[address] DIONISIO LOUIS Facility:[facility] Start: 03-27-[address] DIONISIO LOUIS Facility :[facility] Start: 01-06-2021 End: 01-07-[address] DIONISIO LOUIS Facility:[facility] Start: 01-02-2019 End: 01-03-2019 Patient encounter procedure Carroll Mckeon Facility:[facility] Start: 04-04-2018 End: 04-05-2018 Patient encounter NATALIA MORA Facility:[facility] Start: 11-10-2017 End: 11-12-2017 Evaluation and management of inpatient ИВАН RAMOS Facility:[facility] Procedures Date Procedure Procedure Detail Performing Clinician Start: 12-29-[address] ANABEL LOUIS Comment on above: Performed By: #### U AMBERLY, CMP, LIPID #### [facility] [address] [place] [address] [address] Kami Torres Start: 05-19-[address] ANABEL LOUIS Comment on above: Performed By: #### P SASC #### [facility] [address] [place] [address] [address] Start: 11-11-2017 DILATION OF 1 COR AR T WITH DRUG-ELUT INTRA, PERC APPROACH [facility] Start: 11-11-2017 FLUOROSCOPY OF MULTI PLE CORONARY ARTERIES USING OTH CONTRAST [facility] Plan of Treatment Date Care Activity Detail Author Start: 02-13-2025 Ultrasound elastogra phy of liver DH Fibroscan (Not Applicable) [facility] Payers Date Payer Category Payer Unknown [id number] 2.16.84 [id number] 1965 Unknown [id number] 2.16.84 [id number] 1965 Unknown [id number] 2.16.84 [id number] 1965 Unknown [id number] 2.16.84 [id number] 1965 Unknown [id number] 2.16.84 [id number] 1960 Self-pay 1960 Unknown [id number] Unknown [id number] 2.16.8 [id number] Social History Date Type Detail Facility Tobacco smoking stat [facility] Unknown if ever smoked [facility] Work Phone: Start: 02-14-2025 Sex Male (finding) [facility] Start: 1965 Sex Assigned At Male F [facility] Progress note 01-22-2025 Note Date & Type Note Facility 01-22-2025 Note [place] [facility] Subjective Eliza Rausch is a 60 y.o. year old male patient being seen for 1 year follow up. Patient states he has dyspnea with exertion. Patient denies chest pain, leg swelling. Palpitations. 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 The RCA is a yqnlhwvy-jk-dmwwx vessel and is dominant. The mid RCA [...] Effient was stopped given 4 years post NE and PCI. On 07/10/2023 he presented to the emergency room at the [facility] with chest pain. He ruled out [...] of chest pa (more content not included)... [facility] note 02-18-2024 Note Date & Type Note Facility 02-18-2024 Note [place] [facility] Subjective Eliza Rausch is a 59 y.o. 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 The RCA is a vhrxzdgb-ff-crueu vessel and is dominant. The mid RCA [...] Effient was stopped given 4 years post NE and PCI. On 07/10/2023 he presented to the emergency room at the [facility] with chest pain. He ruled out [...] echocardiogram and a (more content not included)... [facility] Evaluation note Note Date & Type Note Facility Evaluation note No assessment information availa petra [facility] Work Phone: Summary Purpose Family History No Family History Records FoundNo Family History Records FoundNo Family History Records FoundNo Family History Records FoundNo Family History Records Found Advance Directives No Advanced Directives Records FoundNo Advanced Directives Records FoundNo Advanced Directives Records FoundNo Advanced Directives Records FoundNo Advanced Directives Records Found Chief Complaint and Reason for Visit Chief Complaint Admit Date hepatic steatosis February 13, 2025 1:31 pm Additional Source Comments (unrecognized sect ion and content) No Status Records FoundNo Status Records FoundNo Status Records FoundNo Status Records FoundNo Status Records Found INFORMATION SOURCE (unrecogn ized section and content) DATE CREATED AUTHOR 04/06/2018 [facility] DATE CREATED AUTHOR AUTHOR'S ORGANIZ ATION 01/14/2019 [facility] DATE CREATED AUTHOR AUTHOR'S ORGANIZ ATION 01/03/2022 [facility] DATE CREATED AUTHOR AUTHOR'S ORGANIZ ATION 01/23/2025 [facility] DATE CREATED AUTHOR AUTHOR'S ORGANIZ ATION 02/15/2025 [facility] Care Teams (unrecognized sec tion and content) Team Status: Active Member Role Status Dates Dionisio Louis MD Primary Care Provider Active Team Status: Inactive Member Role Status Dates Dionisio Louis MD Primary Care Provide r, Referring Provider Active Start: February 13, 2025 End: February 13, 2025 Temporary Fibroscan Attending Provider Active St art: February 13, 2025 End: February 13, 2025 Goals (unrecognized section and content) Goals may be documented in a n alternate section FOR RECORDS PERTAINING TO PATIENTS WHO ARE [...] BE BASED ON THE PRIMARY CLINICAL RECORDS. [facility]. provides no warranty or guarantee of the accuracy or completeness of information in this document.
== END 2025-02-26 14:27 | disposition home or self-care (01) ==
LOC: CT 14:26
PROVIDERS: PCP Family Medicine; Visit Provider Family Medicine
DX: Z87.891 Personal history of nicotine dependence (principal)
CPT/HCPCS: 71271